=== PATIENT | male | born 1955 | race Caucasian/White ===

== ENCOUNTER 2024-06-20 14:08 | Outpatient (AMB) | payer MEDICARE, MEDICAID, SELFPAY ==
[2024-06-20 14:12] VITALS: BP 125/61; PULSE 67; O2SAT 95; BMI 34.6
--- NOTE | 2024-06-20 14:12 | A.OFFVIS_ITS ---
Vital Signs 3 06/20/24 14:12 Height 6 ft Weight 255 lb BMI 34.6 BP 125/61 Blood Pressure Location Lt brachial Position Sitting Pulse 67 Pulse Source Pulse Oximeter Pulse Oximetry (%) 95 Oxygen Delivery Method Room Air Intake Visit Reasons: Cervical Myelopathy Allergies No Known Allergies Allergy (Verified 06/20/24 14:16) Medication List - Last Reconciled 06/20/24 by Carrie Alvarez alogliptin 25 mg PO DAILY amlodipine 10 mg PO DAILY atorvastatin 40 mg PO DAILY ergocalciferol (vitamin D2) 1,250 mcg PO QWEEK fluticasone propionate 50 mcg/actuation (Allergy Relief (fluticasone)) 1 spray intranasal DAILY furosemide 20 mg PO DAILY gabapentin 300 mg PO TID levothyroxine 112 mcg PO DAILY losartan 100 mg PO DAILY meloxicam 15 mg PO DAILY metformin 500 mg PO BID omeprazole 20 mg PO DAILY polyvinyl alcohol 1.4% (Artificial Tears (polyvinyl alcohol)) 1 drp ophthalmic (eye) BID-QID PRN HPI Comments Details: Jose is a very pleasant 69-year-old male who presents the office today for evaluation and management of his chronic neck and back pain. He is accompanied by his sister. He endorses 30 years of cervical neck pain, decreased range of motion and weakness of the upper extremities. Was diagnosed with cervical myelopathy, he had an evaluation by Neurosurgery who told him that he would not benefit from surgery and ultimately could make him worse. They feel that he would have dysphagia after surgery. Today would like to focus on his lower back pain as this is the most bothersome. He has been suffering with this pain for approximately 5 years and feels that it is increasingly worsening Over the last 5 years has transitioned from independent ambulation to cane and now requires Rollator walker Reports difficulty lifting his left lower extremity due to lack of strength which ultimately resulted in a recent fall. Patient had an MRI 4 months ago [facility]. Per PCP referral there was cervical myelopathy and lumbar spinal stenosis. We do not have results or images for review. These have been requested. He was evaluated by neurosurgery where they discussed a cervical fusion and lumbar surgery. They did not feel the surgeon was optimistic about performing any surgeries. She told them his pain could worsen and he could end up with permanent damage including dysphagia from the cervical fusion. Therefore they decided to forego surgery though they would consider a 2nd opinion as they felt she did not thoroughly address all their questions and concerns. Approximately 1 year ago patient was enrolled in physical therapy at home, 3 times weekly. Despite this his pain persists. Recent attempts at physical therapy were unsuccessful, he was in too much pain. He has tried massage in the past which is also helpful. He currently takes meloxicam and gabapentin with minimal improvement. He is afraid to stop them though as he feels it may worsen his pain. One year ago moved to [place] from the state of [place]. While he was in [place] he was on chronic opioids, oxycodone 10 mg 4 times daily. He reports that this medication helped him maintain some level of activity and independence. Since moving to [place] he has not been able to get these reinstated. He denies red flag symptoms including new loss of bowel, bladder or saddle anesthesia. Pain today is rated as a 7/10, constant In terms of muscle damage condition is described as punishing, killing, sharp, cutting, lacerating, tingling, stinging. Pain is negatively impacting patient's enjoyment of life, sleep, ability to perform activities of daily living, ability to care for himself and ability to function normally. He requires VNA assistance in the home to help with bathing and basically all activities of daily living. His meals are supplied by meals on wheels, he feels if he did not have this service he would not eat at all. Review of Systems Const All systems reviewed & are unremarkable except as noted in HPI and below Physical Exam Vital Signs: Last Vital Signs Pulse 67 06/20/24 14:12 BP 125/61 06/20/24 14:12 Pulse Ox 95 06/20/24 14:12 Oxygen Delivery Method Room Air 06/20/24 14:12 BMI result Body Mass Index 34.6 General: awake, alert, oriented. Answers questions appropriately. Fully engaged in examination. Skin: warm, dry, intact HEENT: Normocephalic. Hearing intact. Cardiac: External chest normal in appearance. Respiratory: No cough, audible wheezing or stridor. Abdomen: without gross distension. MS: No obvious swelling or deformities. Able to transition from sit to stand unassisted. Ambulates with slight forward flexion Tenderness midline lumbar vertebrae and lower paraspinal muscles Decreased strength left lower extremity. Weakness of left hip flexor. SLR negative bilaterally Negative footdrop, negative clonus Nontender over PSIS bilaterally Decreased cervical range of motion in all planes Facet loading positive Tenderness to palpation midline cervical vertebrae and cervical paraspinal muscles Neurological: Oriented to person, place, time and situation. Thought process intact. Ambulates with Rollator walker Psychiatric: Appropriate mood and affect. Good judgment and insight. Results Reviewed Results Reviewed: Official report and images have been requested. Assessment & Plan Assessment & Plan (1) Cervical myelopathy: Code(s): G95.9 - Disease of spinal cord, unspecified Category: Medical (2) Lumbar spinal stenosis: Code(s): M48.061 - Spinal stenosis, lumbar region without neurogenic claudication Category: Medical (3) Chronic back pain: Code(s): M54.9 - Dorsalgia, unspecified; G89.29 - Other chronic pain Category: Medical Plan Jose is a very pleasant 69-year-old male who presented to the office today for evaluation management of his chronic neck and lower back pain. Today he reports his lower back pain is his main concern he would like to start with this area 1st. Had a recent MRI at [facility], results and images have been requested for review. Lengthy discussion with patient regarding diagnosis and treatment options. All of these will require review of MRI. We will consider caudal epidural steroid injection, transforaminal epidural steroid injection mild procedure, spinal cord stimulator or intrathecal pain pump. May also benefit from 2nd opinion with neurosurgical evaluation. New prescription for methocarbamol 500 mg p.o. t.i.d.. Patient advised on cautions for use. Continue with gabapentin and meloxicam as prescribed by primary care provider All questions and concerns were answered, patient agrees with plan. Follow-up once MRI is available for review. Medications: New 2 methocarbamol No driving while taking this medication. 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
== END 2024-06-20 15:19 | disposition home or self-care (01) ==
PROVIDERS: PCP Internal Medicine; Visit Provider Registered Nurse Emergency
DX: G95.9 Disease of spinal cord, unspecified (principal); M48.061 Spinal stenosis, lumbar region without neurogenic claudication; M54.9 Dorsalgia, unspecified; G89.29 Other chronic pain
CPT/HCPCS: 99204

== ENCOUNTER → 2024-06-20 14:08 | Outpatient (BNVA) | payer MEDICARE, MEDICAID, SELFPAY | PROVIDERS: PCP Internal Medicine; Visit Provider Registered Nurse Emergency | DX: M48.061 Spinal stenosis, lumbar region without neurogenic claudication (principal); M54.9 Dorsalgia, unspecified; G89.29 Other chronic pain; G95.9 Disease of spinal cord, unspecified | CPT/HCPCS: 99202 ==

== ENCOUNTER 2024-07-28 14:58 | Outpatient (AMB) | payer MEDICARE, MEDICAID, SELFPAY ==
--- NOTE | 2024-07-28 14:59 | MHC.OFFVIS ---
Vital Signs 07/28/24 15:11 Height 6 ft Weight 273 lb 2 oz BMI 37.0 BP 130/60 Blood Pressure Location Lt brachial Position Sitting Respiration 14 Pulse 57 Pulse Source Pulse Oximeter Pulse Oximetry (%) 94 Oxygen Delivery Method Room Air Intake Visit Reasons: Discuss MRI Results Intake Note: Patient comes in to discuss MRI results. Reports pain 610. Allergies No Known Allergies Allergy (Verified 07/28/24 15:10) HPI Comments Details: Jose is a very pleasant 69-year-old male who presents the office today for evaluation and management of his chronic neck and back pain. He is accompanied by his sister. He endorses 30 years of cervical neck pain, decreased range of motion and weakness of the upper extremities. Was diagnosed with cervical myelopathy, he had an evaluation by Neurosurgery who told him that he would not benefit from surgery and ultimately could make him worse. They feel that he would have dysphagia after surgery. The patient was explained today that with myelopathy he can not become quadriplegic or develop quadriparesis. As of his lower back pain my impression is that he is suffering from both spondylosis of the lumbar spine and bilateral sacroiliitis. Prior: He has been suffering with this pain for approximately 5 years and feels that it is increasingly worsening Over the last 5 years has transitioned from independent ambulation to cane and now requires Rollator walker Reports difficulty lifting his left lower extremity due to lack of strength which ultimately resulted in a recent fall. Patient had an MRI 4 months ago [facility]. Per PCP referral there was cervical myelopathy and lumbar spinal stenosis. We do not have results or images for review. These have been requested. He was evaluated by neurosurgery where they discussed a cervical fusion and lumbar surgery. They did not feel the surgeon was optimistic about performing any surgeries. She told them his pain could worsen and he could end up with permanent damage including dysphagia from the cervical fusion. Therefore they decided to forego surgery though they would consider a 2nd opinion as they felt she did not thoroughly address all their questions and concerns. Approximately 1 year ago patient was enrolled in physical therapy at home, 3 times weekly. Despite this his pain persists. Recent attempts at physical therapy were unsuccessful, he was in too much pain. He has tried massage in the past which is also helpful. He currently takes meloxicam and gabapentin with minimal improvement. He is afraid to stop them though as he feels it may worsen his pain. One year ago moved to [place] from the state of [place]. While he was in [place] he was on chronic opioids, oxycodone 10 mg 4 times daily. He reports that this medication helped him maintain some level of activity and independence. Since moving to [place] he has not been able to get these reinstated. He denies red flag symptoms including new loss of bowel, bladder or saddle anesthesia. Pain today is rated as a 7/10, constant In terms of muscle damage condition is described as punishing, killing, sharp, cutting, lacerating, tingling, stinging. Pain is negatively impacting patient's enjoyment of life, sleep, ability to perform activities of daily living, ability to care for himself and ability to function normally. He requires VNA assistance in the home to help with bathing and basically all activities of daily living. His meals are supplied by meals on wheels, he feels if he did not have this service he would not eat at all. Review of Systems Const All systems reviewed & are unremarkable except as noted in HPI and below ENT Reports Normal hearing present Neuro Reports Normal hearing present, Denies Abnormal speech present, Denies confusion and Denies Sensory deficit (Neuro) Psych Denies confusion Physical Exam Const General: no acute distress; No confusion Nutritional Appearance: obese morbidly obese Orientation/consciousness: patient oriented x3 and No confusion Eyes General: appearance normal, both eyes and all related structures Pupils: Equal, round and reactive pupils present EOM: EOMs intact bilaterally Neck Neck: Yes full ROM Chest Chest palpation & inspection: normal inspection of the chest Resp Effort & Inspection: normal respiratory effort, able to speak in complete sentences, normal respiratory pattern, no audible wheezes and no cough Cardio Jugular venous distension: no JVD GI Inspection: Yes normal to inspection Back/Spine/Pelvis Other: Flexing forward as well as flexing backwards equally aggravates patient's pain. Patient reports he is unable to flex his thigh because of the weakness he is unable to move his arms freely they seem to be weak and stiff. He denies Valsalva maneuver aggravates his pain. Reflexes on the left side brachioradialis and triceps seem to be a little bit more agile compare to reflexes on the right. Same thing can not be said about bilateral patellar reflexes: The left side reflexes more brisk than the right 1 although grading would be only +1. Bilateral Achilles reflexes are very sluggish, completely absent. He admits possible urinary retention he reports that sometimes he needs to flex himself all the way for vieyra in the able to make himself urinate. He denies incontinence with urine or stool. He reports sitting aggravates his pain as well as standing, pain is alleviated when he is laying down. He reports that standing aggravate his pain the most. SLR is negative bilaterally. Forced feet dorsiflexion in maximal SLR negative bilaterally for pain increase in the back although it is discomforting for him because of the injury of the left knee in the past. Rancho test is positive bilaterally. Attempt to perform Gaenslen test is also cause severe discomfort in the projection of bilateral sacroiliac joint although patient is very difficult to perform Gaenslen test because of stiffness and weakness. Also patient admits pain aggravation with pelvic compression test. Loading test is also positive bilaterally. There is severe tenderness on palpation in paraspinal spinal region lower lumbar spine. Neuro General: patient oriented x3, gait normal and No confusion Cranial nerves: Yes CN's II-XII intact bilaterally, Yes Equal, round and reactive pupils present, Yes Normal hearing present and Yes Ability to bilaterally elevate shoulders present Speech: No Abnormal speech present Gait exam (Neuro): Normal gait present Motor exam (neuro): 5/5 motor strength present throughout Sensory Exam: No Sensory deficit (Neuro) Extrem Other: Bilateral lower extremity seem to be edematous, bilateral upper extremity seem to be also edematous General: No pedal edema Psych Speech and movement: Normal speech and movement present Affect: normal affect Attitude: cooperative Thought process: Normal thought process present Thought content: Normal thought content present Insight: Good insight present (Psych) Judgement: Good judgement present (Psych) Assessment & Plan Assessment & Plan (1) Cervical myelopathy: Code(s): G95.9 - Disease of spinal cord, unspecified Category: Medical (2) Lumbar spinal stenosis: Code(s): M48.061 - Spinal stenosis, lumbar region without neurogenic claudication Category: Medical (3) Chronic back pain: Code(s): M54.9 - Dorsalgia, unspecified; G89.29 - Other chronic pain Category: Medical (4) Myelomalacia of cervical cord: Code(s): G95.89 - Other specified diseases of spinal cord Category: Medical Plan Patient requested me to refill the methocarbamol which was prescribed to him last time. I will refill methocarbamol for him. I thought that they were talking about cyclobenzaprine and I was thinking about increasing it to 7.5 however it is unlikely I can increase this doses. I will refer patient to Dr. Burroughs to evaluate cervical spine and mielomalcia of the cervical spinal cord. I will schedule this patient for bilateral diagnose sacroiliac joint injection to determine how much sacroiliitis and sacroiliac joint pathology is involved in his pain. If this will not help his pain in significant extent I will schedule him for diagnostic bilateral medial branch block. Also his MRI is positive for endplate changes throughout all the lumbar vertebra. When they will obtain the MRI images of the lumbar spine I will examine the myself and if there is Modic type changes 1 into we might be able to consider intercept for this patient. If there are Modic type 3 changes we would need to speak about neuromodulation to help his lower back pain. Orders: Referrals Neurosurgery Referral G95.89 - Other specified diseases of spinal cord, G95.9 - Disease of spinal cord, unspecified Medications: Changed From methocarbamol No driving while taking this medication. 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 Do no take with alcohol or other CONTENT MANAGEMENT CONSULTANT Depressants 500 mg PO TID 30 days PRN 90 tabs 5RF muscle spasm Patient Instructions: I here by testify that I spent 35 minutes in conversation with this patient as well as planning his care and organizing this note. Coding Level of Care Code Est Pt Level 4 (27831) Diagnoses Cervical myelopathy G95.9 Lumbar spinal stenosis M48.061 Chronic back pain M54.9; G89.29 Myelomalacia of cervical cord G95.89
[2024-07-28 15:11] VITALS: BP 130/60; PULSE 57; RESP 14; O2SAT 94; BMI 37.0
== END 2024-07-28 15:37 | disposition home or self-care (01) ==
PROVIDERS: PCP Internal Medicine; Visit Provider Anesthesiology
DX: G95.9 Disease of spinal cord, unspecified (principal); M48.061 Spinal stenosis, lumbar region without neurogenic claudication; M54.9 Dorsalgia, unspecified; G89.29 Other chronic pain; G95.89 Other specified diseases of spinal cord
CPT/HCPCS: 99214

== ENCOUNTER → 2024-07-28 14:58 | Outpatient (BNVA) | payer MEDICARE, MEDICAID, SELFPAY | PROVIDERS: PCP Internal Medicine; Visit Provider Anesthesiology | DX: M54.2 Cervicalgia (principal); M54.9 Dorsalgia, unspecified; M48.061 Spinal stenosis, lumbar region without neurogenic claudication; G89.29 Other chronic pain; G95.89 Other specified diseases of spinal cord | CPT/HCPCS: 99212 ==

== ENCOUNTER 2024-08-25 13:55 | Outpatient (AMB) | payer MEDICARE, MEDICAID, SELFPAY ==
--- NOTE | 2024-08-25 14:02 | HO.SPINEOV ---
Intake Visit Reasons: spinal cord compression Intake Note: Mr. Bledsoe is here today c/o low back pain. Hogshead Hooper Required: No Allergies No Known Allergies Allergy (Verified 07/28/24 15:10) Assessment & Plan Assessment & Plan (1) Cervical myelopathy: Code(s): G95.9 - Disease of spinal cord, unspecified Category: Medical Plan Dear Dr Lopez, Thank you for referring Mr Bledsoe to our office today. He is a 69-year-old diabetic gentleman presents to the office today for evaluation of 2 separate issues. The 1st is that he has had tremendous back pain with feelings of weakness and fatigue in his leg when he walks. He has tried physical therapy, meloxicam. He was having good relief with oxycodone when he was in [place] but that was discontinued once he came here to [place]. The 2nd is a cervical myelopathy which was diagnosed on cervical MRI, evaluated at [facility] told he was not a surgical candidate or that he was a very high risk surgical candidate because of the approach for the surgery. Apparently, he has large bridging osteophytes and was told that the retraction from the surgery itself could cause him to lose the ability to swallow. He is here today for a 2nd opinion after he was seen in your office for pain management issues. In terms of myelopathic symptoms, he does not specifically report a lot of symptoms in terms of numbness or weakness of his arms but he does have a lot of trouble lifting his left leg up in the air. He has a lot of balance issues as well. PMH: He is a diabetic, he recently moved here from [place] a year ago, he tells me it his A1c is generally around the normal range but has not had it checked in the last few months, history of sleep apnea, hypertension, morbid obesity, left knee surgery. Denies any problem with his heart, stroke, liver disease, kidney disease, blood clots, bleeding disorders, cancer Social hx: He does not smoke, occasionally uses marijuana a few times a week, rarely uses alcohol Medications: Lasix, gabapentin, levothyroxine, losartan, meloxicam, metformin, methocarbamol, omeprazole, fluticasone, vitamin-D, atorvastatin, amlodipine, alogliptin Allergies: None Physical exam: Awake alert oriented no acute distress, he walks with a walker, able to stand up on his own, in terms of his motor exam he has weakness of bilateral hands which I would rate as 4-5, he has a left iliopsoas and left dorsiflexion weakness which I would rate as 3/5. Reflexes diffusely absent, no Kiran's, no clonus. Imaging review: He has imaging done at [place], cervical MRI and lumbar MRI that were done this year, cervical MRI shows large anterior bridging osteophytes along the whole length of the anterior cervical spine. He has posterior disc bulging and herniation from C3-C5 causing severe spinal cord compression at C3-4, C4-5 with intramedullary cord signal change. Lumbar MRI shows severe stenosis at L2-3 and L3-4 with moderate degenerative disc disease. Impression: 69-year-old diabetic male presents with 2 separate spinal issues, the 1st being a cervical myelopathy with hand weakness and left leg weakness in the setting of severe spinal cord compression at C3-4 and C4-5. He was seen by another neurosurgeon at [facility] and told the surgery was too high risk due to the anterior cervical approach giving him high risk for dysphagia. Dr. Burroughs reviewed the imaging, and feels that although there is large osteophytes here, that these could be removed without any significant additional risk, and this would also give him the chance to have the spinal cord optimally decompressed. However, we need some clarification on the anatomy with a CT scan because there is some hypointensity behind the body of 4 suggesting that there may be some overgrowth and calcifications back there that may require full corpectomy as opposed to a 2 level anterior cervical fusion. We will obtain the CT and the x-rays and see the patient back. We will manage the issues with the lumbar spine once we address the severe myelopathy. The patient will need to stop his alogliptin 1 week before surgery and may need a preoperative clearance from his PCP. Thank you for allowing us to care for your patient. The total time spent with this visit with this patient was 45 minutes reviewing history, physical exam, cervical and lumbar imaging review, and implementation of treatment plan or further diagnostic testing Gabriel Burroughs MD,PhD [facility] Orders: Orders XR cervical spine 4V Today G95.9 - Disease of spinal cord, unspecified CT cervical spine wo IV con Today G95.9 - Disease of spinal cord, unspecified Coding Level of Care Code New Pt Level 4 (50169) Diagnoses Cervical myelopathy G95.9
== END 2024-08-25 15:28 | disposition home or self-care (01) ==
PROVIDERS: PCP Internal Medicine; Visit Provider Physician Assistant
DX: G95.9 Disease of spinal cord, unspecified (principal)
CPT/HCPCS: 99204

== ENCOUNTER → 2024-08-25 13:55 | Outpatient (BNVA) | payer MEDICARE, MEDICAID, SELFPAY | PROVIDERS: PCP Internal Medicine; Visit Provider Physician Assistant | DX: G95.9 Disease of spinal cord, unspecified (principal) | CPT/HCPCS: 99202 ==

== ENCOUNTER 2024-10-06 13:33 | Outpatient (REF) | payer MEDICARE, MEDICAID, SELFPAY ==
--- NOTE | ~2024-10-06 | XR_ITS ---
EXAMINATION: XR CERVICAL SPINE CLINICAL INFORMATION: Disease of spinal cord, unspecified G95.9. COMPARISON: CT cervical spine October 06, 2024 TECHNIQUE: 7 views of the cervical spine were obtained. FINDINGS: The cervical spine is only visualized to the superior endplate of C5 on the lateral projection. There is joint space narrowing involving the atlantodens articulation. There are bulky ventral bridging osteophytes at C2-C3, C4 and C5. 2 mm anterolisthesis of C2 on C3 and C3 on C4. 2 mm retrolisthesis of the C4 and C5. Moderate intervertebral disc space narrowing at C4-C5. Lateral masses are symmetric. Prevertebral soft tissues are within normal limits. XR/XR cervical spine 4V IMPRESSION: Advanced multilevel degenerative spondyloarthropathy. Electronically signed by: Dante Maravilla MD 11/29/2024 09:03 AM LAVON RIZZO
--- NOTE | ~2024-10-06 | CT_ITS ---
EXAMINATION: CT CERVICAL SPINE WITHOUT CONTRAST CLINICAL INFORMATION: Cervical spinal cord disease. COMPARISON: None available. TECHNIQUE: Multidetector helical imaging of the cervical spine was obtained without intravenous contrast. Multiple axial reformats and coronal/sagittal reconstructions were created the technologist workstation for review. This CT examination was performed using dose optimization techniques as appropriate, variously including the following: *Automated exposure control. *Adjustment of mA and/or kV according to patient size (this includes techniques or standardized protocols for targeted exams where dose is matched to indication/reason for exam; i.e. extremities or head). *Use of iterative reconstruction technique. DLP: 591 mGy-cm FINDINGS: The atlantooccipital and atlantoaxial articulations remain well aligned. Moderate to advanced arthropathy of the atlantodental articulation. Mild right convex curvature of the cervical spine. Straightening of the normal cervical lordosis. Otherwise, there is anatomic alignment of the vertebral bodies and posterior elements. No evidence of acute fracture or subluxation. The vertebral body heights are maintained. Advanced degenerative disc disease at C6-C7. Moderate degenerative disc disease at all cervical levels. 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 Exuberant bridging anterior osteophytosis of C2-T2. There is no prevertebral soft tissue swelling. The thyroid gland and remaining cervical soft tissues are within normal limits. The lung apices demonstrate no abnormalities. SPINAL LEVELS: C2-C3: Moderate disc-osteophyte complex. Partial ossification of the posterior longitudinal ligament. There is mild left and no right uncovertebral joint arthropathy. There is severe bilateral facet joint arthropathy. There is mild bilateral neural foraminal stenosis. There appears to be mild to moderate spinal canal stenosis. C3-C4: Prominent disc-osteophyte complex eccentric to the right. Partial ossification of the posterior longitudinal ligament. There is severe right and moderate left uncovertebral joint arthropathy. There is severe right and moderate left facet joint arthropathy. There is severe right and moderate left neural foraminal stenosis. There appears to be severe spinal canal stenosis. C4-C5: Moderate disc-osteophyte complex. Partial ossification of the posterior longitudinal ligament. There is severe left and moderate right uncovertebral joint arthropathy. There is severe right and moderate left facet joint arthropathy. There is severe bilateral neural foraminal stenosis. There appears to be severe spinal canal stenosis. C5-C6: Prominent disc-osteophyte complex. There is severe left and moderate right uncovertebral joint arthropathy. There is moderate bilateral facet joint arthropathy. There is severe left and moderate right neural foraminal stenosis. There appears to be severe spinal canal stenosis. C6-C7: Mild disc-osteophyte complex. There is moderate bilateral uncovertebral joint arthropathy. There is severe left and moderate right facet joint arthropathy. There is mild right and no left neural foraminal stenosis. There is no demonstrated spinal canal stenosis. C7-T1: Mild disc-osteophyte complex. There is mild bilateral uncovertebral joint arthropathy. There is moderate bilateral facet joint arthropathy. There is mild bilateral neural foraminal stenosis. There is no demonstrated spinal canal stenosis. CT/CT cervical spine wo IV con IMPRESSION: 1. No evidence of acute fracture or traumatic subluxation of the cervical spine. 2. Advanced multilevel degenerative spondyloarthropathy of the cervical spine as described in detail above. 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 Most notably on this limited exam without intrathecal contrast, there appears to be severe spinal canal stenoses from C3-C6. Mild to moderate spinal canal stenosis at C2-C3. Moderate to severe neural foraminal stenoses from C3-C6. Electronically signed by: Brian Nuñez DO 11/27/2024 03:56 AM [facility]
--- OUTSIDE RECORDS SUMMARY | 2024-10-11 09:40 | XMS_ITS ---
Author Name [facility] [place] Address [address] [place] [address] Care Team Providers Care Skilled Nursing Facility Counselor Name Role Phone VINCENZO MILLER Primary Care Provide TRICIA Shipman Primary Care Provider Unavailabl e Insurance Providers: All historical and current Section Date Range: From patient's date of to the date document was created. This section includes the names of all active insurance providers for the patient. Insurance Provider Type of Coverage Plan Name Start of Policy Coverage End of Policy Coverage Group Number Member ID Insurance Provider's Telephone Number Policy Cantu's Name Patient's Relationship to Policy Cantu MEDICARE (WNR) MEDICARE (M) PART A March 01, 2018 PART A [id number] Sam PEACE PATIENT MEDICARE (WNR) MEDICARE (M) PART B March 01, 2018 PART B [id number] [phone] [id number] Sam PEACE PATIENT MEDICARE (WNR) MEDICARE (M) PART A March 01, 2018 PART A [id number] Sam PEACE PATIENT MEDICARE (WNR) MEDICARE (M) PART B March 01, 2018 PART B [id number] Sam PEACE PATIENT Selected Encounter This section includes the information on record at [place] for the Encounter. Date/Time Encounter Type Encounter Description Reason Pro vider Source Nov 23, 2023 12:00 PM Outpatient Encounter COMMUNITY CARE CONSULT IHE Encounter Template Text not used by [place] Plan of Treatment: Future Appointments (+ 6 months) and Future Tests (+/- 45 days) The Plan of Treatment section includes future care activities for the patient from all [place] [facility] This section includes future appointments and future orders which are active, pending or scheduled. Future Appointments This section includes appointments that were scheduled to occur 6 months from the date of the Encounter, up to a maximum of 20 appointments. The data comes from all [place] treatment facilities. Appointment Date/Time Appointment Type Appointme nt Facility Name Dec 10, 2023 03:00 PM AMBULATORY - MEDICINE [facility] [place] [facility] Dec 31, 2023 02:00 PM [facility] Jan 13, 2024 02:30 PM [facility]INE [facility] Jan 19, 2024 12:45 PM AMBULATORY - MEDICINE [facility] [place] [facility] Feb 11, 2024 03:20 PM AMBULATORY - [place] [facility] Apr 12, 2024 01:45 PM AMBULATORY - MEDICINE [facility] [place] [facility] May 16, 2024 03:00 PM AM[facility]ULATORY - MEDICINE [facility] Social History: Smoking Status (Most current) and Tobacco Use (All prior to encounter date) This section includes the most current, and the historical, smoking and tobacco- related health factors from the [place] facility where the Encounter took place. Current Smoking Status This section includes the most current smoking, or tobacco-related health factor, from the [place] facility where the Encounter took place. Date/Time Current Smoking Status Comment Bony zuniga Jun 07, 2023 07:43 PM VA-TOBACCO NEVER USED [place] [facility] Encounter Notes: All associated encounter notes This section contains the clinical notes associated to the Encounter. Date/Time Encounter Note(s) Provider Source Nov 23, 2023 12:00 PM NONVA CONSULT: LOCAL TITLE: COMMUNITY CARE-CONSULT RESULT NOTE STANDARD TITLE: NONVA CONSULT DATE OF NOTE: NOV 23, 2023@12:00 ENTRY DATE: DEC 01, 2023@10:58:17 AUTHOR: ANNABELLE CASEY COSIGNER: URGENCY: STATUS: COMPLETED VistA Imaging - Scanned Document SCANNED DOCUMENT SIGNATURE NOT REQUIRED Electronically Filed: 12/01/2023 by: ANNABELLE CASEY SECRETARY ANNABELLE CASEY [facility]
--- OUTSIDE RECORDS SUMMARY | 2024-10-11 09:40 | XMS_ITS ---
Author Name [facility] [place] Address [address] [place] [address] Care Team Providers Care Paper Testing Supervisor Name Role Phone VINCENZO MILLER Primary Care [...] PART A March 01, 2018 PART A [id number] [phone] Sam PEACE PATIENT MEDICARE (WNR) MEDICARE (M) PART B March 01, 2018 PART B [id number] Sam PEACE PATIENT MEDICARE (WNR) MEDICARE (M) PART A March 01, 2018 PART A [id number] Sam PEACE PATIENT MEDICARE (WNR) MEDICARE (M) PART B March 01, 2018 PART B [id number] Sam PEACE PATIENT Selected Encounter This section includes the information on record at [place] for the Encounter. Date/Time Encounter Type Encounter Description Reason Provider Source Dec 10, 2023 03:00 PM FIT SPECTACLES MULTIFOCAL OPTOMETRY ICD-10-CM Z46.0 Encounter for fit/adjst of spectacles and contact lenses CARLIE WOODSON [facility] Encounter Template Text not used by [place] Assessments - Encounter Diagnoses This section includes the primary and secondary diagnoses documented for the Encounter. Date/Time Primary/Secondary Diagnosis Diagnosis Name Provider Source Dec 10, 2023 03:44 PM PRIMARY Encounter for fit/adjst of spectacles and contact lenses CARLIE WOODSON [facility] Plan of Treatment: Future Appointments (+ 6 months) and Future Tests (+/- 45 days) The Plan of Treatment section includes future care activities for the patient from all [place] [facility]. This section includes future appointments and future orders which are active, pending or scheduled. Future Appointments This section includes appointments that were scheduled to occur 6 months from the date of the Encounter, up to a maximum of 20 appointments. The data comes from all [place] treatment facilities. Appointment Date/Time Appointment Type Appointme nt Facility Name Dec 31, 2023 02:00 PM [facility] Jan 13, 2024 02:30 PM [facility] Jan 19, 2024 12:45 PM [facility] Feb 11, 2024 03:20 PM [facility] Apr 12, 2024 01:45 PM [facility]ULAT[facility] - MEDICINE [facility] May 16, 2024 03:00 PM [facility] Social History: Smoking Status (Most current) and Tobacco Use (All prior to encounter date) This section includes the most current, and the historical, smoking and tobacco- related health factors from the [place] facility where the Encounter took place. Current Smoking Status This section includes the most current smoking, or tobacco-related health factor, from the [place] facility where the Encounter took place. Date/Time Current Smoking Status Comment Bony zuniga Jun 07, 2023 07:43 PM [facility] Encounter Notes: All associated encounter notes This section contains the clinical notes associated to the Encounter. Date/Time Encounter Note(s) Provider Source Dec 10, 2023 03:38 PM OPTOMETRY NOTE: LOCAL TITLE: OPTOMETRY NOTE STANDARD TITLE: OPTOMETRY NOTE DATE OF NOTE: DEC 10, 2023@15:38 ENTRY DATE: DEC 10, 2023@15:39:02 AUTHOR: CARLIE WOODSON EXP COSIGNER: URGENCY: STATUS: COMPLETED Patient came in today for an outside RX from [facility] [address] [place], [place] [id number] TeL:[phone] OD:-3.00 -0.50 85 Prism:2.5 Base Down OS:-1.25 -0.50 95 Prism:2.5 Base UP ADD:+2.50 Frame Clear PAL: FX10/Gunmetal PD:65-62 Frame Sun PAL:FX10/Coffee Seght:25 Informed patient he will receive them in about 2-3 weeks in the mail and if he needs them fitted or adjusted to please call and make a fittings appt. /chloe/ CARLIE WOODSON [facility] Signed: 12/10/2023 15:44 CARLIE WOODSON [place] [facility]
--- OUTSIDE RECORDS SUMMARY | 2024-10-11 09:40 | XMS_ITS | Encounter Summary ---
Author Name [facility] [place] Address [address] [place] [address] Care Team Providers Care Feeder Worker Power Unit Operator Name Role Phone VINCENZO MILLER Primary Care [...] Member ID Insurance Provider's Telephone Number Policy Acntu's Name Patient's Relationship to Policy Cantu MEDICARE (WNR) MEDICARE (M) PART A March 01, 2018 PART A [id number] Sam PEACE PATIENT MEDICARE (WNR) MEDICARE (M) PART B March 01, 2018 PART B [id number] [phone] Sam PEACE PATIENT MEDICARE (WNR) MEDICARE (M) PART A March 01, 2018 PART A [id number] Sam PEACE PATIENT MEDICARE (WNR) MEDICARE (M) PART B March 01, 2018 PART B [id number] [phone] Sam PEACE PATIENT Selected Encounter This section includes the information on record at [place] for the Encounter. Date/Time Encounter Type Encounter Description Reason Pro vider Source Dec 01, 2023 09:18 AM Outpatient Encounter OPTOMETRY IHE Encounter Template Text not used by [place] Plan of Treatment: Future Appointments (+ 6 months) and Future Tests (+/- 45 days) The Plan of Treatment section includes future care activities for the patient from all [place] [facility]. This section includes future appointments and future orders which are active, pending or scheduled. Future Appointments This section includes appointments that were scheduled to occur 6 months from the date of the Encounter, up to a maximum of 20 appointments. The data comes from all [place] treatment facilities. Appointment Date/Time Appointment Type Appointme nt Facility Name Dec 10, 2023 03:00 PM [place]ORY [place] [facility] Dec 31, 2023 02:00 PM [facility] Jan 13, 2024 02:30 PM [facility]INE [facility] Jan 19, 2024 12:45 PM AMBULATORY - MEDICINE [facility] [place] [facility] Feb 11, 2024 03:20 PM AMBULATORY [place] [facility] Apr 12, 2024 01:45 PM AMBULATORY - MEDICINE [facility] [place] [facility] May 16, 2024 03:00 PM [facility]ATORY - MEDICINE [facility] Social History: Smoking Status (Most current) and Tobacco Use (All prior to encounter date) This section includes the most current, and the historical, smoking and tobacco- related health factors from the [place] facility where the Encounter took place. Current Smoking Status This section includes the most current smoking, or tobacco-related health factor, from the [place] facility where the Encounter took place. Date/Time Current Smoking Status Comment Bony zuniga Jun 07, 2023 07:43 PM VA-TOBACCO NEVER USED [place] CN[facility] Encounter Notes: All associated encounter notes This section contains the clinical notes associated to the Encounter. Date/Time Encounter Note(s) Provider Source Dec 01, 2023 09:18 AM TELEPHONE ENCOUNTE R NOTE: LOCAL TITLE: TELEPHONE NOTE/SPECIALTY CLINIC STANDARD TITLE: TELEPHONE ENCOUNTER NOTE DATE OF NOTE: DEC 01, 2023@09:18 ENTRY DATE: DEC 01, 2023@09:18:19 AUTHOR: AUDREY ROE EXP COSIGNER: URGENCY: STATUS: COMPLETED RTC pid 10/01/2023 dispositioned due to veterans failure to respond to all contact efforts per department standards. /chloe/ AUDREY ROE ADVANCED KINDERGARTEN INSTRUCTIONAL ASSISTANT Signed: 12/01/2023 09:18 [address] [place] [facility]
--- OUTSIDE RECORDS SUMMARY | 2024-10-11 09:40 | XMS_ITS | Encounter Summary ---
Author Name [facility] [place] Address [address] [place] [address] Care Team Providers Care School Operations Manager Name Role Phone VINCENZO MILLER Primary Care [...] PART A March 01, 2018 PART A [id number] [phone] Sam PEACE PATIENT MEDICARE (WNR) MEDICARE (M) PART B March 01, 2018 PART B [id number] Sam PEACE PATIENT MEDICARE (WNR) MEDICARE (M) PART A March 01, 2018 PART A [id number] Sam PEACE PATIENT MEDICARE (WNR) MEDICARE (M) PART B March 01, 2018 PART B [id number] Sam PEACE PATIENT Selected Encounter This section includes the information on record at [place] for the Encounter. Date/Time Encounter Type Encounter Description Reason Pro vider Source Oct 15, 2023 01:34 PM Outpatient Encounter COMMUNITY CARE CONSULT IHE Encounter Template Text not used by [place] Plan of Treatment: Future Appointments (+ 6 months) and Future Tests (+/- 45 days) The Plan of Treatment section includes future care activities for the patient from all [place] [facility]. This section includes future appointments and future orders which are active, pending or scheduled. Future Appointments This section includes appointments that were scheduled to occur 6 months from the date of the Encounter, up to a maximum of 20 appointments. The data comes from all [facility]. Appointment Date/Time Appointment Type Appointme nt Facility Name Dec 10, 2023 03:00 PM [facility] Dec 31, 2023 02:00 PM [facility]ULAT[facility] MEDICINE [facility] Jan 13, 2024 02:30 PM AMBULATORY - MEDICINE [facility] Jan 19, 2024 12:45 PM AMBULATORY - MEDICINE [facility] [place] [place] [facility] Feb 11, 2024 03:20 PM AM[place] [facility] Apr 12, 2024 01:45 PM [facility] Social History: Smoking Status (Most current) and Tobacco Use (All prior to encounter date) This section includes the most current, and the historical, smoking and tobacco- related health factors from the [place] facility where the Encounter took place. Current Smoking Status This section includes the most current smoking, or tobacco-related health factor, from the [place] facility where the Encounter took place. Date/Time Current Smoking Status Andre zuniga Jun 07, 2023 07:43 PM [facility] Radiology Reports: +/- 30 days of the encounter Radiology Reports For cases when an order for radiology services may have been completed prior to the date of the Encounter, the report list includes the Radiology Reports that were completed up to 30 days before dateof the Encounter. For cases when an order for radiology services may have been completed after the date of the Encounter, the report list also includes the Radiology Reports that were completed up to30 days after date of the Encounter. The data comes from all [facility]. Date/Time Radiology Report Provider Source Oct 07, 2023 03:[address] CHEST W /O CONT: NATE PEACE [id number] -[id number] M Exm Date: OCT 07, 2023@15:21 Req Phys: VINCENZO MILLER Loc: [facility]/OUTSIDE IMAGING NON-CNT (R Img Loc: OUTSIDE GENERAL RADIOLOGY Service: Unknown (Case [id number] COMPLETE) OUTSIDE CT CHEST W/O CONT (RAD Detailed) CPT:89140 Reason for Study: outside images downloaded for continuity of care Clinical History: outside images downloaded for continuity of care Report Status: Electronically Filed Date Reported: OCT 07, 2023 Report: THIS EXAM WAS PERFORMED AND INTERPRETED AT AN OUTSIDE HOSPITAL Impression: THIS EXAM WAS PERFORMED AND INTERPRETED AT AN OUTSIDE HOSPITAL Primary Diagnostic Code: VERIFIED BY: / *ELECTRONICALLY FILED* [facility] Encounter Notes: All associated encounter notes This section contains the clinical notes associated to the Encounter. Date/Time Encounter Note(s) Provider Source Oct 15, 2023 01:34 PM ADMINISTRATIVE NOT E: LOCAL TITLE: ADMINISTRATIVE NOTE STANDARD TITLE: ADMINISTRATIVE NOTE DATE OF NOTE: OCT 15, 2023@13:34 ENTRY DATE: OCT 15, 2023@13:34:36 AUTHOR: MIGUELITO PANDA COSIGNER: URGENCY: STATUS: COMPLETED ADMINISTRATIVE NOTE Has ADDENDA requests a call back to discuss CT Scan results. /rachael PANDA BILINGUAL ELEMENTARY SCHOOL TEACHER Signed: 10/15/2023 13:35 Receipt Acknowledged By: 10/15/2023 13:55 /rachael LERNER RN REGISTERED NURSE 10/18/2023 12:08 /chloe/ VINCENZO MILLER MD PHYSICIAN 10/15/2023 ADDENDUM STATUS: COMPLETED Will defer to provider to review and discuss. CT Scan notes are in provider's Right Fax folder. /rachael LERNER RN REGISTERED NURSE Signed: 10/15/2023 13:56 MIGUELITO PANDA [facility]
--- OUTSIDE RECORDS SUMMARY | 2024-10-11 09:40 | XMS_ITS ---
Author Name [facility] Address [address] [place] [address] Care Team Providers Care Inventory Representative Name Role Phone VINCENZO MILLER Primary Care [...] PART A March 01, 2018 PART A [id number] [phone] Sam PEACE PATIENT MEDICARE (WNR) MEDICARE (M) PART B March 01, 2018 PART B [id number] [phone] Sam PEACE PATIENT MEDICARE (WNR) MEDICARE (M) PART A March 01, 2018 PART A [id number] Sam PEACE PATIENT MEDICARE (WNR) MEDICARE (M) PART B March 01, 2018 PART B [id number] Sam PEACE PATIENT Selected Encounter This section includes the information on record at [place] for the Encounter. Date/Time Encounter Type Encounter Description Reason Pro vider Source Oct 18, 2023 11:02 AM Outpatient Encounter COMMUNITY CARE CONSULT [facility] Encounter Template Text not used by [place] Plan of Treatment: Future Appointments (+ 6 months) and Future Tests (+/- 45 days) The Plan of Treatment section includes future care activities for the patient [facility]. This section includes future appointments and future orders which are active, pending or scheduled. Future Appointments This section includes appointments that were scheduled to occur 6 months from the date of the Encounter, up to a maximum of 20 appointments. The data comes from all [facility]. Appointment Date/Time Appointment Type Appointme nt Facility Name Dec 10, 2023 03:00 PM AMBULATORY - [facility]INE [facility] Dec 31, 2023 02:00 PM [facility] MEDICINE [facility] Jan 13, 2024 02:30 PM AMBULATORY - MEDICINE [facility] Jan 19, 2024 12:45 PM AMBULATORY - MEDICINE [facility] [place] [facility] Feb 11, 2024 03:20 PM [facility] Apr 12, 2024 01:45 PM [facility] - MEDICINE [facility] Social History: Smoking Status (Most current) and Tobacco Use (All prior to encounter date) This section includes the most current, and the historical, smoking and tobacco- related health factors from the [place] facility where the Encounter took place. Current Smoking Status This section includes the most current smoking, or tobacco-related health factor, from the [place] facility where the Encounter took place. Date/Time Current Smoking Status Comment Bony zuniga Jun 07, 2023 07:43 PM VA-TOBACCO NEVER USED [facility] Radiology Reports: +/- 30 days of the [...] the Encounter. The data comes from all [facility]. Date/Time Radiology Report Provider Source Oct 07, 2023 03:[address] CHEST W /O CONT: NATE PEACE [id number] -[id number] M Exm Date: OCT 07, 2023@15:21 Req Phys: VINCENZO MILLER Loc: [facility]/OUTSIDE IMAGING NON-CNT (R Img Loc: OUTSIDE GENERAL RADIOLOGY Service: Unknown (Case [id number] COMPLETE) OUTSIDE CT CHEST W/O CONT (RAD Detailed) CPT:80033 Reason for Study: outside images downloaded for continuity of care Clinical History: outside images downloaded for continuity of care Report Status: Electronically Filed Date Reported: OCT 07, 2023 Report: THIS EXAM WAS PERFORMED AND INTERPRETED AT AN OUTSIDE HOSPITAL Impression: THIS EXAM WAS PERFORMED AND INTERPRETED AT AN OUTSIDE HOSPITAL Primary Diagnostic Code: VERIFIED BY: / *ELECTRONICALLY FILED* [place] [facility] Encounter Notes: All associated encounter notes This section contains the clinical notes associated to the Encounter. Date/Time Encounter Note(s) Provider Source Oct 18, 2023 11:02 AM ADMINISTRATIVE NOT E: LOCAL TITLE: ADMINISTRATIVE NOTE STANDARD TITLE: ADMINISTRATIVE NOTE DATE OF NOTE: OCT 18, 2023@11:02 ENTRY DATE: OCT 18, 2023@11:02:47 AUTHOR: MIGUELITO PANDA COSIGNER: URGENCY: STATUS: COMPLETED 01/19/24 at 12:45 arrival with a 1:45 colo/EGD procedure with Dr. Barroso at [facility] ; pt is on waitlist ALERTING PACT: The earliest available appt for the CC-COLO DIAG W/EGD, consult has Clinically Ind. Date: Aug 20, 2023 based on the consult as written and supporting documentation; if appointment is not acceptable, community provider requests clinical justification by PACT to clinic call. Please see the consult for contact information /chloe/ MIGUELITO PANDA UNIX DEVELOPER Signed: 10/18/2023 11:03 Receipt Acknowledged By: 10/18/2023 11:17 /es/ SENA LERNER RN REGISTERED NURSE 10/18/2023 11:59 /es/ VINCENZO MILLER MD PHYSICIAN MIGUELITO PANDA [facility]
--- OUTSIDE RECORDS SUMMARY | 2024-10-11 09:40 | XMS_ITS | Continuity of Care Document ---
Author Name [facility] Organization [facility] Care Team Providers Care Home Health Scheduler Name Role Phone [facility] Unavailable Unavailable Problems Combined list of problems from Department of Defense and Veterans Affairs facilities. It does not include entries that were removed or entered in error. Problem Status Onset Date Problem Type Date of Resolution Comments Source Diabetic neuropathy Active 023 Condition Jun 07, 2023 Entered By: SIMA HAMILTON Comment: Type 2 DM with Diabetic Neuropathy [facility] Spinal stenosis in cervical region Active 021 Condition [facility] Spinal stenosis of lumbar region Active 021 Condition [facility] Chronic pain Active 020 Condition Jun 07, 2023 Entered By: SIMA HAMILTON Comment: Syndrome [facility] Obstructive sleep apnea Active 020 Condition [facility] Fracture of rib Active 018 Condition Jun 07, 2023 Entered By: SIMA HAMILTON Comment: of 1 rib Rt side-closed Fx [facility] Hypothyroidism Active 018 Condition Jun 07, 2023 Entered By: SIMA HAMILTON Comment: Unspecified [facility] Diabetes mellitus type 2 Active 017 Condition [facility] Hyperlipidemia Active 017 Condition [facility] Hypertension Active 017 Condition Jun 07, 2023 Entered By: SIMA HAMILTON Comment: disorder systemic arterial [facility] Obesity Active 017 Condition [facility] Sleep apnea Active 017 Condition [facility] Essential hypertension Active 012 Condition [facility] Cervical spondylosis without myelopathy Active 006 Condition [facility] Umbilical hernia Active 006 Condition Jun 07, 2023 Entered By: SIMA HAMILTON Comment: UMBILICAL HERNIA WITHOUT MENTION OF OBSTRUCTION OR GANGREN [facility] Cervical disc disorder Active 002 Condition [facility] Cervical radiculopathy Active 002 Condition [facility] Hypercholesterolemia Active 002 Condition Jun 07, 2023 Entered By: SIMA HAMILTON Comment: OTHER UNKNOWN AND UNSPECIFIED CAUSE OF MORBIDITY OR MORTALITY [facility] Depressive disorder Active 000 Condition Jun 07, 2023 Entered By: SIMA HAMILTON Comment: Not elsewhere classified [facility] Gastro-esophageal reflux disease with esophagitis Active 000 Condition [facility] Abdominal pain Active Condition [facility] DISC DISEASE Active Condition [facility] CERVICAL RADICULOPATHY Active Condition [facility] Cervical spondylosis without myelopathy (ICD-9-CM 721.0) Active Condition [facility] Chronic pain syndrome Active Condition [facility] Cough Active Condition [facility] DEPRESSIVE DISORDER NEC Active Condition [facility] Diabetes mellitus Active Condition [facility] Diabetic neuropathy Active Condition [facility]ys[facility]nea Active Condition [facility] Fatigue Active Condition [facility] HYPERCHOLESTEROLEMIA Active Condition [facility] Hyperlipidemia [facility] Condition [facility] Hypertension Active Condition [facility] Hypertension Active Condition [facility] Hypothyroidism Active Condition [facility] Impaired fasting glucose Active Condition [facility] Joint pain Active Condition [facility] Leucocytosis Active Condition [facility] Low back pain Active Condition [facility] Obesity Active Condition [facility] Obstructive sleep apnea syndrome Active Condition [facility] REFLUX ESOPHAGITIS Active Condition [facility] Rib fracture Active Condition [facility] Sleep apnea Active Condition [facility] Spinal stenosis in cervical region Active Condition [facility] Spinal stenosis of lumbar region Active Condition [facility] Umbilical hernia * (ICD-9-CM 553.1) Active Condition [facility] Vitamin B12 Deficiency (SCT [id number]) Active Condition [facility] Vitamin D deficiency Active Condition [facility] Vitamin D Deficiency (SCT [id number]) Active Condition [facility] D sertraline Inactive Condition 05/29/2002 [facility] Diagnosis: ICD-10-CM R63.4 Abnormal weight loss Active Diagnosis [facility] Diagnosis: ICD-10-CM I10 Essential (primary) hypertension Active Diagnosis [facility] Diagnosis: ICD-10-CM Z46.0 Encounter for fit/adjst of spectacles and contact lenses Active Diagnosis [facility] Diagnosis: ICD-10-CM Z71.9 Counseling, unspecified Active Diagnosis [facility] Medications Combined list of outpatient medications from Department of Defense and Veterans Affairs facilities.Medications provided include 1) outpatient medications from the last 15 months, and 2) patient-reported medications. Medication Details Route Status Patient Instructions Prescription Expires Prescription Number Last Dispense Date Ordering Provider Order Date Order Qty Source ALOGLIPTIN 25 MG ORAL TAB TAKE ONE TABLET BY MOUTH DAILY REPLACES SAXAGLIP PRESLEY Discont inued 12/07/2024 [id number] TRICIA COLLINS 2023 90 [facility] ALOGLIPTIN 25 MG ORAL TAB TAKE ONE TABLET BY MOUTH DAILY REPLACES SAXAGLIP PRESLEY Discont inued 11/04/2023 [id number] TRICIA COLLINS 2023 90 [facility] ALOGLIPTIN 25 MG ORAL TAB TAKE ONE TABLET BY MOUTH DAILY REPLACES SAXAGLIP PRESLEY 11/04/2023 [id number] TRICIA COLLINS 2022 90 [facility] ALOGLIPTIN 25 MG ORAL TAB TAKE ONE TABLET BY MOUTH ONCE DAILY FOR TYPE 2 DIABETES MELLITUS 08/20/2024 [id number] VINCENZO SIMPSON 2022 90 [facility] ALOGLIPTIN 25MG TAB TAKE ONE TABLET BY MOUTH ONCE DAILY FOR TYPE 2 DIABETES MELLITUS ORAL DISCONT INUED BY PROVIDE R 08/20/2024 [id number] VINCENZO SIMPSON M 2022 90 [place] ALOGLIPTIN 25MG TAB TAKE ONE TABLET BY MOUTH DAILY REPLACES SAXAGLIP PRESLEY ORAL DISCONT INUED (EDIT) 12/07/2024 [id number] AMY COLLINS R 2023 90 [facility] ALOGLIPTIN 25MG TAB TAKE ONE TABLET BY MOUTH DAILY REPLACES SAXAGLIP PRESLEY ORAL DISCONT INUED 11/04/2023 [id number] AMY COLLINS JAMEY R 2022 90 [facility] [facility] amLODIPine (U/D) 10 MG ORAL TAB TAKE ONE TABLET BY MOUTH DAILY (DO NOT TAKE WITH GRAPEFRU IT JUICE) FOR HEART AND BLOOD PRESSURE 11/04/2023 [id number] TRICIA COLLINS R 2023 90 [place] amLODIPine (U/D) 10 MG ORAL TAB TAKE ONE TABLET BY MOUTH ONCE DAILY FOR BLOOD PRESSURE /HEART, DO NOT TAKE WITH GRAPEFRU IT JUICE 08/20/2024 [id number] VINCENZO SIMPSON 2023 90 [facility] AMLODIPINE BESYLATE 10MG TAB TAKE ONE TABLET BY MOUTH DAILY (DO NOT TAKE WITH GRAPEFRU IT JUICE) FOR HEART AND BLOOD PRESSURE ORAL DISCONT INUED 11/04/2023 [id number] AMY COLLINS R 2022 90 [facility] AMLODIPINE BESYLATE 10MG TAB TAKE ONE TABLET BY MOUTH ONCE DAILY FOR BLOOD PRESSURE /HEART, DO NOT TAKE WITH GRAPEFRU IT JUICE ORAL 08/20/2024 [id number] VINCENZO SIMPSON M 2023 90 [place] atorvastati n (U/D) 40 MG ORAL TAB TAKE ONE-HALF TABLET BY MOUTH ONCE DAILY FOR HIGH CHOLESTE ROL Active 01/01/2025 [id number] VINCENZO SIMPSON 2023 45 [facility] atorvastati n (U/D) 40 MG ORAL TAB TAKE ONE-HALF TABLET BY MOUTH AT BEDTIME FOR CHOLESTE ROL 04/26/2024 [id number] TRICIA COLLINS R 2023 45 [facility] atorvastati n (U/D) 40 MG ORAL TAB TAKE ONE-HALF TABLET BY MOUTH ONCE DAILY FOR HIGH CHOLESTE ROL Discont inued 08/20/2024 [id number] VINCENZO SIMPSON 2023 45 [facility] ATORVASTATI N CA 40MG TAB TAKE ONE-HALF TABLET BY MOUTH ONCE DAILY FOR HIGH CHOLESTE ROL ORAL ACTIVE 01/01/2025 [id number] VINCENZO SIMPSON 2023 45 [place] ATORVASTATI N CA 40MG TAB TAKE ONE-HALF TABLET BY MOUTH ONCE DAILY FOR HIGH CHOLESTE ROL ORAL HOLD 08/20/2024 [id number] VINCENZO SIMPSON 2022 45 [place] ATORVASTATI N CA 40MG TAB TAKE ONE-HALF TABLET BY MOUTH AT BEDTIME FOR CHOLESTE ROL ORAL 04/26/2024 [id number] AMY COLLINS R 2022 45 [facility] CETIRIZINE (U/D) 10 MG ORAL TAB TAKE ONE TABLET BY MOUTH ONCE DAILY FOR ALLERGIE S 08/20/2024 [id number] VINCENZO SIMPSON 2022 90 [facility] CETIRIZINE HCL 10MG TAB TAKE ONE TABLET BY MOUTH ONCE DAILY FOR ALLERGIE S ORAL ACTIVE 05/17/2025 [id number] VINCENZO SIMPSON 2023 90 [place] CETIRIZINE HCL 10MG TAB TAKE ONE TABLET BY MOUTH ONCE DAILY FOR ALLERGIE S ORAL DISCONT INUED BY LAMAR Vargas 08/20/2024 [id number] VINCENZO SIMPSON 2022 90 [place] CHOLECALCIF (VIT D3) 1,000 UNIT ORAL TAB TAKE ONE TABLET BY MOUTH ONCE DAILY FOR VITAMIN SUPPLEME NTATION 09/08/2024 [id number] VINCENZO SIMPSON 2023 90 [facility] CHOLECALCIF JENNY 25MCG (1,000UNIT) TAB TAKE ONE TABLET BY MOUTH ONCE DAILY FOR VITAMIN SUPPLEME NTATION ORAL ACTIVE 05/17/2025 [id number] 4 VINCENZO SIMPSON 2023 100 [place] CHOLECALCIF JENNY 25MCG (1,000UNIT) TAB TAKE ONE TABLET BY MOUTH ONCE DAILY FOR VITAMIN SUPPLEME NTATION ORAL DISCONT INUED 09/08/2024 [id number] VINCENZO SIMPSON M 2022 90 [place] Compounded Prilosec Capsule Conventiona l 20 mg Oral TAKE ONE CAPSULE BY MOUTH DAILY FOR STOMACH Discont inued 11/04/2023 [id number] TRICIA COLLINS 2023 90 [facility] Compounded Prilosec Capsule Conventiona l 20 mg Oral TAKE ONE CAPSULE BY MOUTH EVERY MORNING 30 MINUTES BEFORE BREAKFAS T FOR HEARTBUR N 08/20/2024 [id number] VINCENZO SIMPSON 2022 90 [facility] ERGOCALCIFE ROL 1,250MCG (50,000UNIT ) CAP TAKE 30276GSO T BY MOUTH EVERY 2 WEEKS A VITAMIN D2 SUPPLEME NT ORAL DISCONT INUED 11/04/2023 [id number] 3 AMY COLLINS 2022 6 [facility] FLONASE-OTC (BRAND) 50 MCG RUMA SPSN [9.9] INSTILL 1 SPRAY IN EACH NOSTRIL DAILY FOR BREATHIN G Discont inued 01/08/2024 [id number] STEPHANTRICIA ROSE 2023 2 [place] FLONASE-OTC (BRAND) 50 MCG RUMA SPSN [9.9] INSTILL 1 SPRAY IN EACH NOSTRIL DAILY FOR BREATHIN G 01/08/2024 [id number] TRICIA COLLINS R 2023 2 [place] FLONASE-OTC (BRAND) 50 MCG RUMA SPSN [9.9] INSTILL 1 SPRAY INTO EACH NOSTRIL ONCE DAILY FOR NASAL IRRITATI ON/INFLA MMATION 08/20/2024 [id number] VINCENZO SIMPSON M 2022 1 [facility] FLUTICASONE PROPIONATE 50MCG/SPRAY SOLN,NASAL, 16GM INSTILL 1 SPRAY INTO EACH NOSTRIL ONCE DAILY FOR NASAL IRRITATI ON/INFLA MMATION NASAL ACTIVE 05/17/2025 [id number] VINCENZO SIMPSON M 2023 1 [place] FLUTICASONE PROPIONATE 50MCG/SPRAY SOLN,NASAL, 16GM INSTILL 1 SPRAY INTO EACH NOSTRIL ONCE DAILY FOR NASAL IRRITATI ON/INFLA MMATION NASAL DISCONT INUED BY LAMAR R 08/20/2024 [id number] VINCENZO SIMPSON M 2022 1 [place] FLUTICASONE PROPIONATE 50MCG/SPRAY SOLN,NASAL, 16GM INSTILL 1 SPRAY IN EACH NOSTRIL DAILY FOR BREATHIN G NASAL DISCONT INUED 01/08/2024 [id number] 4 AMY COLLINS R 2022 2 [facility] furosemide (U/D) 20 MG ORAL TAB TAKE ONE TABLET BY MOUTH ONCE DAILY TO REMOVE FLUID/CO NTROL BLOOD PRESSURE Active 01/17/2025 [id number] [facility] 20[facility] 20 MG ORAL TAB TAKE ONE TABLET BY MOUTH DAILY FOR 30 DAYS, AND TAKE TWO TABLETS WEDNESDAY FOR 30 DAYS A DIURETIC OR WATER PILL 10/05/2024 [id number] 4 TRICIA COLLINS 2023 35 [place] [facility] furosemide (U/D) 20 MG ORAL TAB TAKE ONE TABLET BY MOUTH DAILY FOR 30 DAYS, AND TAKE TWO TABLETS WEDNESDAY FOR 30 DAYS A DIURETIC OR WATER PILL 10/05/2024 [id number] TRICIA COLLINS 2022 35 [place] [facility] furosemide (U/D) 20 MG ORAL TAB TAKE ONE TABLET BY MOUTH DAILY FOR 30 DAYS, AND TAKE TWO TABLETS WEDNESDAY FOR 30 DAYS A DIURETIC OR WATER PILL Discont inued 11/04/2023 [id number] TRICIA COLLINS 2022 35 [place] [facility] FUROSEMIDE 20MG TAB TAKE ONE TABLET BY MOUTH ONCE DAILY TO REMOVE FLUID/CO NTROL BLOOD PRESSURE ORAL HOLD 01/17/2025 [id number] VINCENZO SIMPSON 2023 90 [facility] FUROSEMIDE 20MG TAB TAKE ONE TABLET BY MOUTH DAILY FOR 30 DAYS, AND TAKE TWO TABLETS WEDNESDAY FOR 30 DAYS A DIURETIC OR WATER PILL ORAL DISCONT INUED 11/04/2023 [id number] 3 AMY COLLINS 2022 35 [facility] FUROSEMIDE 20MG TAB TAKE ONE TABLET BY MOUTH DAILY FOR 30 DAYS, AND TAKE TWO TABLETS WEDNESDAY FOR 30 DAYS A DIURETIC OR WATER PILL ORAL 10/05/2024 [id number] 4 AMY COLLINS 2022 35 [facility] [facility] GABAPENTIN (U/D) 300 MG ORAL CAP TAKE TWO CAPSULES BY MOUTH THREE TIMES A DAY NEEDED FOR DIABETIC NEUROPAT HY Active 02/21/2025 [id number] TRICIA COLLINS 2023 270 [facility] GABAPENTIN (U/D) 300 MG ORAL CAP TAKE TWO CAPSULES BY MOUTH THREE TIMES A DAY NEEDED FOR DIABETIC NEUROPAT HY Discont inued 06/02/2024 [id number] STEPHANMILTON TRICIA Vargas 2023 270 [facility] GABAPENTIN (U/D) 300 MG ORAL CAP TAKE TWO CAPSULES BY MOUTH THREE TIMES A DAY FOR NERVE PAIN 09/01/2024 [id number] VINCENZO SIMPSON 2022 540 [facility] GABAPENTIN 300MG CAP TAKE TWO CAPSULES BY MOUTH THREE TIMES A DAY FOR NERVE PAIN ORAL ACTIVE 05/17/2025 [id number] VINCENZO SIMPSON 2023 540 [place] GABAPENTIN 300MG CAP TAKE TWO CAPSULES BY MOUTH THREE TIMES A DAY NEEDED FOR DIABETIC NEUROPAT HY ORAL ACTIVE 02/21/2025 [id number] 4 AMY COLLINS R 2023 270 [facility] GABAPENTIN 300MG CAP TAKE TWO CAPSULES BY MOUTH THREE TIMES A DAY FOR NERVE PAIN ORAL DISCONT INUED 09/01/2024 [id number] VINCENZO SIMPSON 2022 540 [place] GABAPENTIN 300MG CAP TAKE TWO CAPSULES BY MOUTH THREE TIMES A DAY NEEDED FOR DIABETIC NEUROPAT HY ORAL DISCONT INUED 06/02/2024 [id number] 4 AMY COLLINS R 2022 270 [facility] Hydrochloro thiazide (Oretic) Tablet 25 mg Oral TAKE ONE TABLET BY MOUTH ONCE DAILY Discont inued 08/20/2024 [id number] VINCENZO SIMPSON 2023 90 [facility] HYDROCHLORO THIAZIDE 25MG TAB TAKE ONE TABLET BY MOUTH ONCE DAILY ORAL DISCONT INUED BY LAMAR R 08/20/2024 [id number] VINCENZO SIMPSON 2022 90 [place] LEVOTHYROXI NE NA 100MCG TAB (SYNTHROID) TAKE ONE TABLET BY MOUTH EVERY MORNING 30 MINUTES BEFORE BREAKFAS T FOR THYROID TAKE ON AN EMPTY STOMACH WITH A FULL GLASS OF WATER ORAL ACTIVE 10/06/2025 [id number] 4 VINCENZO SIMPSON 2023 90 [place] LEVOTHYROXI NE NA 100MCG TAB (SYNTHROID) TAKE ONE TABLET BY MOUTH EVERY MORNING 30 MINUTES BEFORE BREAKFAS T FOR THYROID TAKE ON AN EMPTY STOMACH WITH A FULL GLASS OF WATER ORAL DISCONT INUED 03/18/2025 [id number] VINCENZO SIMPSON 2023 90 [place] LEVOTHYROXI NE NA 100MCG TAB (SYNTHROID) TAKE ONE TABLET BY MOUTH EVERY MORNING 30 MINUTES BEFORE BREAKFAS T FOR THYROID TAKE ON AN EMPTY STOMACH WITH A FULL GLASS OF WATER ORAL DISCONT INUED 09/08/2024 [id number] VINCENZO SIMPSON 2022 90 [place] LEVOTHYROXI NE NA 112MCG TAB (SYNTHROID) TAKE ONE TABLET BY MOUTH DAILY 1 HOUR PRIOR TO FIRST MEAL OF THE DAY FOR THYROID NEW DOSE ORAL DISCONT INUED 11/04/2023 [id number] AMY COLLINS 2022 90 [facility] LIDOCAINE 5% PATCH APPLY 1 PATCH TOPICALL Y ONCE DAILY FOR NERVE PAIN (LEAVE PATCH ON FOR 12 HOURS, THEN REMOVE PATCH) TOPICA L ACTIVE 06/01/2025 [id number] VINCENZO SIMPSON 2023 60 [place] LIDOCAINE 5% PATCH APPLY 1 PATCH TOPICALL Y ONCE DAILY FOR NERVE PAIN (LEAVE PATCH ON FOR 12 HOURS, THEN REMOVE PATCH) TOPICA L DISCONT INUED (EDIT) 05/18/2025 [id number] VINCENZO SIMPSON 2023 30 [place] Loperamide HCl (Imodium A-D Eq.) Capsule Conventiona l 2mg Oral TAKE ONE CAPSULE BY MOUTH BEFORE MEALS FOR DIARRHEA 09/01/2024 [id number] VINCENZO SIMPSON 2023 90 [facility] LOPERAMIDE HCL 2MG CAP TAKE ONE CAPSULE BY MOUTH BEFORE MEALS FOR DIARRHEA ORAL ACTIVE 05/17/2025 [id number] VINCENZO SIMPSON 2023 90 [facility] LOPERAMIDE HCL 2MG CAP TAKE ONE CAPSULE BY MOUTH BEFORE MEALS FOR DIARRHEA ORAL DISCONT INUED 09/01/2024 [id number] VINCENZO SIMPSON M 2022 90 [facility] [place] losartan (U/D) 100 MG ORAL TAB TAKE ONE TABLET BY MOUTH ONCE DAILY FOR BLOOD PRESSURE /HEART 08/20/2024 [id number] VINCENZO SIMPSON 2022 90 [facility] losartan (U/D) 100 MG ORAL TAB TAKE ONE TABLET BY MOUTH DAILY FOR HEART AND BLOOD PRESSURE 06/02/2024 [id number] TRICIA COLLINS R 2022 90 [facility] LOSARTAN POTASSIUM 100MG TAB TAKE ONE TABLET BY MOUTH ONCE DAILY FOR BLOOD PRESSURE /HEART ORAL ACTIVE 05/17/2025 [id number] VINCENZO SIMPSON 2023 90 [facility] POTASSIUM 100MG TAB TAKE ONE TABLET BY MOUTH ONCE DAILY FOR BLOOD PRESSURE /HEART ORAL DISCONT INUED BY PROVIDE R 08/20/2024 [id number] VINCENZO SIMPSON 2022 90 [facility] [place] POTASSIUM 100MG TAB TAKE ONE TABLET BY MOUTH DAILY FOR HEART AND BLOOD PRESSURE ORAL DISCONT INUED 06/02/2024 [id number] AMY COLLINS R 2022 90 [facility] MELATONIN 5MG CAP/TAB TAKE TWO CAPSULE/ TABLET BY MOUTH ONCE DAILY NEEDED FOR INSOMNIA ORAL ACTIVE 03/18/2025 [id number] VINCENZO SIMPSON 2023 90 [facility] MELATONIN 5MG CAP/TAB TAKE TWO CAPSULE/ TABLET BY MOUTH ONCE DAILY NEEDED FOR INSOMNIA ORAL DISCONT INUED 09/08/2024 [id number] VINCENZO SIMPSON 2022 90 [facility] MELOXICAM (U/D) 15 MG ORAL TAB TAKE ONE TABLET BY MOUTH DAILY NEEDED FOR PAIN AND INFLAMMA TION REPLACES NAPROSYN Active 12/07/2024 [id number] TRICIA COLLINS 2023 90 [facility] MELOXICAM (U/D) 15 MG ORAL TAB TAKE ONE TABLET BY MOUTH DAILY NEEDED FOR PAIN AND INFLAMMA TION REPLACES NAPROSYN Discont inued 11/04/2023 [id number] TRICIA COLLINS 2023 90 [facility] MELOXICAM 15MG TAB TAKE ONE TABLET BY MOUTH DAILY NEEDED FOR PAIN AND INFLAMMA TION REPLACES NAPROSYN ORAL ACTIVE 12/07/2024 [id number] AMY COLLINS 2023 90 [facility] MELOXICAM 15MG TAB TAKE ONE TABLET BY MOUTH DAILY NEEDED FOR PAIN AND INFLAMMA TION REPLACES NAPROSYN ORAL DISCONT INUED 11/04/2023 [id number] AMY COLLINS 2022 90 [facility] metFORMIN (FORTAMET EQ) 500 MG PO TR24 TAKE ONE TABLET BY MOUTH TWICE DAILY Active 03/18/2025 [id number] VINCENZO SIMPSON 2023 180 [facility] metFORMIN (FORTAMET EQ) 500 MG PO TR24 TAKE ONE TABLET BY MOUTH TWICE DAILY Discont inued 09/08/2024 [id number] VINCENZO SIMPSON 2023 180 [facility] metFORMIN (FORTAMET EQ) 500 MG PO TR24 TAKE ONE TABLET BY MOUTH TWICE DAILY 09/08/2024 [id number] VINCENZO SIMPSON 2022 180 [facility] metFORMIN (FORTAMET EQ) 500 MG PO TR24 TAKE ONE TABLET BY MOUTH TWICE DAILY FOR TYPE 2 DIABETES MELLITUS Discont inued 08/20/2024 [id number] VINCENZO SIMPSON 2022 180 [facility] METFORMIN HCL 1000MG TAB TAKE ONE TABLET BY MOUTH TWICE A DAY FOR DIABETES ORAL DISCONT INUED 11/04/2023 [id number] AMY COLLINS R 2022 180 [facility] METFORMIN HCL 500MG 24HR TAB,SA TAKE ONE TABLET BY MOUTH TWICE DAILY ORAL ACTIVE 03/18/2025 [id number] VINCENZO SIMPSON 2023 180 [place] METFORMIN HCL 500MG 24HR TAB,SA TAKE ONE TABLET BY MOUTH TWICE DAILY ORAL DISCONT INUED 09/08/2024 [id number] VINCENZO SIMPSON 2022 180 [place] METFORMIN HCL 500MG 24HR TAB,SA TAKE ONE TABLET BY MOUTH TWICE DAILY FOR TYPE 2 DIABETES MELLITUS ORAL DISCONT INUED 08/20/2024 [id number] VINCENZO SIMPSON 2022 180 [place] Metformin Hydrochlori de Tablet Extended Release 1,000 mg Oral TAKE ONE TABLET BY MOUTH TWICE A DAY FOR DIABETES 11/04/2023 [id number] TRICIA COLLINS 2023 180 [facility] OMEPRAZOLE 20MG CAP,EC TAKE ONE CAPSULE BY MOUTH EVERY MORNING 30 MINUTES BEFORE BREAKFAS T FOR HEARTBUR N ORAL ACTIVE 05/17/2025 [id number] VINCENZO SIMPSON 2023 90 [place] OMEPRAZOLE 20MG CAP,EC TAKE ONE CAPSULE BY MOUTH EVERY MORNING 30 MINUTES BEFORE BREAKFAS T FOR HEARTBUR N ORAL DISCONT INUED BY PROVIDE R 08/20/2024 [id number] VINCENZO SIMPSON M 2022 90 [facility] OMEPRAZOLE 20MG CAP,EC TAKE ONE CAPSULE BY MOUTH DAILY FOR STOMACH ORAL DISCONT INUED 11/04/2023 [id number] 3 AMY COLLINS R 2022 90 [facility] OXYCODONE HCL 10MG/ACETAM INOPHEN 325MG TAB TAKE ONE TABLET BY MOUTH EVERY 6 HOURS ORAL ACTIVE RUT KINCAID YS L 2020 [facility] Polyvinyl Alcohol 1.4% + Povidone 0.6% + Preservativ e Free Solution, Ophthalmic INSTILL 1 DROP INTO EACH EYE FOUR TIMES A DAY FOR DRY EYE 08/19/2024 [id number] VINCENZO SIMPSON M 2023 100 [facility] POLYVINYL ALCOHOL 1.4%/POVIDO NE (PF) SOLN,OPH INSTILL 1 DROP INTO EACH EYE FOUR TIMES A DAY FOR DRY EYE OPHTHA LMIC 08/19/2024 [id number] VINCENZO SIMPSON M 2022 100 [facility] simethicone 80 MG ORAL CHEW CHEW TWO TABLETS BY MOUTH ONCE DAILY NEEDED FOR GAS 05/06/2024 [id number] VINCENZO ISMPSON 2023 100 [facility] simethicone 80 MG ORAL CHEW CHEW TWO TABLETS BY MOUTH ONCE DAILY NEEDED FOR GAS Discont inued 02/19/2024 [id number] VINCENZO SIMPSON 2023 100 [facility] simethicone 80 MG ORAL CHEW CHEW TWO TABLETS BY MOUTH ONCE DAILY NEEDED FOR GAS 02/19/2024 [id number] VINCENZO SIMPSON 2023 100 [facility] simethicone 80 MG ORAL CHEW CHEW TWO TABLETS BY MOUTH ONCE DAILY NEEDED FOR GAS Discont inued 10/28/2023 [id number] VINCENZO SIMPSON 2023 100 [facility] simethicone 80 MG ORAL CHEW CHEW TWO TABLETS BY MOUTH ONCE DAILY NEEDED FOR GAS 10/28/2023 [id number] VINCENZO SIMPSON M 2022 100 [facility] SIMETHICONE 80MG TAB,CHEW CHEW TWO TABLETS BY MOUTH ONCE DAILY NEEDED FOR GAS ORAL ACTIVE 05/17/2025 [id number] 4 VINCENZO SIMPSON 2023 100 [place] SIMETHICONE 80MG TAB,CHEW CHEW TWO TABLETS BY MOUTH ONCE DAILY NEEDED FOR GAS ORAL DISCONT INUED 05/06/2024 [id number] 4 VINCENZO SIMPSON 2023 100 [place] SIMETHICONE 80MG TAB,CHEW CHEW TWO TABLETS BY MOUTH ONCE DAILY NEEDED FOR GAS ORAL DISCONT INUED 02/19/2024 [id number] 4 VINCENZO SIMPSON 2023 100 [place] SIMETHICONE 80MG TAB,CHEW CHEW TWO TABLETS BY MOUTH ONCE DAILY NEEDED FOR GAS ORAL DISCONT INUED 10/28/2023 [id number] 3 VINCENZO SIMPSON 2022 100 [place] SITAGLIPTIN (EQV-ZITUVI O) 100MG TAB TAKE ONE TABLET BY MOUTH ONCE DAILY DIABETES REPLAC ES ALOGLIPT IN ORAL ACTIVE 05/17/2025 [id number] VINCENZO SIMPSON 2023 90 [place] SITAGLIPTIN (EQV-ZITUVI O) 100MG TAB TAKE ONE TABLET BY MOUTH DAILY REPLACES SAXAGLIP PRESLEY ORAL ACTIVE 03/21/2025 [id number] STEPHANAMY ROSE R 2023 90 [facility] SITagliptin (U/D) 100 MG ORAL TAB TAKE ONE TABLET BY MOUTH DAILY REPLACES SAXAGLIP PRESLEY Active 03/21/2025 [id number] KARINA TRICIA R 2023 90 [facility] Allergies, Adverse Reactions, Alerts Combined list of allergies from Department of Defense and Veterans Affairs facilities. It does not include entries that were removed or entered in error. Substance Category Reaction Severity Reaction type Status Date Reported Comments Source PENICILLIN Propensity to adverse reactions to drug (finding) OTHER REACTION active 2 [facility] PENICILLIN Propensity to adverse reactions to drug (finding) active 3 [facility] Penicillins Drug allergy (disorder) Unknown active 2 [facility] penicillins Propensity to adverse reactions to substance Unknown Active [facility] PENICILLINS Drug allergy (disorder) active 3 [facility] Immunizations Combined list of available immunizations from the Department of Defense and Veterans Affairs facilities. Immunization Series Date Given Administered By Site Reaction Lot Number CVX Code Drug Valve Pipe Irrigator Status Comments Source INFLUENZA VACCINE, QUADRIVALENT, ADJUVANTED 2020 205 complet [facility] COVID-19 (MODERNA), MRNA, LNP-S, PF, 100 MCG OR 50 MCG DOSE 2 2020 207 complet [facility] COVID-19 (MODERNA), MRNA, LNP-S, PF, 100 MCG OR 50 MCG DOSE 1 2020 207 complet [facility] INFLUENZA, HIGH-DOSE, QUADRIVALENT 2019 197 complet [facility] INFLUENZA, TRIVALENT, ADJUVANTED 2018 168 complet [facility] PNEUMOCOCCAL POLYSACCHARID E PPV23 2018 33 complet [facility] INFLUENZA, TRIVALENT, ADJUVANTED 2017 168 complet [facility] PNEUMOCOCCAL CONJUGATE PCV 13 2017 133 [facility]IC Results Combined list of recent chemistry, hematology and other laboratory results from Department of Defense and Veterans Affairs, ranging from 15 months to all on record, depending upon the facility. Order Name Results Value Reference Range Date Interpretation Specimen Comments Source MICROALBU MIN CREATININ E RATIO PANEL MICROALBUMI N/CREATININ E [MASS RATIO] IN URINE 6.0 mg/g 0 - 29.9 05/16 Specimen Type: URINE No comment entered. Ordering Provider: JEWEL RAMIREZ Report Released Date/Time: May 03, 2024 09:28 AM Reporting Lab: [address] [address] Performing Lab: [address] [address] [place] MICROALBU MIN CREATININ E RATIO PANEL MICROALBUMI N [MASS/VOLUM E] IN URINE 1.3 mg/dL 05/16 Specimen Type: URINE No comment entered. Ordering Provider: JEWEL RAMIREZ Report Released Date/Time: May 03, 2024 09:28 AM Reporting Lab: [address] [address] Performing Lab: [address] [address] [place] MICROALBU MIN CREATININ E RATIO PANEL CREATININE [MASS/VOLUM E] IN URINE 218.12 mg/dL 05/16 Specimen Type: URINE No comment entered. Ordering Provider: JEWEL RAMRIEZ Report Released Date/Time: May 03, 2024 09:28 AM Reporting Lab: [address] [address] Performing Lab: [address] [address] [place] BASIC METABOLIC PANEL (fasting) UREA NITROGEN [MASS/VOLUM E] IN SERUM OR PLASMA 12 mg/dL 7 - 25 01/12 Specimen Type: SERUM No comment entered. Ordering Provider: NADJEWEL ALBERTO Report Released Date/Time: Dec 31, 2023 08:37 AM Reporting Lab: [facility] [address] [address] Performing Lab: [facility] [address] [address] [place] BASIC METABOLIC PANEL (fasting) GLUCOSE [MASS/VOLUM E] IN SERUM OR PLASMA 112 mg/dL 65 - 100 01/12 H Specimen Type: SERUM No comment entered. Ordering Provider: JEWEL RAMIREZ Report Released Date/Time: Dec 31, 2023 08:37 AM Reporting [facility]: [facility] [address] [address] Performing Lab: [facility] [address] [address] [place] BASIC METABOLIC PANEL (fasting) SODIUM [MOLES/VOLU ME] IN SERUM OR PLASMA 142 mmol/L 135 - 145 01/12 Specimen Type: SERUM No comment entered. Ordering Provider: JEWEL RAMIREZ Report Released Date/Time: Dec 31, 2023 08:37 AM Reporting Lab: [facility] [address] [address] Performing Lab: [facility] [address] [place] BASIC METABOLIC PANEL (fasting) POTASSIUM [MOLES/VOLU ME] IN SERUM OR PLASMA 4.2 mmol/L 3.5 - 5.0 01/12 Specimen Type: SERUM No comment entered. Ordering Provider: JEWEL RAMIREZ Report Released Date/Time: Dec 31, 2023 08:37 AM Reporting Lab: [facility] [address] Performing Lab: [facility] [address] [place] BASIC METABOLIC PANEL (fasting) CHLORIDE [MOLES/VOLU ME] IN SERUM OR PLASMA 104 mmol/L 100 - 110 01/12 Specimen Type: SERUM No comment entered. Ordering Provider: JEWEL RAMIREZ Report Released Date/Time: Dec 31, 2023 08:37 AM Reporting Lab: [facility] [address] [address] Performing Lab: [facility] [address] [address] [place] BASIC METABOLIC PANEL (fasting) CARBON DIOXIDE, TOTAL [MOLES/VOLU ME] IN SERUM OR PLASMA 28 meq/L 20 - 30 01/12 Specimen Type: SERUM No comment entered. Ordering Provider: JEWEL RAMIREZ Report Released Date/Time: Dec 31, 2023 08:37 AM Reporting Lab: [facility] [address] [address] Performing Lab: [facility] [address] [address] [place] BASIC METABOLIC PANEL (fasting) CREATININE [MASS/VOLUM E] IN SERUM OR PLASMA 0.81 mg/dL 0.50 - 1.40 01/12 Specimen Type: SERUM No comment entered. Ordering Provider: JEWEL RAMIREZ Report Released Date/Time: Dec 31, 2023 08:37 AM Reporting Lab: [facility] [address] [address] Performing Lab: [facility] [address] [place] BASIC METABOLIC PANEL (fasting) GLOMERULAR FILTRATION RATE/1.73 SQ M.PREDICTED [VOLUME RATE/AREA] IN SERUM, PLASMA OR BLOOD BY CREATININE- BASED FORMULA (CKD-EPI 2020) >90mL/ min 60 01/12 Specimen Type: SERUM No comment entered. Ordering Provider: JEWEL RAMIREZ Report Released Date/Time: Dec 31, 2023 08:37 AM Reporting Lab: [facility] [address] [address] Performing Lab: [facility] [place] [facility] [address] [facility] [address] [place] CBC AND DIFF (AUTO) LEUKOCYTES [#/VOLUME] IN BLOOD BY AUTOMATED COUNT 8.26 10*3/u L 4.50 - 11.00 01/12 Specimen Type: BLOOD No comment entered. Ordering Provider: JEWEL RAMIREZ Report Released Date/Time: Dec 31, 2023 08:37 AM Reporting Lab: [facility] [place] [address] [address] Performing Lab: [facility] [address] [place] CBC AND DIFF (AUTO) ERYTHROCYTE S [#/VOLUME] IN BLOOD BY AUTOMATED COUNT 5.61 10*6/u L 4.23 - 5.66 01/12 Specimen Type: BLOOD No comment entered. Ordering Provider: JEWEL RAMIREZ Report Released Date/Time: Dec 31, 2023 08:37 AM Reporting Lab: [facility] [address] [address] Performing Lab: [facility] [address] [place] CBC AND DIFF (AUTO) HEMOGLOBIN [MASS/VOLUM E] IN BLOOD 15.3 g/dL 12.8 - 17 01/12 Specimen Type: BLOOD No comment entered. Ordering Provider: JEWEL RAMIREZ Report Released Date/Time: Dec 31, 2023 08:37 AM Reporting Lab: [facility] [place] [address] [address] Performing Lab: [facility] [address] [place] CBC AND DIFF (AUTO) HEMATOCRIT [VOLUME FRACTION] OF BLOOD BY AUTOMATED COUNT 46.0 39.2 - 50.4 01/12 Specimen Type: BLOOD No comment entered. Ordering Provider: JEWEL RAMIREZ Report Released Date/Time: Dec 31, 2023 08:37 AM Reporting Lab: [facility] [place] [facility] [address] [facility] [address] Performing Lab: [facility] [place] [facility] [address] [facility] [address] [place] CBC AND DIFF (AUTO) MCV [ENTITIC VOLUME] BY AUTOMATED COUNT 82.0 fL 82 - 99 01/12 Specimen Type: BLOOD No comment entered. Ordering Provider: JEWEL RAMIREZ Report Released Date/Time: Dec 31, 2023 08:37 AM Reporting Lab: [facility] [place] [facility] [address] [facility] [address] Performing Lab: [facility] [place] [address] [address] [place] CBC AND DIFF (AUTO) MCHC [MASS/VOLUM E] BY AUTOMATED COUNT 33.3 g/dL 30.8 - 35.1 01/12 Specimen Type: BLOOD No comment entered. Ordering Provider: JEWEL RAMIREZ Report Released Date/Time: Dec 31, 2023 08:37 AM Reporting Lab: [facility] [place] [facility] [address] [facility] [address] Performing Lab: [facility] [place] [facility] [address] [facility] [address] [place] CBC AND DIFF (AUTO) PLATELETS [#/VOLUME] IN BLOOD BY AUTOMATED COUNT 199 10*3/u L 140 - 360 01/12 Specimen Type: BLOOD No comment entered. Ordering Provider: JEWEL RAMIREZ Report Released Date/Time: Dec 31, 2023 08:37 AM Reporting Lab: [facility] [place] [facility] [address] [facility] [address] Performing Lab: [facility] [place] [address] [address] [place] CBC AND DIFF (AUTO) ERYTHROCYTE DISTRIBUTIO N WIDTH [RATIO] BY AUTOMATED COUNT 13.3 12.0 - 16.0 01/12 Specimen Type: BLOOD No comment entered. Ordering Provider: JEWEL RAMIREZ Report Released Date/Time: Dec 31, 2023 08:37 AM Reporting Lab: [facility] [place] [address] [address] Performing Lab: [facility] [place] [address] [address] [place] CBC AND DIFF (AUTO) MONOCYTES [#/VOLUME] IN BLOOD BY AUTOMATED COUNT 0.92 10*3/u L 0.30 - 1.10 01/12 Specimen Type: BLOOD No comment entered. Ordering Provider: JEWEL RAMIREZ Report Released Date/Time: Dec 31, 2023 08:37 AM Reporting Lab: [facility] [place] [address] [address] Performing Lab: [facility] [place] [address] [address] [place] CBC AND DIFF (AUTO) MCH [ENTITIC MASS] BY AUTOMATED COUNT 27.3 pg 26.2 - 32.6 01/12 Specimen Type: BLOOD No comment entered. Ordering Provider: JEWEL RAMIREZ Report Released Date/Time: Dec 31, 2023 08:37 AM Reporting Lab: [facility] [place] [address] [address] Performing Lab: [facility] [place] [address] [address] [place] CBC AND DIFF (AUTO) NEUTROPHILS /100 LEUKOCYTES IN BLOOD BY AUTOMATED COUNT 50.5 43.7 - 75.8 01/12 Specimen Type: BLOOD No comment entered. Ordering Provider: JEWEL RAMIREZ Report Released Date/Time: Dec 31, 2023 08:37 AM Reporting Lab: [facility] [place] [address] [address] Performing Lab: [facility] [place] [address] [address] [place] CBC AND DIFF (AUTO) LYMPHOCYTES /100 LEUKOCYTES IN BLOOD BY AUTOMATED COUNT 36.3 14.0 - 42.3 01/12 Specimen Type: BLOOD No comment entered. Ordering Provider: JEWEL RAMIREZ Report Released Date/Time: Dec 31, 2023 08:37 AM Reporting Lab: [facility] [place] [facility] [address] [facility] [address] Performing Lab: [facility] [address] [address] [place] CBC AND DIFF (AUTO) MONOCYTES/1 00 LEUKOCYTES IN BLOOD BY AUTOMATED COUNT 11.1 5.1 - 13.7 01/12 Specimen Type: BLOOD No comment entered. Ordering Provider: JEWEL RAMIREZ Report Released Date/Time: Dec 31, 2023 08:37 AM Reporting Lab: [facility] [address] [address] Performing Lab: [facility] [address] [address] [place] CBC AND DIFF (AUTO) EOSINOPHILS /100 LEUKOCYTES IN BLOOD BY AUTOMATED COUNT 1.2 0.4 - 6.8 01/12 Specimen Type: BLOOD No comment entered. Ordering Provider: JEWEL RAMIREZ Report Released Date/Time: Dec 31, 2023 08:37 AM Reporting Lab: [facility] [address] [address] Performing Lab: [facility] [address] [address] [place] CBC AND DIFF (AUTO) BASOPHILS/1 00 LEUKOCYTES IN BLOOD BY AUTOMATED COUNT 0.5 0.1 - 2.0 01/12 Specimen Type: BLOOD No comment entered. Ordering Provider: JEWEL RAMIREZ Report Released Date/Time: Dec 31, 2023 08:37 AM Reporting Lab: [facility] [place] [address] [address] Performing Lab: [facility] [address] [address] [place] CBC AND DIFF (AUTO) NEUTROPHILS [#/VOLUME] IN BLOOD BY AUTOMATED COUNT 4.17 10*3/u L 2.20 - 7.60 01/12 Specimen Type: BLOOD No comment entered. Ordering Provider: JEWEL RAMIREZ Report Released Date/Time: Dec 31, 2023 08:37 AM Reporting Lab: [facility] [address] [address] Performing Lab: [facility]AREUSEJEREMY [place] [address] [place] CBC AND DIFF (AUTO) LYMPHOCYTES [#/VOLUME] IN BLOOD BY AUTOMATED COUNT 3.00 10*3/u L 1.00 - 3.20 01/12 Specimen Type: BLOOD No comment entered. Ordering Provider: JEWEL RAMIREZ Report Released Date/Time: Dec 31, 2023 08:37 AM Reporting Lab: [facility]USE[place] [address] Performing Lab: [facility] [address] [place] CBC AND DIFF (AUTO) EOSINOPHILS [#/VOLUME] IN BLOOD BY AUTOMATED COUNT 0.10 10*3/u L 0.03 - 0.44 01/12 Specimen Type: BLOOD No comment entered. Ordering Provider: JEWEL RAMIREZ Report Released Date/Time: Dec 31, 2023 08:37 AM Reporting Lab: [facility] [address] [address] Performing Lab: [facility] [address] [address] [place] CBC AND DIFF (AUTO) BASOPHILS [#/VOLUME] IN BLOOD BY AUTOMATED COUNT 0.04 10*3/u L 0.01 - 0.13 01/12 Specimen Type: BLOOD No comment entered. Ordering Provider: JEWEL RAMIREZ Report Released Date/Time: Dec 31, 2023 08:37 AM Reporting Lab: [facility] [address] [address] Performing Lab: [facility] [address] [facility] [address] [place] CBC AND DIFF (AUTO) IMMATURE GRANULOCYTE S/100 LEUKOCYTES IN BLOOD BY AUTOMATED COUNT 0.4 0.0 - 0.7 01/12 Specimen Type: BLOOD No comment entered. Ordering Provider: JEWEL RAMIREZ Report Released Date/Time: Dec 31, 2023 08:37 AM Reporting Lab: [facility] [address] [address] Performing Lab: [address] [address] [place] CBC AND DIFF (AUTO) IMMATURE GRANULOCYTE S [#/VOLUME] IN BLOOD 0.03 10*3/u L 0.00 - 0.06 01/12 Specimen Type: BLOOD No comment entered. Ordering Provider: JEWEL RAMIREZ Report Released Date/Time: Dec 31, 2023 08:37 AM Reporting Lab: [address] [address] Performing Lab: [address] [address] [place] HEMOGLOBI N A1C PANEL HEMOGLOBIN A1C/HEMOGLO BIN.TOTAL IN BLOOD BY HPLC 5.4 4.0 - 5.6 01/12 Specimen Type: BLOOD Comment: Values obtained from A1C measurement s can vary. For atypical A1C assays, a reported value of 7.0 could actually be between 6.72 and 7.28 if measured by a reference method. A reported value of 9.0 could actually be between 8.73 and 9.27. Ref: http://www. ngsp.org/[place] Pdata.asp Ordering Provider: JEWEL RAMIREZ Report Released Date/Time: Dec 31, 2023 08:37 AM Reporting Lab: [address] [address] Performing Lab: [facility] [address] [address] [place] LIPID PANEL FASTING CHOLESTEROL [MASS/VOLUM E] IN SERUM OR PLASMA 142 mg/dL 01/12 Specimen Type: SERUM No comment entered. Ordering Provider: JEWEL RAMIREZ Report Released Date/Time: Dec 31, 2023 08:37 AM Reporting Lab: [address] [address] Performing Lab: [facility] [address] [address] [place] LIPID PANEL FASTING TRIGLYCERID E [MASS/VOLUM E] IN SERUM OR PLASMA 90 mg/dL 0 - 150 01/12 Specimen Type: SERUM No comment entered. Ordering Provider: JEWEL RAMIREZ Report Released Date/Time: Dec 31, 2023 08:37 AM Reporting Lab: [address] [address] Performing Lab: [address] [address] [place] LIPID PANEL FASTING CHOLESTEROL IN LDL [MASS/VOLUM E] IN SERUM OR PLASMA BY CALCULATION 90 mg/dL 0 - 129 01/12 Specimen Type: SERUM No comment entered. Ordering Provider: JEWEL RAMIREZ Report Released Date/Time: Dec 31, 2023 08:37 AM Reporting Lab: [facility] [address] Performing Lab: [facility] [address] [address] [place] LIPID PANEL FASTING CHOLESTEROL .TOTAL/CHOL ESTEROL IN HDL [MASS RATIO] IN SERUM OR PLASMA 4.2 01/12 Specimen Type: SERUM No comment entered. Ordering Provider: JEWEL RAMIREZ Report Released Date/Time: Dec 31, 2023 08:37 AM Reporting Lab: [address] [address] Performing Lab: [facility] [address] [facility] [address] [place] LIPID PANEL FASTING CHOLESTEROL IN HDL [MASS/VOLUM E] IN SERUM OR PLASMA 34 mg/dL 40 - 60 01/12 L Specimen Type: SERUM No comment entered. Ordering Provider: JEWEL RAMIREZ Report Released Date/Time: Dec 31, 2023 08:37 AM Reporting Lab: [facility] [address] Performing Lab: [facility] [address] [place] LIVER FUNCTION PROTEIN [MASS/VOLUM E] IN SERUM OR PLASMA 6.9 g/dL 6.0 - 8.3 01/12 Specimen Type: SERUM No comment entered. Ordering Provider: JEWEL RAMIREZ Report Released Date/Time: Dec 31, 2023 08:37 AM Reporting Lab: [facility] [address] Performing Lab: [facility] [address] [place] LIVER FUNCTION ALBUMIN [MASS/VOLUM E] IN SERUM OR PLASMA 3.8 g/dL 3.5 - 5.0 01/12 Specimen Type: SERUM No comment entered. Ordering Provider: JEWEL RAMIREZ Report Released Date/Time: Dec 31, 2023 08:37 AM Reporting Lab: [facility] [address] Performing Lab: [facility] [address] [place] LIVER FUNCTION ALKALINE PHOSPHATASE [ENZYMATIC ACTIVITY/VO LUME] IN SERUM OR PLASMA 76 U/L 40 - 150 01/12 Specimen Type: SERUM No comment entered. Ordering Provider: JEWEL RAMIREZ Report Released Date/Time: Dec 31, 2023 08:37 AM Reporting Lab: [facility] [address] Performing Lab: [facility] [place] [facility] [address] [facility] [address] [place] LIVER FUNCTION ASPARTATE AMINOTRANSF ERASE [ENZYMATIC ACTIVITY/VO LUME] IN SERUM OR PLASMA 12 U/L 5 - 34 01/12 Specimen Type: SERUM No comment entered. Ordering Provider: JEWEL RAMIREZ Report Released Date/Time: Dec 31, 2023 08:37 AM Reporting Lab: [facility] [place] [facility] [address] [facility] [address] Performing Lab: [facility] [place] [address] [address] [place] LIVER FUNCTION ALANINE AMINOTRANSF ERASE [ENZYMATIC ACTIVITY/VO LUME] IN SERUM OR PLASMA 19 U/L 01/12 Specimen Type: SERUM No comment entered. Ordering Provider: JEWEL RAMIREZ Report Released Date/Time: Dec 31, 2023 08:37 AM Reporting Lab: [facility] [place] [facility] [address] [facility] [address] Performing Lab: [facility] [place] [address] [address] [place] LIVER FUNCTION BILIRUBIN.T OTAL [MASS/VOLUM E] IN SERUM OR PLASMA 0.5 mg/dL 0.2 - 1.2 01/12 Specimen Type: SERUM No comment entered. Ordering Provider: JEWEL RAMIREZ Report Released Date/Time: Dec 31, 2023 08:37 AM Reporting Lab: [facility] [place] [address] [address] Performing Lab: [facility] [place] [address] [address] [place] MAGNESIUM MAGNESIUM [MASS/VOLUM E] IN SERUM OR PLASMA 1.8 mg/dL 1.6 - 2.6 01/12 Specimen Type: SERUM No comment entered. Ordering Provider: JEWEL RAMIREZ Report Released Date/Time: Dec 31, 2023 08:37 AM Reporting Lab: [facility] [address] [facility] [address] Performing Lab: [facility] [address] [facility] [address] [place] METHYLMAL ONIC ACID (SERUM-QU ) METHYLMALON ATE [MOLES/VOLU ME] IN SERUM OR PLASMA 237 nmol/L 87 - 318 01/12 Specimen Type: SERUM Comment: This test was developed and its analytical performance characteris tics have been determined by [facility] [place], [place]. It has not been cleared or approved by the U.S. Food and Drug Administrat ion. This assay has been validated pursuant to the CLIA regulations and is used for clinical purposes. Test Performed by [facility], [facility], [address] [place] [address] Rancho Arguelles M.D., Ph.D., Director of Laboratorie s , CLIA [id number] TEST PERFORMED AT: , Ordering Provider: JEWEL RAMIREZ Report Released Date/Time: Dec 31, 2023 08:37 AM Reporting Lab: [address] [address] Performing Lab: [facility] [address] [address] [place] THYROID T4 FREE(FT4) THYROXINE (T4) FREE [MASS/VOLUM E] IN SERUM OR PLASMA 1.15 ng/dL 0.6 - 1.6 01/12 Specimen Type: SERUM No comment entered. Ordering Provider: JEWEL RAMIREZ Report Released Date/Time: Dec 31, 2023 08:37 AM Reporting Lab: [facility] [address] [facility] [address] Performing Lab: [facility] [address] [facility] [address] [place] TSH THYROTROPIN [UNITS/VOLU ME] IN SERUM OR PLASMA 1.18 u[IU]/ mL 0.35 - 5.00 01/12 Specimen Type: SERUM No comment entered. Ordering Provider: JEWEL RAMIREZ Report Released Date/Time: Dec 31, 2023 08:37 AM Reporting Lab: [facility] [address] [facility] [address] Performing Lab: [facility] [address] [facility] [address] [facility] Vital Signs Combined list of inpatient and outpatient Vital Signs from Department of [facility] and [facility], ranging from 12 months to all on record, depending upon the facility. Vital Sign Value Date Comments Source SYSTOLIC BLOOD PRESSURE 134 05/16/2024 15:46:49 [place] DIASTOLIC BLOOD PRESSURE 75 05/16/2024 15:46:49 [place] PULSE OXIMETRY 97 05/16/2024 15:46:49 [place] WEIGHT 264.2 05/16/2024 15:46:49 [place] BMI 36kg/m2 05/16/2024 15:46:49 [place] TEMPERATURE 97.7 05/16/2024 15:46:49 [place] PULSE 68 05/16/2024 15:46:[facility] SYSTOLIC BLOOD PRESSURE 137 12/31/2023 14:29:43 [place] DIASTOLIC BLOOD PRESSURE 80 12/31/2023 14:29:43 [place] PULSE OXIMETRY 98 12/31/2023 14:29:43 [place] WEIGHT 253.2 12/31/2023 14:29:43 [place] BMI 34kg/m2 12/31/2023 14:29:43 [place] TEMPERATURE 96.8 12/31/2023 14:29:43 [place] PULSE 64 12/31/2023 14:29:43 [place] No data available for this section Ambulatory Pharm acy Encounters Combined list of: 1) Encounters from [facility] facilities going back up to thelast 18 months. 2) Encounters from the Department of Defense facilities going back up to 280 months. Location Location Details Encounter Type Encounter Number Reason For Visit Attending Provider ADM Date DC Date Status Disposition Source [facility] Outpatient Encounter [id number] 04/12 [facility] OFF/OP EST MAY X REQ PHY/QHP [id number] Diagnos is: ICD-10- CM Z71.9 Pmo Lead ing, unspeci fied
RUPERTLEONEL FERNANDEZ TRAUNDA K 04/13 [facility] Outpatient Encounter [id number] 04/22 [facility] Out[facility]counter [id number] 04/26 [facility] Out[facility]counter [id number] 04/26 [facility] Out[facility]counter [id number] 04/29 [facility] Out[facility] Encounter [id number] 05/26 [facility] HC PRO PHONE CALL 5-10 MIN [id number] Diagnos is: ICD-10- CM Z71.9 Pmo Lead ing, unspeci fied
GONZALEZLEONEL FINNEYUNDA K 05/26 [facility] Outpatient Encounter [id number] 06/02 [facility] [place] [facility] Outpatient [facility]counter [id number] 06/07 [facility] [place] [facility] [facility] [facility] Outpatient Encounter [id number] 06/07 [facility] [place] [facility] OFF[facility] O/P NEW HI 60-74 MIN [id number] Diagnos is: ICD-10- CM R63.4 Abnorma l weight loss
MAE KONG 08/19 [place] [facility] Out[facility] Encounter [id number] 08/19 [facility] Encounter [id number] 08/23 [facility] Encounter [id number] 08/25 [facility] Encounter [id number] 08/31 [facility] [place] O/P EST MOD 30-39 MIN [id number] Diagnos is: ICD-10- CM R63.4 Abnorma l weight loss
MAE KONG 09/08 [place] [facility] Out[facility] Encounter [id number] 09/09 [facility] Encounter [id number] 09/15 [facility] Encounter [id number] 09/22 [facility] Encounter [id number] 09/27 [facility] Encounter [id number] 09/28 [facility] Encounter [id number] 09/30 [facility] Encounter [id number] 10/07 [facility] Out[facility] Encounter [id number] 10/08 [facility] Encounter [id number] 10/15 [facility] Encounter [id number] 10/18 [facility] Encounter [id number] 11/23 [facility] Encounter [id number] 12/01 [facility] Encounter [id number] 12/02 [facility] FIT SPECTACLES MULTIFOCAL [id number] Diagnos is: ICD-10- CM Z46.0 Encount er for fit/adj st of spectac les and contact lenses< br/> ORTIZ WOODSON 12/10 [facility] Encounter [id number] 12/30 [facility] OFFICE O/P EST MOD 30 MIN [id number] Diagnos is: ICD-10- CM R63.4 Abnorma l weight loss
MAE KONG 12/30 [place] [facility] Out[facility] Encounter [id number] 01/10 [facility] [place]/OP EST MAY X REQ PHY/QHP [id number] Diagnos is: ICD-10- CM I10 Essenti al (primar y) hyperte nsion<b r/> TANMAY MARRERO 01/12 [place] [facility] Out[facility] Encounter [id number] 01/16 [facility] Encounter [id number] 02/10 [facility] Encounter [id number] 03/17 [facility] Encounter [id number] 03/24 [facility] Out[facility] Encounter [id number] 04/10 [facility] Encounter [id number] 04/12 [facility] Out[facility] Encounter [id number] 05/16 [facility] [place] [facility] O/P EST MOD 30 MIN [id number] Diagnos is: ICD-10- CM R63.4 Abnorma l weight loss
ISACC BERGMANMAE 05/16 [place] [facility] Outpatient Encounter [id number] 05/17 [facility] Encounter [id number] 05/25 [facility] Out[facility] Encounter [id number] 09/26 [facility] [place] Outpatient Encounter [id number] 10/02 [facility] [place] Procedures Combined list of: 1) Procedures from Department of Veterans Affairs facilities going back up to thelast 18 months, not all VA non-surgical procedures are included; 2) All procedures from the Department of Defense facilities. Procedure Procedure Type Code Date Perfomer Comments Sourc e No data available for this section Ambulatory P harmacy Social History Combined list of available smoking, tobacco, and other social history from Department of Defense and Veterans Affairs facilities. Social History Type Response Date Comment Sourc e Tobacco smoking status NHIS VA-TOBACCO FORMER USER 05[facility]24 [facility] History of tobacco use VA-TOBACCO QUIT 1 5 YRS OR MORE 05/16/2024 [facility] History of tobacco use VA-TOBACCO NEVER USED 06/07/2023 [facility] History of tobacco use VA-TOBACCO NEVER USED 11/03/2022 [facility] Male 05/22/2022 Ambulatory Pha rmacy History of tobacco use VA-TOBACCO FORMER USER 01/03/2021 [facility] History of tobacco use VA-TOBACCO NEVER USED 11/27/2019 [facility] History of tobacco use VA-TOBACCO NEVER USED 11/30/2018 [facility] History of tobacco use NON-TOBACCO USER 01/12/2018 [facility] History of tobacco use NON-TOBACCO USER 03/10/2017 [facility] History of tobacco use V7-TOBACCO USE NO NE IN > 7 YEARS 08/18/2012 [facility] History of tobacco use V7-LIFETIME NON/TOBACCO USER 12/29/2005 [facility] 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 DoD Sexual Orientation Ambula tory Pharmacy Gender identity Ambulator y Pharmacy Assessment and Plan Combined list of future care activities from Department of Defense and Veterans Affairs facilities (e.g., assessment and plan notes, appointments, orders, and referrals). Additional future care activities may be listed in the Plan of Care section. Result Assessment and Plan Date Source Assessment and Plan No data available for this section 10/11/2024 Ambulatory Pharmacy Plan of Care List of future care activities from Department of Veterans Affairs facilities. Additional future care activities may be listed in the Assessment and Plan section. Date/Time Care Activity Care Activity Detail Facili ty 11/10/2024 AMBULATORY - MEDICINE AMBULATORY - MEDICI [facility] Functional Status Combined list of recent functional and cognitive assessments recorded at Department of Defense and Veterans Affairs (VA).VA Functional Peach Measurement (FIM) Scale: 1 = Total Assistance (Subject = 0% +), 2 = Maximal Assistance (Subject = 25% +), 3 = Moderate Assistance (Subject = 50% +), 4 = Minimal Assistance (Subject = 75% +), 5 = Supervision, 6 = Modified Peach (Device), 7 = Complete Peach (Timely, Safely). Assessment Date/Time Source Assessment Type Assessment Skill Assessment Score Assessment Details No data available for this section
--- OUTSIDE RECORDS SUMMARY | 2024-10-11 09:40 | XMS_ITS | Encounter Summary ---
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 Date/Time Encounter Type Encounter Description Reason Pro vider Source Dec 02, 2023 03:43 PM Outpatient Encounter ADMIN PAT ACTIVTIES (MASNONCT) IHE Encounter Template Text not used by [place] Plan of Treatment: Future Appointments (+ 6 months) and Future Tests (+/- 45 days) The Plan of Treatment section includes future care activities for the [facility] [place] [facility] This section includes future appointments and future orders which are active, pending or scheduled. Future Appointments This section includes appointments that were scheduled to occur 6 months from the date of the Encounter, up to a maximum of 20 appointments. The data comes from all [place] treatment facilities. Appointment Date/Time Appointment Type Appointme nt Facility Name Dec 10, 2023 03:00 PM AM[place]ULATORY [place]IC[place] [facility] [place] [facility] Dec 31, 2023 02:00 PM [facility] Jan 13, 2024 02:30 PM [facility]ORY [facility] Jan 19, 2024 12:45 PM AMBULATORY - [place]ICINE [place] [facility] [place] [facility] Feb 11, 2024 03:20 PM AMBULATORY - RE[place]ICIN [place] [facility] [place] [facility] Apr 12, 2024 01:45 PM AMBULATORY - [place]ICINE [place] [facility] [facility] May 16, 2024 03:00 PM [facility]ORY [facility] Social History: Smoking Status (Most current) and Tobacco Use (All prior to encounter date) This section includes the most current, and the historical, smoking and tobacco- related health factors from the [place] facility where the Encounter took place. Current Smoking Status This section includes the most current smoking, or tobacco-related health factor, from the [place] facility where the Encounter took place. Date/Time Current Smoking Status Comment Bony zuniga Jun 07, 2023 07:43 PM VA-TOBACCO NEVER USED [place] [facility] Encounter Notes: All associated encounter notes This section contains the clinical notes associated to the Encounter. Date/Time Encounter Note(s) Provider Source Dec 02, 2023 03:43 PM ADMINISTRATIVE NOT E: LOCAL TITLE: CCC: SCHEDULING ADMINISTRATION STANDARD TITLE: ADMINISTRATIVE NOTE DATE OF NOTE: DEC 02, 2023@15:43:56 ENTRY DATE: DEC 02, 2023@15:43:56 AUTHOR: DAVID,WOJCIECH R EXP COSIGNER: URGENCY: STATUS: COMPLETED CCC: SCHEDULING ADMINISTRATION Has ADDENDA Patient Demographics Patient Name: NATE PEACE Patient Primary Phone: [phone] Patient Primary Address: [address] [place] [address] Patient : 1955 Patient Age: 68 Caller/Recipient Relation to Patient: Self Administrative Administrative Note Reason: Other Administrative Note Comments: saw an outside optometry who gave him a prescription for eye glasses. He contacted the eye clinic at the [place] who told him to contact his primary care office. He can be reached at [phone] /chloe/ WOJCIECH HERNANDEZ VISN1 [facility] AMSA Signed: 12/02/2023 15:44 Receipt Acknowledged By: 12/03/2023 08:48 /chloe/ SENA LERNER RN REGISTERED NURSE 12/03/2023 10:54 /chloe/ ROZINA WHARTON LPN LPN 12/03/2023 ADDENDUM STATUS: COMPLETED Left a VM stating that after speaking with Optometry in [facility] that the would need to contact Optometry at [facility] to schedule an appointment. The number and extension was given and the was advised to bring his prescription to that appointment. /rachael LERNER RN REGISTERED NURSE Signed: 12/03/2023 08:51 WOJCIECH HERNANDEZ [place] [facility]
--- OUTSIDE RECORDS SUMMARY | 2024-10-11 09:41 | XMS_ITS ---
Author Name [facility] [place] [facility] [place] [facility] [place] Address [address] [place] [address] Care Team Providers Care Mechanical Test Technician Name Role Phone VNICENZO MILLER Primary Care Provide TRICIA Shipman Primary [...] PART A March 01, 2018 PART A [id number] [phone] Sam PEACE PATIENT MEDICARE (WNR) MEDICARE (M) PART B March 01, 2018 PART B [id number] [phone] [id number] Sam PEACE PATIENT MEDICARE (WNR) MEDICARE (M) PART A March 01, 2018 PART A [id number] Sam PEACE PATIENT MEDICARE (WNR) MEDICARE (M) PART B March 01, 2018 PART B [id number] Sam PEACE PATIENT Selected Encounter This section includes the information on record at [place] for the Encounter. Date/Time Encounter Type Encounter Description Reason Pro vider Source Dec 31, 2023 02:00 PM Outpatient Encounter PRIMARY CARE/MEDICINE IHE Encounter Template Text not used by [place] Plan of Treatment: Future Appointments (+ 6 months) and Future Tests (+/- 45 days) The Plan of Treatment section includes future care activities for the patient from all [place] [facility]. This section includes future appointments and future orders which are active, pending or scheduled. Future Appointments This section includes appointments that were scheduled to occur 6 months from the date of the Encounter, up to a maximum of 20 appointments. The data comes from all [place] treatment facilities. Appointment Date/Time Appointment Type Appointme nt Facility Name Jan 13, 2024 02:30 PM [facility] Jan 19, 2024 12:45 PM [facility] Feb 11, 2024 03:20 PM AM[facility] [place] [facility] Apr 12, 2024 01:45 PM AM[facility]ULAT[facility] - MEDICINE [facility] May 16, 2024 03:00 PM [facility] Lab Results: +/- 30 days of the encounter This section includes the Chemistry and Hematology Lab Results on record with [place] for the patient. Radiology Reports and Pathology Reports are provided separately, in subsequent sections. Lab Results This section contains the Chemistry/Hematology Results that were resulted 30 days before or 30 daysafter the date of the Encounter. Date/Time Source Result Type Result - Unit Interpretation Reference Range Comment Jan 13, 2024 02:47 PM [facility] METHYLMALONIC ACID (SERUM-QU) Specimen Type: SERUM Comment: This test was developed and its analytical performance characteristics have been determined by [facility] [place], [place]. It has not been cleared or approved by the U.S. Food and Drug Administration. This assay has been validated pursuant to the CLIA regulations and is used for clinical purposes. Test Performed by [facility], [facility], [address] [place], [place]gu[place] M.D., Ph.D., Director of Laboratories , CLIA [id number] TEST PERFORMED AT: , Ordering Provider: VINCENZO ALVA Report Released Date/Time: Dec 31, 2023 08:37 AM Reporting Lab: [facility] [address] [facility] [address] Performing Lab: [facility] [address] [address] METHYLMALONIC ACID (SERUM-QU) 237 nmol/L 87-318 Jan 13, 2024 02:47 PM [facility] THYROID T4 FREE(FT4) Specimen Type: SERUM No comment entered. Ordering Provider: VINCENZO ALVA Report Released Date/Time: Dec 31, 2023 08:37 AM Reporting Lab: [facility] [address] [facility] [address] Performing Lab: [facility] [address] [facility] [address] THYROID T4 FREE(FT4) 1.15 ng/dL 0.6-1.6 Jan 13, 2024 02:47 PM [facility] MAGNESIUM Specimen Type: SERUM No comment entered. Ordering Provider: VINCENZO ALVA Report Released Date/Time: Dec 31, 2023 08:37 AM Reporting Lab: [facility] [address] [facility] [address] Performing Lab: [facility] [address] [facility] [address] MAGNESIUM 1.8 mg/dL 1.6-2.6 Jan 13, 2024 02:47 PM [facility] BASIC METABOLIC PANEL (fasting) Specime n Type: SERUM No comment entered. Ordering Provider: VINCENZO ALVA Report Released Date/Time: Dec 31, 2023 08:37 AM Reporting Lab: [facility] [address] [facility] [address] Performing Lab: [facility] [address] [facility] [address] UREA NITROGEN 12 mg/dL 7-25 GLUCOSE 112 mg/dL H 65-100 SODIUM 142 mmol/L 135-145 POTASSIUM 4.2 mmol/L 3.5-5.0 CHLORIDE 104 mmol/L 100-110 CO2 28 meq/L 20-30 CREATININE, Serum 0.81 mg/dL 0.50-1.40 eGFR(CKD-EPI 2020) >90 mL/min >60 Jan 13, 2024 02:47 PM [facility] LIPID PANEL FASTING Specimen Type: SERUM No comment entered. Ordering Provider: VINCENZO ALVA Report Released Date/Time: Dec 31, 2023 08:37 AM Reporting Lab: [address] [address] Performing Lab: [address] [address] CHOLESTEROL 142 mg/dL TRIGLYCERIDE 90 mg/dL 0-150 LDL calculated 90 mg/dL 0-129 CHOL/HDL 4.2 HDL CHOLESTEROL 34 mg/dL L 40-60 Jan 13, 2024 02:47 PM [facility] LIVER FUNCTION Specimen Type: SERUM No comment entered. Ordering Provider: VINCENZO ALVA Report Released Date/Time: Dec 31, 2023 08:37 AM Reporting Lab: [address] [address] Performing Lab: [address] [address] PROTEIN,TOTAL 6.9 g/dL 6.0-8.3 ALBUMIN 3.8 g/dL 3.5-5.0 ALKALINE PHOSPHATASE 76 U/L 40-150 AST 12 U/L 5-34 ALT 19 U/L BILIRUBIN, TOTAL 0.5 mg/dL 0.2-1.2 Jan 13, 2024 02:47 PM [facility] CBC AND DIFF (AUTO) Specimen Type: BLOOD No comment entered. Ordering Provider: VINCENZO ALVA Report Released Date/Time: Dec 31, 2023 08:37 AM Reporting Lab: [address] [address] Performing Lab: [address] [address] WBC 8.26 10*3/uL 4.50-11.00 RBC 5.61 10*6/uL 4.23-5.66 HGB 15.3 g/dL 12.8-17 HCT 46.0 39.2-50.4 MCV 82.0 fL 82-99 MCHC 33.3 g/dL 30.8-35.1 PLT 199 10*3/uL 140-360 RDW-CV 13.3 12.0-16.0 Park, Abs 0.92 10*3/uL 0.30-1.10 MCH 27.3 pg 26.2-32.6 Neut % 50.5 43.7-75.8 Lymph % 36.3 14.0-42.3 Park % 11.1 5.1-13.7 Eos % 1.2 0.4-6.8 Baso % 0.5 0.1-2.0 Neut, Abs 4.17 10*3/uL 2.20-7.60 Lymph, Abs 3.00 10*3/uL 1.00-3.20 Eos, Abs 0.10 10*3/uL 0.03-0.44 Baso, Abs 0.04 10*3/uL 0.01-0.13 Immature Gran % 0.4 0.0-0.7 Immature Gran, Abs 0.03 10*3/uL 0.00-0.06 Jan 13, 2024 02:47 PM [facility] HEMOGLOBIN A1C PANEL Specimen Type: BLOOD Comment: Values obtained from A1C measurements can vary. For atypical A1C assays, a reported value of 7.0 could actually be between 6.72 and 7.28 if measured by a reference method. A reported value of 9.0 could actually be between 8.73 and 9.27. Ref: http://www.ngsp. org/CAPdata.asp Ordering Provider: VINCENZO ALVA Report Released Date/Time: Dec 31, 2023 08:37 AM Reporting Lab: [address] [address] Performing Lab: [address] [address] HEMOGLOBIN A1C 5.4 4.0-5.6 Jan 13, 2024 02:47 PM [facility] TSH Specimen Type: SERUM No comment entered. Ordering Provider: VINCENZO ALVA M Report Released Date/Time: Dec 31, 2023 08:37 AM Reporting Lab: [facility] [address] [address] Performing Lab: [facility] [address] [address] TSH 1.18 u[IU]/mL 0.35-5.00 Jan 13, 2024 02:47 PM [facility] VITAMIN D (25-[place]) Specimen Type: SERUM No comment entered. Ordering Provider: VINCENZO ALVA Report Released Date/Time: Dec 31, 2023 08:37 AM Reporting Lab: [facility] [address] [address] Performing Lab: [facility] [address] [address] VITAMIN D (25-[place]) 21 ng/mL 20-50 Social History: Smoking Status (Most current) and Tobacco Use (All prior to encounter date) This section includes the most current, and the historical, smoking and tobacco- related health factors from the [place] facility where the Encounter took place. Current Smoking Status This section includes the most current smoking, or tobacco-related health factor, from the [place] facility where the Encounter took place. Date/Time Current Smoking Status Comment Bony zuniga Jun 07, 2023 07:43 PM VA-TOBACCO NEVER USED [facility] Encounter Notes: All associated encounter notes This section contains the clinical notes associated to the Encounter. Date/Time Encounter Note(s) Provider Source Dec 31, 2023 02:33 PM PREVENTIVE MEDICIN E NURSING NOTE: LOCAL TITLE: CLINICAL REMINDERS/NURSING STANDARD TITLE: PREVENTIVE MEDICINE NURSING NOTE DATE OF NOTE: DEC 31, 2023@14:33 ENTRY DATE: DEC 31, 2023@14:33:09 AUTHOR: ROZINA WHARTON EXP COSIGNER: URGENCY: STATUS: COMPLETED Advance Directive Screen MH AD: Patient has an up-to-date Advance Directive at an outside, non-va facility and was asked to forward a copy to his/her clinician. 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 The Pendroy/caregiver was informed that we will continue to ask this screening question every 5 years. They can contact their provider/healthcare team if they have concerns about exposures and would like to be screened sooner. Printed information was offered and provided if desired. Sexual Orientation: The patient thinks of their sexual orientation as: Straight or Heterosexual RHS Screen: RHS Screen Environmental Check Upon inquiry, the individual reports that the environment is safe to proceed. Informed Consent to Screen and Document The individual consents to proceed with screening. The individual consents to documentation of responses. PRIMARY SCREEN: In the past 12 months, how often did a current or former intimate partner (e.g., boyfriend, girlfriend, , , sexual partner): 1. Scream or curse at you Never 2. Insult or talk down to you Never 3. Threaten you with harm Never 4. Physically hurt you Never 5. Force or pressure you to have sexual contact against your will, or when you were unable to say no Never ?? The HITS tool (items 1-4 above) is [place] copyright protected by Osito Portillo MD, and the user has full rights to use it throughout the [facility] system. PRIMARY SCREEN RESULT: The Primary Screen is NEGATIVE. The individual answered never to all forms of IPV above (i.e., answered never to all 5 items) The individual accepts education and/or resources: No EDUCATION: The individual indicated readiness to learn. Education offered during this session as noted above. The individual indicated understanding by asking relevant questions and making appropriate comments. No barriers to learning were observed or identified. EYE CARE - NUMBER GIVEN FOOT EXAM - DEFERRED AT THIS TIME VACCINES - ALL VACCINES DECLINED /es/ ROZINA WHARTON LPN LPN Signed: 12/31/2023 14:45 ROZINA WHARTON
--- OUTSIDE RECORDS SUMMARY | 2024-10-11 09:41 | XMS_ITS | Encounter Summary ---
Author Name [facility] [place] Organization [facility] [place] Address [address] [place] [id number] Care Team Providers Care Well Point Pumping Supervisor Name Role Phone VINCENZO MILLER Primary [...] PART A March 01, 2018 PART A [id number] [phone] Sam PEACE PATIENT MEDICARE (WNR) MEDICARE (M) PART B March 01, 2018 PART B [id number] [phone] Sam PEACE PATIENT MEDICARE (WNR) MEDICARE (M) PART A March 01, 2018 PART A [id number] Sam PEACE PATIENT MEDICARE (WNR) MEDICARE (M) PART B March 01, 2018 PART B [id number] Sam PEACE PATIENT Selected Encounter This section includes the information on record at [place] for the Encounter. Date/Time Encounter Type Encounter Description Reason Provider Source Dec 31, 2023 02:00 PM OFFICE O/P EST MOD 30 MIN PRIMARY CARE/MEDICINE ICD-10-CM R63.4 Abnormal weight loss VINCENZO HO [facility] Encounter Template Text not used by [place] Assessments - Encounter Diagnoses This section includes the primary and secondary diagnoses documented for the Encounter. Date/Time Primary/Secondary Diagnosis Diagnosis Name Provider Source Jan 01, 2024 08:27 PM PRIMARY Abnormal weight loss VINCENZO HO [facility] Jan 01, 2024 08:27 PM SECONDARY Elevated white blood cell count, unspecified LESLI-BOSKO VINCENZO NEIL [facility] Jan 01, 2024 08:27 PM SECONDARY Essential (primary) hypertension VINCENZO HO [facility] Jan 01, 2024 08:27 PM SECONDARY Gastro-esophageal reflux dis with esophagitis, without bleed CRISTINE NEILLORENZO [facility] Jan 01, 2024 08:27 PM SECONDARY Hyperlipidemia, unspecified LESLI-BOSKO JOLYNN,VINCENZO [facility] Jan 01, 2024 08:27 PM SECONDARY Hypothyroidism, unspecified LUANAZDIN-BOSKO JOLYNN,LORENZO [facility] Jan 01, 2024 08:27 PM SECONDARY Insomnia, unspecified [facility] Jan 01, 2024 08:27 PM SECONDARY Obesity, unspecified LUANAZDIN-BOSKO JOLYNN,LORENZO [facility] Jan 01, 2024 08:27 PM SECONDARY Obstructive sleep apnea (adult) (pediatric) LESLI-VINCENZO KHOURY [facility] Jan 01, 2024 08:27 PM SECONDARY Pain, unspecified LUANAZDIN-BOSKO JOLYNNVINCENZO [facility] Jan 01, 2024 08:27 PM SECONDARY Sleep apnea, unspecified LUANAZDIN-BOSKO JOLYNN,LORENZO [facility] Jan 01, 2024 08:27 PM SECONDARY Spinal stenosis, cervical region LUANAZDIN-BOSKO VINCENZO NEIL [facility] Jan 01, 2024 08:27 PM SECONDARY Spinal stenosis, lumbar region without neurogenic will LUANAZDIN-BOSKO JOLYNNLORENZO [facility] Jan 01, 2024 08:27 PM SECONDARY Type 2 diabetes mellitus without complications LESLICRISTINA NEILVINCENZO [facility] Jan 01, 2024 08:27 PM SECONDARY Vitamin D deficiency, unspecified CHHAYASHEKHAR NEILDAYNECarlaKATHY Ramon [facility] Plan of Treatment: Future Appointments (+ 6 months) and Future Tests (+/- 45 days) The Plan of Treatment section includes future care activities for the patient from all [place] [facility]. This section includes future appointments and future orders which are active, pending or scheduled. Future Appointments This section includes appointments that were scheduled to occur 6 months from the date of the Encounter, up to a maximum of 20 appointments. The data comes from all [place] treatment facilities. Appointment Date/Time Appointment Type Appointme nt Facility Name Jan 13, 2024 02:30 PM AMBULATORY - MEDICINE [facility] Jan 19, 2024 12:45 PM AMBULATORY - MEDICINE [facility] Feb 11, 2024 03:20 PM [facility] Apr 12, 2024 01:45 PM [facility] May 16, 2024 03:00 PM AMBULATORY - MEDICINE [facility] Lab Results: +/- 30 days of the encounter This section includes the Chemistry and Hematology Lab Results on record with [place] for the patient. Radiology Reports and Pathology Reports are provided separately, in subsequent sections. Lab Results This section contains the Chemistry/Hematology Results that were resulted 30 days before or 30 daysafter the date of the Encounter. Date/Time Source Result Type Result - Unit Interpretation Reference Range Comment Jan 13, 2024 02:47 PM [facility] METHYLMALONIC ACID (SERUM-QU) Specimen Type: SERUM Comment: This test was developed and its analytical performance characteristics have been determined by [employer] [place]. It has not been cleared or approved by the U.S. Food and Drug Administration. This assay has been validated pursuant to the CLIA regulations and is used for clinical purposes. Test Performed by Flip Grier, [employer] [place], [address] [place] [address] Rancho Arguelles M.D., Ph.D., Director of Laboratories , CLIA [id number] TEST PERFORMED AT: , Ordering Provider: VINCENZO ALVA Report Released Date/Time: Dec 31, 2023 08:37 AM Reporting Lab: [facility] [address] [address] Performing Lab: [facility] [address] [address] METHYLMALONIC ACID (SERUM-QU) 237 nmol/L 87-318 Jan 13, 2024 02:47 PM [facility] THYROID T4 FREE(FT4) Specimen Type: SERUM No comment entered. Ordering Provider: VINCENZO ALVA Report Released Date/Time: Dec 31, 2023 08:37 AM Reporting Lab: [facility] [address] [address] Performing Lab: [facility] [address] [facility] [address] THYROID T4 FREE(FT4) 1.15 ng/dL 0.6-1.6 Jan 13, 2024 02:47 PM [facility] MAGNESIUM Specimen Type: SERUM No comment entered. Ordering Provider: VINCENZO ALVA Report Released Date/Time: Dec 31, 2023 08:37 AM Reporting Lab: [facility] [address] [address] Performing Lab: [address] [address] MAGNESIUM 1.8 mg/dL 1.6-2.6 Jan 13, 2024 02:47 PM [facility] BASIC METABOLIC PANEL (fasting) Specime n Type: SERUM No comment entered. Ordering Provider: VINCENZO ALVA Report Released Date/Time: Dec 31, 2023 08:37 AM Reporting Lab: [facility] [address] [address] Performing Lab: [address] [address] UREA NITROGEN 12 mg/dL 7-25 GLUCOSE 112 mg/dL H 65-100 SODIUM 142 mmol/L 135-145 POTASSIUM 4.2 mmol/L 3.5-5.0 CHLORIDE 104 mmol/L 100-110 CO2 28 meq/L 20-30 CREATININE, Serum 0.81 mg/dL 0.50-1.40 eGFR(CKD-EPI 2020) >90 mL/min >60 Jan 13, 2024 02:47 PM [facility] LIPID PANEL FASTING Specimen Type: SERUM No comment entered. Ordering Provider: VINCENZO ALVA Report Released Date/Time: Dec 31, 2023 08:37 AM Reporting Lab: [address] [address] Performing Lab: [address] [address] CHOLESTEROL 142 mg/dL TRIGLYCERIDE 90 mg/dL 0-150 LDL calculated 90 mg/dL 0-129 CHOL/HDL 4.2 HDL CHOLESTEROL 34 mg/dL L 40-60 Jan 13, 2024 02:47 PM [facility] LIVER FUNCTION Specimen Type: SERUM No comment entered. Ordering Provider: VINCENZO ALVA Report Released Date/Time: Dec 31, 2023 08:37 AM Reporting Lab: [address] [address] Performing Lab: [address] [address] PROTEIN,TOTAL 6.9 g/dL 6.0-8.3 ALBUMIN 3.8 g/dL 3.5-5.0 ALKALINE PHOSPHATASE 76 U/L 40-150 AST 12 U/L 5-34 ALT 19 U/L BILIRUBIN, TOTAL 0.5 mg/dL 0.2-1.2 Jan 13, 2024 02:47 PM [facility] CBC AND DIFF (AUTO) Specimen Type: BLOOD No comment entered. Ordering Provider: VINCENZO ALVA Report Released Date/Time: Dec 31, 2023 08:37 AM Reporting Lab: [address] [address] Performing Lab: [address] [address] WBC 8.26 10*3/uL 4.50-11.00 RBC 5.61 10*6/uL 4.23-5.66 HGB 15.3 g/dL 12.8-17 HCT 46.0 39.2-50.4 MCV 82.0 fL 82-99 MCHC 33.3 g/dL 30.8-35.1 PLT 199 10*3/uL 140-360 RDW-CV 13.3 12.0-16.0 [place], Abs 0.92 10*3/uL 0.30-1.10 MCH 27.3 pg 26.2-32.6 Neut % 50.5 43.7-75.8 Lymph % 36.3 14.0-42.3 [place] % 11.1 5.1-13.7 Eos % 1.2 0.4-6.8 Baso % 0.5 0.1-2.0 Neut, Abs 4.17 10*3/uL 2.20-7.60 Lymph, Abs 3.00 10*3/uL 1.00-3.20 Eos, Abs 0.10 10*3/uL 0.03-0.44 Baso, Abs 0.04 10*3/uL 0.01-0.13 Immature Gran % 0.4 0.0-0.7 Immature Gran, Abs 0.03 10*3/uL 0.00-0.06 Jan 13, 2024 02:47 PM [facility] HEMOGLOBIN A1C PANEL Specimen Type: BLOOD Comment: [...] Dec 31, 2023 08:37 AM Reporting Lab: [facility] [address] [address] Performing Lab: [address] [address] HEMOGLOBIN A1C 5.4 4.0-5.6 Jan 13, 2024 02:47 PM [facility] TSH Specimen Type: SERUM No comment entered. Ordering Provider: VINCENZO ALVA Report Released Date/Time: Dec 31, 2023 08:37 AM Reporting Lab: [address] [address] Performing Lab: [address] [address] TSH 1.18 u[IU]/mL 0.35-5.00 Jan 13, 2024 02:47 PM [facility] VITAMIN D (25-OH) Specimen Type: SERUM No comment entered. Ordering Provider: VINCENZO ALVA Report Released Date/Time: Dec 31, 2023 08:37 AM Reporting Lab: [address] [address] Performing Lab: [address] [address] VITAMIN D (25-OH) 21 ng/mL 20-50 Vital Signs: All taken on the encounter date This section contains inpatient and outpatient Vital Signs collected on the date of the Encounter. Date/Time Temperature Pulse Blood Pressure Respiratory Rate SP02 Pain Height Weight Body Mass Index Source Dec 31, 2023 02:29 PM 96.8 64 137/80 98 253.2 34 [place] Encounter Notes: All associated encounter notes This section contains the clinical notes associated to the Encounter. Date/Time Encounter Note(s) Provider Source March 17, 2024 11:56 AM ADDENDUM: LOCAL TITLE: Addendum STANDARD TITLE: ADDENDUM DATE OF NOTE: MARCH 17, 2024@11:56:03 ENTRY DATE: MARCH 17, 2024@11:56:04 AUTHOR: Sydney MILLER COSIGNER: URGENCY: STATUS: COMPLETED Patient already seen 3 times.. could you please assign patient to PACT 5. Thank you /chloe/ VINCENZO MILLER MD PHYSICIAN Signed: 03/17/2024 11:56 Receipt Acknowledged By: 03/23/2024 11:59 /chloe/ JULIET Mathew [facility] Specialist --- Original Document --- 12/31/23 NOTE: Pt is 68 y/o M with PMH of obesity, HTN, HL, DM2, Hypothyroidism, CHUY, GERD, MDD, spinal stenosis, radiculopathy here for f/u transferred care from [facility] 08/2023 Last visit 09/2023 Other providers: -- Physiatry pain management Unfortunately patient does not know which medication she takes Agreed to come for nursing visit for medication reconciliation and to recheck blood pressure #DM2 a1c 5.3 (08/2023), Glucose at home around 135 never below 100 #Hypothyroidism: Compliant with levothyroxine Regained few pounds since last visit Denies heat and cold intolerance Denies palpitations #Diarrhea, constipation alternating intermittent For details see previous notes takes Imodium simethicone with good effect prn #Insomnia-melatonin with minimal effect #Back pain scheduled with physiatry [facility] 01/04/2024 Evaluated by [place] [facility] requests second opinion from [facility] Used to be on oxycodone in [place] PAST MEDICAL HISTORY: -- obesity -- HTN -- HL -- DM2 -- Diabetic neuropathy -- Hypothyroidism -- GERD -- Umbilical hernia -- CHUY -- Fracture of rib, Of 1 rib Rt side-closed Fx -- Chronic pain -- Spinal stenosis of lumbar region -- Spinal stenosis in cervical region, -- Cervical radiculopathy -- Cervical disc disorder -- Cervical spondylosis without myelopathy -- MDD PAST SURGICAL HISTORY: --Knee arthroscopy left ALLERGIES: PENICILLIN MEDICATIONS: Unable to reconcile medications today ATORVASTATIN CALCIUM 20MG LOSARTAN 100MG TAB AMLODIPINE BESYLATE 10MG HYDROCHLOROTHIAZIDE 25MG TAB--> patient does not think he takes HCTZ FUROSEMIDE 20MG TAB TAKE DAILY PRN for LE edema METFORMIN HCL 500MG BID ALOGLIPTIN 25MG TAB LEVOTHYROXINE NA (SYNTHROID) 112MCG OMEPRAZOLE 20MG ARTIFICIAL TEARS PVA 1.4%/POVIDONE (PF) CETIRIZINE HCL 10MG FLUTICASONE PROPIONATE 50MCG/SPRAY SOLN,NASAL ERGOCALCIF 1,250MCG (D2-50,000UNIT) EVERY 2 WEEKS A VITAMIN D2 GABAPENTIN 600MG CAP TID DIABETIC NEUROPATHY MELOXICAM 15MG TAB TAKE ONE TABLET BY MOUTH DAILY FAMILY HISTORY: --DM: father, sister --Cancer: no --[place]: father d of [place] at 61, PGF d [place] at 60 --CVA:no --Mental Health/addiction: --Other: mother Alive >90y.o SOCIAL HISTORY: --Occupation: retired, disabled --Cohabitation: , lives with his sister --Children: 2 adult children in [place] - --Diet: meals on wheels --Exercise: No limited by pain --EtOH: Denies --Tob: Never smoker --MJ:DENIES --Illicits: denies --Eye: overdue 5 years --Dental: --Hospitalizations:no recent hospitalizations ROS: Constitutional: no fever/no chills, no ns Eyes: no decreased vision Ears/Nose/Throat: no hearing change Respiratory: no cough/wheezing/SOB Cardiovascular: no CP /palpitations Gastrointestinal: abdominal pain/bloody/black stools, intermittent d/c :no dysuria/hematuria/trouble voiding MSK: Chronic back and neck pain + Neuro: no dizziness/H/A Skin: no pruritus/rash Ambulates with a walker, wheelchair PHYSICAL EXAM: Vital Signs: Blood Pressure: 137/80 (12/31/2023 14:29) 126/79 (08/19/2023 14:11) Pulse: 64 (12/31/2023 14:29) Respiration:16 Temperature: 96.8 F [36.0 C] (12/31/2023 14:29) Patient Weight: 253.2 lb [114.85 kg] (12/31/2023 14:29) 246 lb [111.58 kg] (08/19/2023 14:11) Gen: pleasant, engaged, NAD Chest/CV: RRR Lungs: CTA B/L Abdomen: BS+, Soft, NT, no rebounding, no guarding no CVAT b/l Extremities: wwp, no edema spine: Mild tenderness over cervical and lumbar spine. SLR + b/l Decreased range of motion Extremities: motor 5/5 bilaterally Sensation intact DTR 11/04 LABORATORY:08/2023 WBC: 12.04 H HGB: 15.4 HCT: 45.8 MCV: 80.9 L PLT: 194 HGB A1C (WR): 5.3 GLUCOSE: 97 UREA NITROGEN: 10 CREATININE-EGFR: 0.81 eGFR CKD-EPI 2020: >90 SODIUM: 140 POTASSIUM: 3.6 CHLORIDE: 103 CO2: 27 PROTEIN,TOTAL: 7.2 ALBUMIN: 4.2 ALKALINE PHOSPHATASE: 60 BILIRUBIN,TOT.: 0.7 SGOT: 10 SGPT: 16 CHOLESTEROL: 151 TRIGLYCERIDE: 140 LDL CHOL: 89 CHOL/HDL RATIO: 4.4 HDL: 34 L TSH (Access): 0.33 L free T4 1.3 IMAGING: #MRI CS 12/2020 Suboptimal study Central canal stenosis at C3-4 and C4-5 with disc protrusions at both levels. Due to poor quality of the imaging it was difficult to determine if there were any cord signal changes. Multilevel spondylosis. #MRI LS 2019 Multilevel facet arthropathy, multilevel annular disc bulging with foraminal stenosis moderately severe central canal stenosis at L3-4 and evidence of old L1 fracture. #10/2023 CT C/A/P No acute abnormality in the chest abdomen and pelvis Few bilateral nonspecific pulmonary nodules measuring up to 4 mm/optional follow-up in 12 months is recommended. Small fat-containing umbilical and bilateral inguinal hernias. ASSESSMENT/PLAN: Pt is 68 y/o M with PMH of obesity, HTN, HL, DM2, Hypothyroidism, CHUY, GERD, MDD, spinal stenosis, radiculopathy #Weight loss stabilized since last visit, with decreased dose of levothyroxine and metformin (since 09/2023) in 2022 pt had Unintentional 50 lb weight loss wuth abdominal discomfort alternating diarrhea and constipation 10/2023 CT chest/A/P unremerkable Never had colonoscopy, hemoglobin normal -colonoscopy and EGD (unable to wean off of PPIs)scheduled for 12/2023 -Loperamide and simethicone prn -Repeat labs #Hypothyroidism: TSH 0.33, free T4 1.3 (08/2023) -levothyroxine 100mcg -Check TSH, free T4 #HTN: Well-controlled on current regimen, goal <130/80 --> Patient not sure what medication he takes, will follow-up with PACT nurse for medication reconciliation and blood pressure check -LOSARTAN 100MG TAB -AMLODIPINE BESYLATE 10MG -HYDROCHLOROTHIAZIDE 25MG TAB -FUROSEMIDE 20MG TAB TAKE DAILY PRN for LE edema #HL: Well-controlled, LDL 89 -c/w atorvastatin 20 mg #INSOMNIA: -c/w MELATONIN 10MG #CHUY-compliant with CPAP #obesity: BMI 34 #DM2: Well-controlled, a1c 5.3 -c/w alogliptin 25mg -metformin 500mg BID -check ACR, magnesium eye exam-UTD #Mild lymphocytic leukocytosis: -repeat CBC, if elevated check flow cytometry #GERD: -c/w OMEPRAZOLE 20MG - unable to taper off of PPI due to sx recurrence EGD scheduled #Vitamin D deficiency: On supplementation -Check vitamin D level #Cervical and lumbar spinal stenosis #Multilevel spondylosis cervical and lumbar #Multilevel facet arthropathy, disc protrusion with bilateral foraminal stenosis per LS MRI 2019 -Scheduled with physiatry-[facility] for further imaging evaluation and treatment -Fall precautions, activity as tolerated Healthcare maintenance: --Lipids: LDL 89 (08/2023) --Diabetes: A1c 5.3 (08/2023) --Colon CA (50-75): never had colonoscopy -scheuduled GI for colonoscopy, EGD --Lung CA: --PSA PSA 1.08 (08/2023) --AAA (smoker/65): --Influenza (yrly): --COVID: 2020 x2 --PCV13 2017 --PCV23: 2019 --HZV (>60yrs, x1): --RZV (>50yrs, x1): --TDAP: --Hep C screen: --HIV screen: --DEXA: --Advanced Directives: Address at next visit: thyroid, DM, weight loss, hearing loss Return to clinic to see me in 3 months, sooner PRN. Virtual ( ), F2F ( x ) ( )non fasting labs ordered prior to f/u (x )fasting labs ordered prior to f/u ( )no labs needed ( )request labs from outside provider ( )request records from outside providers -- Please assign patient to PACT 5 Medication Reconciliation: Outpatient: Medication Reconciliation was attempted at this encounter, but unable to complete: Patient/Caregiver unable to confirm all the medications the patient is taking. Assess Statin Use - Lipids (CVD/DM): The patient is already on a statin. The patients prescription for a statin was reviewed and updated. /es/ VINCENZO MILLER MD PHYSICIAN Signed: 01/01/2024 20:27 Receipt Acknowledged By: 01/03/2024 11:11 /chloe/ YOLIE JONES [facility] Dec 31, 2023 02:00 PM PHYSICIAN NOTE: LOCAL TITLE: NOTE STANDARD TITLE: PHYSICIAN NOTE DATE OF NOTE: DEC 31, 2023@14:00 ENTRY DATE: DEC 31, 2023@00:22:08 AUTHOR: Sydney MILLER EXP COSIGNER: URGENCY: STATUS: COMPLETED NOTE Has ADDENDA Pt is 68 y/o M with PMH of obesity, HTN, HL, DM2, Hypothyroidism, CHUY, GERD, MDD, spinal stenosis, radiculopathy here for f/u transferred care from [facility] 08/2023 Last visit 09/2023 Other providers: -- Physiatry pain management Unfortunately patient does not know which medication she takes Agreed to come for nursing visit for medication reconciliation and to recheck blood pressure #DM2 a1c 5.3 (08/2023), Glucose at home around 135 never below 100 #Hypothyroidism: Compliant with levothyroxine Regained few pounds since last visit Denies heat and cold intolerance Denies palpitations #Diarrhea, constipation alternating intermittent For details see previous notes takes Imodium simethicone with good effect prn #Insomnia-melatonin with minimal effect #Back pain scheduled with physiatry [facility] 01/04/2024 Evaluated by spine and sport requests second opinion from [facility] Used to be on oxycodone in [place] PAST MEDICAL HISTORY: -- obesity -- HTN -- HL -- DM2 -- Diabetic neuropathy -- Hypothyroidism -- GERD -- Umbilical hernia -- CHUY -- Fracture of rib, Of 1 rib Rt side-closed Fx -- Chronic pain -- Spinal stenosis of lumbar region -- Spinal stenosis in cervical region, -- Cervical radiculopathy -- Cervical disc disorder -- Cervical spondylosis without myelopathy -- MDD PAST SURGICAL HISTORY: --Knee arthroscopy left ALLERGIES: PENICILLIN MEDICATIONS: Unable to reconcile medications today ATORVASTATIN CALCIUM 20MG LOSARTAN 100MG TAB AMLODIPINE BESYLATE 10MG HYDROCHLOROTHIAZIDE 25MG TAB--> patient does not think he takes HCTZ FUROSEMIDE 20MG TAB TAKE DAILY PRN for LE edema METFORMIN HCL 500MG BID ALOGLIPTIN 25MG TAB LEVOTHYROXINE NA (SYNTHROID) 112MCG OMEPRAZOLE 20MG ARTIFICIAL TEARS PVA 1.4%/POVIDONE (PF) CETIRIZINE HCL 10MG FLUTICASONE PROPIONATE 50MCG/SPRAY SOLN,NASAL ERGOCALCIF 1,250MCG (D2-50,000UNIT) EVERY 2 WEEKS A VITAMIN D2 GABAPENTIN 600MG CAP TID DIABETIC NEUROPATHY MELOXICAM 15MG TAB TAKE ONE TABLET BY MOUTH DAILY FAMILY HISTORY: --DM: father, sister --Cancer: no --MN: father d of [place] at 61, PGF d MN at 60 --CVA:no --Mental Health/addiction: --Other: mother Alive >90y.o SOCIAL HISTORY: --Occupation: retired, disabled --Cohabitation: , lives with his sister --Children: 2 adult children in [place] - --Diet: meals on wheels --Exercise: No limited by pain --EtOH: Denies --Tob: Never smoker --MJ:DENIES --Illicits: denies --Eye: overdue 5 years --Dental: --Hospitalizations:no recent hospitalizations ROS: Constitutional: no fever/no chills, no ns Eyes: no decreased vision Ears/Nose/Throat: no hearing change Respiratory: no cough/wheezing/SOB Cardiovascular: no CP /palpitations Gastrointestinal: abdominal pain/bloody/black stools, intermittent d/c :no dysuria/hematuria/trouble voiding MSK: Chronic back and neck pain + Neuro: no dizziness/H/A Skin: no pruritus/rash Ambulates with a walker, wheelchair PHYSICAL EXAM: Vital Signs: Blood Pressure: 137/80 (12/31/2023 14:29) 126/79 (08/19/2023 14:11) Pulse: 64 (12/31/2023 14:29) Respiration:16 Temperature: 96.8 F [36.0 C] (12/31/2023 14:29) Patient Weight: 253.2 lb [114.85 kg] (12/31/2023 14:29) 246 lb [111.58 kg] (08/19/2023 14:11) Gen: pleasant, engaged, NAD Chest/CV: RRR Lungs: CTA B/L Abdomen: BS+, Soft, NT, no rebounding, no guarding no CVAT b/l Extremities: wwp, no edema spine: Mild tenderness over cervical and lumbar spine. SLR + b/l Decreased range of motion Extremities: motor 5/5 bilaterally Sensation intact DTR 1/4 LABORATORY:08/2023 WBC: 12.04 H HGB: 15.4 HCT: 45.8 MCV: 80.9 L PLT: 194 HGB A1C (WR): 5.3 GLUCOSE: 97 UREA NITROGEN: 10 CREATININE-EGFR: 0.81 eGFR CKD-EPI 2020: >90 SODIUM: 140 POTASSIUM: 3.6 CHLORIDE: 103 CO2: 27 PROTEIN,TOTAL: 7.2 ALBUMIN: 4.2 ALKALINE PHOSPHATASE: 60 BILIRUBIN,TOT.: 0.7 SGOT: 10 SGPT: 16 CHOLESTEROL: 151 TRIGLYCERIDE: 140 LDL CHOL: 89 CHOL/HDL RATIO: 4.4 HDL: 34 L TSH (Access): 0.33 L free T4 1.3 IMAGING: #MRI CS 12/2020 Suboptimal study Central canal stenosis at C3-4 and C4-5 with disc protrusions at both levels. Due to poor quality of the imaging it was difficult to determine if there were any cord signal changes. Multilevel spondylosis. #MRI LS 2019 Multilevel facet arthropathy, multilevel annular disc bulging with foraminal stenosis moderately severe central canal stenosis at L3-4 and evidence of old L1 fracture. #10/2023 CT C/A/P No acute abnormality in the chest abdomen and pelvis Few bilateral nonspecific pulmonary nodules measuring up to 4 mm/optional follow-up in 12 months is recommended. Small fat-containing umbilical and bilateral inguinal hernias. ASSESSMENT/PLAN: Pt is 68 y/o M with PMH of obesity, HTN, HL, DM2, Hypothyroidism, CHUY, GERD, MDD, spinal stenosis, radiculopathy #Weight loss stabilized since last visit, with decreased dose of levothyroxine and metformin (since 09/2023) in 2022 pt had Unintentional 50 lb weight loss wuth abdominal discomfort alternating diarrhea and constipation 10/2023 CT chest/A/P unremerkable Never had colonoscopy, hemoglobin normal -colonoscopy and EGD (unable to wean off of PPIs)scheduled for 12/2023 -Loperamide and simethicone prn -Repeat labs #Hypothyroidism: TSH 0.33, free T4 1.3 (08/2023) -levothyroxine 100mcg -Check TSH, free T4 #HTN: Well-controlled on current regimen, goal <130/80 --> Patient not sure what medication he takes, will follow-up with PACT nurse for medication reconciliation and blood pressure check -LOSARTAN 100MG TAB -AMLODIPINE BESYLATE 10MG -HYDROCHLOROTHIAZIDE 25MG TAB -FUROSEMIDE 20MG TAB TAKE DAILY PRN for LE edema #HL: Well-controlled, LDL 89 -c/w atorvastatin 20 mg #INSOMNIA: -c/w MELATONIN 10MG #CHUY-compliant with CPAP #obesity: BMI 34 #DM2: Well-controlled, a1c 5.3 -c/w alogliptin 25mg -metformin 500mg BID -check ACR, magnesium eye exam-UTD #Mild lymphocytic leukocytosis: -repeat CBC, if elevated check flow cytometry #GERD: -c/w OMEPRAZOLE 20MG - unable to taper off of PPI due to sx recurrence EGD scheduled #Vitamin D deficiency: On supplementation -Check vitamin D level #Cervical and lumbar spinal stenosis #Multilevel spondylosis cervical and lumbar #Multilevel facet arthropathy, disc protrusion with bilateral foraminal stenosis per LS MRI 2019 -[facility] [place] for further imaging evaluation and treatment -Fall precautions, activity as tolerated Healthcare maintenance: --Lipids: LDL 89 (08/2023) --Diabetes: A1c 5.3 (08/2023) --Colon CA (50-75): never had colonoscopy -scheuduled GI for colonoscopy, EGD --Lung CA: --PSA PSA 1.08 (08/2023) --AAA (smoker/65): --Influenza (yrly): --COVID: 2020 x2 --PCV13 2017 --PCV23: 2019 --HZV (>60yrs, x1): --RZV (>50yrs, x1): --TDAP: --Hep C screen: --HIV screen: --DEXA: --Advanced Directives: Address at next visit: thyroid, DM, weight loss, hearing loss Return to clinic to see me in 3 months, sooner PRN. Virtual ( ), F2F ( x ) ( )non fasting labs ordered prior to f/u (x )fasting labs ordered prior to f/u ( )no labs needed ( )request labs from outside provider ( )request records from outside providers -- Please assign patient to PACT 5 Medication Reconciliation: Outpatient: Medication Reconciliation was attempted at this encounter, but unable to complete: Patient/Caregiver unable to confirm all the medications the patient is taking. Assess Statin Use - Lipids (CVD/DM): The patient is already on a statin. The patients prescription for a statin was reviewed and updated. /chloe/ VINCENZO MILLER MD PHYSICIAN Signed: 01/01/2024 20:27 Receipt Acknowledged By: 01/03/2024 11:11 /chloe/ ASIA COCHRAN 03/17/2024 ADDENDUM STATUS: COMPLETED Patient already seen 3 times.. could you please assign patient to PACT 5. Thank you /rachael MILLER MD PHYSICIAN Signed: 03/17/2024 11:56 Receipt Acknowledged By: 03/23/2024 11:59 /chloe/ JULIET Mathew [facility] Specialist 05/15/2024 ADDENDUM STATUS: COMPLETED [facility] - neurosurgery note received. Available in PCP rightfax folder as PCP appointment is tomorrow, May 16, 2024. /es/ Aury Pride RN Registered Nurse Signed: 05/15/2024 15:23 YOLIE MILLER AVERY
--- OUTSIDE RECORDS SUMMARY | 2024-10-11 09:41 | XMS_ITS ---
Author Name [facility] [place] [facility] [place] Address [address] [place] [address] Care Team Providers Care Scaffold Worker Name Role Phone VINCENZO MILLER Primary Care [...] PART A March 01, 2018 PART A [id number] Sam PEACE PATIENT MEDICARE (WNR) MEDICARE (M) PART B March 01, 2018 PART B [id number] [id number] Sam PEACE PATIENT MEDICARE (WNR) MEDICARE (M) PART A March 01, 2018 PART A [id number] [id number] Sam PEACE PATIENT MEDICARE (WNR) MEDICARE (M) PART B March 01, 2018 PART B [id number] Sam PEACE PATIENT Selected Encounter This section includes the information on record at [place] for the Encounter. Date/Time Encounter Type Encounter Description Reason Pro vider Source Jan 11, 2024 10:51 AM Outpatient Encounter ADMIN PAT ACTIVTIES (MASNONCT) IHE Encounter Template Text not used by [place] Plan of Treatment: Future Appointments (+ 6 months) and Future Tests (+/- 45 days) The Plan of Treatment section includes future care activities for the patient from [facility] [place] [facility] This section includes future appointments and future orders which are active, pending or scheduled. Future Appointments This section includes appointments that were scheduled to occur 6 months from the date of the Encounter, up to a maximum of 20 appointments. The data comes from all [place] treatment facilities. Appointment Date/Time Appointment Type Appointme nt Facility Name Jan 13, 2024 02:30 PM AMBULATORY [facility] MED[facility] Jan 19, 2024 12:45 PM AMBULATORY - MEDICINE [facility] Feb 11, 2024 03:20 PM AMBULATORY - [facility] Apr 12, 2024 01:45 PM AMBULATORY - MEDICINE [facility] May 16, 2024 03:00 PM AMBULATORY [facility] MED[facility] Lab Results: +/- 30 days of the encounter This section includes the Chemistry and Hematology Lab Results on record with [place] for the patient. Radiology Reports and Pathology Reports are provided separately, in subsequent sections. Lab Results This section contains the Chemistry/Hematology Results that were resulted 30 days before or 30 daysafter the date of the Encounter. Date/Time Source Result Type Result - Unit Interpretation Reference Range Comment Jan 13, 2024 02:47 PM [place] METHYLMALONIC ACID (SERUM-QU) Specimen Type: SERUM Comment: This test was developed and its analytical performance characteristics have been determined by [employer] [place], [place]. It has not been cleared or approved by the U.S. Food and Drug Administration. This assay has been validated pursuant to the CLIA regulations and is used for clinical purposes. Test Performed by [facility] [place], [facility] [place], [address] [place] [address] Rancho Arguelles M.D., Ph.D., Director of Laboratories , CLIA [id number] TEST PERFORMED AT: , Ordering Provider: VINCENZO ALVA Released Date/Time: Dec 31, 2023 08:37 AM Reporting Lab: [facility] [address] [facility] [address] Performing Lab: [facility] [address] [address] METHYLMALONIC ACID (SERUM-QU) 237 nmol/L 87-318 Jan 13, 2024 02:47 PM [place] THYROID T4 FREE(FT4) Specimen Type: SERUM No comment entered. Ordering Provider: VINCENZO ALVA Report Released Date/Time: Dec 31, 2023 08:37 AM Reporting Lab: [facility] [address] [facility] [address] Performing Lab: [facility] [address] [facility] [address] THYROID T4 FREE(FT4) 1.15 ng/dL 0.6-1.6 Jan 13, 2024 02:47 PM [place] MAGNESIUM Specimen Type: SERUM No comment entered. Ordering Provider: VINCENZO ALVA Report Released Date/Time: Dec 31, 2023 08:37 AM Reporting Lab: [facility] [address] [facility] [address] Performing Lab: [facility] [address] [facility] [address] MAGNESIUM 1.8 mg/dL 1.6-2.6 Jan 13, 2024 02:47 PM [place] BASIC METABOLIC PANEL (fasting) Specime n Type: SERUM No comment entered. Ordering Provider: VINCENZO ALVA Report Released Date/Time: Dec 31, 2023 08:37 AM Reporting Lab: [facility] [address] [facility] [address] Performing Lab: [facility] [address] [address] [place] NITROGEN 12 mg/dL 7-25 GLUCOSE 112 mg/dL H 65-100 SODIUM 142 mmol/L 135-145 POTASSIUM 4.2 mmol/L 3.5-5.0 CHLORIDE 104 mmol/L 100-110 CO2 28 meq/L 20-30 CREATININE, Serum 0.81 mg/dL 0.50-1.40 eGFR(CKD-EPI 2020) >90 mL/min >60 Jan 13, 2024 02:47 PM [place] LIPID PANEL FASTING Specimen Type: SERUM No comment entered. Ordering Provider: VINCENZO ALVA Report Released Date/Time: Dec 31, 2023 08:37 AM Reporting Lab: [address] [address] Performing Lab: [address] [address] CHOLESTEROL 142 mg/dL TRIGLYCERIDE 90 mg/dL 0-150 LDL calculated 90 mg/dL 0-129 CHOL/HDL 4.2 HDL CHOLESTEROL 34 mg/dL L 40-60 Jan 13, 2024 02:47 PM [place] LIVER FUNCTION Specimen Type: SERUM No comment entered. Ordering Provider: VINCENZO ALVA Report Released Date/Time: Dec 31, 2023 08:37 AM Reporting Lab: [address] [address] Performing Lab: [address] [address] PROTEIN,TOTAL 6.9 g/dL 6.0-8.3 ALBUMIN 3.8 g/dL 3.5-5.0 ALKALINE PHOSPHATASE 76 U/L 40-150 AST 12 U/L 5-34 ALT 19 U/L BILIRUBIN, TOTAL 0.5 mg/dL 0.2-1.2 Jan 13, 2024 02:47 PM [place] CBC AND DIFF (AUTO) Specimen Type: BLOOD No comment entered. Ordering Provider: VINCENZO ALVA Report Released Date/Time: Dec 31, 2023 08:37 AM Reporting Lab: [address] [address] Performing Lab: [address] [address] WBC 8.26 10*3/uL 4.50-11.00 RBC 5.61 10*6/uL 4.23-5.66 HGB 15.3 g/dL 12.8-17 HCT 46.0 39.2-50.4 MCV 82.0 fL 82-99 MCHC 33.3 g/dL 30.8-35.1 PLT 199 10*3/uL 140-360 RDW-CV 13.3 12.0-16.0 Glascock, Abs 0.92 10*3/uL 0.30-1.10 MCH 27.3 pg 26.2-32.6 Neut % 50.5 43.7-75.8 Lymph % 36.3 14.0-42.3 [place]ock % 11.1 5.1-13.7 Eos % 1.2 0.4-6.8 Baso % 0.5 0.1-2.0 Neut, Abs 4.17 10*3/uL 2.20-7.60 Lymph, Abs 3.00 10*3/uL 1.00-3.20 Eos, Abs 0.10 10*3/uL 0.03-0.44 Baso, Abs 0.04 10*3/uL 0.01-0.13 Immature Gran % 0.4 0.0-0.7 Immature Gran, Abs 0.03 10*3/uL 0.00-0.06 Jan 13, 2024 02:47 PM [place] HEMOGLOBIN A1C PANEL Specimen Type: BLOOD Comment: [...] Dec 31, 2023 08:37 AM Reporting Lab: [address] [address] Performing Lab: [address] [address] HEMOGLOBIN A1C 5.4 4.0-5.6 Jan 13, 2024 02:47 PM [place] TSH Specimen Type: SERUM No comment entered. Ordering Provider: VINCENZO ALVA Report Released Date/Time: Dec 31, 2023 08:37 AM Reporting Lab: [address] [address] Performing Lab: [facility] [address] [address] TSH 1.18 u[IU]/mL 0.35-5.00 Jan 13, 2024 02:47 PM [place] VITAMIN D (25-OH) Specimen Type: SERUM No comment entered. Ordering Provider: VINCENZO ALVA Report Released Date/Time: Dec 31, 2023 08:37 AM Reporting Lab: [facility] [address] [address] Performing Lab: [facility] [address] [address] VITAMIN D (25-OH) 21 ng/mL 20-50 Social History: Smoking Status (Most current) and Tobacco Use (All prior to encounter date) This section includes the most current, and the historical, smoking and tobacco- related health factors from the [place] facility where the Encounter took place. Current Smoking Status This section includes the most current smoking, or tobacco-related health factor, from the [place] facility where the Encounter took place. Date/Time Current Smoking Status Comment Facil ity Jun 07, 2023 07:43 PM [place] NEVER USED [facility] Encounter Notes: All associated encounter notes This section contains the clinical notes associated to the Encounter. Date/Time Encounter Note(s) Provider Source Jan 11, 2024 11:47 AM ADDENDUM: LOCAL TITLE: Addendum STANDARD TITLE: ADDENDUM DATE OF NOTE: JAN 11, 2024@11:47:19 ENTRY DATE: JAN 11, 2024@11:47:21 AUTHOR: ASIA REYNOSO EXP COSIGNER: URGENCY: STATUS: COMPLETED [employer] TECHNICIAN ADDING PACT RN TO KATHERINE /chloe/ ASIA COCHRAN Signed: 01/11/2024 11:47 Receipt Acknowledged By: 01/13/2024 11:08 /chloe/ TANMAY MARRERO RN REGISTERED NURSE === --- Original Document --- 01/11/24 CCC: SCHEDULING ADMINISTRATION: Delfina, from [facility] endoscopy called and would like to speak to nurse about his last h and p and Delfina can be reached at [phone] /chloe/ JULIO CESAR RAMEY Signed: 01/11/2024 10:52 Receipt Acknowledged By: * AWAITING SIGNATURE * ROZINA WHARTON 01/11/2024 11:47 /chloe/ ASIA DE LA O [facility] Jan 11, 2024 10:51 AM ADMINISTRATIVE NOT E: LOCAL TITLE: CCC: SCHEDULING ADMINISTRATION STANDARD TITLE: ADMINISTRATIVE NOTE DATE OF NOTE: JAN 11, 2024@10:51 ENTRY DATE: JAN 11, 2024@10:51:22 AUTHOR: JULIO CESAR RAMEY COSIGNER: URGENCY: STATUS: COMPLETED CCC: SCHEDULING ADMINISTRATION Has ADDENDA Delfina, from 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
--- OUTSIDE RECORDS SUMMARY | 2024-10-11 09:42 | XMS_ITS | Encounter Summary ---
Author Name [facility] [place] Address [address] [place] [address] Care Team Providers Care Tube Worker Name Role Phone VINCENZO MILLER Primary [...] Policy [place] MEDICARE (WNR) MEDICARE (M) PART B March 01, 2018 PART B [id number] [phone] Sam PEACE PATIENT MEDICARE (WNR) MEDICARE (M) PART A March 01, 2018 PART A [id number] [id number] Sam PEACE PATIENT MEDICARE (WNR) MEDICARE (M) PART A March 01, 2018 PART A [id number] Sam PEACE PATIENT MEDICARE (WNR) MEDICARE (M) PART B March 01, 2018 PART B [id number] [id number] Sam PEACE PATIENT Selected Encounter This section includes the information on record at [place] for the Encounter. Date/Time Encounter Type Encounter Description Reason Pro vider Source Feb 11, 2024 12:00 AM Outpatient Encounter COMMUNITY CARE CONSULT IHE Encounter Template Text not used by [place] Plan of Treatment: Future Appointments (+ 6 months) and Future Tests (+/- 45 days) The Plan of Treatment section includes future care activities for the patient from all [place] treatmentfacilities. This section includes future appointments and future orders which are active, pending or scheduled. Future Appointments This section includes appointments that were scheduled to occur 6 months from the date of the Encounter, up to a maximum of 20 appointments. The data comes from all [place] treatment facilities. Appointment Date/Time Appointment Type Appointme nt Facility Name Apr 12, 2024 01:45 PM AMBULATORY - MEDICINE [facility] May 16, 2024 03:00 PM AMBULATORY - MEDICINE [facility] Lab Results: +/- 30 days of the encounter This section includes the Chemistry and Hematology Lab Results on record with [place] for the patient. Radiology Reports and Pathology Reports are provided separately, in subsequent sections. Lab Results This section contains the Chemistry/Hematology Results that were resulted 30 days before or 30 daysafter the date of the Encounter. Date/Time Source Result Type Result - Unit Interpretation Reference Range Comment Jan 13, 2024 02:47 PM [place] METHYLMALONIC ACID (SERUM-QU) Specimen Type: SERUM Comment: This test was developed and its analytical performance characteristics have been determined by [facility] [place], [place]. It has not been cleared or approved by the U.S. Food and Drug Administration. This assay has been validated pursuant to the CLIA regulations and is used for clinical purposes. Test Performed by [facility], [facility], [address] [place] [address] Rancho Arguelles M.D., Ph.D., Director of Laboratories , CLIA [id number] TEST PERFORMED AT: , Ordering Provider: VINCENZO ALVA Report Released Date/Time: Dec 31, 2023 08:37 AM Reporting Lab: [facility] [address] [facility] [address] Performing Lab: [facility] [address] [address] METHYLMALONIC ACID (SERUM-QU) 237 nmol/L 87-318 Jan 13, 2024 02:47 PM [place] THYROID T4 FREE(FT4) Specimen Type: SERUM No comment entered. Ordering Provider: VINCENZO ALVA Report Released Date/Time: Dec 31, 2023 08:37 AM Reporting Lab: [facility] [address] [facility] [address] Performing Lab: [facility] [address] [facility] [address] THYROID T4 FREE(FT4) 1.15 ng/dL 0.6-1.6 Jan 13, 2024 02:47 PM [place] MAGNESIUM Specimen Type: SERUM No comment entered. Ordering Provider: VINCENZO ALVA Report Released Date/Time: Dec 31, 2023 08:37 AM Reporting Lab: [address] [address] Performing Lab: [address] [address] MAGNESIUM 1.8 mg/dL 1.6-2.6 Jan 13, 2024 02:47 PM [place] BASIC METABOLIC PANEL (fasting) Specime n Type: SERUM No comment entered. Ordering Provider: VINCENZO ALVA Report Released Date/Time: Dec 31, 2023 08:37 AM Reporting Lab: [address] [address] Performing Lab: [address] [address] UREA NITROGEN 12 mg/dL 7-25 GLUCOSE 112 mg/dL H 65-100 SODIUM 142 mmol/L 135-145 POTASSIUM 4.2 mmol/L 3.5-5.0 CHLORIDE 104 mmol/L 100-110 CO2 28 meq/L 20-30 CREATININE, Serum 0.81 mg/dL 0.50-1.40 eGFR(CKD-EPI 2020) >90 mL/min >60 Jan 13, 2024 02:47 PM [place] LIPID PANEL FASTING Specimen Type: SERUM No comment entered. Ordering Provider: VINCENZO ALVA Report Released Date/Time: Dec 31, 2023 08:37 AM Reporting Lab: [address] [address] Performing Lab: [address] [address] CHOLESTEROL 142 mg/dL TRIGLYCERIDE 90 mg/dL 0-150 LDL calculated 90 mg/dL 0-129 CHOL/HDL 4.2 HDL CHOLESTEROL 34 mg/dL L 40-60 Jan 13, 2024 02:47 PM [place] LIVER FUNCTION Specimen Type: SERUM No comment entered. Ordering Provider: VINCENZO ALVA Report Released Date/Time: Dec 31, 2023 08:37 AM Reporting Lab: [address] [address] Performing Lab: [address] [address] PROTEIN,TOTAL 6.9 g/dL 6.0-8.3 ALBUMIN 3.8 g/dL 3.5-5.0 ALKALINE PHOSPHATASE 76 U/L 40-150 AST 12 U/L 5-34 ALT 19 U/L BILIRUBIN, TOTAL 0.5 mg/dL 0.2-1.2 Jan 13, 2024 02:47 PM [place] CBC AND DIFF (AUTO) Specimen Type: BLOOD No comment entered. Ordering Provider: VINCENZO ALVA Report Released Date/Time: Dec 31, 2023 08:37 AM Reporting Lab: [address] [address] Performing Lab: [address] [address] WBC 8.26 10*3/uL 4.50-11.00 RBC 5.61 10*6/uL 4.23-5.66 HGB 15.3 g/dL 12.8-17 HCT 46.0 39.2-50.4 MCV 82.0 fL 82-99 MCHC 33.3 g/dL 30.8-35.1 PLT 199 10*3/uL 140-360 RDW-CV 13.3 12.0-16.0 Haines, Abs 0.92 10*3/uL 0.30-1.10 MCH 27.3 pg 26.2-32.6 Neut % 50.5 43.7-75.8 Lymph % 36.3 14.0-42.3 Haines % 11.1 5.1-13.7 Eos % 1.2 0.4-6.8 Baso % 0.5 0.1-2.0 Neut, Abs 4.17 10*3/uL 2.20-7.60 Lymph, Abs 3.00 10*3/uL 1.00-3.20 Eos, Abs 0.10 10*3/uL 0.03-0.44 Baso, Abs 0.04 10*3/uL 0.01-0.13 Immature Gran % 0.4 0.0-0.7 Immature Gran, Abs 0.03 10*3/uL 0.00-0.06 Jan 13, 2024 02:47 PM [place] HEMOGLOBIN A1C PANEL Specimen Type: BLOOD Comment: [...] Dec 31, 2023 08:37 AM Reporting Lab: [address] [address] Performing Lab: [address] [address] HEMOGLOBIN A1C 5.4 4.0-5.6 Jan 13, 2024 02:47 PM [place] TSH Specimen Type: SERUM No comment entered. Ordering Provider: VINCENZO ALVA Report Released Date/Time: Dec 31, 2023 08:37 AM Reporting Lab: [address] [address] Performing Lab: [address] [address] TSH 1.18 u[IU]/mL 0.35-5.00 Jan 13, 2024 02:47 PM [place] VITAMIN D (25-OH) Specimen Type: SERUM No comment entered. Ordering Provider: VINCENZO ALVA Report Released Date/Time: Dec 31, 2023 08:37 AM Reporting Lab: [facility] [address] [facility] [address] Performing Lab: [facility] [address] [facility] [address] VITAMIN D (25-OH) 21 ng/mL 20-50 Social History: Smoking Status (Most current) and Tobacco Use (All prior to encounter date) This section includes the most current, and the historical, smoking and tobacco- related health factors from the [place] facility where the Encounter took place. Current Smoking Status This section includes the most current smoking, or tobacco-related health factor, from the [place] facility where the Encounter took place. Date/Time Current Smoking Status Comment Facil ity Jun 07, 2023 07:43 PM [place] NEVER USED [facility] Encounter Notes: All associated encounter notes This section contains the clinical notes associated to the Encounter. Date/Time Encounter Note(s) Provider Source Feb 11, 2024 12:00 AM NONVA CONSULT: LOCAL TITLE: COMMUNITY CARE-CONSULT RESULT NOTE STANDARD TITLE: NONVA CONSULT DATE OF NOTE: FEB 11, 2024 ENTRY DATE: MARCH 17, 2024@12:59:38 AUTHOR: YESI PABON EXP COSIGNER: URGENCY: STATUS: COMPLETED VistA Imaging - Scanned Document SCANNED DOCUMENT SIGNATURE NOT REQUIRED Electronically Filed: 03/17/2024 by: YESI RM [facility]
--- OUTSIDE RECORDS SUMMARY | 2024-10-11 09:42 | XMS_ITS | Encounter Summary ---
Author Name [facility] [place] Address [address] [place] [address] Care Team Providers Care Sales Representative Adding Machines Name Role Phone VINCENZO MILLER Primary Care [...] PART A March 01, 2018 PART A [id number] Sam PEACE PATIENT MEDICARE (WNR) MEDICARE (M) PART B March 01, 2018 PART B [id number] Sam PEACE PATIENT MEDICARE (WNR) MEDICARE (M) PART A March 01, 2018 PART A [id number] Sam PEACE PATIENT MEDICARE (WNR) MEDICARE (M) PART B March 01, 2018 PART B [id number] Sam PEACE PATIENT Selected Encounter This section includes the information on record at [place] for the Encounter. Date/Time Encounter Type Encounter Description Reason Pro vider Source May 17, 2024 11:21 AM Outpatient Encounter ADMIN PAT ACTIVTIES (MASNONCT) IHE Encounter Template Text not used by [place] Plan of Treatment: Future Appointments (+ 6 months) and Future Tests (+/- 45 days) The Plan of Treatment section includes future care activities for the patient from all [place] [facility] [place]. This section includes future appointments and future orders which are active, pending or scheduled. Future Appointments This section includes appointments that were scheduled to occur 6 months from the date of the Encounter, up to a maximum of 20 appointments. The data comes from all [place] treatment facilities. Appointment Date/Time Appointment Type Appointme nt Facility Name Oct 03, 2024 03:30 PM AMBULATORY - MEDICINE [place] [facility] Nov 10, 2024 02:00 PM AMBULATORY - MEDICINE [facility] Active, Pending, and Scheduled Orders This section includes a listing of several types of active, pending, and scheduled orders, including clinic medications orders, diagnostic test orders, procedure orders and consult orders; where the start date of the order is 45 days before the date of the Encounter or 45 days after the date of theEncounter. The data comes from all [facility]. Test Date/Time Test Type Test Details Facility Name May 03, 2024 12:00 AM Laboratory - Chemi stry Order BASIC METABOLIC PANEL (fasting) BLOOD (SST-SERUM) [facility] May 03, 2024 12:00 AM Laboratory - Chemi stry Order LIPID PANEL FASTING BLOOD (SST-SERUM) [facility] May 03, 2024 12:00 AM Laboratory - Chemi stry Order LIVER FUNCTION BLOOD (SST-SERUM) [facility] May 03, 2024 12:00 AM Laboratory - Chemi stry Order CBC AND DIFF (AUTO) BLOOD (LAV-BLOOD) [facility] May 03, 2024 12:00 AM Laboratory - Chemi stry Order HEMOGLOBIN A1C PANEL BLOOD (LAV-BLOOD) [facility] May 03, 2024 12:00 AM Laboratory - Chemi stry Order TSH BLOOD (SST-SERUM) [facility] May 16, 2024 12:00 AM Laboratory - Chemi stry Order OCCULT BLOOD FIT X1 SCREEN(IN-HOUSE) STOOL FECES [facility] Lab Results: +/- 30 days of the encounter This section includes the Chemistry and Hematology Lab Results on record with [place] for the patient. Radiology Reports and Pathology Reports are provided separately, in subsequent sections. Lab Results This section contains the Chemistry/Hematology Results that were resulted 30 days before or 30 daysafter the date of the Encounter. Date/Time Source Result Type Result - Unit Interpretation Reference Range Comment May 16, 2024 02:50 PM [place] MICROALBUMIN CREATININE RATIO PANEL Spe cimen Type: URINE No comment entered. Ordering Provider: VINCENZO ALBERT Report Released Date/Time: May 03, 2024 09:28 AM Reporting Lab: [facility] [address] [facility] [address] Performing Lab: [facility] [address] [facility] [address] MICROALBUMIN/C REATININE RATIO 6.0 mg/g 0-29.9 MICROALBUMIN,Q UANTITATIVE 1.3 mg/dL RR UNAVAIL CREATININE URINE 218.12 mg/dL Social History: Smoking Status (Most current) and Tobacco Use (All prior to encounter date) This section includes the most current, and the historical, smoking and tobacco- related health factors from the [place] facility where the Encounter took place. Current Smoking Status This section includes the most current smoking, or tobacco-related health factor, from the [place] facility where the Encounter took place. Date/Time Current Smoking Status Comment Bony barbalexy May 16, 2024 03:00 PM VA-TOBACCO FORMER USER [facility] Tobacco Use History This section includes a history of the smoking, or tobacco-related health factors, that were collected on or before the date of the Encounter. The data comes from the [place] facility where the Encounter took place. Date/Time Smoking Status/Tobacco Use Comment F acility May 16, 2024 03:00 PM VA-TOBACCO QUIT 15 YRS OR MORE [facility] Jun 07, 2023 07:43 PM VA-TOBACCO NEVER USED [facility] Encounter Notes: All associated encounter notes This section contains the clinical notes associated to the Encounter. Date/Time Encounter Note(s) Provider Source May 17, 2024 11:21 AM ADMINISTRATIVE NOT E: LOCAL TITLE: CCC: SCHEDULING ADMINISTRATION STANDARD TITLE: ADMINISTRATIVE NOTE DATE OF NOTE: MAY 17, 2024@11:21:22 ENTRY DATE: MAY 17, 2024@11:21:22 AUTHOR: LILLIAN CAREY EXP COSIGNER: URGENCY: STATUS: COMPLETED Patient Demographics Patient Name: NATE PEACE Patient Primary Phone: [phone] Patient Primary Address: [address] [place] [address] Patient : 1955 Patient Age: 69 Call Back Number: [phone] Caller/Recipient Relation to Patient: Self Administrative Administrative Note Reason: Medication Renewal [place] Medications Refill/Renewal Request: Lidocaine patches Mailed Patient states during PCP appointment 05/16/2024 patches were offed and he declined states he thought about it and would now like to have mailed to his home /es/ LILLIAN VELAZCO 1 CCC AMSA Signed: 05/17/2024 11:21 Receipt Acknowledged By: 05/17/2024 15:48 /es/ VINCENZO MILLER MD PHYSICIAN 05/22/2024 18:00 /es/ Aury Pride, RN Registered Nurse for LILLIAN TAY [place] [facility]
--- OUTSIDE RECORDS SUMMARY | 2024-10-11 09:42 | XMS_ITS ---
Author Name [facility] [place] Address [address] [place] [address] Care Team Providers Care Supervisor Slate Splitting Name Role Phone VINCENZO MILLER Primary Care [...] PART A March 01, 2018 PART A [id number] [phone] Sam PEACE PATIENT MEDICARE (WNR) MEDICARE (M) PART B March 01, 2018 PART B [id number] [phone] 7 Sam PEACE PATIENT MEDICARE (WNR) MEDICARE (M) PART A March 01, 2018 PART A [id number] Sam PEACE PATIENT MEDICARE (WNR) MEDICARE (M) PART B March 01, 2018 PART B [id number] Sam PEACE PATIENT Selected Encounter This section includes the information on record at [place] for the Encounter. Date/Time Encounter Type Encounter Description Reason Pro vider Source Jan 17, 2024 03:09 PM Outpatient Encounter ADMIN PAT ACTIVTIES (MASNONCT) IHE Encounter Template Text not used by [place] Plan of Treatment: Future Appointments (+ 6 months) and Future Tests (+/- 45 days) The Plan of Treatment section includes future care activities for the patient from all [place] treatmentfacilities. This section includes future appointments and future orders which are active, pending or scheduled. Future Appointments This section includes appointments that were scheduled to occur 6 months from the date of the Encounter, up to a maximum of 20 appointments. The data comes from all [place] treatment facilities. Appointment Date/Time Appointment Type Appointme nt Facility Name Jan 19, 2024 12:45 PM AMBULATORY - MEDICINE [facility] Feb 11, 2024 03:20 PM AM[facility] [place] [facility] Apr 12, 2024 01:45 PM AMBULATORY - MEDICINE [facility] May 16, 2024 03:00 PM AMBULATORY - MEDICINE [facility] Lab Results: +/- 30 days of the encounter This section includes the Chemistry and Hematology Lab Results on record with [place] for the patient. Radiology Reports and Pathology Reports are provided separately, in subsequent sections. Lab Results This section contains the Chemistry/Hematology Results that were resulted 30 days before or 30 daysafter the date of the Encounter. Date/Time Source Result Type Result - Unit Interpretation Reference Range Comment Jan 13, 2024 02:47 PM [place] METHYLMALONIC ACID (SERUM-QU) Specimen Type: SERUM Comment: This test was developed and its analytical performance characteristics have been determined by [facility] [place], [place]. It has not been cleared or approved by the U.S. Food and Drug Administration. This assay has been validated pursuant to the CLIA regulations and is used for clinical purposes. Test Performed by [facility], [place], [address] [place], [place] Ranch[place] Arguelles M.D., Ph.D., Director of Laboratories , CLIA [id number] TEST PERFORMED AT: , Ordering Provider: VINCENZO ALVA Report Released Date/Time: Dec 31, 2023 08:37 AM Reporting Lab: [facility] [address] [facility] [address] Performing Lab: [facility] [address] [address] METHYLMALONIC ACID (SERUM-QU) 237 nmol/L 87-318 Jan 13, 2024 02:47 PM [place] THYROID T4 FREE(FT4) Specimen Type: SERUM No comment entered. Ordering Provider: VINCENZO ALVA Report Released Date/Time: Dec 31, 2023 08:37 AM Reporting Lab: [facility] [address] [facility] [address] Performing Lab: [facility] [address] [facility] [address] THYROID T4 FREE(FT4) 1.15 ng/dL 0.6-1.6 Jan 13, 2024 02:47 PM [place] MAGNESIUM Specimen Type: SERUM No comment entered. Ordering Provider: VINCENZO ALVA Report Released Date/Time: Dec 31, 2023 08:37 AM Reporting Lab: [facility] [address] [facility] [address] Performing Lab: [facility] [address] [facility] [address] MAGNESIUM 1.8 mg/dL 1.6-2.6 Jan 13, 2024 02:47 PM [place] BASIC METABOLIC PANEL (fasting) Specime n Type: SERUM No comment entered. Ordering Provider: VINCENZO ALVA Report Released Date/Time: Dec 31, 2023 08:37 AM Reporting Lab: [facility] [address] [facility] [address] Performing Lab: [facility] [address] [facility] [address] UREA NITROGEN 12 mg/dL 7-25 GLUCOSE 112 mg/dL H 65-100 SODIUM 142 mmol/L 135-145 POTASSIUM 4.2 mmol/L 3.5-5.0 CHLORIDE 104 mmol/L 100-110 CO2 28 meq/L 20-30 CREATININE, Serum 0.81 mg/dL 0.50-1.40 eGFR(CKD-EPI 2020) >90 mL/min >60 Jan 13, 2024 02:47 PM [place] LIPID PANEL FASTING Specimen Type: SERUM No comment entered. Ordering Provider: VINCENZO ALVA Report Released Date/Time: Dec 31, 2023 08:37 AM Reporting Lab: [address] [address] Performing Lab: [address] [address] CHOLESTEROL 142 mg/dL TRIGLYCERIDE 90 mg/dL 0-150 LDL calculated 90 mg/dL 0-129 CHOL/HDL 4.2 HDL CHOLESTEROL 34 mg/dL L 40-60 Jan 13, 2024 02:47 PM [place] LIVER FUNCTION Specimen Type: SERUM No comment entered. Ordering Provider: VINCENZO ALVA Report Released Date/Time: Dec 31, 2023 08:37 AM Reporting Lab: [address] [address] Performing Lab: [address] [address] PROTEIN,TOTAL 6.9 g/dL 6.0-8.3 ALBUMIN 3.8 g/dL 3.5-5.0 ALKALINE PHOSPHATASE 76 U/L 40-150 AST 12 U/L 5-34 ALT 19 U/L BILIRUBIN, TOTAL 0.5 mg/dL 0.2-1.2 Jan 13, 2024 02:47 PM [place] CBC AND DIFF (AUTO) Specimen Type: BLOOD No comment entered. Ordering Provider: VINCENZO ALVA Report Released Date/Time: Dec 31, 2023 08:37 AM Reporting Lab: [address] [address] Performing Lab: [address] [address] WBC 8.26 10*3/uL 4.50-11.00 RBC 5.61 10*6/uL 4.23-5.66 HGB 15.3 g/dL 12.8-17 HCT 46.0 39.2-50.4 MCV 82.0 fL 82-99 MCHC 33.3 g/dL 30.8-35.1 PLT 199 10*3/uL 140-360 RDW-CV 13.3 12.0-16.0 [place], Abs 0.92 10*3/uL 0.30-1.10 MCH 27.3 pg 26.2-32.6 Neut % 50.5 43.7-75.8 Lymph % 36.3 14.0-42.3 [place] % 11.1 5.1-13.7 Eos % 1.2 0.4-6.8 Baso % 0.5 0.1-2.0 Neut, Abs 4.17 10*3/uL 2.20-7.60 Lymph, Abs 3.00 10*3/uL 1.00-3.20 Eos, Abs 0.10 10*3/uL 0.03-0.44 Baso, Abs 0.04 10*3/uL 0.01-0.13 Immature Gran % 0.4 0.0-0.7 Immature Gran, Abs 0.03 10*3/uL 0.00-0.06 Jan 13, 2024 02:47 PM [place] HEMOGLOBIN A1C PANEL Specimen Type: BLOOD Comment: [...] Dec 31, 2023 08:37 AM Reporting Lab: [address] [address] Performing Lab: [address] [address] HEMOGLOBIN A1C 5.4 4.0-5.6 Jan 13, 2024 02:47 PM [place] TSH Specimen Type: SERUM No comment entered. Ordering Provider: VINCENZO ALVA Report Released Date/Time: Dec 31, 2023 08:37 AM Reporting Lab: [facility] [address] [facility] [address] Performing Lab: [facility] [address] [facility] [address] TSH 1.18 u[IU]/mL 0.35-5.00 Jan 13, 2024 02:47 PM [place] VITAMIN D (25-OH) Specimen Type: SERUM No comment entered. Ordering Provider: VINCENZO ALVA Report Released Date/Time: Dec 31, 2023 08:37 AM Reporting Lab: [facility] [address] [address] Performing Lab: [facility] [address] [address] VITAMIN D (25-OH) 21 ng/mL 20-50 Social [...] 07, 2023 07:43 PM VA-TOBACCO NEVER USED [facility] Encounter Notes: All associated encounter notes This section contains the clinical notes associated to the Encounter. Date/Time Encounter Note(s) Provider Source Jan 17, 2024 03:09 PM ADMINISTRATIVE NOTE: LOCAL TITLE: CCC: SCHEDULING ADMINISTRATION STANDARD TITLE: ADMINISTRATIVE NOTE DATE OF NOTE: JAN 17, 2024@15:09:36 ENTRY DATE: JAN 17, 2024@15:09:36 AUTHOR: BRO FERRARI COSIGNER: URGENCY: STATUS: COMPLETED CCC: SCHEDULING ADMINISTRATION Has ADDENDA Patient Demographics Patient Name: NATE PEACE Patient Primary Phone: [phone] Patient Primary Address: [address] [place] [id number] Patient : 1955 Patient Age: 68 Caller/Recipient Relation to Patient: Self Administrative Administrative Note Reason: Lab / Imaging Results Administrative Note Comments: would like the results of the blood work, please call to discuss. /chloe/ BRO FERRARI Signed: 01/17/2024 15:09 Receipt Acknowledged By: 01/18/2024 11:04 /chloe/ TANMAY MARRERO RN REGISTERED NURSE 01/19/2024 08:32 /chloe/ ROZINA WHARTON LPN LPN 01/18/2024 ADDENDUM STATUS: COMPLETED contacted via telephone, reviewed recent labs which are improved from prior visit. [place] has no new concerns at this time. /chloe/ TANMAY MARRERO RN REGISTERED NURSE Signed: 01/18/2024 11:04 BRO FERRARI [place] [facility]
--- OUTSIDE RECORDS SUMMARY | 2024-10-11 09:42 | XMS_ITS | Encounter Summary ---
Author Name [facility] [place] Address [address] [place] [address] Care Team Providers Care Farm Demonstrator Name Role Phone VINCENZO MILLER Primary Care [...] PART A March 01, 2018 PART A [id number] [phone] Sam PEACE PATIENT MEDICARE (WNR) MEDICARE (M) PART B March 01, 2018 PART B [id number] [phone] 7 Sam PEACE PATIENT MEDICARE (WNR) MEDICARE (M) PART A March 01, 2018 PART A [id number] [phone] [id number] Sam PEACE PATIENT MEDICARE (WNR) MEDICARE (M) PART B March 01, 2018 PART B [id number] [phone] [id number] Sam PEACE PATIENT Selected Encounter This section includes the information on record at [place] for the Encounter. Date/Time Encounter Type Encounter Description Reason Pro vider Source May 16, 2024 03:00 PM Outpatient Encounter PRIMARY CARE/MEDICINE IHE Encounter Template Text not used by [place] Plan of Treatment: Future Appointments (+ 6 months) and Future Tests (+/- 45 days) The Plan of Treatment section includes future care activities for the patient from all [place] [facility]. This section includes future appointments and future orders which are active, pending or scheduled. Future Appointments This section includes appointments that were scheduled to occur 6 months from the date of the Encounter, up to a maximum of 20 appointments. The data comes from all [facility] facilities. Appointment Date/Time Appointment Type Appointme nt Facility Name Oct 03, 2024 03:30 PM AMBULATORY - [place]ICINE [place] [facility] Nov 10, 2024 02:00 PM AMBULATORY - MEDICINE [facility] Active, Pending, and Scheduled Orders This section includes a listing of several types of active, pending, and scheduled orders, including clinic medications orders, diagnostic test orders, procedure orders and consult orders; where the start date of the order is 45 days before the date of the Encounter or 45 days after the date of theEncounter. The data comes from all [facility]. Test Date/Time Test Type Test Details Facility Name May 03, 2024 12:00 AM Laboratory - Chemi stry Order BASIC METABOLIC PANEL (fasting) BLOOD (SST-SERUM) [facility] May 03, 2024 12:00 AM Laboratory - Chemi stry Order LIPID PANEL FASTING BLOOD (SST-SERUM) [facility] May 03, 2024 12:00 AM Laboratory - Chemi stry Order LIVER FUNCTION BLOOD (SST-SERUM) [facility] May 03, 2024 12:00 AM Laboratory - Chemi stry Order CBC AND DIFF (AUTO) BLOOD (LAV-BLOOD) [facility] May 03, 2024 12:00 AM Laboratory - Chemi stry Order HEMOGLOBIN A1C PANEL BLOOD (LAV-BLOOD) [facility] May 03, 2024 12:00 AM Laboratory - Chemi stry Order TSH BLOOD (SST-SERUM) [facility] May 16, 2024 12:00 AM Laboratory - Chemi stry Order OCCULT BLOOD FIT X1 SCREEN(IN-HOUSE) STOOL FECES [facility] Lab Results: +/- 30 days of the encounter This section includes the Chemistry and Hematology Lab Results on record with [place] for the patient. Radiology Reports and Pathology Reports are provided separately, in subsequent sections. Lab Results This section contains the Chemistry/Hematology Results that were resulted 30 days before or 30 daysafter the date of the Encounter. Date/Time Source Result Type Result - Unit Interpretation Reference Range Comment May 16, 2024 02:50 PM [place] MICROALBUMIN CREATININE RATIO PANEL Spe cimen Type: URINE No comment entered. Ordering Provider: VINCENZO ALBERT Report Released Date/Time: May 03, 2024 09:28 AM Reporting [facility] [address] [facility] [address] Performing Lab: [facility] [address] [facility] [address] MICROALBUMIN/C REATININE RATIO 6.0 mg/g 0-29.9 MICROALBUMIN,Q UANTITATIVE 1.3 mg/dL RR UNAVAIL CREATININE URINE 218.12 mg/dL Social History: Smoking Status (Most current) and Tobacco Use (All prior to encounter date) This section includes the most current, and the historical, smoking and tobacco- related health factors from the [place] facility where the Encounter took place. Current Smoking Status This section includes the most current smoking, or tobacco-related health factor, from the [place] facility where the Encounter took place. Date/Time Current Smoking Status Comment Bony ity May 16, 2024 03:00 PM VA-TOBACCO FORMER USER [place] [facility] Tobacco Use History This section includes a history of the smoking, or tobacco-related health factors, that were collected on or before the date of the Encounter. The data comes from the [place] facility where the Encounter took place. Date/Time Smoking Status/Tobacco Use Comment F acility May 16, 2024 03:00 PM VA-TOBACCO QUIT 15 YRS OR MORE [place] [facility] [place] [facility] Jun 07, 2023 07:43 PM VA-TOBACCO NEVER USED [place] [facility] [place] [facility] Encounter Notes: All associated encounter notes This section contains the clinical notes associated to the Encounter. Date/Time Encounter Note(s) Provider Source May 16, 2024 03:47 PM PREVENTIVE MEDICIN E NURSING NOTE: LOCAL TITLE: CLINICAL REMINDERS/NURSING STANDARD TITLE: PREVENTIVE MEDICINE NURSING NOTE DATE OF NOTE: MAY 16, 2024@15:47 ENTRY DATE: MAY 16, 2024@15:47:25 AUTHOR: ORZINA WHARTON EXP COSIGNER: URGENCY: STATUS: COMPLETED Suicide Screen: C-SSRS Screening [place] Suicide Severity Rating Scale (C-SSRS) screener 1. Over the past month, have you wished you were or wished you could go to sleep and not wake up? No 2. Over the past month, have you had any actual thoughts of killing yourself? No 3. Over the past month, have you been thinking about how you might do this? Response not required due to responses to other questions. 4. Over the past month, have you had these thoughts and had some intention of acting on them? Response not required due to responses to other questions. 5. Over the past month, have you started to work out or worked out the details of how to kill yourself? Response not required due to responses to other questions. 6. If yes, at any time in the past month did you intend to carry out this plan? Response not required due to responses to other questions. 7. In your lifetime, have you ever done anything, started to do anything, or prepared to do anything to end your life (for example, collected pills, obtained a gun, gave away valuables, went to the roof but didn't jump)? No 8. If YES, was this within the past 3 months? Response not required due to responses to other questions. Depression Screening: Perform PHQ-2 A PHQ-2 screen was performed. The score was 0 which is a negative screen for depression. Over the past two weeks, how often have you been bothered by the following problems? 1. Little interest or pleasure in doing things Not at all 2. Feeling down, depressed, or hopeless Not at all Tobacco Use Screening: The patient is a former tobacco user. The patient quit fifteen or more years ago. Alcohol Use Screen (AUDIT-C): Alcohol Screen: SCREEN FOR ALCOHOL (AUDIT-C) An alcohol screening test (AUDIT-C) was negative (score=0). 1. How often did you have a drink containing alcohol in the past year? Consider a drink to be a 12 ounce can or bottle of regular beer, 8 ounces of malt liquor, a 5 ounce glass of table wine, or a 1.5 ounce shot of liquor (like scotch, gin, or vodka). Never 2. How many drinks containing alcohol did you have on a typical day when you were drinking in the past year? Response not required due to responses to other questions. 3. How often did you have six or more drinks on one occasion in the past year? Response not required due to responses to other questions. FOOT EXAM - DEFERRED VACCINES - ALL VACCINES DEFERRED AT THIS TIME /chloe/ ROZINA WHARTON LPN LPN Signed: 05/16/2024 15:50 ROZINA WHARTON
--- OUTSIDE RECORDS SUMMARY | 2024-10-11 09:42 | XMS_ITS | Encounter Summary ---
Author Name [facility] [place] [facility] [place] Address [address] [place] [address] Care Team Providers Care Optical Laboratory Technician Name Role Phone VINCENZO MILLER Primary Care [...] PART A March 01, 2018 PART A [id number] [phone] [id number] Sam PEACE PATIENT MEDICARE (WNR) MEDICARE (M) PART B March 01, 2018 PART B [id number] Sam PEACE PATIENT MEDICARE (WNR) MEDICARE (M) PART A March 01, 2018 PART A [id number] Sam PEACE PATIENT MEDICARE (WNR) MEDICARE (M) PART B March 01, 2018 PART B [id number] Sam PEACE PATIENT Selected Encounter This section includes the information on record at [place] for the Encounter. Date/Time Encounter Type Encounter Description Reason Provider Source Jan 13, 2024 02:30 PM OFF/OP EST MAY X REQ PHY/QHP PRIMARY CARE/MEDICINE ICD-10-CM I10 Essential (primary) hypertension TANMAY MARRERO Mathew Encounter Template Text not used by [place] Assessments - Encounter Diagnoses This section includes the primary and secondary diagnoses documented for the Encounter. Date/Time Primary/Secondary Diagnosis Diagnosis Name Provider Source Jan 13, 2024 03:08 PM PRIMARY Essential (primary) hypertension TANMAY MARRERO Plan of Treatment: Future Appointments (+ 6 months) and Future Tests (+/- 45 days) The Plan of Treatment section includes future care activities for the patient from all [place] treatmentfacilities. This section includes future appointments and future orders which are active, pending or scheduled. Future Appointments This section includes appointments that were scheduled to occur 6 months from the date of the Encounter, up to a maximum of 20 appointments. The data comes from all [place] treatment facilities. Appointment Date/Time Appointment Type Appointme nt Facility Name Jan 19, 2024 12:45 PM AMBUL[facility]ORY - [facility] Feb 11, 2024 03:20 PM [facility] Apr 12, 2024 01:45 PM AMBULATORY - MEDICINE [facility] May 16, 2024 03:00 PM AMBULATORY - MEDICINE [facility] Lab Results: +/- 30 days of the encounter This section includes the Chemistry and Hematology Lab Results on record with [place] for the patient. Radiology Reports and Pathology Reports are provided separately, in subsequent sections. Lab Results This section contains the Chemistry/Hematology Results that were resulted 30 days before or 30 daysafter the date of the Encounter. Date/Time Source Result Type Result - Unit Interpretation Reference Range Comment Jan 13, 2024 02:47 PM [facility] METHYLMALONIC ACID (SERUM-QU) Specimen Type: SERUM Comment: This test was developed and its analytical performance characteristics have been determined by [facility] [place], [place]. It has not been cleared or approved by the U.S. Food and Drug Administration. This assay has been validated pursuant to the CLIA regulations and is used for clinical purposes. Test Performed by [facility], [facility], [address] [place], [place] Rancho Arguelles M.D., Ph.D., Director of Laboratories , [facility] [id number] TEST PERFORMED AT: , Ordering Provider: VINCENZO AVLA Report Released Date/Time: Dec 31, 2023 08:37 AM Reporting Lab: [facility] [address] [facility] [address] Performing Lab: [facility] [address] [address] METHYLMALONIC ACID (SERUM-QU) 237 nmol/L 87-318 Jan 13, 2024 02:47 PM [facility] THYROID T4 FREE(FT4) Specimen Type: SERUM No comment entered. Ordering Provider: VINCENZO ALVA Report Released Date/Time: Dec 31, 2023 08:37 AM Reporting Lab: [facility] [address] [facility] [address] Performing Lab: [facility] [address] [facility] [address] THYROID T4 FREE(FT4) 1.15 ng/dL 0.6-1.6 Jan 13, 2024 02:47 PM [facility] MAGNESIUM Specimen Type: SERUM No comment entered. Ordering Provider: VINCENZO ALVA Report Released Date/Time: Dec 31, 2023 08:37 AM Reporting Lab: [facility] [address] [facility] [address] Performing Lab: [facility] [address] [facility] [address] MAGNESIUM 1.8 mg/dL 1.6-2.6 Jan 13, 2024 02:47 PM [facility] BASIC METABOLIC PANEL (fasting) Specime n Type: SERUM No comment entered. Ordering Provider: VINCENZO ALVA Report Released Date/Time: Dec 31, 2023 08:37 AM Reporting Lab: [facility] [address] [facility] [address] Performing Lab: [facility] [address] UREA NITROGEN 12 mg/dL 7-25 GLUCOSE 112 mg/dL H 65-100 SODIUM 142 mmol/L 135-145 POTASSIUM 4.2 mmol/L 3.5-5.0 CHLORIDE 104 mmol/L 100-110 CO2 28 meq/L 20-30 CREATININE, Serum 0.81 mg/dL 0.50-1.40 eGFR(CKD-EPI 2020) >90 mL/min >60 Jan 13, 2024 02:47 PM [facility] LIPID PANEL FASTING Specimen Type: SERUM No comment entered. Ordering Provider: VINCENZO ALVA Report Released Date/Time: Dec 31, 2023 08:37 AM Reporting Lab: [address] [address] Performing Lab: [address] [address] CHOLESTEROL 142 mg/dL TRIGLYCERIDE 90 mg/dL 0-150 LDL calculated 90 mg/dL 0-129 CHOL/HDL 4.2 HDL CHOLESTEROL 34 mg/dL L 40-60 Jan 13, 2024 02:47 PM [facility] LIVER FUNCTION Specimen Type: SERUM No comment entered. Ordering Provider: VINCENZO ALVA Report Released Date/Time: Dec 31, 2023 08:37 AM Reporting Lab: [address] [address] Performing Lab: [address] [address] PROTEIN,TOTAL 6.9 g/dL 6.0-8.3 ALBUMIN 3.8 g/dL 3.5-5.0 ALKALINE PHOSPHATASE 76 U/L 40-150 AST 12 U/L 5-34 ALT 19 U/L BILIRUBIN, TOTAL 0.5 mg/dL 0.2-1.2 Jan 13, 2024 02:47 PM [facility] CBC AND DIFF (AUTO) Specimen Type: BLOOD No comment entered. Ordering Provider: VINCENZO ALVA Report Released Date/Time: Dec 31, 2023 08:37 AM Reporting Lab: [address] [address] Performing Lab: [facility] [address] [facility] [address] WBC 8.26 10*3/uL 4.50-11.00 RBC 5.61 10*6/uL 4.23-5.66 HGB 15.3 g/dL 12.8-17 HCT 46.0 39.2-50.4 MCV 82.0 fL 82-99 MCHC 33.3 g/dL 30.8-35.1 PLT 199 10*3/uL 140-360 RDW-CV 13.3 12.0-16.0 Davidson, Abs 0.92 10*3/uL 0.30-1.10 MCH 27.3 pg 26.2-32.6 Neut % 50.5 43.7-75.8 Lymph % 36.3 14.0-42.3 Davidson % 11.1 5.1-13.7 Eos % 1.2 0.4-6.8 Baso % 0.5 0.1-2.0 Neut, Abs 4.17 10*3/uL 2.20-7.60 Lymph, Abs 3.00 10*3/uL 1.00-3.20 Eos, Abs 0.10 10*3/uL 0.03-0.44 Baso, Abs 0.04 10*3/uL 0.01-0.13 Immature Gran % 0.4 0.0-0.7 Immature Gran, Abs 0.03 10*3/uL 0.00-0.06 Jan 13, 2024 02:47 PM [facility] HEMOGLOBIN A1C PANEL Specimen Type: BLOOD Comment: [...] 31, 2023 08:37 AM Reporting Lab: [address] [address] Performing Lab: [address] [place] [address] HEMOGLOBIN A1C 5.4 4.0-5.6 Jan 13, 2024 02:47 PM [facility] TSH Specimen Type: SERUM No comment entered. Ordering Provider: VINCENZO ALVA Report Released Date/Time: Dec 31, 2023 08:37 AM Reporting Lab: [address] [address] Performing Lab: [address] [address] TSH 1.18 u[IU]/mL 0.35-5.00 Jan 13, 2024 02:47 PM [facility] VITAMIN D (25-OH) Specimen Type: SERUM No comment entered. Ordering Provider: VINCENZO ALVA Report Released Date/Time: Dec 31, 2023 08:37 AM Reporting Lab: [address] [address] Performing Lab: [address] [address] VITAMIN D (25-OH) 21 ng/mL 20-50 Encounter Notes: All associated encounter notes This section contains the clinical notes associated to the Encounter. Date/Time Encounter Note(s) Provider Source Jan 13, 2024 03:09 PM MEDICATION MGT NOT E: LOCAL TITLE: OUTPATIENT MEDICATION REQUEST STANDARD TITLE: MEDICATION MGT NOTE DATE OF NOTE: JAN 13, 2024@15:09 ENTRY DATE: JAN 13, 2024@15:09:30 AUTHOR: TANMAY MARRERO COSIGNER: URGENCY: STATUS: COMPLETED Medication Request Date of Request: Dec FUROSEMIDE 20MG TAB TAKE DAILY PRN for LE edema [place] requests above medication previously issued by provider outside of [facility]. Below obtained from [facility] FUROSEMIDE TAB 20MG TAKE ONE TABLET BY MOUTH DAILY FOR 30 DAYS, AND TAKE TWO TABLETS WEDNESDAY FOR 30 DAYS A DIURETIC OR WATER PILL Quantity: 35 Refills: 3 Activity: 10/05/2023 07:04 New Order (Renewal) entered by RENEWAL,AUTO Order Text: FUROSEMIDE TAB 20MG TAKE ONE TABLET BY MOUTH DAILY FOR 30 DAYS, AND TAKE TWO TABLETS WEDNESDAY FOR 30 DAYS A DIURETIC OR WATER PILL Quantity: 35 Refills: 3 Nature of Order: ELECTRONICALLY ENTERED Elec Signature: TRICIA COLLINS (PHYSICIAN) on 10/05/2023 07:16 Current Data: Treating Specialty: Ordering Location: [facility] 8 Start Date/Time: 10/06/2023 (originally 05/19/2021) Stop Date/Time: 10/05/2024 Current Status: ACTIVE [place] also states he does not take Hydrochlorothiazide, requests to discontinue. Requests Furosemide for MAIL /es/ TANMAY MARRERO RN REGISTERED NURSE Signed: 01/13/2024 15:17 Receipt Acknowledged By: 01/17/2024 08:36 /es/ VINCENZO MILLER MD PHYSICIAN TANMAY MARRERO Jan 13, 2024 02:52 PM NURSING NOTE: LOCAL TITLE: PRIMARY CARE NURSE NOTE STANDARD TITLE: NURSING NOTE DATE OF NOTE: JAN 13, 2024@14:52 ENTRY DATE: JAN 13, 2024@14:52:33 AUTHOR: TANMAY MARRERO COSIGNER: URGENCY: STATUS: COMPLETED F: NATE PEACE is a 68 yo who presents to the clinic for a BP check/home BP monitor education per for diagnosis of hypertension D: No data available Allergies: PENICILLIN Recent BP Med Changes: no recent changes Active Outpatient Medications (including Supplies): Issue Date Status Last Fill Active Outpatient Medications Refills Expiration 1) ACCU-CHEK GUIDE (GLUCOSE) TEST STRIP ACTIVE Issu:08-19-23 Qty: 50 for 180 days Sig: USE 1 STRIP Refills: 1 Last:08-20-23 TO TEST BLOOD SUGARS DIRECTED BY Expr:08-19-24 PROVIDER *MAX OF 50 STRIPS PER 180 DAYS IF NOT USING INSULIN 2) ALOGLIPTIN 25MG TAB Qty: 90 for 90 days HOLD Issu:08-20-23 Sig: TAKE ONE TABLET BY MOUTH ONCE Refills: 1 DAILY FOR TYPE 2 DIABETES MELLITUS Expr:08-20-24 3) AMLODIPINE BESYLATE 10MG TAB Qty: 90 HOLD Issu:08-20-23 for 90 days Sig: TAKE ONE TABLET BY Refills: 3 MOUTH ONCE DAILY FOR BLOOD Expr:08-20-24 PRESSURE/HEART, DO NOT TAKE WITH GRAPEFRUIT JUICE 4) ARTIFICIAL TEARS PVA 1.4%/POVIDONE (PF) ACTIVE Issu:08-19-23 Qty: 100 for 30 days Sig: INSTILL 1 Refills: 9 Last:12-05-23 DROP INTO EACH EYE FOUR TIMES A DAY Expr:08-19-24 FOR DRY EYE 5) ATORVASTATIN CALCIUM 40MG TAB Qty: 45 ACTIVE Issu:01-01-24 for 90 days Sig: TAKE ONE-HALF TABLET Refills: 3 Last:01-02-24 BY MOUTH ONCE DAILY FOR HIGH Expr:01-01-25 CHOLESTEROL 6) CETIRIZINE HCL 10MG TAB Qty: 90 for 90 HOLD Issu:08-20-23 days Sig: TAKE ONE TABLET BY MOUTH Refills: 3 ONCE DAILY FOR ALLERGIES Expr:08-20-24 7) CHOLECALCIF 25MCG (D3-1,000UNIT) TAB ACTIVE Issu:09-08-23 Qty: 90 for 90 days Sig: TAKE ONE Refills: 0 Last:12-09-23 TABLET BY MOUTH ONCE DAILY FOR VITAMIN Expr:09-08-24 SUPPLEMENTATION 8) FLUTICASONE PROP 50MCG 120D NASAL INHL HOLD Issu:08-20-23 Qty: 1 for 30 days Sig: INSTILL 1 Refills: 11 SPRAY INTO EACH NOSTRIL ONCE DAILY FOR Expr:08-20-24 NASAL IRRITATION/INFLAMMATION 9) GABAPENTIN 300MG CAP Qty: 540 for 90 ACTIVE Issu:09-01-23 days Sig: TAKE TWO CAPSULES BY MOUTH Refills: 1 Last:09-02-23 THREE TIMES A DAY FOR NERVE PAIN Expr:09-01-24 10) HYDROCHLOROTHIAZIDE 25MG TAB Qty: 90 HOLD Issu:08-20-23 for 90 days Sig: TAKE ONE TABLET BY Refills: 1 MOUTH ONCE DAILY Expr:08-20-24 11) LANCET,SOFTCLIX Qty: 100 for 90 days ACTIVE Issu:08-19-23 Sig: USE 1 LANCET TOPICALLY TWO TIMES Refills: 3 Last:08-20-23 A WEEK TO TEST BLOOD SUGAR Expr:08-19-24 12) LEVOTHYROXINE NA (SYNTHROID) 100MCG TAB ACTIVE Issu:09-08-23 Qty: 90 for 90 days Sig: TAKE ONE Refills: 0 Last:11-28-23 TABLET BY MOUTH EVERY MORNING 30 Expr:09-08-24 MINUTES BEFORE BREAKFAST FOR THYROID TAKE ON AN EMPTY STOMACH WITH A FULL GLASS OF WATER 13) LOPERAMIDE HCL 2MG CAP Qty: 90 for 30 ACTIVE Issu:09-01-23 days Sig: TAKE ONE CAPSULE BY MOUTH Refills: 0 Last:01-15-24 BEFORE MEALS FOR DIARRHEA Expr:09-01-24 14) LOSARTAN 100MG TAB Qty: 90 for 90 days HOLD Issu:08-20-23 Sig: TAKE ONE TABLET BY MOUTH ONCE Refills: 3 DAILY FOR BLOOD PRESSURE/HEART Expr:08-20-24 15) MELATONIN 5MG CAP/TAB Qty: 90 for 45 ACTIVE Issu:09-08-23 days Sig: TAKE TWO CAPSULE/TABLET BY Refills: 1 Last:12-24-23 MOUTH ONCE DAILY NEEDED FOR Expr:09-08-24 INSOMNIA 16) METFORMIN HCL 500MG 24HR SA TAB Qty: ACTIVE Issu:09-08-23 180 for 90 days Sig: TAKE ONE TABLET Refills: 0 Last:12-05-23 BY MOUTH TWICE DAILY Expr:09-08-24 17) OMEPRAZOLE 20MG EC CAP Qty: 90 for 90 HOLD Issu:08-20-23 days Sig: TAKE ONE CAPSULE BY MOUTH Refills: 1 EVERY MORNING 30 MINUTES BEFORE Expr:08-20-24 BREAKFAST FOR HEARTBURN 18) SIMETHICONE 80MG CHEW TAB Qty: 100 for ACTIVE Issu:12-31-23 50 days Sig: CHEW TWO TABLETS BY Refills: 0 Last:01-02-24 MOUTH ONCE DAILY NEEDED FOR GAS Expr:02-19-24 Medication Management: [place] states s/he takes medications every day at [facility] medication: [X} Pharmacy Bottles [X} takes medications as prescribed [X} [place] knows what s/he is taking medications for [X} [place] verbalizes side effects [X} [place] verablizes the refill process Symptoms: chest pain No shortness of breath No palpitations No cough No dizzyness No orthostatis No syncope No headache No visual changes No fatigue No edema No HOME BP MONITOR EDUCATION states he has a home monitor, but does not/will not use it unless symptomatic. PATIENT EDUCATION: Education and Discussion Attempted to provide general education regarding BP, diet, activity, and risks associated with hypertension. [place] indicates he does not plan to make any changes in near future. A/P: Blood pressure at this visit 137/79, p-[id number]. brought list of medications to visit, but list does not include dosing information. Blood pressure medications found to be accurate with one exception. STATES HE DOES NOT TAKE HYDROCLOROTHIAZIDE. states I found that one didn't do anything for me , does not wish to have this medication ordered. did state that he takes Furosemide occasionally , but denied having edema in past few months. requests renewal of Furosemide medication, securities underwriter will enter medication request for lasix. At end of visit, brought to lab for pending tests. Forwarding to PCP for review. RTC: PRN Upcoming Appointments: 01/19/2024 12:45 COM CARE-OTHER No communication barriers. [place] understands and agrees to current treatment plan. If has any questions, concerns, or changes in current health status s/he will call PACT. 22 minutes spent in patient care and education /chloe/ TANMAY MARRERO RN REGISTERED NURSE Signed: 01/13/2024 15:08 Receipt Acknowledged By: 01/17/2024 08:23 /chloe/ VINCENZO MILLER MD PHYSICIAN TANMAY MARRERO
--- OUTSIDE RECORDS SUMMARY | 2024-10-11 09:42 | XMS_ITS ---
Author Name [facility] [place] [facility] [place] Address [address] [place] [address] Care Team Providers Care Cook Specialty Name Role Phone VINCENZO MILLER Primary Care [...] PART A March 01, 2018 PART A [id number] [phone] 7 Sam PEACE PATIENT MEDICARE (WNR) MEDICARE (M) PART B March 01, 2018 PART B [id number] Sam PEACE PATIENT MEDICARE (WNR) MEDICARE (M) PART A March 01, 2018 PART A [id number] Sam PEACE PATIENT MEDICARE (WNR) MEDICARE (M) PART B March 01, 2018 PART B [id number] [id number] Sam PEACE PATIENT Selected Encounter This section includes the information on record at [place] for the Encounter. Date/Time Encounter Type Encounter Description Reason Pro vider Source Apr 12, 2024 12:00 AM Outpatient Encounter COMMUNITY CARE CONSULT IHE Encounter Template Text not used by [place] Plan of Treatment: Future Appointments (+ 6 months) and Future Tests (+/- 45 days) The Plan of Treatment section includes future care activities for the [facility] [place] [facility] This section includes future appointments and future orders which are active, pending or scheduled. Future Appointments This section includes appointments that were scheduled to occur 6 months from the date of the Encounter, up to a maximum of 20 appointments. The data comes from all [facility] facilities. Appointment Date/Time Appointment Type Appointme nt Facility Name May 16, 2024 03:00 PM AMBULATORY - MEDICINE [facility] Oct 03, 2024 03:30 PM [facility] Active, Pending, and Scheduled Orders This section includes a listing of several types of active, pending, and scheduled orders, including clinic medications orders, diagnostic test orders, procedure orders and consult orders; where the start date of the order is 45 days before the date of the Encounter or 45 days after the date of theEncounter. The data comes from all [facility]. Test Date/Time Test Type Test Details Facility Name May 03, 2024 12:00 AM Laboratory - Chemi stry Order BASIC METABOLIC PANEL (fasting) BLOOD (SST-SERUM) [facility] May 03, 2024 12:00 AM Laboratory - Chemi stry Order LIPID PANEL FASTING BLOOD (SST-SERUM) [facility] May 03, 2024 12:00 AM Laboratory - Chemi stry Order LIVER FUNCTION BLOOD (SST-SERUM) [facility] May 03, 2024 12:00 AM Laboratory - Chemi stry Order CBC AND DIFF (AUTO) BLOOD (LAV-BLOOD) [facility] May 03, 2024 12:00 AM Laboratory - Chemi stry Order HEMOGLOBIN A1C PANEL BLOOD (LAV-BLOOD) [facility] May 03, 2024 12:00 AM Laboratory - Chemi stry Order TSH BLOOD (SST-SERUM) [facility] May 16, 2024 12:00 AM Laboratory - Chemi stry Order OCCULT BLOOD FIT X1 SCREEN(IN-HOUSE) STOOL FECES [facility] Social History: Smoking Status (Most current) and Tobacco Use (All prior to encounter date) This section includes the most current, and the historical, smoking and tobacco- related health factors from the [place] facility where the Encounter took place. Current Smoking Status This section includes the most current smoking, or tobacco-related health factor, from the [place] facility where the Encounter took place. Date/Time Current Smoking Status Comment Facil ity Jun 07, 2023 07:43 PM [place]-TOBACCO NEVER USED [facility] Encounter Notes: All associated encounter notes This section contains the clinical notes associated to the Encounter. Date/Time Encounter Note(s) Provider Source Apr 12, 2024 12:00 AM NONVA CONSULT: LOCAL TITLE: COMMUNITY CARE-CONSULT RESULT NOTE STANDARD TITLE: NONVA CONSULT DATE OF NOTE: APR 12, 2024 ENTRY DATE: APR 25, 2024@14:13:08 AUTHOR: ANNABELLE CASEY EXP COSIGNER: URGENCY: STATUS: COMPLETED VistA Imaging - Scanned Document SCANNED DOCUMENT SIGNATURE NOT REQUIRED Electronically Filed: 04/25/2024 by: ANNABELLE CASEY WORLD LANGUAGE TEACHER ANNABELLE CASEY [facility]
--- OUTSIDE RECORDS SUMMARY | 2024-10-11 09:42 | XMS_ITS | Encounter Summary ---
Author Name [facility] [place] [facility] [place] Address [address] [place] [id number] Care Team Providers Care Injection Mold Technician Name Role Phone VINCENZO MILLER Primary [...] PART A March 01, 2018 PART A [id number] Sam PEACE PATIENT MEDICARE (WNR) MEDICARE (M) PART B March 01, 2018 PART B [id number] [phone] Sam PEACE PATIENT MEDICARE (WNR) MEDICARE (M) PART A March 01, 2018 PART A [id number] Sma PEACE PATIENT MEDICARE (WNR) MEDICARE (M) PART B March 01, 2018 PART B [id number] Sam PEACE PATIENT Selected Encounter This section includes the information on record at [place] for the Encounter. Date/Time Encounter Type Encounter Description Reason Provider Source May 16, 2024 03:00 PM OFFICE O/P EST MOD 30 MIN PRIMARY CARE/MEDICINE ICD-10-CM R63.4 Abnormal weight loss VINCENZO HO [facility] Encounter Template Text not used by [place] Assessments - Encounter Diagnoses This section includes the primary and secondary diagnoses documented for the Encounter. Date/Time Primary/Secondary Diagnosis Diagnosis Name Provider Source May 21, 2024 12:44 AM PRIMARY Abnormal weight loss VINCENZO HO [place] May 21, 2024 12:44 AM SECONDARY Essential (primary) hypertension VINCENZO HO [place] May 21, 2024 12:44 AM SECONDARY Gastro-esophageal reflux dis with esophagitis, without bleed VINCENZO HO [place] May 21, 2024 12:44 AM SECONDARY Hyperlipidemia, unspecified VINCENZO HO [place] May 21, 2024 12:44 AM SECONDARY Hypothyroidism, unspecified VINCENZO HO [place] May 21, 2024 12:44 AM SECONDARY Obesity, unspecified VINCENZO HO [place] May 21, 2024 12:44 AM SECONDARY Obstructive sleep apnea (adult) (pediatric) VINCENZO HO [place] May 21, 2024 12:44 AM SECONDARY Pain, unspecified VINCENZO HO [place] May 21, 2024 12:44 AM SECONDARY Spinal stenosis, cervical region VINCENZO HO [place] May 21, 2024 12:44 AM SECONDARY Spinal stenosis, lumbar region without neurogenic will VINCENZO HO [place] May 21, 2024 12:44 AM SECONDARY Type 2 diabetes mellitus without complications VINCENZO HO [facility] May 21, 2024 12:44 AM SECONDARY Vitamin D deficiency, unspecified VINCENZO HO [place] Plan of Treatment: Future Appointments (+ 6 months) and Future Tests (+/- 45 days) The Plan of Treatment section includes future care activities for the patient from all [place] treatmentfacilities. This section includes future appointments and future orders which are active, pending or scheduled. Future Appointments This section includes appointments that were scheduled to occur 6 months from the date of the Encounter, up to a maximum of 20 appointments. The data comes from all [facility]. Appointment Date/Time Appointment Type Appointme nt Facility Name Oct 03, 2024 03:30 PM AM[place] [facility] Nov 10, 2024 02:00 PM AMBULATORY [...] of theEncounter. The data comes from all [facility]. Test Date/Time Test Type Test Details Facility Name May 03, 2024 12:00 AM Laboratory - Chemi stry Order BASIC METABOLIC PANEL (fasting) BLOOD (SST-SERUM) [facility] May 03, 2024 12:00 AM Laboratory - Chemi stry Order LIPID PANEL FASTING BLOOD (SST-SERUM) [facility] May 03, 2024 12:00 AM Laboratory - Chemi stry Order LIVER FUNCTION BLOOD (SST-SERUM) [facility] May 03, 2024 12:00 AM Laboratory - Chemi stry Order CBC AND DIFF (AUTO) BLOOD (LAV-BLOOD) [facility] May 03, 2024 12:00 AM Laboratory - Chemi stry Order HEMOGLOBIN A1C PANEL BLOOD (LAV-BLOOD) [facility] May 03, 2024 12:00 AM Laboratory - Chemi stry Order TSH BLOOD (SST-SERUM) [facility] May 16, 2024 12:00 AM Laboratory - Chemi stry Order OCCULT BLOOD FIT X1 SCREEN(IN-HOUSE) STOOL FECES [facility] Lab Results: +/- 30 days of the encounter This section includes the Chemistry and Hematology Lab Results on record with [place] for the patient. Radiology Reports and Pathology Reports are provided separately, in subsequent sections. Lab Results This section contains the Chemistry/Hematology Results that were resulted 30 days before or 30 daysafter the date of the Encounter. Date/Time Source Result Type Result - Unit Interpretation Reference Range Comment May 16, 2024 02:50 PM [place] MICROALBUMIN CREATININE RATIO PANEL Spe cimen Type: URINE No comment entered. Ordering Provider: VINCENZO ALBERT Report Released Date/Time: May 03, 2024 09:28 AM Reporting Lab: [facility] [address] [facility] [address] Performing Lab: [facility] [address] [facility] [address] MICROALBUMIN/C REATININE RATIO 6.0 mg/g 0-29.9 MICROALBUMIN,Q UANTITATIVE 1.3 mg/dL RR UNAVAIL CREATININE URINE 218.12 mg/dL Vital Signs: All taken on the encounter date This section contains inpatient and outpatient Vital Signs collected on the date of the Encounter. Date/Time Temperature Pulse Blood Pressure Respiratory Rate SP02 Pain Height Weight Body Mass Index Source May 16, 2024 03:46 PM 97.7 68 134/75 97 264.2 36 [place] Encounter Notes: All associated encounter notes This section contains the clinical notes associated to the Encounter. Date/Time Encounter Note(s) Provider Source May 16, 2024 03:00 PM PHYSICIAN NOTE: LOCAL TITLE: MD NOTE STANDARD TITLE: PHYSICIAN NOTE DATE OF NOTE: MAY 16, 2024@15:00 ENTRY DATE: MAY 16, 2024@15:42:02 AUTHOR: Sydney MILLER COSIGNER: URGENCY: STATUS: COMPLETED Pt is 69 y/o M with PMH of obesity, HTN, HL, DM2, Hypothyroidism, CHUY, GERD, MDD, spinal stenosis, radiculopathy here for f/u transferred care from [facility] 08/2023 Last visit 12/2023 Other providers: -- Physiatry pain management -- [facility] neurosurgery Dr. Svetlana Grimm reports doing well needs medications refilled #Hypothyroidism: Compliant with levothyroxine Regained 10 pounds since last visit Denies heat and cold intolerance Denies palpitations #Diarrhea, constipation alternating intermittent takes Imodium, simethicone prn with good effect #Cervical spinal stenosis #Lumbar spinal stenosis #Back pain f/w [place] [facility] requests second opinion from [facility] Used to be on oxycodone in [place] Patient evaluated by neurosurgery Has bilateral sanches's no other signs of cervical myelopathy (No arm symptoms, clonus, hyperreflexia), he has balance issues might be from CS stenosis. Surgery on the neck might not improve pain, patient advised that he might have permanent swelling benefits. Severe lumbar stenosis which might be causing for his left leg weakness and left foot drop, patient was made aware that surgery might help with symptoms less likely with pain. Patient's main concern is pain, and patient hesitant to undergo surgery if surgery is not going to address his pain. Plan is to obtain cervical spine CAT scan to assess cervical osteophytes, and follow-up with neurosurgery, PAST MEDICAL HISTORY: -- obesity -- HTN [...] HISTORY: --Knee arthroscopy left ALLERGIES: PENICILLIN MEDICATIONS: ATORVASTATIN CALCIUM 20MG LOSARTAN 100MG TAB AMLODIPINE BESYLATE 10MG FUROSEMIDE 20MG TAB TAKE DAILY PRN for LE edema METFORMIN HCL 500MG BID ALOGLIPTIN 25MG TAB LEVOTHYROXINE NA (SYNTHROID) 100MCG OMEPRAZOLE 20MG ARTIFICIAL TEARS PVA 1.4%/POVIDONE (PF) CETIRIZINE HCL 10MG FLUTICASONE PROPIONATE 50MCG/SPRAY SOLN,NASAL CHOLECALCIF 25MCG (D3-1,000UNIT) GABAPENTIN 600MG CAP TID DIABETIC NEUROPATHY MELOXICAM 15MG DAILY -LOPERAMIDE HCL 2MG CAP BEFORE MEALS FOR DIARRHEA -MELATONIN 5MG CAP/TAB TAKE TWO CAPSULE FAMILY HISTORY: --DM: father, sister --Cancer: no --[place]: father d of [place] at 63, PGF d [place] at 60 --CVA:no --Mental Health/addiction: --Other: mother Alive >90y.o SOCIAL HISTORY: --Occupation: retired, disabled --Cohabitation: , lives with his sister --Children: 2 adult children in [place] - --Diet: meals on wheels --Exercise: No [...] wheelchair PHYSICAL EXAM: Vital Signs: Blood Pressure: 134/75 (05/16/2024 15:46) 137/80 (12/31/2023 14:29) 126/79 (08/19/2023 14:11) Pulse: 68 (05/16/2024 15:46) Respiration:16 Temperature: 97.7 F [36.5 C] (05/16/2024 15:46) Patient Weight: BMI 34 264.2 lb [119.84 kg] (05/16/2024 15:46) 253.2 lb [114.85 kg] (12/31/2023 14:29) 246 lb [111.58 kg] (08/19/2023 14:11) Gen: pleasant, engaged, NAD Chest/CV: RRR Lungs: CTA B/L Abdomen: BS+, Soft, NT, no rebounding, no guarding no CVAT b/l Extremities: wwp, no edema spine: Mild tenderness over cervical and lumbar spine. SLR + b/l Decreased range of motion Extremities: motor 5/5 bilaterally Sensation intact DTR 1/4 LABORATORY:12/2023 WBC: 8.26 HGB: 15.3 HCT: 46.0 MCV: 82.0 PLT: 199 MMA-QU: 237 TSH (Access): 1.18 FREE T-4 (WR): 1.15 VITAMIN D TOTAL: 21 HGB A1C (WR): 5.4 GLUCOSE: 112 H ACR 6 UREA NITROGEN: 12 CREATININE-EGFR: 0.81 eGFR CKD-EPI 2020: >90 SODIUM: 142 POTASSIUM: 4.2 CHLORIDE: 104 CO2: 28 PROTEIN,TOTAL: 6.9 ALBUMIN: 3.8 ALKALINE PHOSPHATASE: 76 BILIRUBIN,TOT.: 0.5 SGOT: 12 SGPT: 19 CHOLESTEROL: 142 TRIGLYCERIDE: 90 LDL CHOL: 90 CHOL/HDL RATIO: 4.2 HDL: 34 L MAGNESIUM: 1.8 IMAGING: #MRI CS 12/2020 Suboptimal study Central [...] and bilateral inguinal hernias. ASSESSMENT/PLAN: Pt is 69 y/o M with PMH of obesity, HTN, HL, DM2, Hypothyroidism, CHUY, GERD, MDD, spinal stenosis, radiculopathy #h/o Weight loss regained 10 lbs since last visit (decreased dose of levothyroxine and metformin since 09/2023) in 2022 pt had Unintentional 50 lb weight loss wuth abdominal discomfort alternating diarrhea and constipation 10/2023 CT chest/A/P unremerkable Never had colonoscopy, hemoglobin normal -Loperamide and simethicone prn #Hypothyroidism: TSH 1.18, free T4 1.15 (12/2023) -levothyroxine 100mcg #HTN: Well-controlled on current regimen, goal <130/80 --> -LOSARTAN 100MG TAB -AMLODIPINE BESYLATE 10MG -FUROSEMIDE 20MG TAB TAKE DAILY PRN for LE edema #HL: Well-controlled, LDL 90 -c/w atorvastatin 20 mg #INSOMNIA: -c/w MELATONIN 10MG #CHUY-compliant with CPAP #obesity: BMI 36 #DM2: Well-controlled, a1c 5.4, ACR nml -switch from alogliptin 25mg to sitagliptin -metformin 500mg BID eye exam-UTD #GERD: -c/w OMEPRAZOLE 20MG #Vitamin D deficiency: Normalized on supplementation #Cervical and lumbar spinal stenosis #Multilevel spondylosis cervical and lumbar #Multilevel facet arthropathy, disc protrusion with bilateral foraminal stenosisper -f/w [facility] physiatry, neurosurgery -Fall precautions, activity as tolerated Healthcare maintenance: --Lipids: LDL 90 (12/2023) --Diabetes: A1c 5.4 (12/2023) --Colon CA (50-75): never had colonoscopy FIT card provided today --Lung CA: --PSA PSA 1.08 (08/2023) --AAA (smoker/65): --Influenza (yrly): --COVID: 2020 x2 --PCV13 2017 --PCV23: 2019 --HZV (>60yrs, x1): --RZV (>50yrs, x1): --TDAP: --Hep C screen: --HIV screen: --DEXA: --Advanced Directives: Address at next visit: Return to clinic to see me in 6 months, sooner PRN. Virtual ( ), F2F ( x ) ( )non fasting labs ordered prior to f/u (x )fasting labs ordered prior to f/u ( )no labs needed ( )request labs from outside provider ( )request records from outside providers Medication Reconciliation: Outpatient: Has the patient been taking medications as documented in the EMLR? YES: The patient has been taking medications as documented in the EMLR. Essential Medication List for Review used to complete this medication reconciliation. INCLUDED IN THIS LIST: Alphabetical list of active outpatient prescriptions dispensed from this [facility] (local) and dispensed from another [place] or [place] facility (remote) as well as inpatient orders (local, pending and active), local clinic medications, locally documented non-VA medications, and local prescriptions that have or been discontinued in the past 90 days. - All changes in medications, including all non-VA/Herbal/OTC medications were entered into [facility]S. - If there were any medications the patient should no longer take, they were discontinued. - The patient/caregiver was instructed to update this list, discard old lists, and take this list to the next appointment, whether with a VA or non-VA provider. /es/ OGNJENKA NADAZDIN-BOSKOVIC,MD PHYSICIAN Signed: 05/21/2024 00:44 YOLIE MILLER [place]
--- OUTSIDE RECORDS SUMMARY | 2024-10-11 09:42 | XMS_ITS ---
Author Name [facility] [place] [facility] [place] Address [address] [place] [address] Care Team Providers Care Licensed Chemical Spray Technician Name Role Phone VINCENZO MILLER Primary [...] PART A March 01, 2018 PART A [id number] [phone] Sam PEACE PATIENT MEDICARE (WNR) MEDICARE (M) PART B March 01, 2018 PART B [id number] Sam PEACE PATIENT MEDICARE (WNR) MEDICARE (M) PART A March 01, 2018 PART A [id number] Sam PEACE PATIENT MEDICARE (WNR) MEDICARE (M) PART B March 01, 2018 PART B [id number] Sam PEACE PATIENT Selected Encounter This section includes the information on record at [place] for the Encounter. Date/Time Encounter Type Encounter Description Reason Pro vider Source March 17, 2024 08:39 AM Outpatient Encounter ADMIN PAT ACTIVTIES (MASNONCT) IHE Encounter Template Text not used by [place] Plan of Treatment: Future Appointments (+ 6 months) and Future Tests (+/- 45 days) The Plan of Treatment section includes future care activities for the patient from all [place] treatmentfacilities. This section includes future appointments and future orders which are active, pending or scheduled. Future Appointments This section includes appointments that were scheduled to occur 6 months from the date of the Encounter, up to a maximum of 20 appointments. The data comes from all [place] treatment facilities. Appointment Date/Time Appointment Type Appointme nt Facility Name Apr 12, 2024 01:45 PM [facility] [place] [facility] May 16, 2024 03:00 PM AMBULATORY - MEDICINE [facility] Social History: Smoking Status (Most current) and Tobacco Use (All prior to encounter date) This section includes the most current, and the historical, smoking and tobacco- related health factors from the VA facility where the Encounter took place. Current Smoking Status This section includes the most current smoking, or tobacco-related health factor, from the [place] facility where the Encounter took place. Date/Time Current Smoking Status Comment Facil ity Jun 07, 2023 07:43 PM VA-TOBACCO NEVER USED [facility] Encounter Notes: All associated encounter notes This section contains the clinical notes associated to the Encounter. Date/Time Encounter Note(s) Provider Source March 17, 2024 08:39 AM PHARMACY NOTE: LOCAL TITLE: PHARMACY CUSTOMER CARE MEDICATION RENEWAL STANDARD TITLE: PHARMACY NOTE DATE OF NOTE: MARCH 17, 2024@08:39 ENTRY DATE: MARCH 17, 2024@08:39:34 AUTHOR: ELVIE SIMS COSIGNER: URGENCY: STATUS: COMPLETED Date: March Division: [facility] referred by Pharmacy Call Center for medication renewal: Non-controlled/maintenan ce medication Medications requested: [id number] LEVOTHYROXINE NA (SYNTHROID) 100MCG TAB [id number] MELATONIN 5MG CAP/TAB [id number] METFORMIN HCL 500MG 24HR SA TAB [id number] SIMETHICONE 80MG CHEW TAB Defer to primary care provider To be mailed . Please review and renew if appropriate. *This note was generated by [facility]/[place] Pharmacy Customer Care. If you have any questions or need assistance, do not contact this author. Please refer all questions to your local, on-site pharmacy departments. /chloe/ ELVIE SIMS CPhT Career Education Teacher, [place]/Pharmacy Customer Care Signed: 03/17/2024 08:40 Receipt Acknowledged By: 03/17/2024 13:30 /es/ TANMAY MARRERO RN REGISTERED NURSE 03/17/2024 11:55 /es/ MD PHYSICIAN LEVI GAITAN DESTINY L [facility]
--- OUTSIDE RECORDS SUMMARY | 2024-10-11 09:42 | XMS_ITS ---
Author Name [facility] [place] Address [address] [place] [address] Care Team Providers Care Engineer Chief Name Role Phone VINCENZO MILLER Primary Care Provide TRIICA Shipman Primary Care Provider Unavailabl e Insurance [...] PART A March 01, 2018 PART A [id number] [id number] Sam PEACE PATIENT MEDICARE (WNR) MEDICARE (M) PART B March 01, 2018 PART B [id number] Sam PEACE PATIENT MEDICARE (WNR) MEDICARE (M) PART A March 01, 2018 PART A [id number] Sam PEACE PATIENT MEDICARE (WNR) MEDICARE (M) PART B March 01, 2018 PART B [id number] Sam PEACE PATIENT Selected Encounter This section includes the information on record at [place] for the Encounter. Date/Time Encounter Type Encounter Description Reason Pro vider Source Apr 10, 2024 01:31 PM Outpatient Encounter ADMIN PAT ACTIVTIES (MASNONCT) IHE Encounter Template Text not used by [place] Plan of Treatment: Future Appointments (+ 6 months) and Future Tests (+/- 45 days) The Plan of Treatment section includes future care activities for the patient [facility] [place] [facility] This section includes future appointments and future orders which are active, pending or scheduled. Future Appointments This section includes appointments that were scheduled to occur 6 months from the date of the Encounter, up to a maximum of 20 appointments. The data comes from all [facility]. Appointment Date/Time Appointment Type Appointme nt Facility Name Apr 12, 2024 01:45 PM AMBULATORY - [place]ICINE [place] [facility] [place] [facility] May 16, 2024 03:00 PM AMBULATORY - MEDICINE [facility] Oct 03, 2024 03:30 PM AMBULATORY - MEDICINE [facility] [facility] Active, Pending, and Scheduled Orders This section includes a listing of several types of active, pending, and scheduled orders, including clinic medications orders, diagnostic test orders, procedure orders and consult orders; where the start date of the order is 45 days before the date of the Encounter or 45 days after the date of theEncounter. The data comes from all [facility]. Test Date/Time Test Type Test Details Facility Name May 03, 2024 12:00 AM Laboratory - Chemi stry Order BASIC METABOLIC PANEL (fasting) BLOOD (SST-SERUM) [facility] May 03, 2024 12:00 AM Laboratory - Chemi stry Order LIPID PANEL FASTING BLOOD (SST-SERUM) [facility] May 03, 2024 12:00 AM Laboratory - Chemi stry Order LIVER FUNCTION BLOOD (SST-SERUM) [facility] May 03, 2024 12:00 AM Laboratory - Chemi stry Order CBC AND DIFF (AUTO) BLOOD (LAV-BLOOD) [facility] May 03, 2024 12:00 AM Laboratory - Chemi stry Order HEMOGLOBIN A1C PANEL BLOOD (LAV-BLOOD) [facility] May 03, 2024 12:00 AM Laboratory - Chemi stry Order TSH BLOOD (SST-SERUM) [facility] May 16, 2024 12:00 AM Laboratory - Chemi stry Order OCCULT BLOOD FIT X1 SCREEN(IN-HOUSE) STOOL FECES [facility] Social History: Smoking Status (Most current) and Tobacco Use (All prior to encounter date) This section includes the most current, and the historical, smoking and tobacco- related health factors from the [place] facility where the Encounter took place. Current Smoking Status This section includes the most current smoking, or tobacco-related health factor, from the [place] facility where the Encounter took place. Date/Time Current Smoking Status Comment Bony barbay Jun 07, 2023 07:43 PM VA-TOBACCO NEVER USED [place] [facility] [place] [facility] Encounter Notes: All associated encounter notes This section contains the clinical notes associated to the Encounter. Date/Time Encounter Note(s) Provider Source Apr 13, 2024 11:38 AM ADDENDUM: LOCAL TITLE: Addendum STANDARD TITLE: ADDENDUM DATE OF NOTE: APR 13, 2024@11:38:09 ENTRY DATE: APR 13, 2024@11:38:10 AUTHOR: TANMAY MARRERO COSIGNER: URGENCY: STATUS: COMPLETED [place] last seen by PCP on 12/31/23, no documentation in visit notes regarding need for neurosurgery consult. Forwarding to PCP for review. Please advise. /chloe/ TANMAY MARRERO RN REGISTERED NURSE Signed: 04/13/2024 11:39 Receipt Acknowledged By: 04/15/2024 12:11 /es/ VINCENZO MILLER MD PHYSICIAN === --- Original Document --- 04/10/24 CCC: SCHEDULING ADMINISTRATION: Patient Demographics Patient Name: NATE PEACE Patient Primary Phone: [phone] Patient Primary Address: [address] [place] [id number] Patient : 1955 Patient Age: 69 Caller/Recipient Relation to Patient: Self Administrative Administrative Note Reason: Other Administrative Note Comments: is scheduled with neurosurgery 04/12/24. They state they didn't receive the consult and they need it sent ramy. He's going to neurosurgery at [facility]. thank you /chloe/ ANTWAN PANDA Signed: 04/10/2024 13:32 Receipt Acknowledged By: 04/13/2024 13:12 /chloe/ TANMAY MARRERO RN REGISTERED NURSE 04/14/2024 08:19 /chloe/ ROZINA WHARTON LPN LPN 04/12/2024 ADDENDUM STATUS: COMPLETED [employer] received a phone call from Lucinda at [facility] requesting an authorization. had an appt today at 1:45 for the DX of Lumbar stenosis. He was referred by [facility]. If PCP agrees, a Neurosurgery consult is needed. /chloe/ SIMA WHITEHEAD RN Community Consulting Senior Practice Director Signed: 04/12/2024 16:31 Receipt Acknowledged By: 04/15/2024 11:41 /chloe/ VINCENZO MILLER MD PHYSICIAN 04/13/2024 16:27 /chloe/ MIK LINDSEY RN REGISTERED NURSE 04/13/2024 ADDENDUM STATUS: COMPLETED Neurosurgery consult placed and held for PCP signature if appropriate. 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 had an appt today at 1:45 for the DX of Lumbar stenosis. He was referred by [facility]. If PCP agrees, a Neurosurgery consult is needed. /rachael WHITEHEAD RN Community Consulting Senior Practice Director Signed: 04/12/2024 16:31 Receipt Acknowledged By: 04/15/2024 11:41 /rachael MILLER MD PHYSICIAN 04/13/2024 16:27 /chloe/ MIK LINDSEY RN REGISTERED NURSE === --- Original Document --- 04/10/24 CCC: SCHEDULING ADMINISTRATION: Patient Demographics Patient Name: NATE PEACE Patient Primary Phone: [phone] Patient Primary Address: [address] [place] [address] Patient : 1955 Patient Age: 69 Caller/Recipient Relation to Patient: Self Administrative Administrative Note Reason: Other Administrative Note Comments: is scheduled with neurosurgery 04/12/24. They state they didn't receive the consult and they need it sent ramy. He's going to neurosurgery at [facility]. thank you /es/ ANTWAN PANDA Signed: 04/10/2024 13:32 Receipt Acknowledged By: 04/13/2024 13:12 /chloe/ TANMAY MARRERO RN REGISTERED NURSE 04/14/2024 08:19 /es/ ROZINA WHARTON LPN LPN 04/13/2024 ADDENDUM STATUS: COMPLETED [place] last seen by PCP on 12/31/23, no documentation in visit notes regarding need for neurosurgery consult. Forwarding to PCP for review. Please advise. /chloe/ TANMAY MARRERO RN REGISTERED NURSE Signed: 04/13/2024 11:39 Receipt Acknowledged By: * AWAITING SIGNATURE * NOAM MILLER 04/13/2024 ADDENDUM STATUS: COMPLETED Neurosurgery consult placed and held for PCP signature if appropriate. /es/ MIK LINDSEY RN REGISTERED NURSE Signed: 04/13/2024 16:26 SIMA WHITEHEAD [place] [facility] [place] [facility] Apr 10, 2024 01:31 PM ADMINISTRATIVE NOT E: LOCAL TITLE: CCC: SCHEDULING ADMINISTRATION STANDARD TITLE: ADMINISTRATIVE NOTE DATE OF NOTE: APR 10, 2024@13:31:59 ENTRY DATE: APR 10, 2024@13:31:59 AUTHOR: ANTWAN PANDA COSIGNER: URGENCY: STATUS: COMPLETED CCC: SCHEDULING ADMINISTRATION Has ADDENDA Patient Demographics Patient Name: NATE PEACE Patient Primary Phone: [phone] Patient Primary Address: [address] [place] [address] Patient : 1955 Patient Age: 69 Caller/Recipient Relation to Patient: Self Administrative Administrative Note Reason: Other Administrative Note Comments: [place] is scheduled with neurosurgery 04/12/24. They state they didn't receive the consult and they need it sent ramy. He's going to neurosurgery at [facility]. 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 [place] had an appt today at 1:45 for the DX of Lumbar stenosis. He was referred by [facility]. If PCP agrees, a Neurosurgery consult is needed. /chloe/ SIMA WHITEHEAD RN Community Consulting Senior Practice Director Signed: 04/12/2024 16:31 Receipt Acknowledged By: * AWAITING SIGNATURE * NOAM MILLER 04/13/2024 16:27 /chloe/ MIK LINDSEY RN REGISTERED NURSE 04/13/2024 ADDENDUM STATUS: COMPLETED [place] last seen by PCP on 12/31/23, no documentation in visit notes regarding need for neurosurgery consult. Forwarding to PCP for review. Please advise. /chloe/ TANMAY MARRERO RN REGISTERED NURSE Signed: 04/13/2024 11:39 Receipt Acknowledged By: * AWAITING SIGNATURE * NOAM MILLER 04/13/2024 ADDENDUM STATUS: COMPLETED Neurosurgery consult placed and held for PCP signature if appropriate. /chloe/ MIK LINDSEY RN REGISTERED NURSE Signed: 04/13/2024 16:26 ANTWAN PANDA [place] CNT[facility]
--- OUTSIDE RECORDS SUMMARY | 2024-10-11 09:43 | XMS_ITS ---
Author Name [facility] [place] [facility] [place] Address [address] [place] [address] Care Team Providers Care Placement Manager Name Role Phone VINCENZO MILLER Primary [...] PART A March 01, 2018 PART A [id number] [id number] Sam PEACE PATIENT MEDICARE (WNR) MEDICARE (M) PART B March 01, 2018 PART B [id number] [id number] Sam PEACE PATIENT MEDICARE (WNR) MEDICARE (M) PART A March 01, 2018 PART A [id number] Sam PEACE PATIENT MEDICARE (WNR) MEDICARE (M) PART B March 01, 2018 PART B [id number] Sma PEACE PATIENT Selected Encounter This section includes the information on record at [place] for the Encounter. Date/Time Encounter Type Encounter Description Reason Pro vider Source May 25, 2024 11:56 AM Outpatient Encounter ADMIN PAT ACTIVTIES (MASNONCT) IHE Encounter Template Text not used by [place] Plan of Treatment: Future Appointments (+ 6 months) and Future Tests (+/- 45 days) The Plan of Treatment section includes future care activities for the patient from all [place] [facility]. This section includes future appointments and future orders which are active, pending or scheduled. Future Appointments This section includes appointments that were scheduled to occur 6 months from the date of the Encounter, up to a maximum of 20 appointments. The data comes from all [place] treatment facilities. Appointment Date/Time Appointment Type Appointme nt Facility Name Oct 03, 2024 03:30 PM AM[place]UL[place]ORY [place]INE [place] [facility] Nov 10, 2024 02:00 PM AMBULATORY - MEDICINE [facility] Active, Pending, and Scheduled Orders This section includes a listing of several types of active, pending, and scheduled orders, including clinic medications orders, diagnostic test orders, procedure orders and consult orders; where the start date of the order is 45 days before the date of the Encounter or 45 days after the date of theEncounter. The data comes from all [facility]. Test Date/Time Test Type Test Details Facility Name May 03, 2024 12:00 AM Laboratory - Chemi stry Order BASIC METABOLIC PANEL (fasting) BLOOD (SST-SERUM) [facility] May 03, 2024 12:00 AM Laboratory - Chemi stry Order LIPID PANEL FASTING BLOOD (SST-SERUM) [facility] May 03, 2024 12:00 AM Laboratory - Chemi stry Order LIVER FUNCTION BLOOD (SST-SERUM) [facility] May 03, 2024 12:00 AM Laboratory - Chemi stry Order CBC AND DIFF (AUTO) BLOOD (LAV-BLOOD) [facility] May 03, 2024 12:00 AM Laboratory - Chemi stry Order HEMOGLOBIN A1C PANEL BLOOD (LAV-BLOOD) [facility] May 03, 2024 12:00 AM Laboratory - Chemi stry Order TSH BLOOD (SST-SERUM) [facility] May 16, 2024 12:00 AM Laboratory - Chemi stry Order OCCULT BLOOD FIT X1 SCREEN(IN-HOUSE) STOOL FECES [facility] Lab Results: +/- 30 days of the encounter This section includes the Chemistry and Hematology Lab Results on record with [place] for the patient. Radiology Reports and Pathology Reports are provided separately, in subsequent sections. Lab Results This section contains the Chemistry/Hematology Results that were resulted 30 days before or 30 daysafter the date of the Encounter. Date/Time Source Result Type Result - Unit Interpretation Reference Range Comment May 16, 2024 02:50 PM [place] MICROALBUMIN CREATININE RATIO PANEL Spe cimen Type: URINE No comment entered. Ordering Provider: VINCENZO ALBERT Report Released Date/Time: May 03, 2024 09:28 AM Reporting Lab: [facility] [address] [id number] Performing Lab: [facility] [address] [id number] MICROALBUMIN/C REATININE RATIO 6.0 mg/g 0-29.9 MICROALBUMIN,Q UANTITATIVE 1.3 mg/dL RR UNAVAIL CREATININE URINE 218.12 mg/dL Social History: Smoking Status (Most current) and Tobacco Use (All prior to encounter date) This section includes the most current, and the historical, smoking and tobacco- related health factors from the [place] facility where the Encounter took place. Current Smoking Status This section includes the most current smoking, or tobacco-related health factor, from the [place] facility where the Encounter took place. Date/Time Current Smoking Status Comment Bony barbalexy May 16, 2024 03:00 PM VA-TOBACCO FORMER USER [facility] Tobacco Use History This section includes a history of the smoking, or tobacco-related health factors, that were collected on or before the date of the Encounter. The data comes from the [place] facility where the Encounter took place. Date/Time Smoking Status/Tobacco Use Comment F acility May 16, 2024 03:00 PM VA-TOBACCO QUIT 15 YRS OR MORE [facility] Jun 07, 2023 07:43 PM VA-TOBACCO NEVER USED [facility] Encounter Notes: All associated encounter notes This section contains the clinical notes associated to the Encounter. Date/Time Encounter Note(s) Provider Source May 25, 2024 11:57 AM ADMINISTRATIVE NOT E: LOCAL TITLE: CCC: SCHEDULING ADMINISTRATION STANDARD TITLE: ADMINISTRATIVE NOTE DATE OF NOTE: MAY 25, 2024@11:57:01 ENTRY DATE: MAY 25, 2024@11:57:01 AUTHOR: JASWINDER ROE EXP COSIGNER: URGENCY: STATUS: COMPLETED CCC: SCHEDULING ADMINISTRATION Has ADDENDA Patient Demographics Patient Name: NATE PEACE Patient Primary Phone: [phone] Patient Primary Address: [address] [place] [address] Patient : 1955 Patient Age: 69 Call Back Number: [phone] Caller/Recipient Relation to Patient: Self Administrative Administrative Note Reason: Other Administrative Note Comments: [facility] calling to see if they make a larger lidocaine patch. Please call /chloe/ JASWINDER ROE Signed: 05/25/2024 11:57 Receipt Acknowledged By: 06/01/2024 15:59 /es/ ROZINA WHARTON LPN LPN 05/29/2024 16:19 /chloe/ MIK LINDSEY RN REGISTERED NURSE 05/29/2024 ADDENDUM STATUS: COMPLETED Spoke with . Advised Lidocaine patch is a prescription that comes in the size provided. [facility] reports his pain is on both left and right side of his back and requesting for extra patches to be able to use 2 patches at a time. Notified PCP via teams. /chloe/ MIK LINDSEY RN REGISTERED NURSE Signed: 05/29/2024 16:18 JASWINDER ROE CNTRL WSTRN [facility]
--- OUTSIDE RECORDS SUMMARY | 2024-10-11 09:43 | XMS_ITS ---
Author Name [facility] [place] Address [address] [place] [address] Care Team Providers Care Lot Technician Name Role Phone VINCENZO MILLER Primary [...] PART A March 01, 2018 PART A [id number] [phone] [id number] Sam PEACE PATIENT MEDICARE (WNR) MEDICARE (M) PART B March 01, 2018 PART B [id number] Sam PEACE PATIENT MEDICARE (WNR) MEDICARE (M) PART A March 01, 2018 PART A [id number] Sam PEACE PATIENT MEDICARE (WNR) MEDICARE (M) PART B March 01, 2018 PART B [id number] Sam PEACE PATIENT Selected Encounter This section includes the information on record at [place] for the Encounter. Date/Time Encounter Type Encounter Description Reason Pro vider Source Sep 26, 2024 10:31 AM Outpatient Encounter ADMIN PAT ACTIVTIES (MASNONCT) IHE Encounter Template Text not used by [place] Plan of Treatment: Future Appointments (+ 6 months) and Future Tests (+/- 45 days) The Plan of Treatment section includes future care activities for the patient from all [place] treatmentfacilities. This section includes future appointments and future orders which are active, pending or scheduled. Future Appointments This section includes appointments that were scheduled to occur 6 months from the date of the Encounter, up to a maximum of 20 appointments. The data comes from all [place] treatment facilities. Appointment Date/Time Appointment Type Appointme nt Facility Name Oct 03, 2024 03:30 PM AMBULATORY - MEDICINE [facility] [place] [facility] Nov 10, 2024 02:00 PM AMBULATORY - MEDICINE [facility] Social History: Smoking [...] Date/Time Current Smoking Status Comment Facil ity May 16, 2024 03:00 PM [facility]AC[facility] Tobacco Use History This section includes a history of the smoking, or tobacco-related health factors, that were collected on or before the date of the Encounter. The data comes from the [place] facility where the Encounter took place. Date/Time Smoking Status/Tobacco Use Comment F acility May 16, 2024 03:00 PM VA-TOBACCO QUIT 15 YRS OR MORE [place] [facility] Jun 07, 2023 07:43 PM VA-TOBACCO NEVER USED [place] [facility] Encounter Notes: All associated encounter notes This section contains the clinical notes associated to the Encounter. Date/Time Encounter Note(s) Provider Source Sep 26, 2024 10:31 AM ADMINISTRATIVE NOTE: LOCAL TITLE: CCC: SCHEDULING ADMINISTRATION STANDARD TITLE: ADMINISTRATIVE NOTE DATE OF NOTE: SEP 26, 2024@10:31:36 ENTRY DATE: SEP 26, 2024@10:31:36 AUTHOR: HAMZAH AGUIALR EXP COSIGNER: URGENCY: STATUS: COMPLETED CCC: SCHEDULING ADMINISTRATION Has ADDENDA Patient Demographics Patient Name: NATE PEACE Patient Primary Phone: [phone] Patient Primary Address: [address] [place] [address] Patient : 1955 Patient Age: 69 Current Location: [facility] Call Back Number: [phone] Caller/Recipient Relation to Patient: Other If Other Describe 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 Keisha would appreciate a call back @ [phone] to confirm the order has been faxed. Thank you. IMPORTANT: This note was created by [facility] Clinical Contact Center staff. Please do not alert the staff member by adding them as a signer for future communications. Alerts are not monitored by this user. /chloe/ HAMZAH COCHRAN Signed: 09/26/2024 10:31 Receipt Acknowledged By: 10/02/2024 09:32 /chloe/ ROZINA WHARTON LPN LPN 09/29/2024 12:41 /chloe/ MIK LINDSEY RN REGISTERED NURSE 09/29/2024 ADDENDUM STATUS: COMPLETED Consult/order has been printed, signed by covering provider and faxed to [facility] [phone]. This mortgage or loan underwriter called the number provided by Keisha @ [phone] to confirm receipt of the fax. Phone was answered by Radha who asked this mortgage or loan underwriter to call back in an hours' time. /rachael LINDSEY RN REGISTERED NURSE Signed: 09/29/2024 12:41 09/29/2024 ADDENDUM STATUS: COMPLETED Spoke with Aniya who confirmed receipt of the faxed orders. /chloe/ MIK CASSI-MIREKU,RN REGISTERED NURSE Signed: 09/29/2024 14:20 HAMZAH AGUILARRL [facility]
--- OUTSIDE RECORDS SUMMARY | 2024-10-11 09:43 | XMS_ITS ---
Author Name [facility] [place] Organization [facility] [place] Address [address] [place] [address] Care Team Providers Care Car Repossessor Name Role Phone VINCENZO MILLER Primary Care [...] PART A March 01, 2018 PART A [id number] [id number] Sam PEACE PATIENT MEDICARE (WNR) MEDICARE (M) PART B March 01, 2018 PART B [id number] Sam PEACE PATIENT MEDICARE (WNR) MEDICARE (M) PART A March 01, 2018 PART A [id number] Sam PEACE PATIENT MEDICARE (WNR) MEDICARE (M) PART B March 01, 2018 PART B [id number] Sam PEACE PATIENT Selected Encounter This section includes the information on record at [place] for the Encounter. Date/Time Encounter Type Encounter Description Reason Pro vider Source Oct 02, 2024 11:19 AM Outpatient Encounter ADMIN PAT ACTIVTIES (MASNONCT) IHE Encounter Template Text not used by [place] Plan of Treatment: Future Appointments (+ 6 months) and Future Tests (+/- 45 days) The Plan of Treatment section includes future care activities for the patient from all [place] treatmentfacilities. This section includes future appointments and future orders which are active, pending or scheduled. Future Appointments This section includes appointments that were scheduled to occur 6 months from the date of the Encounter, up to a maximum of 20 appointments. The data comes from all [place] treatment facilities. Appointment Date/Time Appointment Type Appointme nt Facility Name Oct 03, 2024 03:30 PM AMBULATORY - MEDICINE [facility] [place] [facility] Nov 10, 2024 02:00 PM AMBULATORY - MEDICINE [facility] Social History: Smoking Status (Most current) and Tobacco Use (All prior to encounter date) This section includes the most current, and the historical, smoking and tobacco- related health factors from the [place] facility where the Encounter took place. Current Smoking Status This section includes the most current smoking, or tobacco-related health factor, from the [place] facility where the Encounter took place. Date/Time Current Smoking Status Comment Facil ity May 16, 2024 03:00 PM VA-TOBACCO [facility] Tobacco Use History This section includes a history of the smoking, or tobacco-related health factors, that were collected on or before the date of the Encounter. The data comes from the [place] facility where the Encounter took place. Date/Time Smoking Status/Tobacco Use Comment F acility May 16, 2024 03:00 PM VA-TOBACCO QUIT 15 YRS OR MORE [place] [facility] [place] [facility] Jun 07, 2023 07:43 PM VA-TOBACCO NEVER USED [place] [facility] Encounter Notes: All associated encounter notes This section contains the clinical notes associated to the Encounter. Date/Time Encounter Note(s) Provider Source Oct 02, 2024 11:19 AM ADMINISTRATIVE NOTE: LOCAL TITLE: CCC: SCHEDULING ADMINISTRATION STANDARD TITLE: ADMINISTRATIVE NOTE DATE OF NOTE: OCT 02, 2024@11:19:27 ENTRY DATE: OCT 02, 2024@11:19:27 AUTHOR: LEONARDO NELSON EXP COSIGNER: URGENCY: STATUS: COMPLETED Patient Demographics Patient Name: NATE PEACE Patient Primary Phone: [phone] Patient Primary Address: [address] [place] [address] Patient : 1955 Patient Age: 69 Caller/Recipient Relation to Patient: Self Caller Name: NATE PEACE Administrative Administrative Note Reason: Medication Renewal [place] Medications Refill/Renewal Request: PLEASE RENEW AND MAIL Rx # - Medication Name - Dosage - SIG - Number of Refills - Facility - Status [id number] - LEVOTHYROXINE NA (SYNTHROID) 100MCG TAB - 1 TABLET - TAKE ONE TABLET BY MOUTH EVERY MORNING 30 MINUTES BEFORE BREAKFAST FOR THYROID TAKE ON AN EMPTY STOMACH WITH A FULL GLASS OF WATER - 0 - AVIS - 631BY - ACTIVE IMPORTANT: This note was created by [facility] Clinical Contact Center staff. Please do not alert the staff member by adding them as a signer for future communications. Alerts are not monitored by this user. /chloe/ LEONARDO NELSON ADVANCED RADAR TESTER Signed: 10/02/2024 11:19 Receipt Acknowledged By: 10/05/2024 00:03 /es/ VINCENZO MILLER MD PHYSICIAN 10/04/2024 15:16 /es/ MIK LINDSEY RN REGISTERED NURSE LEONARDO NELSON [facility]
--- OUTSIDE RECORDS SUMMARY | 2024-10-11 09:45 | XMS_ITS | Continuity of Care Document ---
Author Organization Formerly [facility]. If a dditional information is needed, contact Health Information Management at [phone] Address [address] [place] [address] Phone Care Team Providers Care Electronic Controls Repairer Supervisor Name Role Phone Unavailable Unavailable Unavailable Unavailable Unavailable Unavailable Unavailable Unavailable Unavailable Problems Spinal stenosis in cervical region Comments:Cervical spinal igor nosis Encounters pre-admission 09-Dec-2021 14:00 Shola TA (Attending) Aga Gutierrez
== END 2024-10-06 13:34 | disposition home or self-care (01) ==
LOC: HO.CT 13:33
PROVIDERS: PCP Internal Medicine; Visit Provider Physician Assistant
DX: G95.9 Disease of spinal cord, unspecified (principal)
CPT/HCPCS: 72050; 72125

== ENCOUNTER 2024-12-29 14:40 | Outpatient (AMB) | payer MEDICARE, MEDICAID, SELFPAY ==
--- NOTE | 2024-12-29 14:53 | HO.SPINEOV ---
Intake Visit Reasons: Ct f/u on a day is in Intake Note: Mr. Mart is here to F/u on the results to his CT. Guide Foreign Tour Required: No Allergies No Known Allergies Allergy (Verified 12/29/24 14:54) Assessment & Plan Assessment & Plan (1) Cervical myelopathy: Code(s): G95.9 - Disease of spinal cord, unspecified Category: Medical Plan Mr Mart came back today in follow-up to review his CT scan done here at [place]. Please refer to my note for the specifics of his problem but he has been dealing with not only myelopathic symptoms but also lumbar stenosis. We are dealing with his cervical myelopathy 1st. He has severe spinal cord compression at C3-4 and C4-5. His CT scan confirms what we thought that there is calcification behind the body for that the easiest approach for surgery would be to do a C4 corpectomy and C3-5 anterior plating. Because he also has large anterior bridging osteophytes and some dysphagia, we will also remove some of the osteophytes as well not only for the sake of putting on the plate but also to debulk the areas that are compressing the esophagus. Dr. Burroughs and I met with him reviewed the procedure at length. All pertinent risks and benefits were discussed. The patient was tentatively scheduled for 03/06/2025. We will keep him in the hospital 1 night. Pt was given risk and benefits of surgery including but not limited to infection, hematoma , nerve injury,durotomy, weakness,bowel/bladder injury, persistent pain, dysphagia, vocal hoarseness as well as the option to continue with conservative treatment and patient wishes to proceed with surgery. Pt is aware they should stop their motrin, meloxicam and alogliptin 7 days prior to surgery. All questions were answered to the best of our ability. If there is anything about this patients medical history that we have overlooked or concerns you have about us proceeding with surgery we would appreciate any input you can offer. Total amount of time spent in this visit was 20 minutes in discussion of symptoms, cervical CT and MRI imaging results and subsequent plan of care Gabriel Burroughs MD,PhD [facility] Coding Level of Care Code Est Pt Level 3 (43821) Diagnoses Cervical myelopathy G95.9
--- OUTSIDE RECORDS SUMMARY | 2024-12-29 16:48 | XMS_ITS | Encounter Summary ---
Author Name [facility] [place] Organization [facility] [place] Address [address] [place] [address] Care Team Providers Care Painter Helper Spray Name Role Phone VINCENZO MILLER Primary Care [...] PART A March 01, 2018 PART A [id number] 86A Sam PEACE PATIENT MEDICARE (WNR) MEDICARE (M) PART B March 01, 2018 PART B [id number] [phone] [id number] Sam PEACE PATIENT MEDICARE (WNR) MEDICARE (M) PART A March 01, 2018 PART A [id number] [phone] [id number] Sam PEACE PATIENT MEDICARE (WNR) MEDICARE (M) PART B March 01, 2018 PART B [id number] Sam PEACE PATIENT MEDICARE (WNR) MEDICARE (M) PART A March 01, 2018 PART A [id number] [facility] Sam PEACE PATIENT MEDICARE (WNR) MEDICARE (M) PART B March 01, 2018 PART B [id number] [facility] [phone] Sam PEACE PATIENT Selected Encounter This section includes the information on record at [place] for the Encounter. Date/Time Encounter Type Encounter Description Reason Provider Source Dec 31, 2023 02:00 PM OFFICE O/P EST MOD 30 MIN PRIMARY CARE/MEDICINE ICD-10-CM R63.4 Abnormal weight loss LESLI-BOSVINCENZO CHRISTIAN Mathew Encounter Template Text not used by [place] Assessments - Encounter Diagnoses This section includes the primary and secondary diagnoses documented for the Encounter. Date/Time Primary/Secondary Diagnosis Diagnosis Name Provider Source Jan 01, 2024 08:27 PM PRIMARY Abnormal weight loss VINCENZO HO [place] Jan 01, 2024 08:27 PM SECONDARY Elevated white blood cell count, unspecified LUANAZDIN-BOSKO VINCENZO NEIL [place] Jan 01, 2024 08:27 PM SECONDARY Essential (primary) hypertension LESLI-BOSKO VINCENZO NEIL [facility] Jan 01, 2024 08:27 PM SECONDARY Gastro-esophageal reflux dis with esophagitis, without bleed VINCENZO HO [place]LE Jan 01, 2024 08:27 PM SECONDARY Hyperlipidemia, unspecified LUANAZDIN-BOSKO JOLYNN,VINCENZO [facility] Jan 01, 2024 08:27 PM SECONDARY Hypothyroidism, unspecified LUANAZDIN-BOSKO JLOYNNVINCENZO [place] Jan 01, 2024 08:27 PM SECONDARY Insomnia, unspecified NADAZDIN-BOSKO JOLYNN,VINCENZO [facility] Jan 01, 2024 08:27 PM SECONDARY Obesity, unspecified NADAZDIN-BOSKO JOLYNN,VINCENZO [facility] Jan 01, 2024 08:27 PM SECONDARY Obstructive sleep apnea (adult) (pediatric) LESLI-BOSKO VINCENZO NEIL [facility] Jan 01, 2024 08:27 PM SECONDARY Pain, unspecified NADAZDIN-BOSKO JOLYNN,VINCENZO [facility] Jan 01, 2024 08:27 PM SECONDARY Sleep apnea, unspecified NADAZDIN-BOSKO JOLYNNVINCENZO [facility] Jan 01, 2024 08:27 PM SECONDARY Spinal stenosis, cervical region VINCENZO HO [place]LE Jan 01, 2024 08:27 PM SECONDARY Spinal stenosis, lumbar region without neurogenic will VINCENZO HO [place] Jan 01, 2024 08:27 PM SECONDARY Type 2 diabetes mellitus without complications VINCENZO HO MOSELLE Jan 01, 2024 08:27 PM SECONDARY Vitamin D deficiency, unspecified VINCENZO HO MOSELLE Plan of Treatment: Future Appointments (+ 6 months) and Future Tests (+/- 45 days) The Plan of Treatment section includes future care activities for the patient from all [place] [facility]. This section includes future appointments and future orders which are active, pending or scheduled. Future Appointments This section includes appointments that were scheduled to occur 6 months from the date of the Encounter, up to a maximum of 20 appointments. The data comes from all [facility] facilities. Appointment Date/Time Appointment Type Appointme nt Facility Name Jan 13, 2024 02:30 PM AM[facility]ULATORY [facility] Jan 19, 2024 12:45 PM [facility] Feb 11, 2024 03:20 PM AMBULATORY - [facility] Apr 12, 2024 01:45 PM AMBULATORY - MEDIC[facility] May 16, 2024 03:00 PM AMBULATORY [...] Range Comment Jan 13, 2024 02:47 PM [place] METHYLMALONIC ACID (SERUM-QU) Specimen Type: SERUM Comment: This test was developed and its analytical performance characteristics have been determined by [email or web address] [place], [place]. It has not been cleared or approved by the U.S. Food and Drug Administration. This assay has been validated pursuant to the CLIA regulations and is used for clinical purposes. Test Performed by [facility], [facility], [address] [place], [place] Rancho Arguelles M.D., Ph.D., Director of Laboratories , CLIA [id number] TEST PERFORMED AT: , Ordering Provider: VINCENZO ALVA Report Released Date/Time: Dec 31, 2023 08:37 AM Reporting Lab: [facility] [address] [facility] [address] Performing Lab: [facility] [address] [address] METHYLMALONIC ACID (SERUM-QU) 237 nmol/L 87-318 Jan 13, 2024 02:47 PM [place] THYROID T4 FREE(FT4) Specimen Type: SERUM No comment entered. Ordering Provider: VINCENZO ALVA Report Released Date/Time: Dec 31, 2023 08:37 AM Reporting Lab: [facility] [address] [facility] [address] Performing Lab: [facility] [address] [facility] [address] THYROID T4 FREE(FT4) 1.15 ng/dL 0.6-1.6 Jan 13, 2024 02:47 PM [place] MAGNESIUM Specimen Type: SERUM No comment entered. Ordering Provider: VINCENZO ALVA Report Released Date/Time: Dec 31, 2023 08:37 AM Reporting Lab: [facility] [address] [facility] [address] Performing Lab: [facility] [address] [facility] [address] MAGNESIUM 1.8 mg/dL 1.6-2.6 Jan 13, 2024 02:47 PM [place] BASIC METABOLIC PANEL (fasting) Specime n Type: SERUM No comment entered. Ordering Provider: VINCENZO ALVA Report Released Date/Time: Dec 31, 2023 08:37 AM Reporting Lab: [address] [address] Performing Lab: [address] [address] UREA NITROGEN 12 mg/dL 7-25 GLUCOSE 112 mg/dL H 65-100 SODIUM 142 mmol/L 135-145 POTASSIUM 4.2 mmol/L 3.5-5.0 CHLORIDE 104 mmol/L 100-110 CO2 28 meq/L 20-30 CREATININE, Serum 0.81 mg/dL 0.50-1.40 eGFR(CKD-EPI 2020) >90 mL/min >60 Jan 13, 2024 02:47 PM [place] LIPID PANEL FASTING Specimen Type: SERUM No comment entered. Ordering Provider: VINCENZO ALVA Report Released Date/Time: Dec 31, 2023 08:37 AM Reporting Lab: [address] [address] Performing Lab: [address] [address] CHOLESTEROL 142 mg/dL TRIGLYCERIDE 90 mg/dL 0-150 LDL calculated 90 mg/dL 0-129 CHOL/HDL 4.2 HDL CHOLESTEROL 34 mg/dL L 40-60 Jan 13, 2024 02:47 PM [place] LIVER FUNCTION Specimen Type: SERUM No comment entered. Ordering Provider: VINCENZO ALVA Report Released Date/Time: Dec 31, 2023 08:37 AM Reporting Lab: [address] [address] Performing Lab: [address] [address] PROTEIN,TOTAL 6.9 g/dL 6.0-8.3 ALBUMIN 3.8 g/dL 3.5-5.0 ALKALINE PHOSPHATASE 76 U/L 40-150 AST 12 U/L 5-34 ALT 19 U/L BILIRUBIN, TOTAL 0.5 mg/dL 0.2-1.2 Jan 13, 2024 02:47 PM [facility] CBC AND DIFF (AUTO) Specimen Type: BLOOD No comment entered. Ordering Provider: VINCENZO ALVA Report Released Date/Time: Dec 31, 2023 08:37 AM Reporting Lab: [address] [address] Performing Lab: [address] [address] WBC 8.26 10*3/uL 4.50-11.00 RBC 5.61 10*6/uL 4.23-5.66 HGB 15.3 g/dL 12.8-17 HCT 46.0 39.2-50.4 MCV 82.0 fL 82-99 MCHC 33.3 g/dL 30.8-35.1 PLT 199 10*3/uL 140-360 RDW-CV 13.3 12.0-16.0 [facility], Abs 0.92 10*3/uL 0.30-1.10 MCH 27.3 pg 26.2-32.6 Neut % 50.5 43.7-75.8 Lymph % 36.3 14.0-42.3 [facility] % 11.1 5.1-13.7 Eos % 1.2 0.4-6.8 Baso % 0.5 0.1-2.0 Neut, Abs 4.17 10*3/uL 2.20-7.60 Lymph, Abs 3.00 10*3/uL 1.00-3.20 Eos, Abs 0.10 10*3/uL 0.03-0.44 Baso, Abs 0.04 10*3/uL 0.01-0.13 Immature Gran % 0.4 0.0-0.7 Immature Gran, Abs 0.03 10*3/uL 0.00-0.06 Jan 13, 2024 02:47 PM [facility] HEMOGLOBIN A1C PANEL Specimen Type: BLOOD Comment: [...] Dec 31, 2023 08:37 AM Reporting Lab: [facility] [address] [address] Performing Lab: [facility] [address] [address] HEMOGLOBIN A1C 5.4 4.0-5.6 Jan 13, 2024 02:47 PM [facility] TSH Specimen Type: SERUM No comment entered. Ordering Provider: VINCENZO ALVA Report Released Date/Time: Dec 31, 2023 08:37 AM Reporting Lab: [facility] [address] [address] Performing Lab: [facility] [address] [address] TSH 1.18 u[IU]/mL 0.35-5.00 Jan 13, 2024 02:47 PM [facility] VITAMIN D (25-OH) Specimen Type: SERUM No comment entered. Ordering Provider: VINCENZO ALVA Report Released Date/Time: Dec 31, 2023 08:37 AM Reporting Lab: [facility] [address] [address] Performing Lab: [facility] [address] VITAMIN D (25-OH) 21 ng/mL 20-50 Vital [...] 03/17/2024 11:56 Receipt Acknowledged By: 03/23/2024 11:59 /es/ JULIET Mathew [facility] Specialist --- Original Document --- 12/31/23 NOTE: Pt is 68 y/o M with PMH of obesity, HTN, HL, DM2, Hypothyroidism, CHUY, GERD, MDD, spinal stenosis, radiculopathy here for f/u transferred care from [facility] 08/2023 Last visit 09/2023 Other providers: [...] minimal effect #Back pain scheduled with physiatry [facility] 01/04/2024 Evaluated by [facility] requests second opinion from [facility] Used to be on oxycodone in [place] PAST MEDICAL HISTORY: -- obesity -- HTN [...] FAMILY HISTORY: --DM: father, sister --Cancer: no --SD: father d of SD at 63, PGF d SD at 60 --CVA:no --Mental Health/addiction: --Other: mother Alive >90y.o SOCIAL HISTORY: --Occupation: retired, disabled --Cohabitation: , lives with his sister --Children: 2 adult children in [place] - --Diet: meals on wheels --Exercise: No [...] stenosis per LS MRI 2019 -Scheduled with physiatry-[facility] for further imaging evaluation and treatment -Fall precautions, activity as tolerated Healthcare maintenance: --Lipids: LDL 89 (08/2023) --Diabetes: A1c 5.3 (08/2023) --Colon CA (50-75): never had colonoscopy -scheuduled GI for colonoscopy, EGD --Lung CA: --PSA PSA 1.08 (08/2023) --AAA (smoker/65): --Influenza (yrly): --COVID: 2020 x2 --PCV13 2018 --PCV23: 2019 --HZV (>60yrs, x1): --RZV (>50yrs, [...] Acknowledged By: 01/03/2024 11:11 /chloe/ YOLIE JONES MOSELLE Dec 31, 2023 02:00 PM PHYSICIAN NOTE: LOCAL TITLE: NOTE STANDARD TITLE: PHYSICIAN NOTE DATE OF NOTE: DEC 31, 2023@14:00 ENTRY DATE: DEC 31, 2023@00:22:08 AUTHOR: Sydney MILLER EXP COSIGNER: URGENCY: STATUS: COMPLETED NOTE Has ADDENDA Pt is 68 y/o M with PMH of obesity, HTN, HL, DM2, Hypothyroidism, CHUY, GERD, MDD, spinal stenosis, radiculopathy here for f/u transferred care from [facility] 08/2023 Last visit 09/2023 Other providers: [...] minimal effect #Back pain scheduled with physiatry [facility] 01/04/2024 Evaluated by [facility] requests second opinion from [facility] Used to be on oxycodone in [place] PAST MEDICAL HISTORY: -- obesity -- HTN [...] FAMILY HISTORY: --DM: father, sister --Cancer: no --SD: father d of SD at 61, PGF d SD at 60 --CVA:no --Mental Health/addiction: --Other: mother Alive >90y.o SOCIAL HISTORY: --Occupation: retired, disabled --Cohabitation: , lives with his sister --Children: 2 adult children in [place] - --Diet: meals on wheels --Exercise: No [...] Extremities: motor 5/5 bilaterally Sensation intact DTR 1/ LABORATORY:08/2023 WBC: 12.04 H HGB: 15.4 HCT: [...] stenosis per LS MRI 2019 -Scheduled with physiatry-[facility] for further imaging evaluation and treatment -Fall precautions, activity as tolerated Healthcare maintenance: --Lipids: LDL 89 (08/2023) --Diabetes: A1c 5.3 (08/2023) --Colon CA (50-75): never had colonoscopy -scheuduled GI for colonoscopy, EGD --Lung CA: --PSA PSA 1.08 (08/2023) --AAA (smoker/65): --Influenza (yrly): --COVID: 2020 x2 --PCV13 2017 --PCV23: 2018 --HZV (>60yrs, x1): --RZV (>50yrs, x1): --TDAP: [...] assign patient to PACT 5. Thank you /es/ VINCENZO MILLER MD PHYSICIAN Signed: 03/17/2024 11:56 Receipt Acknowledged By: 03/23/2024 11:59 /es/ JULIET Mathew [facility] Specialist 05/15/2024 ADDENDUM STATUS: COMPLETED Community care - neurosurgery note received. Available in PCP rightfax folder as PCP appointment is tomorrow, May 16, 2024. /es/ Aury Pride RN Registered Nurse Signed: 05/15/2024 15:23 YOLIE MILLER MOSEL[facility]
--- OUTSIDE RECORDS SUMMARY | 2024-12-29 16:48 | XMS_ITS | Continuity of Care Document ---
Author Organization [facility]. If a dditional information is needed, contact Health Information Management at [phone] Address [address] [place] [address] Phone Care Team Providers Care Otr Driver Name Role Phone Unavailable Unavailable Unavailable Unavailable Unavailable Unavailable Unavailable Unavailable Unavailable Problems Spinal stenosis in cervical region Comments:Cervical spinal igor nosis Encounters pre-admission 09-Dec-2021 14:00 Shola TA (Attending) Aga Gutierrez
--- OUTSIDE RECORDS SUMMARY | 2024-12-29 16:49 | XMS_ITS | Encounter Summary ---
Author Name [facility] [place] [facility] [place] Address [address] [place] [address] Care Team Providers Care Costumed Character Entertainer Name Role Phone VINCENZO MILLER Primary Care [...] PART A March 01, 2018 PART A [id number] Sam PEACE PATIENT MEDICARE (WNR) MEDICARE (M) PART B March 01, 2018 PART B [id number] Sam PEACE PATIENT MEDICARE (WNR) MEDICARE (M) PART A March 01, 2018 PART A [id number] [id number] [id number] Sam PEACE PATIENT MEDICARE (WNR) MEDICARE (M) PART B March 01, 2018 PART B [id number] [phone] [id number] Sam PEACE PATIENT MEDICARE (WNR) MEDICARE (M) PART A March 01, 2018 PART A [id number] KOBISam LORI PATIENT MEDICARE (WNR) MEDICARE (M) PART B March 01, 2018 PART B [id number] Sam PEACE LORI PATIENT Selected Encounter This section includes the information on record at [place] for the Encounter. Date/Time Encounter Type Encounter Description Reason Pro vider Source March 17, 2024 08:39 AM Outpatient Encounter ADMIN PAT ACTIVTIES (MASNONCT) IHE Encounter Template Text not used by [place] Plan of Treatment: Future Appointments (+ 6 months) and Future Tests (+/- 45 days) The Plan of Treatment section includes future care activities for the patient from all [place] treatmentfacilities. This section includes future appointments and future orders which are active, pending or scheduled. Future Appointments This section includes appointments that were scheduled to occur 6 months from the date of the Encounter, up to a maximum of 20 appointments. The data comes from all [place] treatment facilities. Appointment Date/Time Appointment Type Appointme nt Facility Name Apr 12, 2024 01:45 PM AMBULATORY - MEDICINE [facility] May 16, 2024 03:00 PM AMBULATORY - MEDICINE [facility] Social History: Smoking Status (Most current) and Tobacco Use (All prior to encounter date) This section includes the most current, and the historical, smoking and tobacco- related health factors from the [place] facility where the Encounter took place. Current Smoking Status This section includes the most current smoking, or tobacco-related health factor, from the [place] facility where the Encounter took place. Date/Time Current Smoking Status Comment Bony zuniga Jun 07, 2023 07:43 PM [place]ED [place] [facility] Encounter Notes: All associated encounter notes This section contains the clinical notes associated to the Encounter. Date/Time Encounter Note(s) Provider Source March 17, 2024 08:39 AM PHARMACY NOTE: LOCAL TITLE: V1 PHARMACY CUSTOMER CARE MEDICATION RENEWAL STANDARD TITLE: PHARMACY NOTE DATE OF NOTE: MARCH 17, 2024@08:39 ENTRY DATE: MARCH 17, 2024@08:39:34 AUTHOR: ELVIE SIMS COSIGNER: URGENCY: STATUS: COMPLETED Date: March Division: [place] Pt referred by Pharmacy Call Center for medication renewal: Non-controlled/maintenan ce medication Medications requested: [id number] LEVOTHYROXINE NA (SYNTHROID) 100MCG TAB [id number] MELATONIN 5MG CAP/TAB [id number] METFORMIN HCL 500MG 24HR SA TAB [id number] SIMETHICONE 80MG CHEW TAB Defer to primary care provider To be mailed . Please review and renew if appropriate. *This note was generated by [facility] Customer [facility]. If you have any questions or need assistance, do not contact this author. Please refer all questions to your local, on-site pharmacy departments. /chloe/ ELVIE SIMS CPhT Obstetrician Gynecologist, [facility]/Pharmacy Customer Care Signed: 03/17/2024 08:40 Receipt Acknowledged By: 03/17/2024 13:30 /chloe/ TANMAY MARRERO RN REGISTERED NURSE 03/17/2024 11:55 /es/ VINCENZO MILLER MD PHYSICIAN ELVIE SIMS [place] [facility]
--- OUTSIDE RECORDS SUMMARY | 2024-12-29 16:49 | XMS_ITS | Encounter Summary ---
Author Name [facility] [place] [facility] [place] Address [address] [place] [address] Care Team Providers Care Experimental Machinist Name Role Phone VINCENZO MILLER Primary Care [...] PART A March 01, 2018 PART A [id number] [phone] Sam PEACE PATIENT MEDICARE (WNR) MEDICARE (M) PART B March 01, 2018 PART B [id number] [phone] [id number] Sam PEACE PATIENT MEDICARE (WNR) MEDICARE (M) PART A March 01, 2018 PART A [id number] [phone] Sam PEACE PATIENT MEDICARE (WNR) MEDICARE (M) PART B March 01, 2018 PART B [id number] Sam PEACE PATIENT MEDICARE (WNR) MEDICARE (M) PART A March 01, 2018 PART A [id number] Sam PEAEC PATIENT MEDICARE (WNR) MEDICARE (M) PART B March 01, 2018 PART B [id number] Sam PEACE PATIENT Selected Encounter This section includes the information on record at [place] for the Encounter. Date/Time Encounter Type Encounter Description Reason Pro vider Source Oct 17, 2024 12:20 PM Outpatient Encounter ADMIN PAT ACTIVTIES (MASNONCT) IHE Encounter Template Text not used by [place] Plan of Treatment: Future Appointments (+ 6 months) and Future Tests (+/- 45 days) The Plan of Treatment section includes future care activities for the patient from all [place] treatmentfacilities. This section includes future appointments and future orders which are active, pending or scheduled. Future Appointments This section includes appointments that were scheduled to occur 6 months from the date of the Encounter, up to a maximum of 20 appointments. The data comes from all [place] treatment facilities. Appointment Date/Time Appointment Type Appointme nt Facility Name Nov 10, 2024 02:00 PM AMBULATORY - MEDICINE [facility] Jan 19, 2025 01:00 PM [facility] Active, Pending, and Scheduled Orders This section includes a listing of several types of active, pending, and scheduled orders, including clinic medications orders, diagnostic test orders, procedure orders and consult orders; where the start date of the order is 45 days before the date of the Encounter or 45 days after the date of theEncounter. The data comes from all [place] treatment facilities. Test Date/Time Test Type Test Details Facility Name Nov 10, 2024 12:00 AM Laboratory - Chemi stry Order OCCULT BLOOD FIT X1 SCREEN(IN-HOUSE) STOOL FECES [facility] Nov 10, 2024 12:00 AM Laboratory - Chemi stry Order BASIC METABOLIC PANEL (fasting) BLOOD (SST-SERUM) [facility] Nov 10, 2024 12:00 AM Laboratory - Chemi stry Order LIPID PANEL FASTING BLOOD (SST-SERUM) [facility] Nov 10, 2024 12:00 AM Laboratory - Chemi stry Order LIVER FUNCTION BLOOD (SST-SERUM) [facility] Nov 10, 2024 12:00 AM Laboratory - Chemi stry Order CBC AND DIFF (AUTO) BLOOD (LAV-BLOOD) [facility] Nov 10, 2024 12:00 AM Laboratory - Chemi stry Order HEMOGLOBIN A1C PANEL BLOOD (LAV-BLOOD) [facility] Nov 10, 2024 12:00 AM Laboratory - Chemi stry Order TSH BLOOD (SST-SERUM) [facility] Nov 10, 2024 12:00 AM Laboratory - Chemi stry Order THYROID T4 FREE(FT4) (WROX) BLOOD (SST-SERUM) [facility] Nov 10, 2024 03:24 PM Consult 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 Current Smoking Status This section includes the most current smoking, or tobacco-related health factor, from the [place] facility where the Encounter took place. Date/Time Current Smoking Status Comment Facil ity May 16, 2024 03:00 PM [place]-TOBACCO FORMER USER [facility] Tobacco Use History This section includes a history of the smoking, or tobacco-related health factors, that were collected on or before the date of the Encounter. The data comes from the [place] facility where the Encounter took place. Date/Time Smoking Status/Tobacco Use Comment F acility May 16, 2024 03:00 PM VA-TOBACCO QUIT 15 YRS OR MORE [facility] Jun 07, 2023 07:43 PM VA-TOBACCO NEVER USED [facility] Encounter Notes: All associated encounter notes This section contains the clinical notes associated to the Encounter. Date/Time Encounter Note(s) Provider Source Oct 17, 2024 12:20 PM PHARMACY NOTE: LOCAL TITLE: V1 PHARMACY CUSTOMER CARE MEDICATION RENEWAL STANDARD TITLE: PHARMACY NOTE DATE OF NOTE: OCT 17, 2024@12:20 ENTRY DATE: OCT 17, 2024@12:20:56 AUTHOR: IGNACIA DEL TORO COSIGNER: URGENCY: STATUS: COMPLETED Date: Oct Division: [place] Pt referred by Pharmacy Call Center for medication renewal: Non-controlled/maintenan ce medication Medications requested: [id number] MELATONIN 5MG CAP/TAB Defer to primary care provider To be mailed . Please review and renew if appropriate. *This note was generated by [facility] Pharmacy Customer Care. If you have any questions or need assistance, do not contact this author. Please refer all questions to your local, on-site pharmacy departments. /chloe/ Ignacia Del Toro CPhT Bobcat Driver/Labor, [facility]/Pharmacy Customer Care Signed: 10/17/2024 12:21 Receipt Acknowledged By: 10/17/2024 12:34 /es/ VINCENZO MILLER MD PHYSICIAN 10/22/2024 22:04 /chloe/ MIK LINDSEY RN REGISTERED NURSE IGNACIA DEL TORO [facility]
--- OUTSIDE RECORDS SUMMARY | 2024-12-29 16:49 | XMS_ITS | Encounter Summary ---
Author Name [facility] [place] [place] Organization [place] Address [address] [place] [id number] Care Team Providers Care Double End Tenoner Setter Name Role Phone VINCENZO MILLER Primary Care [...] PART A March 01, 2018 PART A [id number] Sam PEACE PATIENT MEDICARE (WNR) MEDICARE (M) PART B March 01, 2018 PART B [id number] Sam PEACE PATIENT MEDICARE (WNR) MEDICARE (M) PART A March 01, 2018 PART A [id number] Sam PEACE PATIENT MEDICARE (WNR) MEDICARE (M) PART B March 01, 2018 PART B [id number] [phone] Sam PEACE PATIENT MEDICARE (WNR) MEDICARE (M) PART A March 01, 2018 PART A [id number] [facility] [phone] Sam PEACE PATIENT MEDICARE (WNR) MEDICARE (M) PART B March 01, 2018 PART B [id number] [facility] [phone] [id number] Sam PEACE PATIENT Selected Encounter This section includes the information on record at [place] for the Encounter. Date/Time Encounter Type Encounter Description Reason Provider Source May 16, 2024 03:00 PM OFFICE O/P EST MOD 30 MIN PRIMARY CARE/MEDICINE ICD-10-CM R63.4 Abnormal weight loss VINCENZO HO Mathew Encounter Template Text not used by [place] Assessments - Encounter Diagnoses This section includes the primary and secondary diagnoses documented for the Encounter. Date/Time Primary/Secondary Diagnosis Diagnosis Name Provider Source May 21, 2024 12:44 AM PRIMARY Abnormal weight loss VINCENZO HO [facility] May 21, 2024 12:44 AM SECONDARY Essential (primary) hypertension VINCENZO HO [place] May 21, 2024 12:44 AM SECONDARY Gastro-esophageal reflux dis with esophagitis, without bleed VINCENZO HO [place] May 21, 2024 12:44 AM SECONDARY Hyperlipidemia, unspecified [facility]-VINCENZO KHOURY [place] May 21, 2024 12:44 AM SECONDARY Hypothyroidism, unspecified [facility]-V[facility]ENZO KHOURY [place] May 21, 2024 12:44 AM SECONDARY Obesity, unspecified [facility]ENZO KHOURY [place] [facility] May 21, 2024 12:44 AM SECONDARY Obstructive sleep apnea (adult) (pediatric) VINCENZO HO [place] May 21, 2024 12:44 AM SECONDARY Pain, unspecified [facility]-V[facility]ENZO KHOURY [place] May 21, 2024 12:44 AM SECONDARY Spinal stenosis, cervical region VINCENZO HO [place] May 21, 2024 12:44 AM SECONDARY Spinal stenosis, lumbar region without neurogenic will VINCENZO HO [place] May 21, 2024 12:44 AM SECONDARY Type 2 diabetes mellitus without complications VINCENZO HO [place] May 21, 2024 12:44 AM SECONDARY Vitamin D deficiency, unspecified VINCENZO HO [place] Plan of Treatment: Future Appointments (+ 6 months) and Future Tests (+/- 45 days) The Plan of Treatment section includes future care activities for the patient from all [place] treatmentfacilities. This section includes future appointments and future orders which are active, pending or scheduled. Future Appointments This section includes appointments that were scheduled to occur 6 months from the date of the Encounter, up to a maximum of 20 appointments. The data comes from all [place] treatment facilities. Appointment Date/Time Appointment Type Appointme nt Facility Name Oct 03, 2024 03:30 PM AMBULATORY - MEDICINE [facility] Nov 10, 2024 02:00 PM AMBULATORY - MEDICINE [facility] Active, Pending, and Scheduled Orders This section includes a listing of several types of active, pending, and scheduled orders, including clinic medications orders, diagnostic test orders, procedure orders and consult orders; where the start date of the order is 45 days before the date of the Encounter or 45 days after the date of theEncounter. The data comes from all [place] treatment [facility]. Test Date/Time Test Type Test Details Facility Name May 16, 2024 12:00 AM Laboratory - Chemi stry Order OCCULT BLOOD FIT X1 SCREEN(IN-HOUSE) STOOL FECES SP [facility] Lab Results: +/- 30 days of the encounter This section includes the Chemistry and Hematology Lab Results on record with MD for the patient. Radiology Reports and Pathology Reports are provided separately, in subsequent sections. Lab Results This section contains the Chemistry/Hematology Results that were resulted 30 days before or 30 daysafter the date of the Encounter. Date/Time Source Result Type Result - Unit Interpretation Reference Range Comment May 16, 2024 02:50 PM [facility] MICROALBUMIN CREATININE RATIO PANEL Spe cimen Type: URINE No comment entered. Ordering Provider: VINCENZO ALBERT Report Released Date/Time: May 03, 2024 09:28 AM Reporting Lab: [address] [id number] Performing Lab: [address] [id number] MICROALBUMIN/C REATININE RATIO 6.0 mg/g 0-29.9 MICROALBUMIN,Q [...] radiculopathy here for f/u transferred care from [facility] 08/2023 Last visit 12/2023 Other providers: -- Physiatry pain management -- [facility] neurosurgery Dr. Svetlana Grimm reports doing well needs medications refilled #Hypothyroidism: Compliant with levothyroxine Regained 10 pounds since last visit Denies heat and cold intolerance Denies palpitations #Diarrhea, constipation alternating intermittent takes Imodium, simethicone prn with good effect #Cervical spinal stenosis #Lumbar spinal stenosis #Back pain f/w [facility] requests second opinion from [facility] Used to be on oxycodone in [place] Patient evaluated by neurosurgery Has bilateral sanches's [...] FAMILY HISTORY: --DM: father, sister --Cancer: no --[place]: father d of [place] at 63, PGF d [place] at 60 --CVA:no --Mental Health/addiction: --Other: mother Alive >90y.o SOCIAL HISTORY: --Occupation: retired, disabled --Cohabitation: , lives with his sister --Children: 2 adult children in [place] - --Diet: meals on wheels --Exercise: No [...] motor 5/5 bilaterally Sensation intact DTR 11/04 LABORATORY:12/2023 WBC: 8.26 HGB: 15.3 HCT: 46.0 [...] cord signal changes. Multilevel spondylosis. #MRI LS 2020 Multilevel facet arthropathy, multilevel annular disc bulging [...] of active outpatient prescriptions dispensed from this MD (local) and dispensed from another [place] or [facility] facility (remote) as well as inpatient orders [...] whether with a VA or non-VA provider. /chloe/ VINCENZO MILLER MD PHYSICIAN Signed: 05/21/2024 00:44 YOLIE MILLER [facility]
--- OUTSIDE RECORDS SUMMARY | 2024-12-29 16:49 | XMS_ITS | Continuity of Care Document ---
Author Name [facility] Organization [facility] Care Team Providers Care Manufacturing Executive Name Role Phone [facility] Unavailable Unavailable Problems Combined list of problems [...] Abdominal pain Active Condition [facility] DISC DISEASE Active Condition [facility] CERVICAL RADICULOPATHY Active Condition [facility] Cervical spondylosis without myelopathy (ICD-9-CM 721.0) Active Condition [facility] Chronic pain syndrome Active Condition [facility] Cough Active Condition [facility] DEPRESSIVE DISORDER NEC Active Condition [facility] Diabetes mellitus Active Condition [facility] Diabetic neuropathy Active Condition [facility] Dyspnea Active Condition [facility] Fatigue Active Condition [facility] HYPERCHOLESTEROLEMIA Active Condition [facility] Hyperlipidemia [facility] Condition [facility] Hypertension Active Condition [facility] Hypertension Active Condition [facility] Hypothyroidism Active Condition [facility] Impaired fasting glucose Active Condition [facility] Joint pain Active Condition [facility] Leucocytosis Active Condition [facility] Low back pain Active Condition [facility] Obesity Active Condition [facility] Obstructive sleep apnea syndrome Active Condition [facility] REFLUX ESOPHAGITIS Active Condition [facility] Rib fracture Active Condition [facility] Sleep apnea Active Condition [facility] Spinal stenosis in cervical region Active Condition [facility] Spinal stenosis of lumbar region Active Condition [facility] Umbilical hernia * (ICD-9-CM 553.1) Active Condition [facility] Vitamin B12 Deficiency (SCT 883846905) Active Condition [facility] Vitamin D deficiency Active Condition [facility] Vitamin D Deficiency (SCT 90875069) Active Condition [facility] sertraline Inactive Condition 05/29/2002 [facility] Diagnosis: ICD-10-CM E03.9 Hypothyroidism, unspecified Active Diagnosis [place] Diagnosis: ICD-10-CM R63.4 Abnormal weight loss Active Diagnosis [place] Diagnosis: ICD-10-CM I10 Essential (primary) hypertension Active Diagnosis [facility] Diagnosis: ICD-10-CM Z46.0 Encounter for fit/adjst of spectacles and contact lenses Active Diagnosis [facility] Medications Combined list of outpatient medications from [...] DAILY REPLACES SAXAGLIP PRESLEY Discont inued 12/07/2024 [id number] TRICIA COLLINS R 2023 90 [facility] ALOGLIPTIN 25MG TAB TAKE ONE TABLET BY MOUTH DAILY REPLACES SAXAGLIP PRESLEY ORAL DISCONT INUED (EDIT) 12/07/2024 [id number] AMY COLLINS R 2023 90 [facility] amLODIPine (U/D) 10 MG ORAL TAB TAKE ONE TABLET BY MOUTH DAILY (DO NOT TAKE WITH GRAPEFRU IT JUICE) FOR HEART AND BLOOD PRESSURE 11/04/2023 [id number] TRICIA COLLINS 2023 90 [facility] AMLODIPINE BESYLATE 10MG TAB TAKE ONE TABLET BY MOUTH ONCE DAILY FOR BLOOD PRESSURE /HEART, DO NOT TAKE WITH GRAPEFRU IT JUICE ORAL SUSPEND ED 11/11/2025 [id number] VINCENZO SIMPSON 2024 90 [facility] IELD AMLODIPINE BESYLATE 10MG TAB TAKE ONE TABLET BY MOUTH ONCE DAILY FOR BLOOD PRESSURE /HEART, DO NOT TAKE WITH GRAPEFRU IT JUICE ORAL DISCONT INUED 08/20/2024 [id number] VINCENZO SIMPSON 2023 90 [facility] IELD AMLODIPINE BESYLATE 10MG TAB TAKE ONE TABLET BY MOUTH DAILY (DO NOT TAKE WITH GRAPEFRU IT JUICE) FOR HEART AND BLOOD PRESSURE ORAL DISCONT INUED 11/04/2023 [id number] AMY COLLINS R 2022 90 [facility] atorvastati n (U/D) 40 MG ORAL TAB TAKE ONE-HALF TABLET BY MOUTH ONCE DAILY FOR HIGH CHOLESTE ROL Active 01/01/2025 [id number] VINCENZO SIMPSON 2023 45 [facility] atorvastati n (U/D) 40 MG ORAL TAB TAKE ONE-HALF TABLET BY MOUTH AT BEDTIME FOR CHOLESTE ROL 04/26/2024 [id number] TRICIA COLLINS 2023 45 [facility] ATORVASTATI N CA 40MG TAB TAKE ONE-HALF TABLET BY MOUTH ONCE DAILY FOR HIGH CHOLESTE ROL ORAL ACTIVE 11/11/2025 [id number] VINCENZO SIMPSON 2024 45 [facility] IELD ATORVASTATI N CA 40MG TAB TAKE ONE-HALF TABLET BY MOUTH ONCE DAILY FOR HIGH CHOLESTE ROL ORAL DISCONT INUED 01/01/2025 [id number] VINCENZO SIMPSON 2023 45 [facility] IE ATORVASTATI N CA 40MG TAB TAKE ONE-HALF TABLET BY MOUTH AT BEDTIME FOR CHOLESTE ROL ORAL DISCONT INUED 04/26/2024 [id number] AMY COLLINS 2022 45 [facility] CETIRIZINE HCL 10MG TAB TAKE ONE TABLET BY MOUTH ONCE DAILY FOR ALLERGIE S ORAL ACTIVE 05/17/2025 [id number] VINCENZO SIMPSON 2023 90 [place] CHOLECALCIF (VIT D3) 1,000 UNIT ORAL TAB TAKE ONE TABLET BY MOUTH ONCE DAILY FOR VITAMIN SUPPLEME NTATION 09/08/2024 [id number] VINCENZO SIMPSON 2023 90 [facility] CHOLECALCIF JENNY 25MCG (1,000UNIT) TAB TAKE ONE TABLET BY MOUTH ONCE DAILY FOR VITAMIN SUPPLEME NTATION ORAL ACTIVE 05/17/2025 [id number] 4 VINCENZO SIMPSON 2023 100 [place] CHOLECALCIF JENNY 25MCG (1,000UNIT) TAB TAKE ONE TABLET BY MOUTH ONCE DAILY FOR VITAMIN SUPPLEME NTATION ORAL DISCONT INUED 09/08/2024 [id number] VINCENZO SIMPSON 2022 90 [place] Compounded Prilosec Capsule Conventiona l 20 mg Oral TAKE ONE CAPSULE BY MOUTH DAILY FOR STOMACH Discont inued 11/04/2023 [id number] TRICIA COLLINS 2023 90 [facility] FLONASE-OTC (BRAND) 50 MCG RUMA SPSN [9.9] INSTILL 1 SPRAY IN EACH NOSTRIL DAILY FOR BREATHIN G Discont inued 01/08/2024 [id number] TRICIA COLLINS 2023 2 [facility] FLONASE-OTC (BRAND) 50 MCG RUMA SPSN [9.9] INSTILL 1 SPRAY IN EACH NOSTRIL DAILY FOR BREATHIN G 01/08/2024 [id number] TRICIA COLLINS 2023 2 [place] [facility] FLUTICASONE PROPIONATE 50MCG/SPRAY SOLN,NASAL, 16GM INSTILL 1 SPRAY INTO EACH NOSTRIL ONCE DAILY FOR NASAL IRRITATI ON/INFLA MMATION NASAL ACTIVE 05/17/2025 [id number] VINCENZO SIMPSON 2023 1 [place] FLUTICASONE PROPIONATE 50MCG/SPRAY SOLN,NASAL, 16GM INSTILL 1 SPRAY IN EACH NOSTRIL DAILY FOR BREATHIN G NASAL DISCONT INUED 01/08/2024 [id number] AMY COLLINS R 2022 2 [facility] furosemide (U/D) 20 MG ORAL TAB TAKE ONE TABLET BY MOUTH ONCE DAILY TO REMOVE FLUID/CO NTROL BLOOD PRESSURE Active 01/17/2025 [id number] VINCENZO SIMPSON 2023 90 [facility] furosemide (U/D) 20 MG ORAL TAB TAKE ONE TABLET BY MOUTH DAILY FOR 30 DAYS, AND TAKE TWO TABLETS WEDNESDAY FOR 30 DAYS A DIURETIC OR WATER PILL 10/05/2024 [id number] 4 TRICIA COLLINS 2023 35 [facility] furosemide (U/D) 20 MG ORAL TAB TAKE ONE TABLET BY MOUTH DAILY FOR 30 DAYS, AND TAKE TWO TABLETS WEDNESDAY FOR 30 DAYS A DIURETIC OR WATER PILL 10/05/2024 [id number] TRICIA COLLINS 2022 35 [facility] FUROSEMIDE 20MG TAB TAKE ONE TABLET BY MOUTH ONCE DAILY TO REMOVE FLUID/CO NTROL BLOOD PRESSURE ORAL HOLD 01/17/2025 [id number] VINCENZO SIMPSON 2023 90 [facility] IELD FUROSEMIDE 20MG TAB TAKE ONE TABLET BY MOUTH DAILY FOR 30 DAYS, AND TAKE TWO TABLETS WEDNESDAY FOR 30 DAYS A DIURETIC OR WATER PILL ORAL DISCONT INUED 10/05/2024 [id number] AMY COLLINS R 2022 35 [facility] GABAPENTIN (U/D) 300 MG ORAL CAP TAKE TWO CAPSULES BY MOUTH THREE TIMES A DAY NEEDED FOR DIABETIC NEUROPAT HY Active 02/21/2025 [id number] TRICIA COLLINS 2023 270 [facility] GABAPENTIN (U/D) 300 MG ORAL CAP TAKE TWO CAPSULES BY MOUTH THREE TIMES A DAY NEEDED FOR DIABETIC NEUROPAT HY Discont inued 06/02/2024 [id number] TRICIA COLLINS 2023 270 [facility] GABAPENTIN 300MG CAP TAKE TWO CAPSULES BY MOUTH THREE TIMES A DAY FOR NERVE PAIN ORAL ACTIVE 05/17/2025 [id number] VINCENZO SIMPSON 2023 540 [facility] IE GABAPENTIN 300MG CAP TAKE TWO CAPSULES BY MOUTH THREE TIMES A DAY NEEDED FOR DIABETIC NEUROPAT HY ORAL ACTIVE 02/21/2025 [id number] 4 AMY COLLINS JAMEY Sam 2023 270 [facility] GABAPENTIN 300MG CAP TAKE TWO CAPSULES BY MOUTH THREE TIMES A DAY NEEDED FOR DIABETIC NEUROPAT HY ORAL DISCONT INUED 06/02/2024 [id number] 4 AMY COLLINS JAEMY R 2022 270 [facility] LACTOBACILL US ACIDOPHILUS CAP TAKE 1 CAPSULE BY MOUTH ONCE DAILY NEEDED FOR PROBIOTI C SUPPLEME NTATION ORAL ACTIVE 02/08/2025 [id number] VINCENZO SIMPSON 2024 100 [place] LEVOTHYROXI NE NA 100MCG TAB (SYNTHROID) TAKE ONE TABLET BY MOUTH EVERY MORNING 30 MINUTES BEFORE BREAKFAS T FOR THYROID TAKE ON AN EMPTY STOMACH WITH A FULL GLASS OF WATER ORAL ACTIVE 10/06/2025 [id number] VINCENZO SIMPSON 2023 90 [place] LEVOTHYROXI NE NA 100MCG TAB (SYNTHROID) TAKE ONE TABLET BY MOUTH EVERY MORNING 30 MINUTES BEFORE BREAKFAS T FOR THYROID TAKE ON AN EMPTY STOMACH WITH A FULL GLASS OF WATER ORAL DISCONT INUED 03/18/2025 [id number] NADVINCENZO GODOY 2023 90 [place] LEVOTHYROXI NE NA 100MCG TAB (SYNTHROID) TAKE ONE TABLET BY MOUTH EVERY MORNING 30 MINUTES BEFORE BREAKFAS T FOR THYROID TAKE ON AN EMPTY STOMACH WITH A FULL GLASS OF WATER ORAL DISCONT INUED 09/08/2024 [id number] VINCENZO SIMPSON 2022 90 [place] LIDOCAINE 5% PATCH APPLY 1 PATCH TOPICALL Y ONCE DAILY FOR NERVE PAIN (LEAVE PATCH ON FOR 12 HOURS, THEN REMOVE PATCH) TOPICA L ACTIVE 06/01/2025 [id number] VINCENZO SIMPSON 2023 60 [place] LIDOCAINE 5% PATCH APPLY 1 PATCH TOPICALL Y ONCE DAILY FOR NERVE PAIN (LEAVE PATCH ON FOR 12 HOURS, THEN REMOVE PATCH) TOPICA L DISCONT INUED (EDIT) 05/18/2025 [id number] VINCENZO SIMPSON 2023 30 [place] Loperamide HCl (Imodium A-D Eq.) Capsule Conventiona l 2mg Oral TAKE ONE CAPSULE BY MOUTH BEFORE MEALS FOR DIARRHEA 09/01/2024 [id number] VINCENZO SIMPSON 2023 90 [facility] LOPERAMIDE HCL 2MG CAP TAKE ONE CAPSULE BY MOUTH BEFORE MEALS FOR DIARRHEA ORAL ACTIVE 05/17/2025 [id number] VINCENZO SIMPSON 2023 90 [place] LOPERAMIDE HCL 2MG CAP TAKE ONE CAPSULE BY MOUTH BEFORE MEALS FOR DIARRHEA ORAL DISCONT INUED 09/01/2024 [id number] VINCENZO SIMPSON 2022 90 [place] LOSARTAN POTASSIUM 100MG TAB TAKE ONE TABLET BY MOUTH ONCE DAILY FOR BLOOD PRESSURE /HEART ORAL ACTIVE 05/17/2025 [id number] VINCENZO SIMPSON 2023 90 [place] MELATONIN 5MG CAP/TAB TAKE TWO CAPSULE/ TABLET BY MOUTH ONCE DAILY NEEDED FOR INSOMNIA ORAL ACTIVE 10/18/2025 [id number] VINCENZO SIMPSON 2023 90 [facility] IELD MELATONIN 5MG CAP/TAB TAKE TWO CAPSULE/ TABLET BY MOUTH ONCE DAILY NEEDED FOR INSOMNIA ORAL DISCONT INUED 03/18/2025 [id number] VINCENZO SIMPSON M 2023 90 [facility] IELD MELATONIN 5MG CAP/TAB TAKE TWO CAPSULE/ TABLET BY MOUTH ONCE DAILY NEEDED FOR INSOMNIA ORAL DISCONT INUED 09/08/2024 [id number] VINCENZO SIMPSON 2022 90 [facility] IELD MELOXICAM (U/D) 15 MG ORAL TAB TAKE ONE TABLET BY MOUTH DAILY NEEDED FOR PAIN AND INFLAMMA TION REPLACES NAPROSYN 12/07/2024 [id number] TRICIA COLLINS 2023 90 [place] [facility] MELOXICAM (U/D) 15 MG ORAL TAB TAKE ONE TABLET BY MOUTH DAILY NEEDED FOR PAIN AND INFLAMMA TION REPLACES NAPROSYN Discont inued 11/04/2023 [id number] TRICIA COLLINS 2023 90 [place] [facility] MELOXICAM 15MG TAB TAKE ONE TABLET BY MOUTH DAILY NEEDED FOR PAIN AND INFLAMMA TION REPLACES NAPROSYN ORAL DISCONT INUED 11/04/2023 [id number] AMY COLLINS 2022 90 [facility] MELOXICAM 15MG TAB TAKE ONE TABLET BY MOUTH DAILY NEEDED FOR PAIN AND INFLAMMA TION REPLACES NAPROSYN ORAL 12/07/2024 [id number] AMY COLLINS R 2023 90 [facility] metFORMIN (FORTAMET EQ) 500 MG PO TR24 TAKE ONE TABLET BY MOUTH TWICE DAILY Active 03/18/2025 [id number] VINCENZO SIMPSON 2023 180 [facility] metFORMIN (FORTAMET EQ) 500 MG PO TR24 TAKE ONE TABLET BY MOUTH TWICE DAILY Discont inued 09/08/2024 [id number] VINCENZO SIMPSON 2023 180 [facility] METFORMIN HCL 500MG 24HR TAB,SA TAKE ONE TABLET BY MOUTH TWICE DAILY ORAL ACTIVE 11/11/2025 [id number] VINCENZO SIMPSON 2024 180 [place] METFORMIN HCL 500MG 24HR TAB,SA TAKE ONE TABLET BY MOUTH TWICE DAILY ORAL DISCONT INUED 03/18/2025 [id number] VINCENZO SIMPSON 2023 180 [place] METFORMIN HCL 500MG 24HR TAB,SA TAKE ONE TABLET BY MOUTH TWICE DAILY ORAL DISCONT INUED 09/08/2024 [id number] VINCENZO SIMPSON 2022 180 [place] OMEPRAZOLE 20MG CAP,EC TAKE ONE CAPSULE BY MOUTH EVERY MORNING 30 MINUTES BEFORE BREAKFAS T FOR HEARTBUR N ORAL ACTIVE 05/17/2025 [id number] VINCENZO SIMPSON 2023 90 [place] OMEPRAZOLE 20MG CAP,EC TAKE ONE CAPSULE BY MOUTH DAILY FOR STOMACH ORAL DISCONT INUED 11/04/2023 [id number] AMY COLLINS 2022 90 [facility] OXYCODONE HCL 10MG/ACETAM INOPHEN 325MG TAB TAKE ONE TABLET BY MOUTH EVERY 6 HOURS ORAL ACTIVE RUT KINCAID 2020 [facility] Polyvinyl Alcohol 1.4% + Povidone 0.6% + Preservativ e Free Solution, Ophthalmic INSTILL 1 DROP INTO EACH EYE FOUR TIMES A DAY FOR DRY EYE 08/19/2024 [id number] NADVINCENZO GODOY M 2023 100 [facility] POLYVINYL ALCOHOL 1.4%/POVIDO NE (PF) SOLN,OPH INSTILL 1 DROP INTO EACH EYE FOUR TIMES A DAY FOR DRY EYE OPHTHA LMIC 08/19/2024 [id number] VINCENZO SIMPSON M 2022 100 [facility] IELD simethicone 80 MG ORAL CHEW CHEW TWO TABLETS BY MOUTH ONCE DAILY NEEDED FOR GAS 05/06/2024 [id number] VINCENZO SIMPSON M 2023 100 [facility] simethicone 80 MG ORAL CHEW CHEW TWO TABLETS BY MOUTH ONCE DAILY NEEDED FOR GAS Discont inued 02/19/2024 [id number] VINCENZO SIMPSON M 2023 100 [facility] simethicone 80 MG ORAL CHEW CHEW TWO TABLETS BY MOUTH ONCE DAILY NEEDED FOR GAS 02/19/2024 [id number] VINCENZO SIMPSON M 2023 100 [facility] SIMETHICONE 80MG TAB,CHEW CHEW TWO TABLETS BY MOUTH ONCE DAILY NEEDED FOR GAS ORAL ACTIVE 05/17/2025 [id number] VINCENZO SIMPSON M 2023 100 [facility] IELD SIMETHICONE 80MG TAB,CHEW CHEW TWO TABLETS BY MOUTH ONCE DAILY NEEDED FOR GAS ORAL DISCONT INUED 05/06/2024 [id number] 4 VINCENZO SIMPSON M 2023 100 [place] SIMETHICONE 80MG TAB,CHEW CHEW TWO TABLETS BY MOUTH ONCE DAILY NEEDED FOR GAS ORAL DISCONT INUED 02/19/2024 [id number] 4 VINCENZO SIMPSON M 2023 100 [place] SITAGLIPTIN (EQV-ZITUVI O) 100MG TAB TAKE ONE TABLET BY MOUTH ONCE DAILY DIABETES REPLAC ES ALOGLIPT IN ORAL ACTIVE 05/17/2025 [id number] ZABRINA PUTNAM VINCENZO Ramon 2023 90 [facility] IELD SITAGLIPTIN (EQV-ZITUVI O) 100MG TAB TAKE ONE TABLET BY MOUTH DAILY REPLACES SAXAGLIP PRESLEY ORAL ACTIVE 03/21/2025 [id number] AMY COLLINS R 2023 90 [facility] SITagliptin (U/D) 100 MG ORAL TAB TAKE ONE TABLET BY MOUTH DAILY REPLACES SAXAGLIP PRESLEY Active 03/21/2025 [id number] TRICIA COLLINS 2023 90 [facility] Allergies, Adverse Reactions, Alerts Combined list of allergies from Department of Defense and Veterans Affairs facilities. It does not include entries that were removed or entered in error. Substance Category Reaction Severity Reaction type Status Date Reported Comments Source PENICILLIN Propensity to adverse reactions to drug (finding) OTHER REACTION active 2 [facility] PENICILLIN Propensity to adverse reactions to drug (finding) active 3 [facility] Penicillins Drug allergy (disorder) Unknown active 2 [facility] penicillins Propensity to adverse reactions to substance Unknown Active 2 Unknown Organizati on PENICILLINS Drug allergy (disorder) active 3 [facility] Immunizations Combined list of available immunizations from the Department of Defense and Veterans Affairs facilities. Immunization Series Date Given Administered By Site Reaction Lot Number CVX Code Drug Bilingual Speech Therapist Status Comments Source INFLUENZA VACCINE, QUADRIVALENT, ADJUVANTED 2020 205 complet ed [facility] COVID-19 (MODERNA), MRNA, LNP-S, PF, 100 MCG OR 50 MCG DOSE 2 2020 207 complet ed [facility] COVID-19 (MODERNA), MRNA, LNP-S, PF, 100 MCG OR 50 MCG DOSE 1 2020 207 complet ed [facility] INFLUENZA, HIGH-DOSE, QUADRIVALENT 2019 197 complet ed [facility] INFLUENZA, TRIVALENT, ADJUVANTED 2018 168 complet ed [facility] PNEUMOCOCCAL POLYSACCHARID E PPV23 2018 33 complet ed [facility] INFLUENZA, TRIVALENT, ADJUVANTED 2017 168 complet ed [facility] PNEUMOCOCCAL CONJUGATE PCV 13 2017 133 complet ed [facility] Results Combined list of recent chemistry, hematology [...] May 03, 2024 09:28 AM Reporting Lab: [address] [address] Performing Lab: [facility] [address] [address] [place] MICROALBU MIN CREATININ E RATIO PANEL MICROALBUMI N [MASS/VOLUM E] IN URINE 1.3 mg/dL 05/16 Specimen Type: URINE No comment entered. Ordering Provider: JEWEL RAMIREZ Report Released Date/Time: May 03, 2024 09:28 AM Reporting Lab: [facility] [address] Performing Lab: [facility] [address] [address] [place] MICROALBU MIN CREATININ E RATIO PANEL CREATININE [MASS/VOLUM E] IN URINE 218.12 mg/dL 05/16 Specimen Type: URINE No comment entered. Ordering Provider: JEWEL RAMIREZ Report Released Date/Time: May 03, 2024 09:28 AM Reporting Lab: [address] [address] Performing Lab: [facility] [address] [address] [place] METHYLMAL ONIC ACID (SERUM-QU ) METHYLMALON ATE [MOLES/VOLU ME] IN SERUM OR PLASMA 237 nmol/L 87 - 318 01/12 Specimen Type: SERUM Comment: This test was developed and its analytical performance characteris tics have been determined by [employer] [place], [place]. It has not been cleared or approved by the U.S. Food and Drug Administrat ion. This assay has been validated pursuant to the CLIA regulations and is used for clinical purposes. Test Performed by [facility], [employer] [facility], [address] [place], [place] M.D., Ph.D., Director of Laboratorie s , CLIA [id number] TEST PERFORMED AT: , Ordering Provider: JEWEL RAMIREZ Report Released Date/Time: Dec 31, 2023 08:37 AM Reporting Lab: [facility] [address] [address] Performing Lab: [facility] [address] [address] [place] THYROID T4 FREE(FT4) THYROXINE (T4) FREE [MASS/VOLUM E] IN SERUM OR PLASMA 1.15 ng/dL 0.6 - 1.6 01/12 Specimen Type: SERUM No comment entered. Ordering Provider: JEWEL RAMIREZ Report Released Date/Time: Dec 31, 2023 08:37 AM Reporting Lab: [facility] [address] [address] Performing Lab: [facility] [address] [address] [place] MAGNESIUM MAGNESIUM [MASS/VOLUM E] IN SERUM OR PLASMA 1.8 mg/dL 1.6 - 2.6 01/12 Specimen Type: SERUM No comment entered. Ordering Provider: JEWEL RAMIREZ Report Released Date/Time: Dec 31, 2023 08:37 AM Reporting Lab: [facility] [address] [address] Performing Lab: [facility] [address] [address] [place] BASIC METABOLIC PANEL (fasting) UREA NITROGEN [MASS/VOLUM E] IN SERUM OR PLASMA 12 mg/dL 7 - 25 01/12 Specimen Type: SERUM No comment entered. Ordering Provider: JEWEL RAMIREZ Report Released Date/Time: Dec 31, 2023 08:37 AM Reporting Lab: [facility] [address] [address] Performing Lab: [facility] [address] [address] [place] BASIC METABOLIC PANEL (fasting) GLUCOSE [MASS/VOLUM E] IN SERUM OR PLASMA 112 mg/dL 65 - 100 01/12 H Specimen Type: SERUM No comment entered. Ordering Provider: JEWEL RAMIREZ Report Released Date/Time: Dec 31, 2023 08:37 AM Reporting Lab: [facility] [address] [address] Performing Lab: [facility] [address] [address] [place] BASIC METABOLIC PANEL (fasting) SODIUM [MOLES/VOLU ME] IN SERUM OR PLASMA 142 mmol/L 135 - 145 01/12 Specimen Type: SERUM No comment entered. Ordering Provider: JEWEL RAMIREZ Report Released Date/Time: Dec 31, 2023 08:37 AM Reporting Lab: [facility] [address] [address] Performing Lab: [facility] [address] [address] [place] BASIC METABOLIC PANEL (fasting) POTASSIUM [MOLES/VOLU ME] IN SERUM OR PLASMA 4.2 mmol/L 3.5 - 5.0 01/12 Specimen Type: SERUM No comment entered. Ordering Provider: JEWEL RAMIREZ Report Released Date/Time: Dec 31, 2023 08:37 AM Reporting Lab: [facility] [address] [address] Performing Lab: [facility] [address] [address] [place] BASIC METABOLIC PANEL (fasting) CHLORIDE [MOLES/VOLU ME] IN SERUM OR PLASMA 104 mmol/L 100 - 110 01/12 Specimen Type: SERUM No comment entered. Ordering Provider: JEWEL RAMIREZ Report Released Date/Time: Dec 31, 2023 08:37 AM Reporting Lab: [facility] [address] [address] Performing Lab: [facility] [address] [address] [place] BASIC METABOLIC PANEL (fasting) CARBON DIOXIDE, TOTAL [MOLES/VOLU ME] IN SERUM OR PLASMA 28 meq/L 20 - 30 01/12 Specimen Type: SERUM No comment entered. Ordering Provider: JEWEL RAMIREZ Report Released Date/Time: Dec 31, 2023 08:37 AM Reporting Lab: [facility] [address] Performing Lab: [facility] [address] [place] BASIC METABOLIC PANEL (fasting) CREATININE [MASS/VOLUM E] IN SERUM OR PLASMA 0.81 mg/dL 0.50 - 1.40 01/12 Specimen Type: SERUM No comment entered. Ordering Provider: JEWEL RAMIREZ Report Released Date/Time: Dec 31, 2023 08:37 AM Reporting Lab: [facility]AR[facility]THTRN [facility] [address] Performing Lab: [facility]ENTERUSE[address] [address] [place] BASIC METABOLIC PANEL (fasting) GLOMERULAR FILTRATION RATE/1.73 SQ M.PREDICTED [VOLUME RATE/AREA] IN SERUM, PLASMA OR BLOOD BY CREATININE- BASED FORMULA (CKD-EPI 2020) >90mL/ min 60 01/12 Specimen Type: SERUM No comment entered. Ordering Provider: JEWEL RAMIREZ Report Released Date/Time: Dec 31, 2023 08:37 AM Reporting Lab: [facility] CLINICTRN [facility] CENTERUSETS [address] [address] Performing Lab: [facility]ENTERUSE[address] [address] [place] LIPID PANEL FASTING CHOLESTEROL [MASS/VOLUM E] IN SERUM OR PLASMA 142 mg/dL 01/12 Specimen Type: SERUM No comment entered. Ordering Provider: JEWEL RAMIREZ Report Released Date/Time: Dec 31, 2023 08:37 AM Reporting Lab: [facility] [facility] [address] Performing Lab: [employer] [facility] CLINICTRN [facility] CENTERUSETS [address] [address] [place] LIPID PANEL FASTING TRIGLYCERID E [MASS/VOLUM E] IN SERUM OR PLASMA 90 mg/dL 0 - 150 01/12 Specimen Type: SERUM No comment entered. Ordering Provider: JEWEL RAMIREZ Report Released Date/Time: Dec 31, 2023 08:37 AM Reporting Lab: [facility] [place] [address] [address] Performing Lab: [facility] [place] [address] [address] [place] LIPID PANEL FASTING CHOLESTEROL IN LDL [MASS/VOLUM E] IN SERUM OR PLASMA BY CALCULATION 90 mg/dL 0 - 129 01/12 Specimen Type: SERUM No comment entered. Ordering Provider: JEWEL RAMIREZ Report Released Date/Time: Dec 31, 2023 08:37 AM Reporting Lab: [facility] [address] Performing Lab: [facility] [place] [address] [address] [place] LIPID PANEL FASTING CHOLESTEROL .TOTAL/CHOL ESTEROL IN HDL [MASS RATIO] IN SERUM OR PLASMA 4.2 01/12 Specimen Type: SERUM No comment entered. Ordering Provider: JEWEL RAMIREZ Report Released Date/Time: Dec 31, 2023 08:37 AM Reporting Lab: [facility]ENTERUSE[address] [address] Performing Lab: [facility]ENTERUSETS [address] [address] [place] LIPID PANEL FASTING CHOLESTEROL IN HDL [MASS/VOLUM E] IN SERUM OR PLASMA 34 mg/dL 40 - 60 01/12 L Specimen Type: SERUM No comment entered. Ordering Provider: JEWEL RAMIREZ Report Released Date/Time: Dec 31, 2023 08:37 AM Reporting Lab: [facility]ENTERUSETS [address] [address] Performing Lab: [facility]ENTERUSETS [address] [address] [place] LIVER FUNCTION PROTEIN [MASS/VOLUM E] IN SERUM OR PLASMA 6.9 g/dL 6.0 - 8.3 01/12 Specimen Type: SERUM No comment entered. Ordering Provider: JEWEL RAMIREZ Report Released Date/Time: Dec 31, 2023 08:37 AM Reporting Lab: [facility]ENTERUSETS [address] [address] Performing Lab: [facility]ETS [address] [address] [place] LIVER FUNCTION ALBUMIN [MASS/VOLUM E] IN SERUM OR PLASMA 3.8 g/dL 3.5 - 5.0 01/12 Specimen Type: SERUM No comment entered. Ordering Provider: JEWEL RAMIREZ Report Released Date/Time: Dec 31, 2023 08:37 AM Reporting Lab: [facility]THTRN MASSUSE[address] [address] Performing Lab: [facility] [place] [facility] [address] [facility] [address] [place] LIVER FUNCTION ALKALINE PHOSPHATASE [ENZYMATIC ACTIVITY/VO LUME] IN SERUM OR PLASMA 76 U/L 40 - 150 01/12 Specimen Type: SERUM No comment entered. Ordering Provider: JEWEL RAMIREZ Report Released Date/Time: Dec 31, 2023 08:37 AM Reporting Lab: [facility] [place] [facility] [address] [facility] [address] Performing Lab: [place] [facility] [place] [address] [address] [place] LIVER FUNCTION ASPARTATE AMINOTRANSF ERASE [ENZYMATIC ACTIVITY/VO LUME] IN SERUM OR PLASMA 12 U/L 5 - 34 01/12 Specimen Type: SERUM No comment entered. Ordering Provider: JEWEL RAMIREZ Report Released Date/Time: Dec 31, 2023 08:37 AM Reporting Lab: [facility] [place] [facility] [address] [facility] [address] Performing Lab: [place] [facility] [place] [address] [address] [place] LIVER FUNCTION ALANINE AMINOTRANSF ERASE [ENZYMATIC ACTIVITY/VO LUME] IN SERUM OR PLASMA 19 U/L 01/12 Specimen Type: SERUM No comment entered. Ordering Provider: JEWEL RAMIREZ Report Released Date/Time: Dec 31, 2023 08:37 AM Reporting Lab: [place] [facility] [place] [address] [address] Performing Lab: [facility] [place] [address] [address] [place] LIVER FUNCTION BILIRUBIN.T OTAL [MASS/VOLUM E] IN SERUM OR PLASMA 0.5 mg/dL 0.2 - 1.2 01/12 Specimen Type: SERUM No comment entered. Ordering Provider: JEWEL RAMIREZ Report Released Date/Time: Dec 31, 2023 08:37 AM Reporting Lab: [facility] [place] [facility] [address] [facility] [address] Performing Lab: [place] [facility] [place] [facility] [address] [facility] [address] [place] CBC AND DIFF (AUTO) LEUKOCYTES [#/VOLUME] IN BLOOD BY AUTOMATED COUNT 8.26 10*3/u L 4.50 - 11.00 01/12 Specimen Type: BLOOD No comment entered. Ordering Provider: JEWEL RAMIREZ Report Released Date/Time: Dec 31, 2023 08:37 AM Reporting Lab: [facility] [place] [address] [address] Performing Lab: [facility] W[facility]N [facility]ENTERUSETS [address] [address] [place] CBC AND DIFF (AUTO) ERYTHROCYTE S [#/VOLUME] IN BLOOD BY AUTOMATED COUNT 5.61 10*6/u L 4.23 - 5.66 01/12 Specimen Type: BLOOD No comment entered. Ordering Provider: JEWEL RAMIREZ Report Released Date/Time: Dec 31, 2023 08:37 AM Reporting Lab: [facility] [place] [address] [address] Performing Lab: [facility] [place] [address] [address] [place] CBC AND DIFF (AUTO) HEMOGLOBIN [MASS/VOLUM E] IN BLOOD 15.3 g/dL 12.8 - 17 01/12 Specimen Type: BLOOD No comment entered. Ordering Provider: JEWEL RAMIREZ Report Released Date/Time: Dec 31, 2023 08:37 AM Reporting Lab: [facility] [place] [address] [address] Performing Lab: [place] [facility] [place] [address] [address] [place] CBC AND DIFF (AUTO) HEMATOCRIT [VOLUME FRACTION] OF BLOOD BY AUTOMATED COUNT 46.0 39.2 - 50.4 01/12 Specimen Type: BLOOD No comment entered. Ordering Provider: JEWEL RAMIREZ Report Released Date/Time: Dec 31, 2023 08:37 AM Reporting Lab: [facility] [place] [facility] [address] [facility] [address] Performing Lab: [facility] [address] [facility] [facility] [address] [place] CBC AND DIFF (AUTO) MCV [ENTITIC VOLUME] BY AUTOMATED COUNT 82.0 fL 82 - 99 01/12 Specimen Type: BLOOD No comment entered. Ordering Provider: JEWEL RAMIREZ Report Released Date/Time: Dec 31, 2023 08:37 AM Reporting Lab: [facility] [address] [address] Performing Lab: [facility] [address] [address] [place] CBC AND DIFF (AUTO) MCHC [MASS/VOLUM E] BY AUTOMATED COUNT 33.3 g/dL 30.8 - 35.1 01/12 Specimen Type: BLOOD No comment entered. Ordering Provider: JEWEL RAMIREZ Report Released Date/Time: Dec 31, 2023 08:37 AM Reporting Lab: [facility] [place] [address] [address] Performing Lab: [facility] [address] [address] [place] CBC AND DIFF (AUTO) PLATELETS [#/VOLUME] IN BLOOD BY AUTOMATED COUNT 199 10*3/u L 140 - 360 01/12 Specimen Type: BLOOD No comment entered. Ordering Provider: JEWEL RAMIREZ Report Released Date/Time: Dec 31, 2023 08:37 AM Reporting Lab: [facility] [place] [facility] [address] [facility] [address] Performing Lab: [facility] [address] [address] [place] CBC AND DIFF (AUTO) ERYTHROCYTE DISTRIBUTIO N WIDTH [RATIO] BY AUTOMATED COUNT 13.3 12.0 - 16.0 01/12 Specimen Type: BLOOD No comment entered. Ordering Provider: JEWEL RAMIREZ Report Released Date/Time: Dec 31, 2023 08:37 AM Reporting Lab: [facility] [place] [facility] [address] [facility] [address] Performing Lab: [facility] [place] [address] [address] [place] CBC AND DIFF (AUTO) MONOCYTES [#/VOLUME] IN BLOOD BY AUTOMATED COUNT 0.92 10*3/u L 0.30 - 1.10 01/12 Specimen Type: BLOOD No comment entered. Ordering Provider: JEWEL RAMIREZ Report Released Date/Time: Dec 31, 2023 08:37 AM Reporting Lab: [facility] [place] [address] [address] Performing Lab: [facility] [place] [address] [address] [place] CBC AND DIFF (AUTO) MCH [ENTITIC MASS] BY AUTOMATED COUNT 27.3 pg 26.2 - 32.6 01/12 Specimen Type: BLOOD No comment entered. Ordering Provider: JEWEL RAMIREZ Report Released Date/Time: Dec 31, 2023 08:37 AM Reporting Lab: [facility] [place] [address] [address] Performing Lab: [facility] [place] [address] [address] [place] CBC AND DIFF (AUTO) NEUTROPHILS /100 LEUKOCYTES IN BLOOD BY AUTOMATED COUNT 50.5 43.7 - 75.8 01/12 Specimen Type: BLOOD No comment entered. Ordering Provider: JEWEL RAMIREZ Report Released Date/Time: Dec 31, 2023 08:37 AM Reporting Lab: [facility] [place] [address] [address] Performing Lab: [facility] [place] [address] [address] [place] CBC AND DIFF (AUTO) LYMPHOCYTES /100 LEUKOCYTES IN BLOOD BY AUTOMATED COUNT 36.3 14.0 - 42.3 01/12 Specimen Type: BLOOD No comment entered. Ordering Provider: JEWEL RAMIREZ Report Released Date/Time: Dec 31, 2023 08:37 AM Reporting Lab: [facility] [place] [address] [address] Performing Lab: [facility] [place] [address] [address] [place] CBC AND DIFF (AUTO) MONOCYTES/1 00 LEUKOCYTES IN BLOOD BY AUTOMATED COUNT 11.1 5.1 - 13.7 01/12 Specimen Type: BLOOD No comment entered. Ordering Provider: JEWEL RAMIREZ Report Released Date/Time: Dec 31, 2023 08:37 AM Reporting Lab: [facility] [place] [address] [address] Performing Lab: [facility] [place] [address] [address] [place] CBC AND DIFF (AUTO) EOSINOPHILS /100 LEUKOCYTES IN BLOOD BY AUTOMATED COUNT 1.2 0.4 - 6.8 01/12 Specimen Type: BLOOD No comment entered. Ordering Provider: JEWEL RAMIREZ Report Released Date/Time: Dec 31, 2023 08:37 AM Reporting Lab: [facility] [place] [address] [address] Performing Lab: [facility] [place] [address] [address] [place] CBC AND DIFF (AUTO) BASOPHILS/1 00 LEUKOCYTES IN BLOOD BY AUTOMATED COUNT 0.5 0.1 - 2.0 01/12 Specimen Type: BLOOD No comment entered. Ordering Provider: JEWEL RAMIREZ Report Released Date/Time: Dec 31, 2023 08:37 AM Reporting Lab: [facility] [place] [address] [address] Performing Lab: [facility] [address] [facility] [address] [place] CBC AND DIFF (AUTO) NEUTROPHILS [#/VOLUME] IN BLOOD BY AUTOMATED COUNT 4.17 10*3/u L 2.20 - 7.60 01/12 Specimen Type: BLOOD No comment entered. Ordering Provider: JEWEL RAMIREZ Report Released Date/Time: Dec 31, 2023 08:37 AM Reporting Lab: [facility] [address] [facility] [address] Performing Lab: [facility]ENTERUSE[address] [address] [place] CBC AND DIFF (AUTO) LYMPHOCYTES [#/VOLUME] IN BLOOD BY AUTOMATED COUNT 3.00 10*3/u L 1.00 - 3.20 01/12 Specimen Type: BLOOD No comment entered. Ordering Provider: JEWEL RAMIREZ Report Released Date/Time: Dec 31, 2023 08:37 AM Reporting Lab: [facility] [address] [address] Performing Lab: [facility] [address] [address] [place] CBC AND DIFF (AUTO) EOSINOPHILS [#/VOLUME] IN BLOOD BY AUTOMATED COUNT 0.10 10*3/u L 0.03 - 0.44 01/12 Specimen Type: BLOOD No comment entered. Ordering Provider: JEWEL RAMIREZ Report Released Date/Time: Dec 31, 2023 08:37 AM Reporting Lab: [facility] [address] [address] Performing Lab: [facility]TR[facility] [address] [address] [place] CBC AND DIFF (AUTO) BASOPHILS [#/VOLUME] IN BLOOD BY AUTOMATED COUNT 0.04 10*3/u L 0.01 - 0.13 01/12 Specimen Type: BLOOD No comment entered. Ordering Provider: JEWEL RAMIREZ Report Released Date/Time: Dec 31, 2023 08:37 AM Reporting Lab: [place] [address] Performing Lab: [place] [address] [place] CBC AND DIFF (AUTO) IMMATURE GRANULOCYTE S/100 LEUKOCYTES IN BLOOD BY AUTOMATED COUNT 0.4 0.0 - 0.7 01/12 Specimen Type: BLOOD No comment entered. Ordering Provider: JEWEL RAMIREZ Report Released Date/Time: Dec 31, 2023 08:37 AM Reporting Lab: [place] [address] Performing Lab: [place] [address] [place] CBC AND DIFF (AUTO) IMMATURE GRANULOCYTE S [#/VOLUME] IN BLOOD 0.03 10*3/u L 0.00 - 0.06 01/12 Specimen Type: BLOOD No comment entered. Ordering Provider: JEWEL RAMIREZ Report Released Date/Time: Dec 31, 2023 08:37 AM Reporting Lab: [address] [address] Performing Lab: [place] [address] [place] HEMOGLOBI N A1C PANEL HEMOGLOBIN [...] Dec 31, 2023 08:37 AM Reporting Lab: [facility] [address] [facility] [address] Performing Lab: [facility] [address] [facility] [address] [facility] THYROTROPIN [UNITS/VOLU ME] IN SERUM OR PLASMA 1.18 u[IU]/ mL 0.35 - 5.00 01/12 Specimen Type: SERUM No comment entered. Ordering Provider: JEEWL RAMIREZ Report Released Date/Time: Dec 31, 2023 08:37 AM Reporting Lab: [facility] [address] [facility] [address] Performing Lab: [facility] [address] [facility] [address] [facility] Vital Signs Combined list of inpatient and outpatient Vital Signs from Department of Defense and Veterans Affairs, ranging from 12 months to all on record, depending upon the facility. Vital Sign Value Date Comments Source SYSTOLIC BLOOD PRESSURE 137 11/10/2024 14:24:24 [place] DIASTOLIC BLOOD PRESSURE 79 11/10/2024 14:24:24 [place] PULSE OXIMETRY 97 11/10/2024 14:24:24 [facility] 276 11[facility]10/2024 14:24:24 [facility] [facility] BMI 38 kg/m2 11/10/2024 14:24:24 [place] [facility] TEMPERATURE 97.8 11/10/2024 14:24:[address] [facility] PULSE 74 11/10/2024 14:24:24 [facility] SYSTOLIC BLOOD PRESSURE 134 05/16/2024 15:46:49 [place] DIASTOLIC BLOOD PRESSURE 75 05/16/2024 15:46:49 [place] PULSE OXIMETRY 97 05/16/2024 15:46:49 [place] WEIGHT 264.2 05/16/2024 15:46:49 [place] [facility] BMI 36 kg/m2 05/16/2024 15:46:49 [facility] TEMPER[facility] 97.7 05/16/2024 15:46:49 [place] PULSE 68 05/16/2024 15:46:49 [facility] SYSTOLIC BLOOD PRESSURE 137 12/31/2023 14:29:43 [place] DIASTOLIC BLOOD PRESSURE 80 12/31/2023 14:29:43 [place] PULSE OXIMETRY 98 12/31/2023 14:29:43 [place] WEIGHT 253.2 12/31/2023 14:29:43 [place] BMI 34 kg/m2 12/31/2023 14:29:43 [place] TEMPERATURE 96.8 12/31/2023 14:29:43 [place] PULSE 64 12/31/2023 14:29:43 [place] Encounters Combined list of: 1) Encounters from Department of Veterans Affairs facilities going backup to the last 18 months, not all [place] inpatient encounters are included; 2) Encounters from the Department of Defense facilities going backup to 280 months. Location Location Details Encounter Type Encounter Number Reason For Visit Attending Provider ADM Date DC Date Status Disposition Source [facility] OFFICE O/P [place] 60-74 MIN [id number] Diagnos is: ICD-10- CM R63.4 Abnorma l weight loss MAE KONG 08/19 [facility] [place] [facility] [place] [facility] Outpatient Encounter [id number] 08/19 [facility] [place] [facility] [place] [facility] Outpatient Encounter [id number] 08/23 [facility] [place] [facility] [place] [facility] Outpatient Encounter [id number] 08/25 [facility] [place] [facility] [place] [facility] Outpatient Encounter [id number] 08/31 [facility] [place] [facility] OFFICE O/P EST MOD 30-39 MIN [id number] Diagnos is: ICD-10- CM R63.4 Abnorma l weight loss MAE KONG 09/08 [facility] En[facility] [id number] 09/09 [facility] [place] En[facility] [id number] 09/15 [facility] [place] En[facility] [id number] 09/22 [facility] [place] En[facility] [id number] 09/27 [facility] [place] En[facility] [id number] 09/28 [facility] [place] En[facility] [id number] 09/30 [facility] [place] En[facility] [id number] 10/07 [facility] [place] En[facility] [id number] 10/08 [facility] [place] En[facility] [id number] 10/15 [facility] En[facility] [id number] 10/18 [facility] En[facility] [id number] 11/23 [facility] En[facility] [id number] 12/01 [facility] En[facility] [id number] 12/02 [facility] FIT SPECTACLES MULTIFOCAL [id number] Diagnos is: ICD-10- CM Z46.0 Encount er for fit/adj st of spectac les and contact lenses ORTIZ WOODSON 12/10 [facility] En[facility] [id number] 12/30 [facility] [place] OFF[place] O/P EST MOD 30 MIN [id number] Diagnos is: ICD-10- CM R63.4 Abnorma l weight loss MAE KONG 12/30 [place] [facility] En[facility] [id number] 01/10 [facility] [place] OFF/OP EST MAY X REQ PHY/QHP [id number] Diagnos is: ICD-10- CM I10 Essenti al (primar y) hyperte TANMAY Lroa 01/12 [place] [facility] En[facility] [id number] 01/16 [facility] En[facility] [id number] 02/10 [facility] En[facility] [id number] 03/17 [facility] En[facility] [id number] 03/24 [facility] En[facility] [id number] 04/10 [facility] En[facility] [id number] 04/12 [facility] En[facility] [id number] 05/16 [facility] [place] [facility] OFFICE O/P EST MOD 30 MIN [id number] Diagnos is: ICD-10- CM R63.4 Abnorma l weight loss MAE KONG 05/16 [place] [facility] En[facility] [id number] 05/17 [facility] En[facility] [id number] 05/25 [facility] En[facility] [id number] 08/25 [facility] En[facility] [id number] 09/26 [facility] En[facility] [id number] 10/02 [facility] En[facility] [id number] 10/03 [facility] En[facility] [id number] 1.10/17 [facility] [place] En[facility] [id number] [facility] En[facility] [id number] [facility] [place] [facility] [place] OFFICE O/P EST HI 40 MIN [id number] Diagnos is: ICD-10- CM 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 , unspeci fied ISACC BERGMAN,OG LORENZO M 11/10 [place] [facility] En[facility] [id number] [facility] [place] [facility] Procedures Combined list of: 1) Procedures from [...] of tobacco use VA-TOBACCO NEVER USED 11/03/2022 [facility] Sex Representation Male 05/22/2022 Unknow n Organization History of tobacco use VA-TOBACCO FORMER USER 01/03/2021 [facility] History of tobacco use VA-TOBACCO NEVER USED 11/27/2019 [facility] History of tobacco use VA-TOBACCO NEVER USED 11/30/2018 [facility] History of tobacco use NON-TOBACCO USER 01/12/2018 [facility] History of tobacco use NON-TOBACCO USER 03/10/2017 [facility] History of tobacco use V7-TOBACCO USE NO NE IN > 7 YEARS 08/18/2012 [facility] History of tobacco use V7-LIFETIME NON/TOBACCO USER 12/29/2005 [facility] History of tobacco use LIFETIME NON-TOBACCO USER 08/22/2003 [facility] Sexual Orientation Ambula [facility] Pharmacy Gender identity Ambulator y Pharmacy This section is an empty social history section. [facility] Assessment and Plan Combined list of future care activities from [facility] facilities (e.g., assessment and plan notes, appointments, orders, and referrals). Additional future care activities may be listed in the Plan of Care section. Result Assessment and Plan Date Source Assessment and Plan No data available for this section 12/29/2024 [facility] Plan of Care List of future care activities from [facility] facilities. Additional future care activities may be listed in the Assessment and Plan section. Date/Time Care Activity Care Activity Detail Facili ty 01/19/2025 AMBULATORY - REHAB MEDICINE [facility] [place] [facility] Functional Status Combined list of recent functional and cognitive assessments recorded at [facility] [place] Functional [place] Measurement (FIM) Scale: 1 = Total Assistance (Subject = 0% +), 2 = Maximal Assistance (Subject = 25% +), 3 = Moderate Assistance (Subject = 50% +), 4 = Minimal Assistance (Subject = 75% +), 5 = Supervision, 6 = Modified Winkler (Device), 7 = Complete Winkler (Timely, Safely). Assessment Date/Time Source Assessment Type Assessment Skill Assessment Score Assessment Details No data available for this section
--- OUTSIDE RECORDS SUMMARY | 2024-12-29 16:49 | XMS_ITS | Encounter Summary ---
Author Name [facility] [place] [facility] [place] [facility] [place] Address [address] [place] [address] Care Team Providers Care Research And Development Specialist Name Role Phone VINCENZO MILLER Primary Care [...] PART A March 01, 2018 PART A [id number] Sam PEACE PATIENT MEDICARE (WNR) MEDICARE (M) PART B March 01, 2018 PART B [id number] Sam PEACE PATIENT MEDICARE (WNR) MEDICARE (M) PART A March 01, 2018 PART A [id number] Sam PEACE PATIENT MEDICARE (WNR) MEDICARE (M) PART B March 01, 2018 PART B [id number] Sam PEACE PATIENT MEDICARE (WNR) MEDICARE (M) PART A March 01, 2018 PART A [id number] Sam PEACEAye PATIENT MEDICARE (WNR) MEDICARE (M) PART B March 01, 2018 PART B [id number] Sam PEACE ARIAye PATIENT Selected Encounter This section includes the information on record at [place] for the Encounter. Date/Time Encounter Type Encounter Description Reason Provider Source Jan 13, 2024 02:30 PM OFF/OP EST MARCH X REQ PHY/QHP PRIMARY CARE/MEDICINE ICD-10-CM I10 Essential (primary) hypertension TANMAY MARRERO Mathew Encounter Template Text not used by [place] Assessments - Encounter Diagnoses This section includes the primary and secondary diagnoses documented for the Encounter. Date/Time Primary/Secondary Diagnosis Diagnosis Name Provider Source Jan 13, 2024 03:08 PM PRIMARY Essential (primary) hypertension TANMAY MARRERO Plan of Treatment: Future Appointments (+ 6 months) and Future Tests (+/- 45 days) The Plan of Treatment section includes future care activities for the patient from all [place] treatmentfacilities. This section includes future appointments and future orders which are active, pending or scheduled. Future Appointments This section includes appointments that were scheduled to occur 6 months from the date of the Encounter, up to a maximum of 20 appointments. The data comes from all [place] treatment facilities. Appointment Date/Time Appointment Type Appointme nt Facility Name Jan 19, 2024 12:45 PM AMBULATORY - MEDICINE [facility] Feb 11, 2024 03:20 PM AMBULATORY - REHAB MEDICIN [facility] Apr 12, 2024 01:45 PM AMBULATORY - MEDICINE [facility] May 16, 2024 03:00 PM AMBULATORY - MEDICINE [facility] Lab Results: +/- 30 days of the encounter This section includes the Chemistry and Hematology Lab Results on record with [place] for the patient. Radiology Reports and Pathology Reports are provided separately, in subsequent sections. Lab Results This section contains the Chemistry/Hematology Results that were resulted 30 days before or 30 daysafter the date of the Encounter. Date/Time Source Result Type Result - Unit Interpretation Reference Range Comment Jan 13, 2024 02:47 PM [place] METHYLMALONIC ACID (SERUM-QU) Specimen Type: SERUM Comment: This test was developed and its analytical performance characteristics have been determined by [facility], [place]. It has not been cleared or approved by the U.S. Food and Drug Administration. This assay has been validated pursuant to the CLIA regulations and is used for clinical purposes. Test Performed by [facility], [facility], [address] [place] [address] Rancho Arguelles M.D., Ph.D., Director of Laboratories , CLIA [id number] TEST PERFORMED AT: , Ordering Provider: VINCENZO ALVA Report Released Date/Time: Dec 31, 2023 08:37 AM Reporting Lab: [facility] [address] [facility] [address] Performing Lab: [facility] [address] [address] METHYLMALONIC ACID (SERUM-QU) 237 nmol/L 87-318 Jan 13, 2024 02:47 PM [place] THYROID T4 FREE(FT4) Specimen Type: SERUM No comment entered. Ordering Provider: VINCENZO ALVA Report Released Date/Time: Dec 31, 2023 08:37 AM Reporting Lab: [facility] [address] [facility] [address] Performing Lab: [facility] [address] [facility] [address] THYROID T4 FREE(FT4) 1.15 ng/dL 0.6-1.6 Jan 13, 2024 02:47 PM [place] MAGNESIUM Specimen Type: SERUM No comment entered. Ordering Provider: VINCENZO ALVA Report Released Date/Time: Dec 31, 2023 08:37 AM Reporting Lab: [facility] [address] [facility] [address] Performing Lab: [facility] [address] [facility] [address] MAGNESIUM 1.8 mg/dL 1.6-2.6 Jan 13, 2024 02:47 PM [place] BASIC METABOLIC PANEL (fasting) Specime n Type: SERUM No comment entered. Ordering Provider: VINCENZO ALVA Report Released Date/Time: Dec 31, 2023 08:37 AM Reporting Lab: [facility] [address] [address] Performing Lab: [facility] [address] [address] UREA NITROGEN 12 mg/dL 7-25 GLUCOSE 112 mg/dL H 65-100 SODIUM 142 mmol/L 135-145 POTASSIUM 4.2 mmol/L 3.5-5.0 CHLORIDE 104 mmol/L 100-110 CO2 28 meq/L 20-30 CREATININE, Serum 0.81 mg/dL 0.50-1.40 eGFR(CKD-EPI 2020) >90 mL/min >60 Jan 13, 2024 02:47 PM [place] LIPID PANEL FASTING Specimen Type: SERUM No comment entered. Ordering Provider: VINCENZO ALVA Report Released Date/Time: Dec 31, 2023 08:37 AM Reporting Lab: [facility] [address] [address] Performing Lab: [address] [address] CHOLESTEROL 142 mg/dL TRIGLYCERIDE 90 mg/dL 0-150 LDL calculated 90 mg/dL 0-129 CHOL/HDL 4.2 HDL CHOLESTEROL 34 mg/dL L 40-60 Jan 13, 2024 02:47 PM [place] LIVER FUNCTION Specimen Type: SERUM No comment entered. Ordering Provider: VINCENZO ALVA Report Released Date/Time: Dec 31, 2023 08:37 AM Reporting Lab: [facility] [address] [address] Performing Lab: [facility] [address] [address] PROTEIN,TOTAL 6.9 g/dL 6.0-8.3 ALBUMIN 3.8 g/dL 3.5-5.0 ALKALINE PHOSPHATASE 76 U/L 40-150 AST 12 U/L 5-34 ALT 19 U/L BILIRUBIN, TOTAL 0.5 mg/dL 0.2-1.2 Jan 13, 2024 02:47 PM [place] CBC AND DIFF (AUTO) Specimen Type: BLOOD No comment entered. Ordering Provider: VINCENZO ALVA Report Released Date/Time: Dec 31, 2023 08:37 AM Reporting Lab: [facility] [address] [facility] [address] Performing Lab: [facility] [address] [facility] [address] WBC 8.26 10*3/uL 4.50-11.00 RBC 5.61 10*6/uL 4.23-5.66 HGB 15.3 g/dL 12.8-17 HCT 46.0 39.2-50.4 MCV 82.0 fL 82-99 MCHC 33.3 g/dL 30.8-35.1 PLT 199 10*3/uL 140-360 RDW-CV 13.3 12.0-16.0 Rains, Abs 0.92 10*3/uL 0.30-1.10 MCH 27.3 pg 26.2-32.6 Neut % 50.5 43.7-75.8 Lymph % 36.3 14.0-42.3 Rains % 11.1 5.1-13.7 Eos % 1.2 0.4-6.8 Baso % 0.5 0.1-2.0 Neut, Abs 4.17 10*3/uL 2.20-7.60 Lymph, Abs 3.00 10*3/uL 1.00-3.20 Eos, Abs 0.10 10*3/uL 0.03-0.44 Baso, Abs 0.04 10*3/uL 0.01-0.13 Immature Gran % 0.4 0.0-0.7 Immature Gran, Abs 0.03 10*3/uL 0.00-0.06 Jan 13, 2024 02:47 PM [place] HEMOGLOBIN A1C PANEL Specimen Type: BLOOD Comment: [...] Dec 31, 2023 08:37 AM Reporting Lab: [address] [address] Performing Lab: [address] [address] HEMOGLOBIN A1C 5.4 4.0-5.6 Jan 13, 2024 02:47 PM [place] TSH Specimen Type: SERUM No comment entered. Ordering Provider: VINCENZO ALVA Report Released Date/Time: Dec 31, 2023 08:37 AM Reporting Lab: [address] [address] Performing Lab: [address] [address] TSH 1.18 u[IU]/mL 0.35-5.00 Jan 13, 2024 02:47 PM [place] VITAMIN D (25-OH) Specimen Type: SERUM No comment entered. Ordering Provider: VINCENZO ALVA Report Released Date/Time: Dec 31, 2023 08:37 AM Reporting Lab: [address] [address] Performing Lab: [address] [address] VITAMIN D (25-OH) 21 ng/mL 20-50 Encounter [...] TAB TAKE DAILY PRN for LE edema requests above medication previously issued by provider outside of [facility]. Below obtained from [facility] FUROSEMIDE TAB 20MG TAKE ONE TABLET BY MOUTH DAILY FOR 30 DAYS, AND TAKE TWO TABLETS DAY FOR 30 DAYS A DIURETIC OR WATER [...] 07:16 Current Data: Treating Specialty: [facility] Start Date/Time: 10/06/2023 (originally 05/19/2021) Stop Date/Time: 10/05/2024 Current Status: ACTIVE also states he does not take Hydrochlorothiazide, [...] DAILY NEEDED FOR GAS Expr:02-19-24 Medication Management: [place] states s/he takes medications every day at [facility] medication: [X} Pharmacy Bottles [X} [place] takes medications as prescribed [X} [place] knows what s/he is taking medications for [X} [place] verbalizes side effects [X} [place] verablizes the refill process Symptoms: chest pain No shortness of breath No palpitations No cough No dizzyness No orthostatis No syncope No headache No visual changes No fatigue No edema No HOME BP MONITOR EDUCATION [place] states he has a home monitor, but does not/will not use it unless symptomatic. PATIENT EDUCATION: Education and Discussion Attempted to provide general education regarding BP, diet, activity, and risks associated with hypertension. indicates he does not plan to make any changes in near future. A/P: Blood pressure at this visit 137/79, p-62. brought list of medications to visit, but list does not include dosing information. Blood pressure medications found to be accurate with one exception. STATES HE DOES NOT TAKE HYDROCLOROTHIAZIDE. [place] states I found that one didn't do anything for me , does not wish to have this medication ordered. [place] did state that he takes Furosemide occasionally , but denied having edema in past few months. [place] requests renewal of Furosemide medication, staff writer will enter medication request for lasix. At end of visit, brought to lab for pending tests. Forwarding to PCP for review. RTC: PRN Upcoming Appointments: 01/19/2024 12:45 COM CARE-OTHER No communication barriers. understands and agrees to current treatment plan. If has any questions, concerns, or changes in current health status s/he will call [facility]. 22 minutes spent in patient care and education /es/ TANMAY MARRERO RN REGISTERED NURSE Signed: 01/13/2024 15:08 Receipt Acknowledged By: 01/17/2024 08:23 /es/ VINCENZO MILLER MD PHYSICIAN TANMAY MARRERO
--- OUTSIDE RECORDS SUMMARY | 2024-12-29 16:49 | XMS_ITS | Encounter Summary ---
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 Name Role Phone VINCENZO MILLER Primary [...] PART A March 01, 2018 PART A [id number] Sam PEACE PATIENT MEDICARE (WNR) MEDICARE (M) PART B March 01, 2018 PART B [id number] Sam PEACE PATIENT MEDICARE (WNR) MEDICARE (M) PART A March 01, 2018 PART A [id number] 68 Sam PEACE PATIENT MEDICARE (WNR) MEDICARE (M) PART B March 01, 2018 PART B [id number] 68 Sam PEACE PATIENT MEDICARE (WNR) MEDICARE (M) PART A March 01, 2018 PART A [id number] [facility] Sam PEACE PATIENT MEDICARE (WNR) MEDICARE (M) PART B March 01, 2018 PART B [id number] [facility] Sam PEACE PATIENT Selected Encounter This section includes the information on record at DC for the Encounter. Date/Time Encounter Type Encounter Description Reason Provider Source Nov 10, 2024 02:00 PM OFFICE O/P EST HI 40 MIN PRIMARY CARE/MEDICINE ICD-10-CM E03.9 Hypothyroidism, unspecified LUANAZDIN-BOSKO VINCENZO NEIL Mathew Encounter Template Text not used by DC Assessments - Encounter Diagnoses This section includes the primary and secondary diagnoses documented for the Encounter. Date/Time Primary/Secondary Diagnosis Diagnosis Name Provider Source Nov 10, 2024 03:33 PM PRIMARY Hypothyroidism, unspecified LUANAZHOMER-VINCENZO KHOURY [place] Nov 10, 2024 03:33 PM SECONDARY Deficiency of other specified B group vitamins LESLI-BOSVINCENZO CHRISTIAN [place] Nov 10, 2024 03:33 PM SECONDARY Essential (primary) hypertension LESLI-BOSVINCENZO CHRISTIAN [place] Nov 10, 2024 03:33 PM SECONDARY Gastro-esophageal reflux dis with esophagitis, without bleed LESLI-VINCENZO KHOURY [place] Nov 10, 2024 03:33 PM SECONDARY Hyperlipidemia, unspecified LUANAZDIN-BOSKO VINCENZO NEIL [place] Nov 10, 2024 03:33 PM SECONDARY Obesity, unspecified LUANAZDIN-BOSKO VINCENZO NEIL [place] Nov 10, 2024 03:33 PM SECONDARY Obstructive sleep apnea (adult) (pediatric) LUANAZDIN-BOSKO VINCENZO NEIL [place] Nov 10, 2024 03:33 PM SECONDARY Pain, unspecified NADAZDIN-BOSKO JOLYNNVINCENZO [place] Nov 10, 2024 03:33 PM SECONDARY Sleep apnea, unspecified NADAZDIN-BOSKO JOLYNNVINCENZO [place] Nov 10, 2024 03:33 PM SECONDARY Spinal stenosis, cervical region LUANAZDIN-BOSKO VINCENZO NEIL [place] Nov 10, 2024 03:33 PM SECONDARY Spinal stenosis, lumbar region without neurogenic will LUANAZDIN-BOSKO JOLYNNVINCENZO [facility] Nov 10, 2024 03:33 PM SECONDARY Type 2 diabetes mellitus without complications VINCENZO HO [place] Nov 10, 2024 03:33 PM SECONDARY Vitamin D deficiency, unspecified JONTAYLER VINCENZO NEIL [place] Plan of Treatment: Future Appointments (+ 6 months) and Future Tests (+/- 45 days) The Plan of Treatment section includes future care activities for the patient from all DC treatmentfacilities. This section includes future appointments and future orders which are active, pending or scheduled. Future Appointments This section includes appointments that were scheduled to occur 6 months from the date of the Encounter, up to a maximum of 20 appointments. The data comes from all DC treatment facilities. Appointment Date/Time Appointment Type Appointme nt Facility Name Jan 19, 2025 01:00 PM AMBULATORY - [...] of theEncounter. The data comes from all [place] treatment [facility]. Test Date/Time Test Type Test Details Facility Name Nov 10, 2024 12:00 AM Laboratory - Chemi stry Order OCCULT BLOOD FIT X1 SCREEN(IN-HOUSE) STOOL FECES [facility] Nov 10, 2024 12:00 AM Laboratory - Chemi stry Order BASIC METABOLIC PANEL (fasting) BLOOD (SST-SERUM) [facility] Nov 10, 2024 12:00 AM Laboratory - Chemi stry Order LIPID PANEL FASTING BLOOD (SST-SERUM) [facility] Nov 10, 2024 12:00 AM Laboratory - Chemi stry Order LIVER FUNCTION BLOOD (SST-SERUM) [facility] Nov 10, 2024 12:00 AM Laboratory - Chemi stry Order CBC AND DIFF (AUTO) BLOOD (LAV-BLOOD) [facility] Nov 10, 2024 12:00 AM Laboratory - Chemi stry Order HEMOGLOBIN A1C PANEL BLOOD (LAV-BLOOD) [facility] Nov 10, 2024 12:00 AM Laboratory - Chemi stry Order TSH BLOOD (SST-SERUM) [facility] Nov 10, 2024 12:00 AM Laboratory - Chemi stry Order THYROID T4 FREE(FT4) (WROX) BLOOD (SST-SERUM) SP [facility] Nov 10, 2024 03:24 PM 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 Date/Time Temperature Pulse Blood Pressure Respiratory Rate SP02 Pain Height Weight Body Mass Index Source Nov 10, 2024 02:24 PM 97.8 74 137/[address] [facility] [place] Encounter Notes: All associated encounter notes This section contains the clinical notes associated to the Encounter. Date/Time Encounter Note(s) Provider Source Nov 10, 2024 03:33 PM ADDENDUM: LOCAL TITLE: Addendum STANDARD TITLE: ADDENDUM DATE OF NOTE: NOV 10, 2024@15:33:25 ENTRY DATE: NOV 10, 2024@15:33:25 AUTHOR: Sydney MILLER COSIGNER: URGENCY: STATUS: COMPLETED Please request records from neurosurgery [facility] thank you /chloe/ VINCENZO MILLER MD PHYSICIAN Signed: 11/10/2024 15:33 Receipt Acknowledged By: 11/10/2024 15:58 /chloe/ CASSIE COCHRAN --- Original Document --- 11/10/24 NOTE: Pt is 69 y/o M with PMH of obesity, HTN, HL, DM2, Hypothyroidism, CHUY, GERD, MDD, spinal stenosis, radiculopathy here for f/u transferred care from [facility] 08/2023 Last visit 05/2024 Other providers: -- Physiatry pain management -- [facility] neurosurgery Dr. Svetlana Grimm reports doing well needs medications refilled Patient would like to get a motorized scooter Due to chronic pain spinal stenosis, limited mobility, high risk for fall, decreased life quality of life #hearing loss will schedule with audiology at [facility] #Hypothyroidism: Compliant with levothyroxine gained 12 pounds since last visit Denies heat and cold intolerance Denies palpitations #Diarrhea, constipation alternating intermittent takes Imodium, simethicone prn with good effect would like to try probiotics #Cervical spinal stenosis #Lumbar spinal stenosis #Back pain f/w [place] spine and sport requested second opinion from [facility] Used to be on oxycodone in [place] Patient evaluated by neurosurgery Has bilateral sanches's [...] not going to address his pain. Plan was to obtain cervical spine CAT scan to assess cervical osteophytes, and follow-up with neurosurgery, per pt he asked for second opinion and was seen by neurosurgery at [facility] few months ago - had CT neck - and is getting evalauted for surgery (using private insurance) PAST MEDICAL HISTORY: -- obesity -- HTN [...] HISTORY: --Knee arthroscopy left ALLERGIES: PENICILLIN MEDICATIONS: -ATORVASTATIN CALCIUM 20MG -LOSARTAN 100MG TAB -AMLODIPINE BESYLATE 10MG -FUROSEMIDE 20MG TAB TAKE DAILY PRN for LE edema -METFORMIN HCL 500MG BID -SITAGLIPTIN (EQV-ZITUVIO) 100MG -LEVOTHYROXINE NA (SYNTHROID) 100MCG -OMEPRAZOLE 20MG ARTIFICIAL TEARS PVA 1.4%/POVIDONE (PF) -CETIRIZINE HCL 10MG -FLUTICASONE PROPIONATE 50MCG/SPRAY SOLN,NASAL -CHOLECALCIF 25MCG (D3-1,000UNIT) -GABAPENTIN 600MG CAP TID DIABETIC NEUROPATHY MELOXICAM 15MG DAILY -LOPERAMIDE HCL 2MG CAP BEFORE MEALS FOR DIARRHEA -SIMETHICONE 80MG CHEW TAB CHEW TWO TABLETS BY MOUTH ONCE ACTIVE DAILY NEEDED -MELATONIN 5MG CAP/TAB TAKE TWO CAPSULE LIDOCAINE 5% PATCH FAMILY HISTORY: --DM: father, sister --Cancer: no --MN: father d of [place] at 63, PGF d [place] at 60 --CVA:no --Mental Health/addiction: --Other: mother Alive >90y.o SOCIAL HISTORY: --Occupation: retired, disabled --Cohabitation: , lives with his sister --Children: 2 adult children in [place] - --Diet: meals on wheels --Exercise: No limited by pain --EtOH: Denies --Tob: Never smoker --MJ:DENIES --Illicits: denies --Eye: overdue 5 years --Dental: --Hospitalizations:no recent hospitalizations ROS: Constitutional: no fever/no chills, no ns Eyes: no decreased vision Ears/Nose/Throat: Decreased hearing Respiratory: no cough/wheezing/SOB Cardiovascular: no CP /palpitations Gastrointestinal: Denies abdominal pain/bloody/black stools, intermittent d/c :no dysuria/hematuria/trouble voiding MSK: Chronic back and neck pain + Neuro: no dizziness/H/A Skin: no pruritus/rash Ambulates with a walker, wheelchair PHYSICAL EXAM: Vital Signs: Blood Pressure: 137/79 (11/10/2024 14:24) 134/75 (05/16/2024 15:46) 137/80 (12/31/2023 14:29) 126/79 (08/19/2023 14:11) Pulse: 74 (11/10/2024 14:24) Respiration: 16 Temperature: 97.8 F [36.6 C] (11/10/2024 14:24) Patient Weight: BMI 37.5 276 lb [125.19 kg] (11/10/2024 14:24) 264.2 lb [119.84 kg] (05/16/2024 15:46) 253.2 lb [114.85 kg] (12/31/2023 14:29) 246 lb [111.58 kg] (08/19/2023 14:11) Gen: pleasant, engaged, NAD TM visualized B/L Chest/CV: RRR Lungs: CTA B/L Abdomen: BS+, obese soft, NT, ND no CVAT b/l Extremities: wwp, no edema spine: Mild tenderness over cervical and lumbar spine. SLR + b/l Decreased range of motion Extremities: motor 5/5 bilaterally Sensation intact DTR 1/4 ambulates with a walker LABORATORY:12/2023 WBC: 8.26 HGB: 15.3 HCT: 46.0 [...] Hypothyroidism, CHUY, GERD, MDD, spinal stenosis, radiculopathy #Hypothyroidism: TSH 1.18, free T4 1.15 (12/2023) -levothyroxine 100mcg check LFTs today #HTN: Well-controlled on current regimen, goal <130/80 --> -LOSARTAN 100MG TAB -AMLODIPINE BESYLATE 10MG -FUROSEMIDE 20MG TAB TAKE DAILY PRN for LE edema #HL: Well-controlled, LDL 90 -c/w atorvastatin 20 mg #INSOMNIA: -c/w MELATONIN 10MG #CHUY-compliant with CPAP #obesity: BMI 37.5 #DM2: Well-controlled, a1c 5.4, ACR nml -c/w sitagliptin -metformin 500mg BID eye exam-UTD #h/o Weight loss regained all weight 30lbs within last year (decreased dose of levothyroxine and metformin since 09/2023) in 2022 pt had Unintentional 50 lb weight loss with abdominal discomfort alternating diarrhea and constipation 10/2023 CT chest/A/P unremerkable Never had colonoscopy, hemoglobin normal -Loperamide and simethicone prn #GERD: -c/w OMEPRAZOLE 20MG #Vitamin D deficiency: Normalized on supplementation #Cervical and lumbar spinal stenosis #Multilevel spondylosis cervical and lumbar #Multilevel facet arthropathy, disc protrusion with bilateral foraminal stenosisper -f/w CC physiatry, neurosurgery (second opinion [facility] using private insurance) -Fall precautions, activity as tolerated -referral to OT for motorized scooter # Hearing loss-patient instructed to schedule appointment with [facility] for hearing evaluation Healthcare maintenance: --Lipids: LDL 90 (12/2023) --Diabetes: A1c 5.4 (12/2023) --Colon CA (50-75): never had colonoscopy FIT card provided today again --Lung CA: --PSA PSA 1.08 (08/2023) --AAA [...] provider ( )request records from outside providers On the date of the encounter, I spent 60 minutes on some or all of the following: Chart reviewed, history, physical examination, treatment planning, education and counseling of the patient/family/caregiver, placing orders, communicating with other healthcare providers, and documentation in the electronic health record. Avg Risk Colorectal Cancer Screen: AVERAGE RISK colorectal cancer screening is due based on information available to this clinical reminder FOBT/FIT (Fecal Immunochemical Testing) has been ordered. See order tab for details. Medication Reconciliation: Outpatient: Has the patient been taking medications as documented in the EMLR? YES: The patient has been taking medications as documented in the EMLR. Essential Medication List for Review used to complete this medication reconciliation. INCLUDED IN THIS LIST: Alphabetical list of active outpatient prescriptions dispensed from this DC (local) and dispensed from another DC or DoD facility (remote) as well as [...] provider. /chloe/ VINCENZO MILLER MD PHYSICIAN Signed: 11/10/2024 15:33 11/10/2024 ADDENDUM STATUS: COMPLETED Records requested from [facility] as directed /chloe/ CASSIE COCHRAN Signed: 11/10/2024 15:57 YOLIE MILLER [place] Nov 10, 2024 02:00 PM PHYSICIAN NOTE: LOCAL TITLE: NOTE STANDARD TITLE: PHYSICIAN NOTE DATE OF NOTE: NOV 10, 2024@14:00 ENTRY DATE: NOV 10, 2024@00:29:49 AUTHOR: Sydney MILLER COSIGNER: URGENCY: STATUS: COMPLETED NOTE Has ADDENDA Pt is 69 y/o M with PMH of obesity, HTN, HL, DM2, Hypothyroidism, CHUY, GERD, MDD, spinal stenosis, radiculopathy here for f/u transferred care from [facility] 08/2023 Last visit 05/2024 Other providers: -- Physiatry pain management -- [facility] neurosurgery Dr. Svetlana Grimm reports doing well needs medications refilled Patient would like to get a motorized scooter Due to chronic pain spinal stenosis, limited mobility, high risk for fall, decreased life quality of life #hearing loss will schedule with audiology at [facility] #Hypothyroidism: Compliant with levothyroxine gained 12 pounds since last visit Denies heat and cold intolerance Denies palpitations #Diarrhea, constipation alternating intermittent takes Imodium, simethicone prn with good effect would like to try probiotics #Cervical spinal stenosis #Lumbar spinal stenosis #Back pain f/w [place] spine and sport requested second opinion from [facility] Used to be on oxycodone in [place] Patient evaluated by neurosurgery Has bilateral sanches's [...] not going to address his pain. Plan was to obtain cervical spine CAT scan to assess cervical osteophytes, and follow-up with neurosurgery, per pt he asked for second opinion and was seen by neurosurgery at [facility] few months ago - had CT neck - and is getting evalauted for surgery (using private insurance) PAST MEDICAL HISTORY: -- obesity -- HTN [...] HISTORY: --Knee arthroscopy left ALLERGIES: PENICILLIN MEDICATIONS: -ATORVASTATIN CALCIUM 20MG -LOSARTAN 100MG TAB -AMLODIPINE BESYLATE 10MG -FUROSEMIDE 20MG TAB TAKE DAILY PRN for LE edema -METFORMIN HCL 500MG BID -SITAGLIPTIN (EQV-ZITUVIO) 100MG -LEVOTHYROXINE NA (SYNTHROID) 100MCG -OMEPRAZOLE 20MG ARTIFICIAL TEARS PVA 1.4%/POVIDONE (PF) -CETIRIZINE HCL 10MG -FLUTICASONE PROPIONATE 50MCG/SPRAY SOLN,NASAL -CHOLECALCIF 25MCG (D3-1,000UNIT) -GABAPENTIN 600MG CAP TID DIABETIC NEUROPATHY MELOXICAM 15MG DAILY -LOPERAMIDE HCL 2MG CAP BEFORE MEALS FOR DIARRHEA -SIMETHICONE 80MG CHEW TAB CHEW TWO TABLETS BY MOUTH ONCE ACTIVE DAILY NEEDED -MELATONIN 5MG CAP/TAB TAKE TWO CAPSULE LIDOCAINE 5% PATCH FAMILY HISTORY: --DM: father, sister --Cancer: no --MN: father d of [place] at 63, PGF d [place] at 60 --CVA:no --Mental Health/addiction: --Other: mother Alive >90y.o SOCIAL HISTORY: --Occupation: retired, disabled --Cohabitation: , lives with his sister --Children: 2 adult children in [place] - --Diet: meals on wheels --Exercise: No limited by pain --EtOH: Denies --Tob: Never smoker --MJ:DENIES --Illicits: denies --Eye: overdue 5 years --Dental: --Hospitalizations:no recent hospitalizations ROS: Constitutional: no fever/no chills, no ns Eyes: no decreased vision Ears/Nose/Throat: Decreased hearing Respiratory: no cough/wheezing/SOB Cardiovascular: no CP /palpitations Gastrointestinal: Denies abdominal pain/bloody/black stools, intermittent d/c :no dysuria/hematuria/trouble voiding MSK: Chronic back and neck pain + Neuro: no dizziness/H/A Skin: no pruritus/rash Ambulates with a walker, wheelchair PHYSICAL EXAM: Vital Signs: Blood Pressure: 137/79 (11/10/2024 14:24) 134/75 (05/16/2024 15:46) 137/80 (12/31/2023 14:29) 126/79 (08/19/2023 14:11) Pulse: 74 (11/10/2024 14:24) Respiration: 16 Temperature: 97.8 F [36.6 C] (11/10/2024 14:24) Patient Weight: BMI 37.5 276 lb [125.19 kg] (11/10/2024 14:24) 264.2 lb [119.84 kg] (05/16/2024 15:46) 253.2 lb [114.85 kg] (12/31/2023 14:29) 246 lb [111.58 kg] (08/19/2023 14:11) Gen: pleasant, engaged, NAD TM visualized B/L Chest/CV: RRR Lungs: CTA B/L Abdomen: BS+, obese soft, NT, ND no CVAT b/l Extremities: wwp, no edema spine: Mild tenderness over cervical and lumbar spine. SLR + b/l Decreased range of motion Extremities: motor 5/5 bilaterally Sensation intact DTR 1/4 ambulates with a walker LABORATORY:12/2023 WBC: 8.26 HGB: 15.3 HCT: 46.0 [...] Hypothyroidism, CHUY, GERD, MDD, spinal stenosis, radiculopathy #Hypothyroidism: TSH 1.18, free T4 1.15 (12/2023) -levothyroxine 100mcg check LFTs today #HTN: Well-controlled on current regimen, goal <130/80 --> -LOSARTAN 100MG TAB -AMLODIPINE BESYLATE 10MG -FUROSEMIDE 20MG TAB TAKE DAILY PRN for LE edema #HL: Well-controlled, LDL 90 -c/w atorvastatin 20 mg #INSOMNIA: -c/w MELATONIN 10MG #CHUY-compliant with CPAP #obesity: BMI 37.5 #DM2: Well-controlled, a1c 5.4, ACR nml -c/w sitagliptin -metformin 500mg BID eye exam-UTD #h/o Weight loss regained all weight 30lbs within last year (decreased dose of levothyroxine and metformin since 09/2023) in 2022 pt had Unintentional 50 lb weight loss with abdominal discomfort alternating diarrhea and constipation 10/2023 CT chest/A/P unremerkable Never had colonoscopy, hemoglobin normal -Loperamide and simethicone prn #GERD: -c/w OMEPRAZOLE 20MG #Vitamin D deficiency: Normalized on supplementation #Cervical and lumbar spinal stenosis #Multilevel spondylosis cervical and lumbar #Multilevel facet arthropathy, disc protrusion with bilateral foraminal stenosisper -f/w CC physiatry, neurosurgery (second opinion [facility] using private insurance) -Fall precautions, activity as tolerated -referral to OT for motorized scooter # Hearing loss-patient instructed to schedule appointment with [facility] for hearing evaluation Healthcare maintenance: --Lipids: LDL 90 (12/2023) --Diabetes: A1c 5.4 (12/2023) --Colon CA (50-75): never had colonoscopy FIT card provided today again --Lung CA: --PSA PSA 1.08 (08/2023) --AAA [...] provider ( )request records from outside providers On the date of the encounter, I spent 60 minutes on some or all of the following: Chart reviewed, history, physical examination, treatment planning, education and counseling of the patient/family/caregiver, placing orders, communicating with other healthcare providers, and documentation in the electronic health record. Avg Risk Colorectal Cancer Screen: AVERAGE RISK colorectal cancer screening is due based on information available to this clinical reminder FOBT/FIT (Fecal Immunochemical Testing) has been ordered. See order tab for details. Medication Reconciliation: Outpatient: Has the patient been taking medications as documented in the EMLR? YES: The patient has been taking medications as documented in the EMLR. Essential Medication List for Review used to complete this medication reconciliation. INCLUDED IN THIS LIST: Alphabetical list of active outpatient prescriptions dispensed from this DC (local) and dispensed from another DC or DoD facility (remote) as well as [...] provider. /chloe/ VINCENZO MILLER MD PHYSICIAN Signed: 11/10/2024 15:33 11/10/2024 ADDENDUM STATUS: COMPLETED Please request records from [facility] thank you /rachael MILLER MD PHYSICIAN Signed: 11/10/2024 15:33 Receipt Acknowledged By: 11/10/2024 15:58 /rachael COCHRAN 11/10/2024 ADDENDUM STATUS: COMPLETED Records requested from [facility] as directed /chloe/ CASSIE COCHRAN Signed: 11/10/2024 15:57 YOLIE MILLER [place] Nov 03, 2024 12:52 PM ADMINISTRATIVE NOT E: LOCAL TITLE: ADMINISTRATIVE NOTE STANDARD TITLE: ADMINISTRATIVE NOTE DATE OF NOTE: NOV 03, 2024@12:52 ENTRY DATE: NOV 03, 2024@12:52:45 AUTHOR: CASSIE PEREIRA EXP COSIGNER: URGENCY: STATUS: COMPLETED [facility] [address] [place] [id number] [phone] * [phone] * NATE PEACE [address], [place] [address] Date: NOV 03, 2024 re: This is a reminder of your upcoming PCP appt with VINCENZO MILLER Appointment Date: Nov@14:00 Appointment Type: In-person visit Fasting blood work NON fasting blood work CONFIRMED APPT WITH THE Sincerely, Office Staff for: VINCENZO MILLER Primary Care Provider [facility] [address] [place] [id number] T [phone] Upcoming Appointments: 11/10/2024 14:00 CWM/SO/PACT 5 APPOINTMENT ABBREVIATION CHANCE (SPOPC OR SO = [address]) (GOPC OR GO = [address]) (NHM or NO = [facility]) (VVC - Video Call) (Tel-X Telephone Visit) (TH - Telehealth) /chloe/ CASSIE COCHRAN Signed: 11/03/2024 12:53 CASSIE PEREIRA [place]
== END 2024-12-29 15:42 | disposition home or self-care (01) ==
PROVIDERS: PCP Internal Medicine; Visit Provider Physician Assistant
DX: G95.9 Disease of spinal cord, unspecified (principal)
CPT/HCPCS: 99213

== ENCOUNTER → 2024-12-29 14:40 | Outpatient (BNVA) | payer MEDICARE, MEDICAID, SELFPAY | PROVIDERS: PCP Internal Medicine; Visit Provider Physician Assistant | DX: G95.9 Disease of spinal cord, unspecified (principal); G95.20 Unspecified cord compression; M48.061 Spinal stenosis, lumbar region without neurogenic claudication | CPT/HCPCS: 99212 ==

== ENCOUNTER → 2025-02-06 13:53 | Outpatient (BNV) | payer MEDICARE, MEDICAID, SELFPAY | PROVIDERS: Admitting Provider Neurological Surgery; PCP Internal Medicine; Visit Provider Internal Medicine Cardiovascular Disease | DX: R00.1 Bradycardia, unspecified (principal) | CPT/HCPCS: 93010 ==

== ENCOUNTER 2025-03-06 06:07 | Inpatient (IN) | payer MEDICARE, MEDICAID, SELFPAY ==
--- NOTE | 2025-02-06 | ECG_ITS ---
Test Reason : PREOP Blood Pressure : */* mmHG Vent. Rate : 59 BPM Atrial Rate : 59 BPM P-R Int : 180 ms QRS Dur : 84 ms QT Int : 402 ms P-R-T Axes : 21 43 56 degrees QTcB Int : 397 ms Sinus bradycardia Otherwise normal ECG No previous ECGs available Referred By: Anna Oviedo Electronically Signed By: Taco Phipps
[2025-02-06 13:01] VITALS: BP 133/63; PULSE 65; RESP 18; O2SAT 96; BMI 36.9
--- NOTE | 2025-02-06 13:15 | P.CONAN_ITS ---
Documented by User: Anna Oviedo NP 02/08/25 14:02 HPI - Anesthesia Eval Consult details Narrative: 69yo M for C4 Corpectomy w/Plating and Osteophyte Removal, 03/06/25 No recent illness No CP/SOB with very limited activity DM: FBS ~ 100-120 CHUY: CPAP QHS Anesthesia Pre-Procedure Meds Is the patient on any of the following meds?: GLP1/DPP4 PMFSH Active Problems Active Problems: All Active Problems Sacroiliac joint dysfunction of both sides (Acute) Myelomalacia of cervical cord (Acute) Chronic back pain (Acute) Lumbar spinal stenosis (Acute) Cervical myelopathy (Acute) Past Medical History Medical History (Updated 02/06/25 @ 12:52 by Kelly Dumont RN) Arthritis [place] (hard of hearing) Elevated cholesterol Sleep apnea GERD (gastroesophageal reflux disease) Hypothyroid Diabetes HTN (hypertension) Cervical myelopathy Lumbar spinal stenosis Sacroiliac joint dysfunction of both sides Myelomalacia of cervical cord Chronic back pain Family History Family history of problems with anesthesia: No Surgical History Surgical History (Updated 02/06/25 @ 12:53 by Kelly Dumont RN) Hx of knee surgery History of Problems with Anesthesia: No Social History Social History Household Members Other:: sister Are you a primary health care sanitary technician to a significant other at home: No Do you presently have visiting nurse or 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 If so, by whom?: No Spiritual Healthcare Practices: no Anabaptist Healthcare Practices: no-Zoroastrianism Cultural Healthcare Practices: no Are you DNR?: No Advance Directives: No (sister is primary contact) Advance Directives Information Provided: Yes (as above noted) Advance Directives on File: No Poor oral hygiene: No Meds Allergies Allergy/AdvReac Type Severity Reaction Status Date / Time No Known Allergies Allergy Verified 12/29/24 14:54 Home Medications ?Medication ?Instructions ?Recorded ?Confirmed ?Last Taken ?Type alogliptin 25 mg tablet 25 mg PO QAM 06/20/24 02/06/25 02/28/25 History amlodipine 10 mg tablet 10 mg PO BEDTIME 06/20/24 02/06/25 Unknown History atorvastatin 40 mg tablet 40 mg PO BEDTIME 06/20/24 02/06/25 Unknown History fluticasone propionate 50 1 spray intranasal QAM 06/20/24 02/06/25 Unknown History mcg/actuation nasal spray,suspension (Allergy Relief (fluticasone)) furosemide 20 mg tablet 20 mg PO DAILY PRN fluid retention 06/20/24 02/06/25 Unknown History gabapentin 300 mg capsule 300 mg PO TID 06/20/24 02/06/25 Unknown History levothyroxine 112 mcg capsule 112 mcg PO QAM 06/20/24 02/06/25 03/06/25 History losartan 100 mg tablet 100 mg PO BEDTIME 06/20/24 02/06/25 Unknown History meloxicam 15 mg tablet 15 mg PO QAM 06/20/24 02/06/25 02/20/25 History metformin 500 mg tablet 500 mg PO BID 06/20/24 02/06/25 Unknown History omeprazole 20 mg capsule,delayed 20 mg PO QAM 06/20/24 02/06/25 Unknown History release polyvinyl alcohol 1.4 % eye drops 1 drp ophthalmic (eye) BID-QID PRN 06/20/24 02/06/25 Unknown History (Artificial Tears (polyvinyl Dry Eyes alcohol)) cholecalciferol (vitamin D3) 25 25 mcg PO QAM 02/06/25 02/06/25 Unknown History mcg (1,000 unit) capsule (Vitamin D3) Exam Height,Weight and Vital Signs: Height 6 ft Weight 123.377 kg Last Vital Signs Pulse 65 02/06/25 13:01 Resp 18 02/06/25 13:01 BP 133/63 02/06/25 13:01 Pulse Ox 96 02/06/25 13:01 O2 Del Method Room Air 02/06/25 13:01 Pertinent Lab Results Pertinent Lab Results: Lab Results 02/06/25 Range/Units 13:57 WBC 9.0 (4.8-10.8) X10*3/uL RBC 5.33 (4.60-5.80) X10*6/uL Hgb 14.7 (14.0-18.0) g/dl Hct 44.0 (42.0-52.0) % MCV 82.6 (80.0-98.0) fL MCH 27.6 (27.0-33.0) pg MCHC 33.4 (31.0-36.0) g/dl RDW 13.6 (11.0-16.0) % Plt Count 198 (160-400) X10*3/uL MPV 12.8 H (9.4-12.4) fL Absolute Nucleated RBC 0.000 (0.0-0.012) X10*3/uL Nucleated RBC % (auto) 0.0 (0.0-0.2) /100WBC Sodium 143 (135-145) mmol/L Potassium 4.0 (3.3-5.1) mmol/L Chloride 108 (96-108) mmol/L Carbon Dioxide 27 (22-29) mmol/L Anion Gap 12 (12-20) BUN 9 (9-16) mg/dL Creatinine 0.74 (0.5-1.4) mg/dL Estim Creat Clear Calc 124.2 Estimated GFR > 60 Random Glucose 117 H (60-115) mg/dL Estimat Average Glucose 117 mg/dL Hemoglobin A1c % 5.7 (<6.0) % Calcium 9.6 (8.4-10.2) mg/dL Narrative Narrative: EKG 01/2025 Vent. Rate : 59 BPM Atrial Rate : 59 BPM P-R Int : 180 ms QRS Dur : 84 ms QT Int : 402 ms P-R-T Axes : 21 43 56 degrees QTcB Int : 397 ms Sinus bradycardia Otherwise normal ECG No previous ECGs available Airway Mallampati Class: III TM Dist: >3cm Neck ROM: Poor Loose/Missing/Broken Teeth: Yes (#8 broken, missing and broken throughout) Heart: RRR Lungs: CTAB Assessment and Plan Assessment Anesthesia Assessment: Anesthesia Plan Discussed and PAT Visit Final Anesthetic Review Family History of Problems with Anesthesia: No History of Problems with Anesthesia: No Documented by User: Moni Caballero MD 03/06/25 07:11 ON LICENSE OF [facility] Past Medical History Medical History (Updated 02/06/25 @ 12:52 by Kelly Dumont RN) Arthritis [place] (hard of hearing) Elevated cholesterol Sleep apnea GERD (gastroesophageal reflux disease) Hypothyroid Diabetes HTN (hypertension) Cervical myelopathy Lumbar spinal stenosis Sacroiliac joint dysfunction of both sides Myelomalacia of cervical cord Chronic back pain Surgical History Surgical History (Updated 02/06/25 @ 12:53 by Kelly Dumont RN) Hx of knee surgery Social History Social History Household Members Other:: sister Are you a primary health care sanitary technician to a significant other at home: No Do you presently have visiting nurse or 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 If so, by whom?: No Spiritual Healthcare Practices: no Anabaptist Healthcare Practices: no-Zoroastrianism Cultural Healthcare Practices: no Are you DNR?: No Advance Directives: No (sister is primary contact) Advance Directives Information Provided: Yes (as above noted) Advance Directives on File: No Poor oral hygiene: No Meds Allergies Allergy/AdvReac Type Severity Reaction Status Date / Time No Known Allergies Allergy Verified 12/29/24 14:54 Home Medications ?Medication ?Instructions ?Recorded ?Confirmed ?Last Taken ?Type alogliptin 25 mg tablet 25 mg PO QAM 06/20/24 02/06/25 02/28/25 History amlodipine 10 mg tablet 10 mg PO BEDTIME 06/20/24 02/06/25 Unknown History atorvastatin 40 mg tablet 40 mg PO BEDTIME 06/20/24 02/06/25 Unknown History fluticasone propionate 50 1 spray intranasal QAM 06/20/24 02/06/25 Unknown History mcg/actuation nasal spray,suspension (Allergy Relief (fluticasone)) furosemide 20 mg tablet 20 mg PO DAILY PRN fluid retention 06/20/24 02/06/25 Unknown History gabapentin 300 mg capsule 300 mg PO TID 06/20/24 02/06/25 Unknown History levothyroxine 112 mcg capsule 112 mcg PO QAM 06/20/24 02/06/25 03/06/25 History losartan 100 mg tablet 100 mg PO BEDTIME 06/20/24 02/06/25 Unknown History meloxicam 15 mg tablet 15 mg PO QAM 06/20/24 02/06/25 02/20/25 History metformin 500 mg tablet 500 mg PO BID 06/20/24 02/06/25 Unknown History omeprazole 20 mg capsule,delayed 20 mg PO QAM 06/20/24 02/06/25 Unknown History release polyvinyl alcohol 1.4 % eye drops 1 drp ophthalmic (eye) BID-QID PRN 06/20/24 02/06/25 Unknown History (Artificial Tears (polyvinyl Dry Eyes alcohol)) cholecalciferol (vitamin D3) 25 25 mcg PO QAM 02/06/25 02/06/25 Unknown History mcg (1,000 unit) capsule (Vitamin D3) Assessment and Plan Assessment Anesthesia Assessment: Chart Reviewed Final Anesthetic Review NPO: Yes ASA Class: III Final Preanesthetic Review: No Changes in Pt Med Stat, Meds/Allgs Chart Reviewed, Consent Obtained/Reviewed and Anes Risks/Benef Reviewed Patient Risk: Intermediate Procedure Risk: Intermediate Anesthetic Plan Anesthetic Plan: GA Disposition: Standard PACU
[2025-02-06 14:29] LABS: Hemoglobin 14.7 g/dl (14.0-18.0); Mean Corpuscular HGB Conc 33.4 g/dl (31.0-36.0); Mean Corpuscular Hemoglobin 27.6 pg (27.0-33.0); Mean Corpuscular Volume 82.6 fL (80.0-98.0); Mean Platelet Volume 12.8 fL (9.4-12.4); Platelet Count 198 X10*3/uL (160-400); Red Blood Count 5.33 X10*6/uL (4.60-5.80); Red Cell Distribution Width 13.6 % (11.0-16.0)
[2025-02-06 14:38] LABS: Estimated Average Glucose 117 mg/dL; Hemoglobin A1C 153.6276 umol/L; Hemoglobin A1c % 5.7 % (<6.0); Total Hemoglobin (HGBA1C) 3924.6172 umol/L
[2025-02-06 15:19] LABS: Anion Gap 12 (12-20); Blood Urea Nitrogen 9 mg/dL (9-16); Calcium 9.6 mg/dL (8.4-10.2); Carbon Dioxide 27 mmol/L (22-29); Chloride 108 mmol/L (96-108); Creatinine Clr Calc Pharmacy 124.2; Estimated Glomerular Filt Rate > 60; Glucose Random 117 mg/dL (60-115); Sodium 143 mmol/L (135-145)
[2025-03-06] VITALS (15 sets, daily range): BP systolic 100–128; BP diastolic 45–80; PULSE 58–75; RESP 12–18; TEMP 36–36.8; O2SAT 95–99; BMI 35.6; BMI 37.0
--- NOTE | ~2025-03-06 | FL_ITS ---
EXAMINATION: FL GUIDANCE ONLY HISTORY: C4 Corpectomy with plating COMPARISON: Correlation is made with plain films of the cervical spine dated 10/06/2024. TECHNIQUE: Fluoroscopy time: 18 seconds. Cumulative Dose: 9.6075 mGy. DAP: 2.3014 mGym2 Images: 2. FINDINGS: Images demonstrate C4 corpectomy with placement of a prosthesis. There is anterior fusion of C3 and C5 with plate and screws. FL/FL guidance in OR IMPRESSION: Fluoroscopy during procedure. Please see procedure report for additional information. Electronically signed by: Johnnie Goddard MD 03/06/2025 11:11 AM EDT
--- OUTSIDE RECORDS SUMMARY | 2025-03-06 06:13 | XMS_ITS | Encounter Summary ---
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 Plunger Shovel Operator Name Role Phone VINCENZO MILLER Primary [...] PART A March 01, 2018 PART A [id number] Sam PEACE PATIENT MEDICARE (WNR) MEDICARE (M) PART B March 01, 2018 PART B [id number] Sam PEACE PATIENT MEDICARE (WNR) MEDICARE (M) PART A March 01, 2018 PART A [id number] Sam PEACE PATIENT MEDICARE (WNR) MEDICARE (M) PART B March 01, 2018 PART B [id number] Sam PEACE PATIENT MEDICARE (WNR) MEDICARE (M) PART A March 01, 2018 PART A [id number] [phone] [id number] Sam PEACE PATIENT MEDICARE (WNR) MEDICARE (M) PART B March 01, 2018 PART B [id number] [facility] Sam PEACE PATIENT Selected Encounter This section includes the information on record at [place] for the Encounter. Date/Time Encounter Type Encounter Description Reason Provider Source Feb 27, 2025 04:00 PM [facility] EVALUATION AUDIOLOGY ICD-10-CM Z46.1 Encounter for fitting and adjustment of hearing aid VARGHESE DEL CASTILLO [facility] Encounter Template Text not used by [place] Assessments - Encounter Diagnoses This section includes the primary and secondary diagnoses documented for the Encounter. Date/Time Primary/Secondary Diagnosis Diagnosis Name Provider Source Feb 27, 2025 04:50 PM PRIMARY Encounter for fitting and adjustment of hearing aid [facility] Feb 27, 2025 04:50 PM SECONDARY Sensorineural hearing loss, bilateral [facility] [place] [facility] Social History: Smoking Status (Most current) [...] 16, 2024 03:00 PM VA-TOBACCO [facility] [place] [facility] Tobacco Use History This section includes a history of the smoking, or tobacco-related health factors, that were collected on or before the date of the Encounter. The data comes from the [place] facility where the Encounter took place. Date/Time Smoking Status/Tobacco Use Comment F acility May 16, 2024 03:00 PM [place] 15 YRS OR MORE [place] [facility] [place] [facility] Jun 07, 2023 07:43 PM VA-TOBACCO NEVER USED [place] [facility] [place] [facility] Encounter Notes: All associated encounter notes This section contains the clinical notes associated to the Encounter. Date/Time Encounter Note(s) Provider Source Feb 27, 2025 07:46 AM AUDIOLOGY E & M NO TE: LOCAL TITLE: AUDIOLOGY CLINIC STANDARD TITLE: AUDIOLOGY E & M NOTE DATE OF NOTE: FEB 27, 2025@07:46 ENTRY DATE: FEB 27, 2025@07:46:31 AUTHOR: VARGHESE DEL CSATILLO COSIGNER: URGENCY: STATUS: COMPLETED Dx CODE: Z46.1- Encounter for Fitting/Programming Hearing Aid(s); H90.3- Sensorineural Hearing Loss, Bilateral APPOINTMENT TYPE: Hearing Aid Fitting SUBJECTIVE (S): The patient was seen for hearing aid fitting and issuance, accompanied by his sister. He had previously been evaluated and found to exhibit significant hearing loss for which amplification was recommended. Thompson is a new hearing aid user. How does the patient best learn? Verbal instruction, demonstration Does the patient have any cultural and rastafarian beliefs, emotional barriers, physical or cognitive limitations, and communication barriers which may impact his ability to learn? No Desire and motivation to learn? Good OBJECTIVE (O): Physical fit of hearing aids was good. Patient verified comfort. Verification of an appropriate acoustic response was obtained using Real Ear measurements (speech mapping) and NAL-NL2 targets. The patient reported good subjective benefit as well. Feedback professional services manager was run. Hearing aids were found to be meeting targets adequately and MPO was not exceeding estimated UCL. Settings stored in THAIS. ASSESSMENT (A): The following devices were issued: Make: Chroma Model: CoffeeTableEO I90-R JEREMÍAS Right Serial Number: [id number] Left Serial Number: [id number] Battery size: Rechargeable Warranty ends: 03/03/28 Trial Period ends: 08/01/25 Domes/Wax guards: medium vented domes, cerustop Staple Processing Machine Operator: Size 1 M Program(s): Automatic Button(s): Short press= Synced VC via rocker switches Long press= Program Extra-long press= Power on/off Fitting Formula: NAL-NL2 Remote Programming: HAs are capable Bluetooth: Paired to [place] bill, not interested in streaming Counseling was completed throughout todays appointment using a standardized curriculum that includes but is not limited to; realistic expectations with amplification in adverse listening environments, acclimatization to own voice and environmental sounds (following real-ear measurements), the importance of consistent use of amplification, proper insertion/removal, care and maintenance (including wax guards/domes if applicable), signal and alerts of devices, and charging/batteries. The was provided the opportunity to practice in office and reports confidence/understanding in all items reviewed. Time Spent= 20 minutes The patient was informed of and signed/agreed to [place] policy on hearing aid issuance: Yes Users are responsible for the maintenance and security of their devices. Determination of need to replace a hearing aid is made by the [place] concrete batching plant operator. Hearing aids will not be replaced in cases of neglect, abuse, or excessive loss. Items issued are for personal use only. Prognosis for successful hearing aid use is good. PLAN (P): 1. Follow-up for programming/adjustments as needed. 2. The International Outcome Inventory-Hearing Aids (IOI-CONDON) will be mailed to the in four weeks. He was asked to complete and mail back to clinic after completion. Patient Education Education provided on the following topics: Hearing aid use, care, maintenance Education provided to: P Response to Education: VU, SABI, PI Rodriguez Patient P Family F Significant Other SO Verbalizes Understanding VU Returns Demonstration RD Performs Independently PI Lacks Comprehension LC Refused Education RE Not Applicable NA /chloe/ ALEJANDRO BLACKWOOD, CCC-A STAFF POLICY ADVISER Signed: 02/27/2025 16:51 VARGHESE DEL CASTILLO [place] [facility]
--- OUTSIDE RECORDS SUMMARY | 2025-03-06 06:13 | XMS_ITS ---
Author Name [facility] Address [address] [place] [address] Care Team Providers Care Rubber Splicer Name Role Phone VINCENZO DOUGLASS Primary Care Provide TRICIA Shipman Primary Care [...] PART B March 01, 2018 PART B [id number] Sam PEACE PATIENT MEDICARE (WNR) MEDICARE (M) PART A March 01, 2018 PART A [id number] Sam PEACE PATIENT MEDICARE (WNR) MEDICARE (M) PART A March 01, 2018 PART A [id number] [phone] [id number] Sam PEACE PATIENT MEDICARE (WNR) MEDICARE (M) PART B March 01, 2018 PART B [id number] Sam PEACE PATIENT MEDICARE (WNR) MEDICARE (M) PART A March 01, 2018 PART A [id number] Sam PEACE PATIENT MEDICARE (WNR) MEDICARE (M) PART B March 01, 2018 PART B [id number] Sam PEACE PATIENT Selected Encounter This section includes the information on record at [place] for the Encounter. Date/Time Encounter Type Encounter Description Reason Provider Source Feb 22, 2025 02:00 PM SELF CARE MNGMENT TRAINING WHEELCHAIR & [facility]VAN MOBILITY ICD-10-CM M48.00 Spinal stenosis, site unspecified NIALL JONES [facility] Encounter Template Text not used by [place] Assessments - Encounter Diagnoses This section includes the primary and secondary diagnoses documented for the Encounter. Date/Time Primary/Secondary Diagnosis Diagnosis Name Provider Source Feb 22, 2025 04:07 PM PRIMARY Spinal stenosis, site unspecified NIALL JONES [facility] Plan of Treatment: Future Appointments (+ 6 months) and Future Tests (+/- 45 days) The Plan of Treatment section includes future care activities for the patient from all [place] treatmentfacilities. This section includes future appointments and future orders which are active, pending or scheduled. Future Appointments This section includes appointments that were scheduled to occur 6 months from the date of the Encounter, up to a maximum of 20 appointments. The data comes from all [place] treatment facilities. Appointment Date/Time Appointment Type Appointme nt Facility Name Feb 27, 2025 04:00 PM AMBULATORY - REHAB MEDICIN E [facility] Social History: Smoking Status (Most current) and Tobacco Use (All prior to encounter date) This section includes the most current, and the historical, smoking and tobacco- related health factors from the [place] facility where the Encounter took place. Current Smoking Status This section includes the most current smoking, or tobacco-related health factor, from the [place] facility where the Encounter took place. Date/Time Current Smoking Status Comment Facil ity May 16, 2024 03:00 PM VA-TOBACCO FORMER USER [facility] Tobacco Use History This section includes a history of the smoking, or tobacco-related health factors, that were collected on or before the date of the Encounter. The data comes from the [place] facility where the Encounter took place. Date/Time Smoking Status/Tobacco Use Comment F acility May 16, 2024 03:00 PM VA-TOBACCO QUIT 15 YRS OR MORE [place] [facility] [place] [facility] Jun 07, 2023 07:43 PM [facility] Encounter Notes: All associated encounter notes This section contains the clinical notes associated to the Encounter. Date/Time Encounter Note(s) Provider Source Feb 22, 2025 02:00 PM OCCUPATIONAL THERAPY NOTE: LOCAL TITLE: OCCUPATIONAL THERAPY INITIAL NOTE STANDARD TITLE: OCCUPATIONAL THERAPY NOTE DATE OF NOTE: FEB 22, 2025@14:00 ENTRY DATE: FEB 22, 2025@14:15:41 AUTHOR: NIALL JONES COSIGNER: URGENCY: STATUS: COMPLETED Occupational Therapy Evaluation (Wheelchair Clinic) Initial Evaluation date: Jan Progress Note Date: Treatment #: eval1 Treatment time: 54' Diagnosis: Spinal Stenosis, site unspecified(ICD-10-CM M48.00) Provider: Dr. Douglass OT Treatment Precautions: universal Patient identified by full name and date of S/ Pt is a 69 year old male referred to OT via direct access to wheelchair clinic for power mobility. He was seen in the clinic for this initial assessment on 02/22/25. Significant Medical History: reports difficulty with ambulation and chronic pain. Able to walk short household distances only; limited with community access and getting out of the house. PMHx: Active problems - Computerized Problem List is the source for the followin. Vitamin B12 Deficiency ([facility] [id number]) 2. Vitamin D Deficiency ([facility] [id number]) 3. Leucocytosis 4. Obesity 5. Hyperlipidemia 6. Hypertension 7. Sleep apnea 8. Diabetes mellitus type 2 9. Fracture of rib 10. Hypothyroidism 11. Chronic pain 12. Obstructive sleep apnea 13. Spinal stenosis of lumbar region 14. Spinal stenosis in cervical region 15. Diabetic neuropathy 16. Depressive disorder 17. Gastro-esophageal reflux disease with esophagitis 18. Hypercholesterolemia 19. Cervical radiculopathy 20. Cervical disc disorder 21. Umbilical hernia 22. Cervical spondylosis without myelopathy 23. Essential hypertension ENVIRONMENT/SOCIAL SUPPORT: Living situation: pt lives with his sister in a single-family home. Home is relatively open. Bathroom too narrow for walker. Bedroom is at the end of the hallway 90 degree turn. Support/services: NIGHTCLUB MANAGER 2x/week to assist with bathing, MOW CURRENT LEVEL OF FUNCTION: ADLs: bathing: needs assist- tub transfer bench dressing: independent, has sock aid toileting: independent, has raised toilet seat bed mobility: independent IADLs: requires some assist- uses MOW and microwave for meal prep Mobility: Transfers: independent Ambulation: independent with walker short distances W/c propulsion: n/a Falls: no falls within the last 6 months but does have h/o falls Adaptive Equipment: tub bench, rollator walker (needs replacement), raised toilet seat, manual wheelchair ([facility] [place]) WHEELCHAIR HISTORY: [x] Manual [ ] electric Model: [employer] Serial #: Period of use: has had since 2020 Issues: cannot self-propel any distance or uneven terrain; does not fit in home in [place] TRANSPORTATION: [ ]Drives [ ]Plans to drive Vehicle: [employer] [x]Passenger [ ]Public transportation unlimited [ ]Other: [ ]Y [x]N Able to load wheelchair/scooter [x]Y [ ]N Assistance available to load wheelchair/scooter WORK/HOBBIES/INTERESTS: computer games, tv HAND DOMINANCE: right PAIN: chronic neck and back pain- managed with medication PRIMARY GOAL: go outside, go to appointments O/ Pt arriving to clinic in clinic w/c. Accompanied by his sister. OT EVAL: MODERATE COMPLEXITY (38') Sensation: [x]intact []impaired []not tested this date Current Skin Integrity: intact per pt. Skin inspection: [x] independent [] assisted [] dependent Pressure relief: [x] independent [] assisted [] dependent Method: weight-shifting, sit-stand, changing surfaces Cognitive/Visual Status: alert and oriented x 4. Attention intact to eval. Able to follow multi-step directions. Functional Mobility: Sit<->stand: mod I, heavy use of BUE's Gait: mod I Assistive device: rollator walker; able to walk 20' ft in the clinic today PHYSICAL ASSESSMENT: Visual scanning/acuity/field: [x] intact [] impaired Comments: assessed functionally; able to scan and peripheral vision appears WNL Hearing: [] normal [x] impaired []deaf Comments: waiting on hearing aids Respiration: [x] normal [] oxygen dependent [] dyspnea on exertion Head/neck ROM: reduction in c-spine mobility by 50% UE function (ROM, strength): UE AROM WNL; strength grossly 5/5 LE function: R LE AROM/strength WFL L LE AROM WFL except with L foot drop; LLE strength grossly 4/5 Sitting balance: WNL; able to maintain upright seated position for 2+ minutes Standing balance: WFL with a/d/support Postural Findings/Mat Evaluation: Head and Neck: forward head, rounded shoulders Upper Extremities: grossly WFL Spine/Trunk: WNL Pelvis: WNL Lower Extremities: ROM grossly WNL Pt's measurements: Weight: 275 lb. Height: 72 Hip Width: 19.5 Seat Depth (hip to knee): 20 Knee to foot (with shoes on): 17.5 with shoes Top of Shoulders: 24 Shoulder Width: 18 Pt trialed this date: deferred trial today d/t chair being too narrow-will review on delivery SELF-CARE MANAGEMENT TRAINING (16') [x] issued rollator from [employer]. Trialed with Maxi and standard but d/t narrow doorways (per report) recommend standard rollator. independent with use today, demonstrating good safety [x] discussed wheelchair recommendations with today- does plan on using intermittently in the home so power scooter is not an option. Lightweight foldable power wheelchair not the best option d/t height/weight and plans for access (community/outdoor access). Recommendation is for a power wheelchair at this time. Pt inquiring about seat elevate and tilt, however as is still able to stand, transfer, and walk- these options are not medically indicated at this time. We discussed manual recline which is an option for for better positioning and comfort. Reviewed specs and recommendations with /caregiver today. Recommend: Q700 20x20 Syncra back rest fixed center mount largest/footplate manual recline Seun Charlie A/ Pt is a 69 year old male referred to wheelchair clinic with above pmhx and dx. Presents with cervical and lumbar spinal stenosis and chronic pain. Pt presents to wheelchair clinic with referral for power mobility due to difficulty propelling long distances and over uneven terrain and inability to walk more than household distances. Replaced rollator today for in-home use and encouraged ongoing ambulation to tolerance to maintain some level of exercise and mobility. Recommend power mob for community use- they are going to look into options for wheelchair van transportation. RECOMMEND: Q700M as above. Justification of Recommendations: [] pt requires tilt function in order to complete pressure relief in order to maintain skin integrity; pt is unable to complete pressure relief by other means [] pt requires tilt and recline function in order to complete pressure relief, manage positioning needs, assist with bowel/bladder needs, maintain comfort, and/or assist with ADL needs [] pt requires elevating leg rests in order to assist with LE edema management, maintain comfort, and/or positioning needs [] pt requires specific electronics requested due to progressive nature of patient's diagnosis [x] pt requires specific backrest requested due to postural limitations + RECLINE [] pt requires elevating seat height in order to access his environment and/or to assist with transfers [] other: P/ Plan to order Q700M. Will f/u with once chair arrives to clinic LT. Pt will demonstrate ability to independently manage power mobility within the home and community in order to increase independence, effectively participate in ADL's and iADL's ST. Assess for most appropriate mobility device 2. will demonstrate good safety with power chair /es/ NIALL JONES OTR/L OCCUPATIONAL THERAPIST Signed: 02/25/2025 17:57 NIALL JONES [place] [facility]
--- OUTSIDE RECORDS SUMMARY | 2025-03-06 06:13 | XMS_ITS | Continuity of Care Document ---
Author Organization [facility]. If a dditional information is needed, contact Health Information Management at [phone] Address [address] [place] [address] Phone Care Team Providers Care Mental Health Program Manager Name Role Phone Unavailable Unavailable Unavailable Unavailable Unavailable Unavailable Unavailable Unavailable Unavailable Problems Spinal stenosis in cervical region Comments:Cervical spinal igor nosis Encounters pre-admission 09-Dec-2021 14:00 Shola TA (Attending) Aga Gutierrez
--- OUTSIDE RECORDS SUMMARY | 2025-03-06 06:13 | XMS_ITS | Continuity of Care Document ---
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 Name Role Phone [facility] Unavailable Unavailable Problems Combined list of problems [...] Abdominal pain Active Condition [facility] CERVICAL DG DISC DISEASE Active Condition [facility] CERVICAL RADICULOPATHY Active Condition [facility] Cervical spondylosis without myelopathy (ICD-9-CM 721.0) Active Condition [facility] Chronic pain syndrome Active Condition [facility] Cough Active Condition [facility] DEPRESSIVE DISORDER NEC Active Condition [facility] Diabetes mellitus Active Condition [facility] Diabetic neuropathy Active Condition [facility] Dyspnea Active Condition [facility] Fatigue Active Condition [facility] HYPERCHOLESTEROLEMIA Active Condition [facility] Hyperlipidemia Active Condition [facility] Hypertension Active Condition [facility] Hypertension Active Condition [facility] Hypothyroidism Active Condition [facility] Impaired fasting glucose Active Condition [facility] Joint pain Active Condition [facility] Leucocytosis Active Condition [facility] Low back pain Active Condition [facility] Obesity Active Condition [facility] Obstructive sleep apnea syndrome Active Condition [facility] REFLUX ESOPHAGITIS Active Condition [facility] Rib fracture Active Condition [facility] Sleep apnea Active Condition [facility] Spinal stenosis in cervical region Active Condition [facility] Spinal stenosis of lumbar region Active Condition [facility] Umbilical hernia * (ICD-9-CM 553.1) Active Condition [facility] Vitamin B12 Deficiency ([facility] [id number]) Active Condition [facility] Vitamin D deficiency Active Condition [facility] Vitamin D Deficiency (SCT 95374925) Active Condition [facility] sertraline Inactive Condition 05/29/2002 [facility] Diagnosis: ICD-10-CM Z46.1 Encounter for fitting and adjustment of hearing aid Active Diagnosis [facility] Diagnosis: ICD-10-CM M48.00 Spinal stenosis, site unspecified Active Diagnosis [facility] Diagnosis: ICD-10-CM H90.3 Sensorineural hearing loss, bilateral Active Diagnosis [facility] Diagnosis: ICD-10-CM R26.9 Unspecified abnormalities of gait and mobility Active Diagnosis [facility] Diagnosis: ICD-10-CM E03.9 Hypothyroidism, unspecified Active Diagnosis [place] Diagnosis: ICD-10-CM R63.4 Abnormal weight loss Active Diagnosis [place] Diagnosis: ICD-10-CM I10 Essential (primary) hypertension Active Diagnosis [facility] Diagnosis: ICD-10-CM Z46.0 Encounter for fit/adjst of spectacles and contact lenses Active Diagnosis [facility] [place] [facility] Medications Combined list of outpatient medications from Department of Defense and [facility] facilities.Medications provided include 1) outpatient medications from the last 15 months, and 2) patient-reported medications. Medication Details Route Status Patient Instructions Prescription Expires Prescription Number Last Dispense Date Ordering Provider Order Date Order Qty Source ALOGLIPTIN 25 MG ORAL TAB TAKE ONE TABLET BY MOUTH DAILY REPLACES SAXAGLIP PRESLEY Discont inued 12/07/2024 [id number] TRICIA COLLINS 2023 90 [facility] ALOGLIPTIN 25MG TAB TAKE ONE TABLET BY MOUTH DAILY REPLACES SAXAGLIP PRESLEY ORAL DISCONT INUED (EDIT) 12/07/2024 [id number] AMY COLILNS R 2023 90 [facility] AMLODIPINE BESYLATE 10MG TAB TAKE ONE TABLET BY MOUTH ONCE DAILY FOR BLOOD PRESSURE /HEART, DO NOT TAKE WITH GRAPEFRU IT JUICE ORAL ACTIVE 11/11/2025 [id number] VINCENZO SIMPSON 2024 90 [place] AMLODIPINE BESYLATE 10MG TAB TAKE ONE TABLET BY MOUTH ONCE DAILY FOR BLOOD PRESSURE /HEART, DO NOT TAKE WITH GRAPEFRU IT JUICE ORAL DISCONT INUED 08/20/2024 [id number] VINCENZO SIMPSON 2023 90 [place] atorvastati n (U/D) 40 MG ORAL TAB TAKE ONE-HALF TABLET BY MOUTH ONCE DAILY FOR HIGH CHOLESTE ROL 01/01/2025 [id number] VINCENZO SIMPSON 2023 45 [facility] ATORVASTATI N CA 40MG TAB TAKE ONE-HALF TABLET BY MOUTH ONCE DAILY FOR HIGH CHOLESTE ROL ORAL ACTIVE 11/11/2025 [id number] VINCENZO SIMPSON 2024 45 [place] ATORVASTATI N CA 40MG TAB TAKE ONE-HALF TABLET BY MOUTH ONCE DAILY FOR HIGH CHOLESTE ROL ORAL DISCONT INUED 01/01/2025 [id number] VINCENZO SIMPSON 2023 45 [place] ATORVASTATI N CA 40MG TAB TAKE ONE-HALF TABLET BY MOUTH AT BEDTIME FOR CHOLESTE ROL ORAL DISCONT INUED 04/26/2024 [id number] 4 KARINAAMY R 2022 45 [facility] CETIRIZINE HCL 10MG TAB TAKE ONE TABLET BY MOUTH ONCE DAILY FOR ALLERGIE S ORAL ACTIVE 05/17/2025 [id number] VINCENZO SIMPSON 2023 90 [place] CHOLECALCIF JENNY 25MCG (1,000UNIT) TAB TAKE ONE TABLET BY MOUTH ONCE DAILY FOR VITAMIN SUPPLEME NTATION ORAL ACTIVE 02/27/2026 [id number] VINCENZO SIMPSON M 2024 100 [place] CHOLECALCIF JENNY 25MCG (1,000UNIT) TAB TAKE ONE TABLET BY MOUTH ONCE DAILY FOR VITAMIN SUPPLEME NTATION ORAL DISCONT INUED 05/17/2025 [id number] 4 VINCENZO SIMPSON M 2023 100 [place] CHOLECALCIF JENNY 25MCG (1,000UNIT) TAB TAKE ONE TABLET BY MOUTH ONCE DAILY FOR VITAMIN SUPPLEME NTATION ORAL DISCONT INUED 09/08/2024 [id number] VINCENZO SIMPSON 2022 90 [place] FLUTICASONE PROPIONATE 50MCG/SPRAY SOLN,NASAL, 16GM INSTILL 1 SPRAY INTO EACH NOSTRIL ONCE DAILY FOR NASAL IRRITATI ON/INFLA MMATION NASAL ACTIVE 05/17/2025 [id number] VINCENZO SIMPSON 2023 1 [place] furosemide (U/D) 20 MG ORAL TAB TAKE ONE TABLET BY MOUTH ONCE DAILY TO REMOVE FLUID/CO NTROL BLOOD PRESSURE 01/17/2025 [id number] VINCENZO SIMPSON 2023 90 [facility] furosemide (U/D) 20 MG ORAL TAB TAKE ONE TABLET BY MOUTH DAILY FOR 30 DAYS, AND TAKE TWO TABLETS WEDNESDAY FOR 30 DAYS A DIURETIC OR WATER PILL 10/05/2024 [id number] TRICIA COLLINS 2023 35 [facility] FUROSEMIDE 20MG TAB TAKE ONE TABLET BY MOUTH DAILY FOR 30 DAYS, AND TAKE TWO TABLETS WEDNESDAY FOR 30 DAYS A DIURETIC OR WATER PILL ORAL DISCONT INUED 10/05/2024 [id number] 4 AMY COLLINS 2022 35 [facility] FUROSEMIDE 20MG TAB TAKE ONE TABLET BY MOUTH ONCE DAILY TO REMOVE FLUID/CO NTROL BLOOD PRESSURE ORAL 01/17/2025 [id number] VINCENZO SIMPSON 2023 90 [place] GABAPENTIN (U/D) 300 MG ORAL CAP TAKE TWO CAPSULES BY MOUTH THREE TIMES A DAY NEEDED FOR DIABETIC NEUROPAT HY 02/21/2025 [id number] TRICIA COLLINS 2023 270 [facility] GABAPENTIN (U/D) 300 MG ORAL CAP TAKE TWO CAPSULES BY MOUTH THREE TIMES A DAY NEEDED FOR DIABETIC NEUROPAT HY Discont inued 06/02/2024 [id number] TRICIA COLLINS 2023 270 [facility] GABAPENTIN 300MG CAP TAKE TWO CAPSULES BY MOUTH THREE TIMES A DAY FOR NERVE PAIN ORAL ACTIVE 05/17/2025 [id number] VINCENZO SIMPSON 2023 540 [place] GABAPENTIN 300MG CAP TAKE TWO CAPSULES BY MOUTH THREE TIMES A DAY NEEDED FOR DIABETIC NEUROPAT HY ORAL DISCONT INUED 02/21/2025 [id number] 4 AMY COLLINS R 2023 270 [facility] GABAPENTIN 300MG CAP TAKE TWO CAPSULES BY MOUTH THREE TIMES A DAY NEEDED FOR DIABETIC NEUROPAT HY ORAL DISCONT INUED 06/02/2024 [id number] AMY COLLINS R 2022 270 [facility] LACTOBACILL US ACIDOPHILUS CAP TAKE 1 CAPSULE BY MOUTH ONCE DAILY NEEDED FOR PROBIOTI C SUPPLEME NTATION ORAL 02/08/2025 [id number] VINCENZO SIMPSON 2024 100 [place] LEVOTHYROXI NE NA 100MCG TAB TAKE ONE TABLET BY MOUTH EVERY MORNING 30 MINUTES BEFORE BREAKFAS T FOR THYROID TAKE ON AN EMPTY STOMACH WITH A FULL GLASS OF WATER ORAL ACTIVE 10/06/2025 [id number] 5 VINCENZO SIMPSON 2023 90 [place] LEVOTHYROXI NE NA 100MCG TAB (SYNTHROID) TAKE ONE TABLET BY MOUTH EVERY MORNING 30 MINUTES BEFORE BREAKFAS T FOR THYROID TAKE ON AN EMPTY STOMACH WITH A FULL GLASS OF WATER ORAL DISCONT INUED 03/18/2025 [id number] VINCENZO SIMPSON 2023 90 [place] LIDOCAINE 5% PATCH APPLY 1 PATCH TOPICALL Y ONCE DAILY FOR NERVE PAIN (LEAVE PATCH ON FOR 12 HOURS, THEN REMOVE PATCH) TOPICA L ACTIVE 06/01/2025 [id number] VINCENZO SIMPSON 2023 60 [place] LIDOCAINE 5% PATCH APPLY 1 PATCH TOPICALL Y ONCE DAILY FOR NERVE PAIN (LEAVE PATCH ON FOR 12 HOURS, THEN REMOVE PATCH) TOPICA L DISCONT INUED (EDIT) 05/18/2025 [id number] VINCENZO SIMPSON 2023 30 [place] Loperamide HCl (Imodium A-D Eq.) Capsule Conventiona l 2mg Oral TAKE ONE CAPSULE BY MOUTH BEFORE MEALS FOR DIARRHEA 09/01/2024 [id number] VINCENZO SIMPSON 2023 90 [facility] LOPERAMIDE HCL 2MG CAP TAKE ONE CAPSULE BY MOUTH BEFORE MEALS FOR DIARRHEA ORAL ACTIVE 05/17/2025 [id number] 4 VINCENZO SIMPSON 2023 90 [place] LOPERAMIDE HCL 2MG CAP TAKE ONE CAPSULE BY MOUTH BEFORE MEALS FOR DIARRHEA ORAL DISCONT INUED 09/01/2024 [id number] VINCENZO SIMPSON 2022 90 [place] POTASSIUM 100MG TAB TAKE ONE TABLET BY MOUTH ONCE DAILY FOR BLOOD PRESSURE /HEART ORAL ACTIVE 05/17/2025 [id number] NADVINCENZO GODOY 2023 90 [place] MELATONIN 5MG CAP/TAB TAKE TWO CAPSULE/ TABLET BY MOUTH ONCE DAILY NEEDED FOR INSOMNIA ORAL ACTIVE 10/18/2025 [id number] VINCENZO SIMPSON 2023 90 [place] MELATONIN 5MG CAP/TAB TAKE TWO CAPSULE/ TABLET BY MOUTH ONCE DAILY NEEDED FOR INSOMNIA ORAL DISCONT INUED 03/18/2025 [id number] VINCENZO SIMPSON 2023 90 [place] MELATONIN 5MG CAP/TAB TAKE TWO CAPSULE/ TABLET BY MOUTH ONCE DAILY NEEDED FOR INSOMNIA ORAL DISCONT INUED 09/08/2024 [id number] VINCENZO SIMPSON M 2022 90 [place] MELOXICAM (U/D) 15 MG ORAL TAB TAKE ONE TABLET BY MOUTH DAILY NEEDED FOR PAIN AND INFLAMMA TION REPLACES NAPROSYN 12/07/2024 [id number] TRICIA COLLINS R 2023 90 [facility] MELOXICAM 15MG TAB TAKE ONE TABLET BY MOUTH DAILY NEEDED FOR PAIN AND INFLAMMA TION REPLACES NAPROSYN ORAL 12/07/2024 [id number] AMY COLLINS R 2023 90 [facility] metFORMIN (FORTAMET EQ) 500 MG PO TR24 TAKE ONE TABLET BY MOUTH TWICE DAILY Active 03/18/2025 [id number] VINCENZO SIMPSON 2023 180 [facility] METFORMIN HCL 500MG 24HR TAB,SA TAKE ONE TABLET BY MOUTH TWICE DAILY ORAL ACTIVE 11/11/2025 [id number] VINCENZO SIMPSON 2024 180 [place] METFORMIN HCL 500MG 24HR TAB,SA TAKE ONE TABLET BY MOUTH TWICE DAILY ORAL DISCONT INUED 03/18/2025 [id number] VINCENZO SIMPSON 2023 180 [place] OMEPRAZOLE 20MG CAP,EC TAKE ONE CAPSULE BY MOUTH EVERY MORNING 30 MINUTES BEFORE BREAKFAS T FOR HEARTBUR N ORAL ACTIVE 02/27/2026 [id number] 5 VINCENZO SIMPSON 2024 90 [place] OMEPRAZOLE 20MG CAP,EC TAKE ONE CAPSULE BY MOUTH EVERY MORNING 30 MINUTES BEFORE BREAKFAS T FOR HEARTBUR N ORAL DISCONT INUED 05/17/2025 [id number] VINCENZO SIMPSON 2023 90 [place] OXYCODONE HCL 10MG/ACETAM INOPHEN 325MG TAB TAKE ONE TABLET BY MOUTH EVERY 6 HOURS ORAL ACTIVE RUT KINCAID YS L 2020 [facility] Polyvinyl Alcohol 1.4% + Povidone 0.6% + Preservativ e Free Solution, Ophthalmic INSTILL 1 DROP INTO EACH EYE FOUR TIMES A DAY FOR DRY EYE 08/19/2024 [id number] VINCENZO SIMPSON 2023 100 [facility] POLYVINYL ALCOHOL 1.4%/POVIDO NE (PF) SOLN,OPH INSTILL 1 DROP INTO EACH EYE FOUR TIMES A DAY FOR DRY EYE OPHTHA LMIC 08/19/2024 [id number] VINCENZO SIMPSON 2022 100 [place] simethicone 80 MG ORAL CHEW CHEW TWO TABLETS BY MOUTH ONCE DAILY NEEDED FOR GAS 05/06/2024 [id number] VINCENZO SIMPSON 2023 100 [facility] simethicone 80 MG ORAL CHEW CHEW TWO TABLETS BY MOUTH ONCE DAILY NEEDED FOR GAS Discont inued 02/19/2024 [id number] VINCENZO SIMPSON 2023 100 [facility] simethicone 80 MG ORAL CHEW CHEW TWO TABLETS BY MOUTH ONCE DAILY NEEDED FOR GAS 02/19/2024 [id number] VINCENZO SIMPSON 2023 100 [facility] SIMETHICONE 80MG TAB,CHEW CHEW TWO TABLETS BY MOUTH ONCE DAILY NEEDED FOR GAS ORAL ACTIVE 05/17/2025 [id number] 5 VINCENZO SIMPSON 2023 100 [place] SIMETHICONE 80MG TAB,CHEW CHEW TWO TABLETS BY MOUTH ONCE DAILY NEEDED FOR GAS ORAL DISCONT INUED 05/06/2024 [id number] VINCENZO SIMPSON 2023 100 [place] SIMETHICONE 80MG TAB,CHEW CHEW TWO TABLETS BY MOUTH ONCE DAILY NEEDED FOR GAS ORAL DISCONT INUED 02/19/2024 [id number] VINCENZO SIMPSON 2023 100 [place] SITAGLIPTIN (EQV-ZITUVI O) 100MG TAB TAKE ONE TABLET BY MOUTH ONCE DAILY DIABETES REPLAC ES ALOGLIPT IN ORAL ACTIVE 05/17/2025 [id number] VINCENZO SIMPSON 2023 90 [place] SITAGLIPTIN (EQV-ZITUVI O) 100MG TAB TAKE ONE TABLET BY MOUTH DAILY REPLACES SAXAGLIP PRESLEY ORAL ACTIVE 03/21/2025 [id number] AMY COLLINS 2023 90 [facility] SITagliptin (U/D) 100 MG ORAL TAB TAKE ONE TABLET BY MOUTH DAILY REPLACES SAXAGLIP PRESLEY Active 03/21/2025 [id number] TRICIA COLLINS 2023 90 [facility] Allergies, Adverse Reactions, Alerts Combined list of allergies from Department of Defense and Veterans Affairs facilities. It does not include entries that were removed or entered in error. Substance Category Reaction Severity Reaction type Status Date Reported Comments Source PENICILLIN Propensity to adverse reactions to drug (finding) OTHER REACTION active 2 [facility] PENICILLIN Propensity to adverse reactions to drug (finding) active 3 [facility] Penicillins Drug allergy (disorder) Unknown active 2 [facility] penicillins Propensity to adverse reactions to substance Unknown Active 2 Unknown Organizati on PENICILLINS Drug allergy (disorder) active 3 [facility] Immunizations Combined list of available immunizations from the Department of Defense and [facility] facilities. Immunization Series Date Given Administered By Site Reaction Lot Number CVX Code Drug Ditcher Operator Status Comments Source INFLUENZA VACCINE, QUADRIVALENT, ADJUVANTED 2020 205 complet [facility] COVID-19 (MODERNA), MRNA, LNP-S, PF, 100 MCG OR 50 MCG DOSE 2 2020 207 complet ed [facility] COVID-19 (MODERNA), MRNA, LNP-S, PF, 100 MCG OR 50 MCG DOSE 1 2020 207 complet [facility] INFLUENZA, HIGH-DOSE, QUADRIVALENT 2019 197 complet [facility] INFLUENZA, TRIVALENT, ADJUVANTED 2018 168 complet [facility] PNEUMOCOCCAL POLYSACCHARID E PPV23 2018 33 complet [facility] INFLUENZA, TRIVALENT, ADJUVANTED 2017 168 complet [facility] PNEUMOCOCCAL CONJUGATE PCV 13 2017 133 complet [facility] Results Combined list of recent chemistry, hematology [...] May 03, 2024 09:28 AM Reporting Lab: [address] [address] Performing Lab: [address] [address] [place] MICROALBU MIN CREATININ E RATIO PANEL MICROALBUMI N [MASS/VOLUM E] IN URINE 1.3 mg/dL 05/16 Specimen Type: URINE No comment entered. Ordering Provider: JEWEL RAMIREZ Report Released Date/Time: May 03, 2024 09:28 AM Reporting Lab: [address] [address] Performing Lab: [address] [address] [place] MICROALBU MIN CREATININ E RATIO PANEL CREATININE [MASS/VOLUM E] IN URINE 218.12 mg/dL 05/16 Specimen Type: URINE No comment entered. Ordering Provider: JEWEL RAMIREZ Report Released Date/Time: May 03, 2024 09:28 AM Reporting Lab: [address] [address] Performing Lab: [address] [address] [place] METHYLMAL ONIC ACID (SERUM-QU ) METHYLMALON ATE [MOLES/VOLU ME] IN SERUM OR PLASMA 237 nmol/L 87 - 318 01/12 Specimen Type: SERUM Comment: This test was developed and its analytical performance characteris tics have been determined by [employer] [place], [place]. It has not been cleared or approved by the U.S. Food and Drug Administrat ion. This assay has been validated pursuant to the CLIA regulations and is used for clinical purposes. Test Performed by [place], [employer], [address] [place], [place] M.D., Ph.D., Director of Laboratorie s , CLIA [id number] TEST PERFORMED AT: , Ordering Provider: JEWEL RMAIREZ Report Released Date/Time: Dec 31, 2023 08:37 AM Reporting Lab: [facility] [address] [address] [address] Performing Lab: [facility] [address] [address] [place] THYROID T4 FREE(FT4) THYROXINE (T4) FREE [MASS/VOLUM E] IN SERUM OR PLASMA 1.15 ng/dL 0.6 - 1.6 01/12 Specimen Type: SERUM No comment entered. Ordering Provider: JEWEL RAMIREZ Report Released Date/Time: Dec 31, 2023 08:37 AM Reporting Lab: [facility] [address] [address] Performing Lab: [facility] [address] [facility] [address] [place] MAGNESIUM MAGNESIUM [MASS/VOLUM E] IN SERUM OR PLASMA 1.8 mg/dL 1.6 - 2.6 01/12 Specimen Type: SERUM No comment entered. Ordering Provider: JEWEL RAMIREZ Report Released Date/Time: Dec 31, 2023 08:37 AM Reporting Lab: [facility] [address] [address] Performing Lab: [facility] [address] [address] [place] LIPID PANEL FASTING CHOLESTEROL [MASS/VOLUM E] IN SERUM OR PLASMA 142 mg/dL 01/12 Specimen Type: SERUM No comment entered. Ordering Provider: JEWEL RAMIREZ Report Released Date/Time: Dec 31, 2023 08:37 AM Reporting Lab: [facility] [address] [address] [address] Performing Lab: [address] [address] [place] LIPID PANEL FASTING TRIGLYCERID E [MASS/VOLUM E] IN SERUM OR PLASMA 90 mg/dL 0 - 150 01/12 Specimen Type: SERUM No comment entered. Ordering Provider: JEWEL RAMIREZ Report Released Date/Time: Dec 31, 2023 08:37 AM Reporting Lab: [facility] [address] [address] Performing Lab: [place] [facility] [address] [address] [place] LIPID PANEL FASTING CHOLESTEROL IN LDL [MASS/VOLUM E] IN SERUM OR PLASMA BY CALCULATION 90 mg/dL 0 - 129 01/12 Specimen Type: SERUM No comment entered. Ordering Provider: JEWEL RAMIREZ Report Released Date/Time: Dec 31, 2023 08:37 AM Reporting Lab: [facility] [address] Performing Lab: [facility] [address] [place] LIPID PANEL FASTING CHOLESTEROL .TOTAL/CHOL ESTEROL IN HDL [MASS RATIO] IN SERUM OR PLASMA 4.2 01/12 Specimen Type: SERUM No comment entered. Ordering Provider: JEWEL RAMIREZ Report Released Date/Time: Dec 31, 2023 08:37 AM Reporting Lab: [facility] [address] [address] Performing Lab: [facility] [address] [address] [place] LIPID PANEL FASTING CHOLESTEROL IN HDL [MASS/VOLUM E] IN SERUM OR PLASMA 34 mg/dL 40 - 60 01/12 L Specimen Type: SERUM No comment entered. Ordering Provider: JEWEL RAMIREZ Report Released Date/Time: Dec 31, 2023 08:37 AM Reporting Lab: [facility] [address] [address] Performing Lab: [facility] [address] [address] [place] BASIC METABOLIC PANEL (fasting) UREA NITROGEN [MASS/VOLUM E] IN SERUM OR PLASMA 12 mg/dL 7 - 25 01/12 Specimen Type: SERUM No comment entered. Ordering Provider: JEWEL RAMIREZ Report Released Date/Time: Dec 31, 2023 08:37 AM Reporting Lab: [facility] [address] [address] Performing Lab: [facility] [address] [address] [place] BASIC METABOLIC PANEL (fasting) GLUCOSE [MASS/VOLUM E] IN SERUM OR PLASMA 112 mg/dL 65 - 100 01/12 H Specimen Type: SERUM No comment entered. Ordering Provider: JEWEL RAMIREZ Report Released Date/Time: Dec 31, 2023 08:37 AM Reporting Lab: [facility] [address] [address] Performing Lab: [address] [address] [place] BASIC METABOLIC PANEL (fasting) SODIUM [MOLES/VOLU ME] IN SERUM OR PLASMA 142 mmol/L 135 - 145 01/12 Specimen Type: SERUM No comment entered. Ordering Provider: JEWEL RAMIREZ Report Released Date/Time: Dec 31, 2023 08:37 AM Reporting Lab: [facility] [address] [address] Performing Lab: [facility] [address] [address] [place] BASIC METABOLIC PANEL (fasting) POTASSIUM [MOLES/VOLU ME] IN SERUM OR PLASMA 4.2 mmol/L 3.5 - 5.0 01/12 Specimen Type: SERUM No comment entered. Ordering Provider: JEWEL RAMIREZ Report Released Date/Time: Dec 31, 2023 08:37 AM Reporting Lab: [facility] [address] [address] Performing Lab: [facility] [address] [address] [place] BASIC METABOLIC PANEL (fasting) CHLORIDE [MOLES/VOLU ME] IN SERUM OR PLASMA 104 mmol/L 100 - 110 01/12 Specimen Type: SERUM No comment entered. Ordering Provider: JEWEL RAMIREZ Report Released Date/Time: Dec 31, 2023 08:37 AM Reporting Lab: [address] [address] Performing Lab: [address] [address] [place] BASIC METABOLIC PANEL (fasting) CARBON DIOXIDE, TOTAL [MOLES/VOLU ME] IN SERUM OR PLASMA 28 meq/L 20 - 30 01/12 Specimen Type: SERUM No comment entered. Ordering Provider: JEWEL RAMIREZ Report Released Date/Time: Dec 31, 2023 08:37 AM Reporting Lab: [address] [address] Performing Lab: [address] [address] [place] BASIC METABOLIC PANEL (fasting) CREATININE [MASS/VOLUM E] IN SERUM OR PLASMA 0.81 mg/dL 0.50 - 1.40 01/12 Specimen Type: SERUM No comment entered. Ordering Provider: JEWEL RAMIREZ Report Released Date/Time: Dec 31, 2023 08:37 AM Reporting Lab: [address] [address] Performing Lab: [address] [address] [place] BASIC METABOLIC PANEL (fasting) GLOMERULAR FILTRATION RATE/1.73 SQ M.PREDICTED [VOLUME RATE/AREA] IN SERUM, PLASMA OR BLOOD BY CREATININE- BASED FORMULA (CKD-EPI 2020) >90mL/ min 60 01/12 Specimen Type: SERUM No comment entered. Ordering Provider: JEWEL RAMIREZ Report Released Date/Time: Dec 31, 2023 08:37 AM Reporting Lab: [address] [place] [address] Performing Lab: [facility] [address] [address] [place] LD LIVER FUNCTION PROTEIN [MASS/VOLUM E] IN SERUM OR PLASMA 6.9 g/dL 6.0 - 8.3 01/12 Specimen Type: SERUM No comment entered. Ordering Provider: JEWEL RAMIREZ Report Released Date/Time: Dec 31, 2023 08:37 AM Reporting Lab: [facility] [address] [address] Performing Lab: [facility] [address] [address] [place] LD LIVER FUNCTION ALBUMIN [MASS/VOLUM E] IN SERUM OR PLASMA 3.8 g/dL 3.5 - 5.0 01/12 Specimen Type: SERUM No comment entered. Ordering Provider: JEWEL RAMIREZ Report Released Date/Time: Dec 31, 2023 08:37 AM Reporting Lab: [facility] [address] [address] Performing Lab: [facility]ENTERUSE[address] [address] [facility] ALKALINE PHOSPHATASE [ENZYMATIC ACTIVITY/VO LUME] IN SERUM OR PLASMA 76 U/L 40 - 150 01/12 Specimen Type: SERUM No comment entered. Ordering Provider: JEWEL RAMIREZ Report Released Date/Time: Dec 31, 2023 08:37 AM Reporting Lab: [facility]N [address] [address] Performing Lab: [facility]ENTERUSE[address] [address] [place] L[place] FUNCTION ASPARTATE AMINOTRANSF ERASE [ENZYMATIC ACTIVITY/VO LUME] IN SERUM OR PLASMA 12 U/L 5 - 34 01/12 Specimen Type: SERUM No comment entered. Ordering Provider: JEWEL RAMIREZ Report Released Date/Time: Dec 31, 2023 08:37 AM Reporting Lab: [facility] [address] [address] Performing Lab: [address] [address] [place] LIVER FUNCTION ALANINE AMINOTRANSF ERASE [ENZYMATIC ACTIVITY/VO LUME] IN SERUM OR PLASMA 19 U/L 01/12 Specimen Type: SERUM No comment entered. Ordering Provider: JEWEL RAMIREZ Report Released Date/Time: Dec 31, 2023 08:37 AM Reporting Lab: [address] [address] Performing Lab: [address] [address] [place]IVER FUNCTION BILIRUBIN.T OTAL [MASS/VOLUM E] IN SERUM OR PLASMA 0.5 mg/dL 0.2 - 1.2 01/12 Specimen Type: SERUM No comment entered. Ordering Provider: JEWEL RAMIREZ Report Released Date/Time: Dec 31, 2023 08:37 AM Reporting Lab: [address] [address] Performing Lab: [address] [address] [place] HEMOGLOBI N A1C PANEL HEMOGLOBIN [...] Dec 31, 2023 08:37 AM Reporting Lab: [address] [address] Performing Lab: [facility] [place] [place] [facility] [address] [address] [place] TSH THYROTROPIN [UNITS/VOLU ME] IN SERUM OR PLASMA 1.18 u[IU]/ mL 0.35 - 5.00 01/12 Specimen Type: SERUM No comment entered. Ordering Provider: JEWEL RAMIREZ Report Released Date/Time: Dec 31, 2023 08:37 AM Reporting Lab: [facility] [place] [address] [address] Performing Lab: [facility]ITALN [facility]ENTERUSETS [address] [address] [place] CBC AND DIFF (AUTO) LEUKOCYTES [#/VOLUME] IN BLOOD BY AUTOMATED COUNT 8.26 10*3/u L 4.50 - 11.00 01/12 Specimen Type: BLOOD No comment entered. Ordering Provider: JEWEL RAMIREZ Report Released Date/Time: Dec 31, 2023 08:37 AM Reporting Lab: [facility] [place] [address] [address] Performing Lab: [facility]ITALN [facility]ENTERUSETS [address] [address] [place] CBC AND DIFF (AUTO) ERYTHROCYTE S [#/VOLUME] IN BLOOD BY AUTOMATED COUNT 5.61 10*6/u L 4.23 - 5.66 01/12 Specimen Type: BLOOD No comment entered. Ordering Provider: JEWEL RAMIREZ Report Released Date/Time: Dec 31, 2023 08:37 AM Reporting Lab: [facility]RL TRN [facility] CENTERUSETS [address] [address] Performing Lab: [facility]N [facility] CENTERUSETS [address] [address] [place] CBC AND DIFF (AUTO) HEMOGLOBIN [MASS/VOLUM E] IN BLOOD 15.3 g/dL 12.8 - 17 01/12 Specimen Type: BLOOD No comment entered. Ordering Provider: JEWEL RAMIREZ Report Released Date/Time: Dec 31, 2023 08:37 AM Reporting Lab: [facility]ENTERRFLOWERS HOSPITALTRN [address] [address] Performing Lab: [facility]RL TRN [facility]ENTERUSE[address] [address] [place] CBC AND DIFF (AUTO) HEMATOCRIT [VOLUME FRACTION] OF BLOOD BY AUTOMATED COUNT 46.0 39.2 - 50.4 01/12 Specimen Type: BLOOD No comment entered. Ordering Provider: JEWEL RAMIREZ Report Released Date/Time: Dec 31, 2023 08:37 AM Reporting Lab: [facility]OSPITALN [address] [address] Performing Lab: [facility]ITALN [address] [address] [place] CBC AND DIFF (AUTO) MCV [ENTITIC VOLUME] BY AUTOMATED COUNT 82.0 fL 82 - 99 01/12 Specimen Type: BLOOD No comment entered. Ordering Provider: JEWEL RAMIREZ Report Released Date/Time: Dec 31, 2023 08:37 AM Reporting Lab: [facility]ENTERRFLOWERS HOSPITALTRN [address] [address] Performing Lab: [facility]ITALN [facility] CENTERUSETS [address] [address] [place] CBC AND DIFF (AUTO) MCHC [MASS/VOLUM E] BY AUTOMATED COUNT 33.3 g/dL 30.8 - 35.1 01/12 Specimen Type: BLOOD No comment entered. Ordering Provider: JEWEL RAMIREZ Report Released Date/Time: Dec 31, 2023 08:37 AM Reporting Lab: [facility]ENTERRFLOWERS HOSPITALTRN [address] [address] Performing Lab: [facility]OS[facility]ITALN [address] [address] [place] CBC AND DIFF (AUTO) PLATELETS [#/VOLUME] IN BLOOD BY AUTOMATED COUNT 199 10*3/u L 140 - 360 01/12 Specimen Type: BLOOD No comment entered. Ordering Provider: JEWEL RAMIREZ Report Released Date/Time: Dec 31, 2023 08:37 AM Reporting Lab: [place] [facility] [place] [address] [address] Performing Lab: [place] [facility]ENTERUSETS [address] [address] [place] CBC AND DIFF (AUTO) ERYTHROCYTE DISTRIBUTIO N WIDTH [RATIO] BY AUTOMATED COUNT 13.3 12.0 - 16.0 01/12 Specimen Type: BLOOD No comment entered. Ordering Provider: JEWEL RAMIREZ Report Released Date/Time: Dec 31, 2023 08:37 AM Reporting Lab: [facility]ENTERRL W[facility]N [place] [address] [address] Performing Lab: [facility]ENTERRL TRN [facility]ENTERUSE[address] [address] [place] CBC AND DIFF (AUTO) MONOCYTES [#/VOLUME] IN BLOOD BY AUTOMATED COUNT 0.92 10*3/u L 0.30 - 1.10 01/12 Specimen Type: BLOOD No comment entered. Ordering Provider: JEWEL RAMIREZ Report Released Date/Time: Dec 31, 2023 08:37 AM Reporting Lab: [place] [facility] [place] [address] [address] Performing Lab: [facility]ENTERRL [place] [place] [address] [address] [place] CBC AND DIFF (AUTO) MCH [ENTITIC MASS] BY AUTOMATED COUNT 27.3 pg 26.2 - 32.6 01/12 Specimen Type: BLOOD No comment entered. Ordering Provider: JEWEL RAMIREZ Report Released Date/Time: Dec 31, 2023 08:37 AM Reporting Lab: [place] [facility] [address] [address] Performing Lab: [place] [facility] [facility]ENTERUSE[address] [address] [place] CBC AND DIFF (AUTO) NEUTROPHILS /100 LEUKOCYTES IN BLOOD BY AUTOMATED COUNT 50.5 43.7 - 75.8 01/12 Specimen Type: BLOOD No comment entered. Ordering Provider: JEWEL RAMIREZ Report Released Date/Time: Dec 31, 2023 08:37 AM Reporting Lab: [facility] [place] [facility] [address] [address] Performing Lab: [facility] [place] [facility] [address] [address] [place] CBC AND DIFF (AUTO) LYMPHOCYTES /100 LEUKOCYTES IN BLOOD BY AUTOMATED COUNT 36.3 14.0 - 42.3 01/12 Specimen Type: BLOOD No comment entered. Ordering Provider: JEWEL RAMIREZ Report Released Date/Time: Dec 31, 2023 08:37 AM Reporting Lab: [facility] [place] [address] [address] Performing Lab: [facility] [place] [address] [address] [place] CBC AND DIFF (AUTO) MONOCYTES/1 00 LEUKOCYTES IN BLOOD BY AUTOMATED COUNT 11.1 5.1 - 13.7 01/12 Specimen Type: BLOOD No comment entered. Ordering Provider: JEWEL RAMIREZ Report Released Date/Time: Dec 31, 2023 08:37 AM Reporting Lab: [facility] [place] [address] [address] Performing Lab: [facility] [place] [address] [address] [place] CBC AND DIFF (AUTO) EOSINOPHILS /100 LEUKOCYTES IN BLOOD BY AUTOMATED COUNT 1.2 0.4 - 6.8 01/12 Specimen Type: BLOOD No comment entered. Ordering Provider: JEWEL RAMIREZ Report Released Date/Time: Dec 31, 2023 08:37 AM Reporting Lab: [facility] [place] [address] [address] Performing Lab: [facility] [place] [address] [address] [place] CBC AND DIFF (AUTO) BASOPHILS/1 00 LEUKOCYTES IN BLOOD BY AUTOMATED COUNT 0.5 0.1 - 2.0 01/12 Specimen Type: BLOOD No comment entered. Ordering Provider: JEWEL RAMIREZ Report Released Date/Time: Dec 31, 2023 08:37 AM Reporting Lab: [place] [facility] [address] [address] Performing Lab: [place] [facility] [address] [place] CBC AND DIFF (AUTO) NEUTROPHILS [#/VOLUME] IN BLOOD BY AUTOMATED COUNT 4.17 10*3/u L 2.20 - 7.60 01/12 Specimen Type: BLOOD No comment entered. Ordering Provider: JEWEL RAMIREZ Report Released Date/Time: Dec 31, 2023 08:37 AM Reporting Lab: [place] [facility] [address] [address] Performing Lab: [place] [facility] [place] [address] [address] [place] CBC AND DIFF (AUTO) LYMPHOCYTES [#/VOLUME] IN BLOOD BY AUTOMATED COUNT 3.00 10*3/u L 1.00 - 3.20 01/12 Specimen Type: BLOOD No comment entered. Ordering Provider: JEWEL RAMIREZ Report Released Date/Time: Dec 31, 2023 08:37 AM Reporting Lab: [place] [facility] [place] [address] [address] Performing Lab: [place] [facility] [address] [address] [place] CBC AND DIFF (AUTO) EOSINOPHILS [#/VOLUME] IN BLOOD BY AUTOMATED COUNT 0.10 10*3/u L 0.03 - 0.44 01/12 Specimen Type: BLOOD No comment entered. Ordering Provider: JEWEL RAMIREZ Report Released Date/Time: Dec 31, 2023 08:37 AM Reporting Lab: [place] [facility] [place] [address] [address] Performing Lab: [facility]RL [facility] [address] [address] [place] CBC AND DIFF (AUTO) BASOPHILS [#/VOLUME] IN BLOOD BY AUTOMATED COUNT 0.04 10*3/u L 0.01 - 0.13 01/12 Specimen Type: BLOOD No comment entered. Ordering Provider: JEWEL RAMIREZ Report Released Date/Time: Dec 31, 2023 08:37 AM Reporting Lab: [facility]ENTERR[facility] HOSPITALTRN [facility]USE[address] [address] Performing Lab: [facility]ERR[facility]OSPITALN [facility]ENTERUSE[address] [address] [place] CBC AND DIFF (AUTO) IMMATURE GRANULOCYTE S/100 LEUKOCYTES IN BLOOD BY AUTOMATED COUNT 0.4 0.0 - 0.7 01/12 Specimen Type: BLOOD No comment entered. Ordering Provider: JEWEL RAMIREZ Report Released Date/Time: Dec 31, 2023 08:37 AM Reporting Lab: [facility]ERR[facility]OSPITALTRN [facility]ENTERUSETS [address] [address] Performing Lab: [facility]ENTERR[facility] HOSPITALTRN [facility]ENTERUSETS [address] [address] [place] CBC AND DIFF (AUTO) IMMATURE GRANULOCYTE S [#/VOLUME] IN BLOOD 0.03 10*3/u L 0.00 - 0.06 01/12 Specimen Type: BLOOD No comment entered. Ordering Provider: JEWEL RAMIREZ Report Released Date/Time: Dec 31, 2023 08:37 AM Reporting Lab: [facility]ERR[facility]OSPITALTRN [facility]ENTERUSETS [address] [address] Performing Lab: [facility]ERR[facility]OSPITALN [facility]ENTERUSE[address] [address] [place] Vital Signs Combined list of inpatient and outpatient Vital Signs from Department of Defense and Veterans Affairs, ranging from 12 months to all on record, depending upon the facility. Vital Sign Value Date Comments Source SYSTOLIC BLOOD PRESSURE 137 11/10/2024 14:24:24 [place] DIASTOLIC BLOOD PRESSURE 79 11/10/2024 14:24:24 [place] PULSE OXIMETRY 97 11/10/2024 14:24:24 [place] WEIGHT 276 11/10/2024 14:24:24 [place] BMI 38 kg/m2 11/10/2024 14:24:24 [place] TEMPERATURE 97.8 11/10/2024 14:24:24 [place] PULSE 74 11/10/2024 14:24:[facility] SYSTOLIC BLOOD PRESSURE 134 05/16/2024 15:46:49 [place] DIASTOLIC BLOOD PRESSURE 75 05/16/2024 15:46:49 [place] PULSE OXIMETRY 97 05/16/2024 15:46:49 [place] WEIGHT 264.2 05/16/2024 15:46:49 [place] BMI 36 kg/m2 05/16/2024 15:46:49 [place] TEMPERATURE 97.7 05/16/2024 15:46:49 [place] PULSE 68 05/16/2024 15:46:49 [place] Encounters Combined list of: 1) Encounters from Department of Veterans Affairs facilities going backup to the last 18 months, not all [place] inpatient encounters are included; 2) Encounters from the Department of Defense facilities going backup to 280 months. Location Location Details Encounter Type Encounter Number Reason For Visit Attending Provider ADM Date DC Date Status Disposition Source [facility] OFFICE O/P EST MOD 30-39 MIN [id number] Diagnos is: ICD-10- CM R63.4 Abnorma l weight loss MAE KONG 09/08 [facility] En[facility] [id number] 09/09 [facility] [place] [facility] [facility] En[facility] [id number] 09/15 [facility] [place] [facility] En[facility] [id number] 09/22 [facility] [place] [facility] [facility] En[facility] [id number] 09/27 [facility] [place] En[facility] [id number] 09/28 [facility] [place] [facility] En[facility] [id number] 09/30 [facility] [place] En[facility] [id number] 10/07 [facility] [place] [facility] En[facility] [id number] 10/08 [facility] [place] En[facility] [id number] 10/15 [facility] [place] [facility] En[facility] [id number] 10/18 [facility] [place] En[facility] [id number] 11/23 [facility] [place] En[facility] [id number] 12/01 [facility] [place] En[facility] [id number] 12/02 [facility] [place] FIT SPECTACLES MULTIFOCAL [id number] Diagnos is: ICD-10- CM Z46.0 Encount er for fit/adj st of spectac les and contact lenses CHINTANORTIZ HERNANDEZ 12/10 [facility] [place] En[facility] [id number] 12/30 [facility] [place] OFFICE O/P EST MOD 30 MIN [id number] Diagnos is: ICD-10- CM R63.4 Abnorma l weight loss MAE KONG LORENZO Ramon 12/30 [place] [facility] En[facility] [id number] 01/10 [facility] [place] OFF/OP EST MARCH X REQ PHY/QHP [id number] Diagnos is: ICD-10- CM I10 Essenti al (primar y) hyperte TANMAY Lora 01/12 [place] [facility] En[facility] [id number] 01/16 [facility] [place] En[facility] [id number] 02/10 [facility] [place] Encounter [id number] 03/17 [facility] [place] En[facility] [id number] 03/24 [facility] [place] En[facility] [id number] 04/10 [facility] [place] En[facility] [id number] 04/12 [facility] [place] Encounter [id number] 05/16 [facility] [place] [facility] OFFICE O/P EST MOD 30 MIN [id number] Diagnos is: ICD-10- CM R63.4 Abnorma l weight loss ISACC BERGMAN,MAE Ramon 05/16 [place] [facility] En[facility] [id number] 05/17 [facility] [place] En[facility] [id number] 05/25 [facility] [place] Encounter [id number] 08/25 [facility] [place] [facility] Encounter [id number] 09/26 [facility] [place] [facility] Encounter [id number] 10/02 [facility] [place] En[facility] [id number] 10/03 [facility] [place] Encounter [id number] 10/17 [facility] [place] Encounter [id number] 11/10 [facility] [place] Encounter [id number] 11/10 [facility] [place] [facility] OFFICE [place] 40 MIN [id number] Diagnos is: ICD-10- CM 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 , unspeci fied LESLISobiaDashawn BERGMAN,OG LORENZO M 11/10 [place] [facility] Out[facility] Encounter [id number] 11/10 [facility] OT EVAL LOW COMPLEX 30 MIN [id number] Diagnos is: ICD-10- CM R26.9 Unspeci fied abnorma lities of gait and mobilit y LYNDON GALVAN ANE 01/19 [facility] [place] HEARING AID XM&SLCTN BINAURL [id number] Diagnos is: ICD-10- CM H90.3 Sensori neural hearing loss, bilater al LIZETH DEL CASTILLO OLE L 02/01 [facility] [place] SELF CARE MNGMENT TRAINING [id number] Diagnos is: ICD-10- CM M48.00 Spinal stenosi s, site unspeci fied SHANE JONES ICA L 02/22 [facility] Out[facility] En[facility] [id number] 02/26 [facility] CONFORMITY EVALUATION [id number] Diagnos is: ICD-10- CM Z46.1 Encount er for fitting and adjustm ent of hearing aid LIZETH DEL CASTILLO OLE L 02/27 [facility] [place] [facility] Procedures Combined list of: 1) Procedures from Department of Veterans Affairs facilities going back up to thelast 18 months, not all [place] non-surgical procedures are included; 2) All procedures from the [facility] facilities. Procedure Procedure Type Code Date Perfomer Comments Sourc e No data available for this section Ambulatory P harmacy Social History Combined list of available smoking, tobacco, and other social history from [facility] facilities. Social History Type Response Date Comment Sourc e Tobacco smoking status NHIS [facility] FORMER USER [facility]16[facility]2024 [facility] [place] [facility] History of tobacco use [place]-TOBACCO QUIT 1 5 YRS OR MORE 05/16/2024 [facility] History of tobacco use VA-TOBACCO NEVER USED 06/07/2023 [facility] [place] [facility] History of tobacco use VA-TOBACCO NEVER USED 11/03/2022 [facility] Sex Representation Male (finding) 05/22/2022 Un known Organization History of tobacco use VA-TOBACCO FORMER USER 01/03/2021 [facility] History of tobacco use [place]-TOBACCO NEVER USED 11/27/2019 [facility] History of tobacco use VA-TOBACCO NEVER USED 11/30/2018 [facility] History of tobacco use NON-TOBACCO USER 01/12/2018 [facility] History of tobacco use NON-TOBACCO USER 03/10/2017 [facility] History of tobacco use V7-TOBACCO USE NO NE IN > 7 YEARS 08/18/2012 [facility] History of tobacco use V7-LIFETIME NON/TOBACCO USER 12/29/2005 [facility] History of tobacco use LIFETIME NON-TOBACCO USER 08/22/2003 [facility] This section is an empty social history section. DoD Sexual Orientation Ambula tory Pharmacy Gender identity Ambulator y Pharmacy Assessment and Plan Combined list of future care activities from [facility] facilities (e.g., assessment and plan notes, appointments, orders, and referrals). Additional future care activities may be listed in the Plan of Care section. Result Assessment and Plan Date Source Assessment and Plan No data available for this section 03/06/2025 Ambulatory Pharmacy Functional Status Combined list of recent functional and cognitive assessments recorded at Department of Defense and Veterans Affairs (VA).VA Functional [place] Measurement (FIM) Scale: 1 = Total Assistance (Subject = 0% +), 2 = Maximal Assistance (Subject = 25% +), 3 = Moderate Assistance (Subject = 50% +), 4 = Minimal Assistance (Subject = 75% +), 5 = Supervision, 6 = Modified [place] (Device), 7 = Complete [place] (Timely, Safely). Assessment Date/Time Source Assessment Type Assessment Skill Assessment Score Assessment Details No data available for this section
--- OUTSIDE RECORDS SUMMARY | 2025-03-06 06:13 | XMS_ITS | Encounter Summary ---
Author Name [facility] [place] Address [address] [place] [address] Care Team Providers Care Splicer Machine Operator Name Role Phone VINCENZO MILLER Primary [...] PART A March 01, 2018 PART A [id number] [phone] Sam PEACE PATIENT MEDICARE (WNR) MEDICARE (M) PART B March 01, 2018 PART B [id number] Sam PEACE PATIENT MEDICARE (WNR) MEDICARE (M) PART A March 01, 2018 PART A [id number] Sam PEACE PATIENT MEDICARE (WNR) MEDICARE (M) PART B March 01, 2018 PART B [id number] [phone] 7 Sam PEACE PATIENT MEDICARE (WNR) MEDICARE (M) PART A March 01, 2018 PART A [id number] Sam PEACE PATIENT MEDICARE (WNR) MEDICARE (M) PART B March 01, 2018 PART B [id number] Sam PEACE PATIENT Selected Encounter This section includes the information on record at [place] for the Encounter. Date/Time Encounter Type Encounter Description Reason Provider Source Feb 01, 2025 03:00 PM HEARING AID XM&SLCTN [facility] AUDIOLOGY ICD-10-CM H90.3 Sensorineural hearing loss, bilateral VARGHESE DEL CASTILLO IHE Encounter Template Text not used by [place] Assessments - Encounter Diagnoses This section includes the primary and secondary diagnoses documented for the Encounter. Date/Time Primary/Secondary Diagnosis Diagnosis Name Provider Source Feb 01, 2025 03:43 PM PRIMARY Sensorineural hearing loss, bilateral VARGHESE DEL CASTILLO [facility] Plan of Treatment: Future Appointments (+ 6 months) and Future Tests (+/- 45 days) The Plan of Treatment section includes future care activities for the patient from all [place] treatmentfacilities. This section includes future appointments and future orders which are active, pending or scheduled. Future Appointments This section includes appointments that were scheduled to occur 6 months from the date of the Encounter, up to a maximum of 20 appointments. The data comes from all [place] treatment facilities. Appointment Date/Time Appointment Type Appointme nt Facility Name Feb 22, 2025 02:00 PM AMBULATORY - REHAB MEDICIN E [facility] Feb 27, 2025 04:00 PM AMBULATORY - REHAB MEDICIN E [facility] Social History: Smoking Status (Most current) and Tobacco Use (All prior to encounter date) This section includes the most current, and the historical, smoking and tobacco- related health factors from the [place] facility where the Encounter took place. Current Smoking Status This section includes the most current smoking, or tobacco-related health factor, from the [place] facility where the Encounter took place. Date/Time Current Smoking Status Comment Facil ity May 16, 2024 03:00 PM VA-TOBACCO FORMER USER [facility] Tobacco Use History This section includes a history of the smoking, or tobacco-related health factors, that were collected on or before the date of the Encounter. The data comes from the [place] facility where the Encounter took place. Date/Time Smoking Status/Tobacco Use Comment F acility May 16, 2024 03:00 PM VA-TOBACCO QUIT 15 YRS OR MORE [facility] Jun 07, 2023 07:43 PM VA-TOBACCO NEVER USED [facility] Encounter Notes: All associated encounter notes This section contains the clinical notes associated to the Encounter. Date/Time Encounter Note(s) Provider Source Feb 01, 2025 08:20 AM AUDIOLOGY E & M NOTE: LOCAL TITLE: AUDIOLOGY CLINIC STANDARD TITLE: AUDIOLOGY E & M NOTE DATE OF NOTE: FEB 01, 2025@08:20 ENTRY DATE: FEB 01, 2025@08:21 AUTHOR: VARGHESE DEL CASTILLO COSIGNER: URGENCY: STATUS: COMPLETED AUDIOLOGY CLINIC Has ADDENDA Dx CODE: H90.3-Sensorineural Hearing Loss, Bilateral APPOINTMENT TYPE: Hearing Evaluation and Hearing Aid Selection BACKGROUND/HISTORY: Annabella was seen today for an initial hearing evaluation and hearing aid selection appointment, accompanied by his sister. Annabella reports that he's had hearing difficulties for several years. He notes difficulties understanding speech, especially in background noise, in the car, and watching TV. He also notes difficulties understanding women's and children's voices. He denies tinnitus and vertigo. 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 He denies civilian occupational and recreational noise exposure. He denies any other otologic history or concerns. Medical history includes: Active problems - Computerized Problem List is the source for the followin. Vitamin B12 Deficiency (SCT [id number]) 2. Vitamin D Deficiency ([facility] [id number]) 3. Leucocytosis 4. Obesity 5. Hyperlipidemia 6. [...] Cervical spondylosis without myelopathy 23. Essential hypertension ASSESSMENT: Results of today's testing are as follows: Otoscopy was WNL bilaterally. Normal tympanograms obtained bilaterally. Pure tone audiometric testing under headphones revealed normal hearing from 250-1000 Hz, sloping to a mild to moderately-severe/severe sensorineural hearing loss from 1279-5703 Hz bilaterally. SRT WORD RECOGNITION (Recorded [place] CNC / Word List) Right 30dBHL 84% @ 80dBHL/50dBm Left 15dBHL 84% @ 80dBHL/50dBm HEARING AID SELECTION: Different hearing aid options were discussed. He uses an Android phone and is interested in Bluetooth connectivity. He denies having a pacemaker and would prefer rechargeable devices. PHONAK AUDEO I90-R RICs were selected and ordered in ROES with size 1M receivers and domes. EDUCATION/COUNSELING: The patient was counseled re: today's hearing test results. He demonstrated satisfactory understanding of the education and plan, and was given the opportunity to ask questions throughout today's visit. PLAN: 1. RTC in 3-4 weeks for a 60 minute hearing aid fitting appointment. 2. Hearing re-evaluation in 3-5 years, or sooner if change in hearing occurs. Patient Education Education provided on the following topics: Hearing test results Education provided to: P Response to Education: CHIKA Rodriguez ____ Patient P Family F Significant Other SO Verbalizes Understanding VU Returns Demonstration RD Performs Independently PI Lacks Comprehension LC Refused Education RE Not Applicable NA /chloe/ ALEJANDRO BLACKWOOD, [facility]-A STAFF GRAPHIC DESIGN TEACHER Signed: 02/01/2025 16:00 02/07/2025 ADDENDUM STATUS: COMPLETED Hearing aids received and certified, upcoming appointment scheduled on 02/27/2025. /chloe/ EVAN SANTIAGO Audiology Health Locomotive Crane Engineer Signed: 02/07/2025 15:39 VARGHESE DEL CASTILLORJean-Paul [facility]
--- OUTSIDE RECORDS SUMMARY | 2025-03-06 06:13 | XMS_ITS | Encounter Summary ---
Author Name [place] Address [address] [place] [address] Care Team Providers Care Laboratory Monitor Name Role Phone VINCENZO MILLER Primary Care [...] PART B March 01, 2018 PART B [id number] [phone] Sam PEACE PATIENT MEDICARE (WNR) MEDICARE (M) PART A March 01, 2018 PART A [id number] [phone] 7 Sam PEACE PATIENT MEDICARE (WNR) MEDICARE (M) PART A March 01, 2018 PART A [id number] [phone] 7 Sam PEACE PATIENT MEDICARE (WNR) MEDICARE (M) PART B March 01, 2018 PART B [id number] [phone] 7 Sam PAECE PATIENT MEDICARE (WNR) MEDICARE (M) PART A March 01, 2018 PART A [id number] KOBISam LORI PATIENT MEDICARE (WNR) MEDICARE (M) PART B March 01, 2018 PART B [id number] Sam PEACE LORI PATIENT Selected Encounter This section includes the information on record at [place] for the Encounter. Date/Time Encounter Type Encounter Description Reason Pro vider Source March 17, 2024 08:39 AM Outpatient Encounter ADMIN PAT ACTIVTIES (MASNONCT) IHE Encounter Template Text not used by [place] Plan of Treatment: Future Appointments (+ 6 [...] 20 appointments. The data comes from all [place] treatment facilities. Appointment Date/Time Appointment Type Appointme nt Facility Name Apr 12, 2024 01:45 PM AMBULATORY - MEDICINE [facility] May 16, 2024 03:00 PM AMBULATORY - MEDICINE [facility] Social History: Smoking Status (Most current) and Tobacco Use (All prior to encounter date) This section includes the most current, and the historical, smoking and tobacco- related health factors from the [place] facility where the Encounter took place. Current Smoking Status This section includes the most current smoking, or tobacco-related health factor, from the [place] facility where the Encounter took place. Date/Time Current Smoking Status Comment Bony zuniga Jun 07, 2023 07:43 PM [place] USED [place] [facility] Encounter Notes: All associated encounter notes This section contains the clinical notes associated to the Encounter. Date/Time Encounter Note(s) Provider Source March 17, 2024 08:39 AM PHARMACY NOTE: LOCAL TITLE: V1 PHARMACY CUSTOMER CARE MEDICATION RENEWAL STANDARD TITLE: PHARMACY NOTE DATE OF NOTE: MARCH 17, 2024@08:39 ENTRY DATE: MARCH 17, 2024@08:39:34 AUTHOR: ELVIE SIMS COSIGNER: URGENCY: STATUS: COMPLETED Date: March Division: [place] [facility] referred by Pharmacy Call Center for medication renewal: Non-controlled/maintenan ce medication Medications requested: [id number] LEVOTHYROXINE NA (SYNTHROID) 100MCG TAB [id number] MELATONIN 5MG CAP/TAB [id number] METFORMIN HCL 500MG 24HR SA TAB [id number] SIMETHICONE 80MG CHEW TAB Defer to primary care provider To be mailed . Please review and renew if appropriate. *This note was generated by [facility]/[place] Pharmacy Customer Care. If you have any questions or need assistance, do not contact this author. Please refer all questions to your local, on-site pharmacy departments. /chloe/ ELVIE SIMS CPhT Administrative Job Titles, [place]/Pharmacy Customer Care Signed: 03/17/2024 08:40 Receipt Acknowledged By: 03/17/2024 13:30 /chloe/ TANMAY MARRERO RN REGISTERED NURSE 03/17/2024 11:55 /es/ VINCENZO MILLER MD PHYSICIAN ELVIE SIMS [place] [facility]
--- OUTSIDE RECORDS SUMMARY | 2025-03-06 06:13 | XMS_ITS | Encounter Summary ---
Author Name [facility] [place] Address [address] [place] [address] Care Team Providers Care Spa Assistant Manager Name Role Phone VINCENZO MILLER Primary [...] PART B March 01, 2018 PART B [id number] Sam PEACE PATIENT MEDICARE (WNR) MEDICARE (M) PART A March 01, 2018 PART A [id number] [phone] Sam PEACE PATIENT MEDICARE (WNR) MEDICARE (M) PART A March 01, 2018 PART A [id number] Sam PEACE PATIENT MEDICARE (WNR) MEDICARE (M) PART B March 01, 2018 PART B [id number] Sam PEACE PATIENT MEDICARE (WNR) MEDICARE (M) PART A March 01, 2018 PART A [id number] Sam PEACE PATIENT MEDICARE (WNR) MEDICARE (M) PART B March 01, 2018 PART B [id number] Sam PEACE PATIENT Selected Encounter This section includes the information on record at [place] for the Encounter. Date/Time Encounter Type Encounter Description Reason Provider Source Jan 19, 2025 01:00 PM OT EVAL LOW COMPLEX 30 MIN OCCUPATIONAL THERAPY ICD-10-CM R26.9 Unspecified abnormalities of gait and mobility ISIAH GALVAN Mathew Encounter Template Text not used by [place] Assessments - Encounter Diagnoses This section includes the primary and secondary diagnoses documented for the Encounter. Date/Time Primary/Secondary Diagnosis Diagnosis Name Provider Source Jan 19, 2025 02:09 PM PRIMARY Unspecified abnormalities of gait and mobility ISIAH GALVAN [facility] Plan of Treatment: Future Appointments (+ [...] Appointment Type Appointme nt Facility Name Feb 01, 2025 03:00 PM AMBULATORY - REHAB MEDICIN E [facility] Feb 22, 2025 02:00 PM AMBULATORY - REHAB MEDICIN E [facility] Feb 27, 2025 04:00 PM AMBULATORY - REHAB MEDICIN E [facility] Social History: Smoking Status (Most current) and Tobacco Use (All prior to encounter date) This section includes the most current, and the historical, smoking and tobacco- related health factors from the [place] facility where the Encounter took place. Current Smoking Status This section includes the most current smoking, or tobacco-related health factor, from the [place] facility where the Encounter took place. Date/Time Current Smoking Status Comment Bony zuniga May 16, 2024 03:00 PM VA-TOBACCO FORMER USER [facility] Tobacco Use History This section includes a history of the smoking, or tobacco-related health factors, that were collected on or before the date of the Encounter. The data comes from the [place] facility where the Encounter took place. Date/Time Smoking Status/Tobacco Use Comment F acility May 16, 2024 03:00 PM VA-TOBACCO QUIT 15 YRS OR MORE [place] [facility] [place] [facility] Jun 07, 2023 07:43 PM VA-TOBACCO NEVER USED [facility] Encounter Notes: All associated encounter notes This section contains the clinical notes associated to the Encounter. Date/Time Encounter Note(s) Provider Source Jan 19, 2025 01:00 PM OCCUPATIONAL MEDIC INE CONSULT: LOCAL TITLE: CONSULT REPORT/OCCUPATIONAL THERAPY STANDARD TITLE: OCCUPATIONAL MEDICINE CONSULT DATE OF NOTE: JAN 19, 2025@13:00 ENTRY DATE: JAN 19, 2025@13:05:08 AUTHOR: ISIAH GALVAN COSIGNER: NOAM MILLER URGENCY: STATUS: COMPLETED Initial Evaluation date: Dec Progress Note Date: 01/19/25 Treatment #: Eval Treatment time: 60 minutes Diagnosis: Gait Abnormality Provider: Evonne PCP OT Treatment Precautions: Fall Risk: ~in bathroom, kitchen, has to call the fire Department Patient identified by full name and date of OT CODING : low complexity evaluation Present: Zohreh florezan sister permission to attend session Subjective: I fell in bathroom can't get my walker into the bathroom/ranch style home. Pain: chronic, operation neck/back surgery March 06, 2025 looking for surgical intervention to reduce pain: interferes with mobility Objective: Power mobility: What is the goal of providing this [place] with power mobility? increase qulity of life, safety - pt hifg fall risk Focus 1 chart review 2 intended use: outdoors, community access, attending appointments Storage: Ramp/storage inside house Transportation: 2012 [employer] 4 door Assessment: [place] presents with sister, to OT appointment seated in [place] transport chair. interested in exploring power mobility, he is essentially confined to home, fall risk, using rollator short distances. Explored basic options with for power mobility, folding options, HD scooter, and power chairs. R hand dominant. [place] with chronic pain, pending surgery March 06, 2025 interested in improving mobility, educated on pros/cons of standard equipment, and custom options given the complexity of cervical/lumbar involvement. is scheduled for March 06, surgical intervention to reduce pain (cervical/lumbar) condition. OT encouraged to seek out evaluation for custom seating needs, due to the shock absorption, and custom features that can be obtained. suggested wait until after surgery,although preference is next available. [place] scheduled with wc specialist for appt on 02/22 @ 2 Recommendation 1 Referral to Pain Clinic 2 Referral to WC speciality seating to explore custom options Discharge once all goals achieved. /chloe/ GEOVANI ZAMORA/L OCCUPATIONAL THERAPIST Signed: 01/19/2025 14:10 /chloe/ VINCENZO MILLER MD PHYSICIAN Cosigned: 01/19/2025 16:41 ISIAH GALVAN [facility]
--- OUTSIDE RECORDS SUMMARY | 2025-03-06 06:13 | XMS_ITS | Encounter Summary ---
Author Name [place] Address [address] [place] [address] Care Team Providers Care Butcher Supervisor Name Role Phone VINCENZO MILLER Primary Care Provide TRICIA Shipmna Primary Care Provider Unavailabl e Insurance Providers: [...] PART A March 01, 2018 PART A [id number] Sam PEACE PATIENT MEDICARE (WNR) MEDICARE (M) PART B March 01, 2018 PART B [id number] Sam PEACE PATIENT MEDICARE (WNR) MEDICARE (M) PART A March 01, 2018 PART A [id number] Sam PEACE PATIENT MEDICARE (WNR) MEDICARE (M) PART B March 01, 2018 PART B [id number] [phone] Sam PEACE PATIENT MEDICARE (WNR) MEDICARE (M) PART A March 01, 2018 PART A [id number] KOBISam SANDOVAL PATIENT MEDICARE (WNR) MEDICARE (M) PART B March 01, 2018 PART B [id number] KOBISam SANDOVAL PATIENT Selected Encounter This section includes the information on record at [place] for the Encounter. Date/Time Encounter Type Encounter Description Reason Pro vider Source Feb 26, 2025 07:02 PM Outpatient Encounter ADMIN PAT ACTIVTIES (MASNONCT) [...] 04:00 PM [facility]UL[facility] [place] [facility] Social History: Smoking Status (Most [...] 16, 2024 03:00 PM VA-TOBACCO FORMER USER [place] [facility] Tobacco Use History This section includes a history of the smoking, or tobacco-related health factors, that were collected on or before the date of the Encounter. The data comes from the [place] facility where the Encounter took place. Date/Time Smoking Status/Tobacco Use Comment F acility May 16, 2024 03:00 PM VA-TOBACCO QUIT 15 YRS OR MORE [place] [facility] [place] [facility] Jun 07, 2023 07:43 PM VA-TOBACCO NEVER USED [place] [facility] [place] [facility] Encounter Notes: All associated encounter notes This section contains the clinical notes associated to the Encounter. Date/Time Encounter Note(s) Provider Source Feb 26, 2025 07:02 PM PHARMACY NOTE: LOCAL TITLE: V1 PHARMACY CUSTOMER CARE MEDICATION RENEWAL STANDARD TITLE: PHARMACY NOTE DATE OF NOTE: FEB 26, 2025@19:02 ENTRY DATE: FEB 26, 2025@19:02:21 AUTHOR: ELDA ARGUETA EXP COSIGNER: URGENCY: STATUS: COMPLETED Date: Jan Division: [facility] referred by Pharmacy Call Center for medication renewal: Non-controlled/maintenan ce medication Medications requested: [id number] CHOLECALCIF 25MCG (D3-1,000UNIT) TAB [id number] OMEPRAZOLE 20MG EC CAP Defer to primary care provider To be mailed . Please review and renew if appropriate. *This note was generated by [facility]/[place] Pharmacy Customer Care. If you have any questions or need assistance, do not contact this author. Please refer all questions to your local, on-site pharmacy departments. /chloe/ ELDA ARGUETA CPhT Brush And Broom Clipper, [place]/Pharmacy Customer Care Signed: 02/26/2025 19:02 Receipt Acknowledged By: 02/26/2025 21:10 /es/ VINCENZO MILLER MD PHYSICIAN * AWAITING SIGNATURE * MIK LINDSEY KATRINA M [facility] W[facility]
--- OUTSIDE RECORDS SUMMARY | 2025-03-06 06:13 | XMS_ITS | Encounter Summary ---
Author Name [place] Organization [place] Address [address] [place] [address] Care Team Providers Care Sheriff Officer Name Role Phone VINCENZO MILLER Primary Care [...] PART A March 01, 2018 PART A [id number] [phone] Sam PEACE PATIENT MEDICARE (WNR) MEDICARE (M) PART B March 01, 2018 PART B [id number] Sam PEACE PATIENT MEDICARE (WNR) MEDICARE (M) PART A March 01, 2018 PART A [id number] Sam PEACE PATIENT MEDICARE (WNR) MEDICARE (M) PART B March 01, 2018 PART B [id number] Sam PEACE PATIENT MEDICARE (WNR) MEDICARE (M) PART A March 01, 2018 PART A [id number] [phone] [id number] Sam PEACE PATIENT MEDICARE (WNR) MEDICARE (M) PART B March 01, 2018 PART B [id number] Sam PEACE PATIENT Selected Encounter This [...] 20 appointments. The data comes from all [facility] facilities. Appointment Date/Time Appointment Type Appointme nt Facility Name Nov 10, 2024 02:00 PM AMBULATORY - MEDICINE [facility] Jan 19, 2025 01:00 PM AMBULATORY - REHAB MEDICIN E [place] [facility] [place] [place] [facility] Feb 01, 2025 03:00 PM AMBULATORY - REHAB MEDICIN E [place] [facility] [place] [facility] Feb 22, 2025 02:00 PM AMBULATORY - REHAB MEDICIN E [facility] [place] [place] [facility] Feb 27, 2025 04:00 PM [facility]UL[facility] [place] [facility] Active, Pending, and Scheduled Orders This section includes a listing of several types of active, pending, and scheduled orders, including clinic medications orders, diagnostic test orders, procedure orders and consult orders; where the start date of the order is 45 days before the date of the Encounter or 45 days after the date of theEncounter. The data comes from all [facility]. Test Date/Time Test Type Test Details [...] Order TSH BLOOD (SST-SERUM) [facility] Social History: Smoking Status (Most current) and Tobacco Use (All prior to encounter date) This section includes the most current, and the historical, smoking and tobacco- related health factors from the [place] facility where the Encounter took place. Current Smoking Status This section includes the most current smoking, or tobacco-related health factor, from the [place] facility where the Encounter took place. Date/Time Current Smoking Status Comment Facil ity May 16, 2024 03:00 PM VA-TOBACCO FORMER USER [facility] Tobacco Use History This section includes a history of the smoking, or tobacco-related health factors, that were collected on or before the date of the Encounter. The data comes from the [place] facility where the Encounter took place. Date/Time Smoking Status/Tobacco Use Comment F acility May 16, 2024 03:00 PM VA-TOBACCO QUIT 15 YRS OR MORE [facility] Jun 07, 2023 07:43 PM VA-TOBACCO NEVER USED [facility] Radiology Reports: +/- 30 days of [...] the Encounter. The data comes from all [place] treatment facilities. Date/Time Radiology Report Provider Source Oct 03, 2024 03:[address] CHEST W CONT: NATE PEACE [id number] -[id number] M Exm Date: OCT 03, 2024@15:30 Req Phys: COSME LOPEZ Pat Loc: [facility] PHONE PACT HAND BRIM IRONER (Req'g Loc) Img Loc: OUTSIDE GENERAL RADIOLOGY Service: Unknown (Case [id number] COMPLETE) OUTSIDE CT CHEST W CONT (RAD Detailed) CPT:91430 Reason for Study: f/u few <4mm pulmo nodules noted on outside CT chest 10/2023 Clinical History: Report Status: Electronically Filed Date Reported: OCT 03, 2024 Report: Community care exam; see CPRS/JLV for outside radiology report/results Impression: Community care exam; see CPRS/JLV for outside radiology report/results Primary Diagnostic Code: VERIFIED BY: / *ELECTRONICALLY FILED* OR [facility] [place] [facility] Encounter Notes: All associated encounter notes This section contains the clinical notes associated to the Encounter. Date/Time Encounter Note(s) Provider Source Oct 17, 2024 12:20 PM PHARMACY NOTE: LOCAL TITLE: PHARMACY CUSTOMER CARE MEDICATION RENEWAL STANDARD TITLE: PHARMACY NOTE DATE OF NOTE: OCT 17, 2024@12:20 ENTRY DATE: OCT 17, 2024@12:20:56 AUTHOR: IGNACIA DEL TORO COSIGNER: URGENCY: STATUS: COMPLETED Date: Oct Division: [facility] referred by Pharmacy Call Center for medication renewal: Non-controlled/maintenan ce medication Medications requested: [id number] MELATONIN 5MG CAP/TAB Defer to primary care provider To be mailed . Please review and renew if appropriate. *This note was generated by [facility]/[place] Pharmacy Customer Care. If you have any questions or need assistance, do not contact this author. Please refer all questions to your local, on-site pharmacy departments. /chloe/ Ignacia Del Toro CPhT Reeling Machine Operator, [place]/Pharmacy Customer Care Signed: 10/17/2024 12:21 Receipt Acknowledged By: 10/17/2024 12:34 /es/ VINCENZO MILLER MD PHYSICIAN 10/22/2024 22:04 /es/ MIK LINDSEY,RN REGISTERED NURSE IGNACIA DEL TORO [facility]
--- OUTSIDE RECORDS SUMMARY | 2025-03-06 06:13 | XMS_ITS | Encounter Summary ---
Author Name [facility] [place] Address [address] [place] [id number] Care Team Providers Care Bulb Tester Name Role Phone VINCENZO MILLER Primary Care [...] PART B March 01, 2018 PART B [id number] Sam PEACE PATIENT MEDICARE (WNR) MEDICARE (M) PART A March 01, 2018 PART A [id number] [id number] Sam PEACE PATIENT MEDICARE (WNR) MEDICARE (M) PART A March 01, 2018 PART A [id number] 66 Sam PEACE PATIENT MEDICARE (WNR) MEDICARE (M) PART B March 01, 2018 PART B [id number] 68 Sam PEACE PATIENT MEDICARE (WNR) MEDICARE (M) PART A March 01, 2018 PART A [id number] [facility] Sam PEACE PATIENT MEDICARE (WNR) MEDICARE (M) PART B March 01, 2018 PART B [id number] [facility] Sam PEACE PATIENT Selected Encounter This section [...] 03:33 PM PRIMARY Hypothyroidism, unspecified LUANAZHOMER-VINCENZO KHOURY PELLA Nov 10, 2024 03:33 PM SECONDARY Deficiency of other specified B group vitamins LESLI-BOSVINCENZO CHRISTIAN PELLA Nov 10, 2024 03:33 PM SECONDARY Essential (primary) hypertension LESLI-BOSVINCENZO CHRISTIAN PELLA Nov 10, 2024 03:33 PM SECONDARY Gastro-esophageal reflux dis with esophagitis, without bleed LESLI-VINCENZO KHOURY PELLA Nov 10, 2024 03:33 PM SECONDARY Hyperlipidemia, unspecified LUANAZDIN-BOSKO VINCENZO NEIL PELLA Nov 10, 2024 03:33 PM SECONDARY Obesity, unspecified LUANAZDIN-BOSKO VINCENZO NEIL PELLA Nov 10, 2024 03:33 PM SECONDARY Obstructive sleep apnea (adult) (pediatric) LUANAZDIN-BOSKO VINCENZO NEIL PELLA Nov 10, 2024 03:33 PM SECONDARY Pain, unspecified NADAZDIN-BOSKO JOLYNNVINCENZO PELLA Nov 10, 2024 03:33 PM SECONDARY Sleep apnea, unspecified NADAZDIN-BOSKO JOLYNNVINCENZO PELLA Nov 10, 2024 03:33 PM SECONDARY Spinal stenosis, cervical region LUANAZDIN-BOSKO VINCENZO NEIL PELLA Nov 10, 2024 03:33 PM SECONDARY Spinal stenosis, lumbar region without neurogenic will LUANAZDIN-BOSKO JOLYNNVINCENZO [facility] Nov 10, 2024 03:33 PM SECONDARY Type 2 diabetes mellitus without complications VINCENZO HO PELLA Nov 10, 2024 03:33 PM SECONDARY Vitamin D deficiency, unspecified VINCENZO HO PELLA Plan of Treatment: Future Appointments (+ 6 months) and Future Tests (+/- 45 days) The Plan of Treatment section includes future care activities for the [facility] [place] [facility] This section includes future appointments and future orders which are active, pending or scheduled. Future Appointments This section includes appointments that were scheduled to occur 6 months from the date of the Encounter, up to a maximum of 20 appointments. The data comes from all [facility]. Appointment Date/Time Appointment Type Appointme nt Facility Name Jan 19, 2025 01:00 PM AMBULATORY - [facility] [facility] [place] [facility] Feb 01, 2025 03:00 PM AMBULATORY [facility] [place] [facility] Feb 22, 2025 02:00 PM AMBULATORY - [facility] [place] [facility] Feb 27, 2025 04:00 [facility] Active, Pending, and Scheduled Orders This section includes a listing of several types of active, pending, and scheduled orders, including clinic medications orders, diagnostic test orders, procedure orders and consult orders; where the start date of the order is 45 days before the date of the Encounter or 45 days after the date of theEncounter. The data comes from all [facility]. Test Date/Time Test Type Test Details Facility Name Nov 10, 2024 12:00 AM Laboratory - Chemi stry Order OCCULT BLOOD FIT X1 SCREEN(IN-HOUSE) STOOL FECES [facility] Nov 10, 2024 12:00 AM Laboratory - Chemi stry Order BASIC METABOLIC PANEL (fasting) BLOOD (SST-SERUM) [facility] Nov 10, 2024 12:00 AM Laboratory - Chemi stry Order LIPID PANEL FASTING BLOOD (SST-SERUM) [facility] Nov 10, 2024 12:00 AM Laboratory - Chemi stry Order LIVER FUNCTION BLOOD (SST-SERUM) [facility] Nov 10, 2024 12:00 AM Laboratory - Chemi stry Order CBC AND DIFF (AUTO) BLOOD (LAV-BLOOD) [facility] Nov 10, 2024 12:00 AM Laboratory - Chemi stry Order TSH BLOOD (SST-SERUM) [facility] Nov 10, 2024 12:00 AM Laboratory - Chemi stry Order HEMOGLOBIN A1C PANEL BLOOD (LAV-BLOOD) [facility] Vital Signs: All taken on the encounter date This section contains inpatient and outpatient Vital Signs collected on the date of the Encounter. Date/Time Temperature Pulse Blood Pressure Respiratory Rate SP02 Pain Height Weight Body Mass Index Source Nov 10, 2024 02:24 PM 97.8 74 137/79 97 276 38 SPRING IE Encounter Notes: All associated encounter notes This section contains the clinical notes associated to the Encounter. Date/Time Encounter Note(s) Provider Source Nov 10, 2024 03:33 PM ADDENDUM: LOCAL TITLE: Addendum STANDARD TITLE: ADDENDUM DATE OF NOTE: NOV 10, 2024@15:33:25 ENTRY DATE: NOV 10, 2024@15:33:25 AUTHOR: Sydney MILLER EXP COSIGNER: URGENCY: STATUS: COMPLETED Please request records from neurosurgery [facility] thank you /chloe/ VINCENZO MILLER MD PHYSICIAN Signed: 11/10/2024 15:33 Receipt Acknowledged By: 11/10/2024 15:58 /chloe/ CASSIE PEREIRA AMSA --- Original Document --- 11/10/24 NOTE: Pt is 69 y/o M with PMH of obesity, HTN, HL, DM2, Hypothyroidism, CHUY, GERD, MDD, spinal stenosis, radiculopathy here for f/u transferred care from [facility] 08/2023 Last visit 05/2024 Other providers: -- Physiatry pain management -- [facility] neurosurgery Dr. Svetlana Grimm reports doing well needs medications refilled Patient would like to get a motorized scooter Due to chronic pain spinal stenosis, limited mobility, high risk for fall, decreased life quality of life #hearing loss will schedule with audiology at [facility] #Hypothyroidism: Compliant with levothyroxine gained 12 pounds since last visit Denies heat and cold intolerance Denies palpitations #Diarrhea, constipation alternating intermittent takes Imodium, simethicone prn with good effect would like to try probiotics #Cervical spinal stenosis #Lumbar spinal stenosis #Back pain f/w [place] [facility] sport requested second opinion from [facility] Used to be on oxycodone in [place] Patient evaluated by neurosurgery Has bilateral sanches's [...] opinion and was seen by neurosurgery at [facility] few months ago - had CT neck [...] FAMILY HISTORY: --DM: father, sister --Cancer: no --[place]: father d of [place] at 63, PGF d [place] at 60 --CVA:no --Mental Health/addiction: --Other: mother Alive >90y.o SOCIAL HISTORY: --Occupation: retired, disabled --Cohabitation: , lives with his sister --Children: 2 adult children in [place] - --Diet: meals on wheels --Exercise: No [...] stenosisper -f/w [facility] physiatry, neurosurgery (second opinion [facility] using private insurance) -Fall precautions, activity as tolerated -referral to OT for motorized scooter # Hearing loss-patient instructed to schedule appointment with [place] [facility] for hearing evaluation Healthcare maintenance: --Lipids: [...] [facility] and [facility] [place] another [place] or [facility] facility (remote) as well as inpatient orders [...] 11/10/2024 ADDENDUM STATUS: COMPLETED Records requested from [facility] as directed /chloe/ CASSIE COCHRAN Signed: 11/10/2024 15:57 YOLIE MILLERFIELD Nov 10, 2024 02:00 PM PHYSICIAN NOTE: LOCAL TITLE: MD NOTE STANDARD TITLE: PHYSICIAN NOTE DATE OF NOTE: NOV 10, 2024@14:00 ENTRY DATE: NOV 10, 2024@00:29:49 AUTHOR: Sydney MILLER EXP COSIGNER: URGENCY: STATUS: COMPLETED NOTE Has ADDENDA Pt is 69 y/o M with PMH of obesity, HTN, HL, DM2, Hypothyroidism, CHUY, GERD, MDD, spinal stenosis, radiculopathy here for f/u transferred care from [facility] 08/2023 Last visit 05/2024 Other providers: -- Physiatry pain management -- [facility] neurosurgery Dr. Svetlana Grimm reports doing well needs medications refilled Patient would like to get a motorized scooter Due to chronic pain spinal stenosis, limited mobility, high risk for fall, decreased life quality of life #hearing loss will schedule with audiology at [facility] #Hypothyroidism: Compliant with levothyroxine gained 12 pounds since last visit Denies heat and cold intolerance Denies palpitations #Diarrhea, constipation alternating intermittent takes Imodium, simethicone prn with good effect would like to try probiotics #Cervical spinal stenosis #Lumbar spinal stenosis #Back pain f/w [place] [facility] sport requested second opinion from [facility] Used to be on oxycodone in [place] Patient evaluated by neurosurgery Has bilateral sanches's [...] opinion and was seen by neurosurgery at [facility] few months ago - had CT neck [...] FAMILY HISTORY: --DM: father, sister --Cancer: no --[place]: father d of [place] at 63, PGF d [place] at 60 --CVA:no --Mental Health/addiction: --Other: mother Alive >90y.o SOCIAL HISTORY: --Occupation: retired, disabled --Cohabitation: , lives with his sister --Children: 2 adult children in [place] - --Diet: meals on wheels --Exercise: No [...] stenosisper -f/w [facility] physiatry, neurosurgery (second opinion [facility] using private insurance) -Fall precautions, activity as tolerated -referral to OT for motorized scooter # Hearing loss-patient instructed to schedule appointment with [place] [facility] for hearing evaluation Healthcare maintenance: --Lipids: [...] of active outpatient prescriptions dispensed from this [place] ([place] and dispensed from another [place] or [facility] facility (remote) as well as inpatient orders [...] ADDENDUM STATUS: COMPLETED Please request records from [facility] thank you /rachael MILLER MD PHYSICIAN Signed: 11/10/2024 15:33 Receipt Acknowledged By: 11/10/2024 15:58 /rachael COCHRAN 11/10/2024 ADDENDUM STATUS: COMPLETED Records requested from [facility] as directed /chloe/ CASSIE COCHRAN Signed: 11/10/2024 15:57 YOLIE MILLER PELLA Nov 03, 2024 12:52 PM ADMINISTRATIVE NOT E: LOCAL TITLE: ADMINISTRATIVE NOTE STANDARD TITLE: ADMINISTRATIVE NOTE DATE OF NOTE: NOV 03, 2024@12:52 ENTRY DATE: NOV 03, 2024@12:52:45 AUTHOR: CASSIE PEREIRA EXP COSIGNER: URGENCY: STATUS: COMPLETED [facility] [address] [place] [id number] [phone] * NATE PEACE [address], [place] [address] Date: NOV 03, 2024 re: This is a reminder of your upcoming PCP appt with VINCENZO MILLER. Appointment Date: Nov@14:00 Appointment Type: In-person visit Fasting blood work NON fasting blood work CONFIRMED APPT WITH THE Sincerely, Office Staff for: VINCENZO MILLER Primary Care Provider [facility] [address] [address] T [phone] F [phone] Upcoming Appointments: 11/10/2024 14:00 CWM/SO/PACT 5 APPOINTMENT ABBREVIATION CHANCE (SPOPC OR SO = [address]) (GOPC OR GO = [address]) (ORM or = [facility]) (VVC - Video Call) (Tel-X Telephone Visit) (TH - Telehealth) /chloe/ CASSIE COCHRAN Signed: 11/03/2024 12:53 CASSIE PEREIRA
--- OUTSIDE RECORDS SUMMARY | 2025-03-06 06:13 | XMS_ITS | Encounter Summary ---
Author Name [facility] [place] [facility] [place] Organization [place] Address [address] [place] [id number] Care Team Providers Care Internet Designer Name Role Phone VINCENZO MILLER Primary Care [...] PART A March 01, 2018 PART A [id number] [id number] Sam PEACE PATIENT MEDICARE (WNR) MEDICARE (M) PART B March 01, 2018 PART B [id number] 86A Sam PEACE PATIENT MEDICARE (WNR) MEDICARE (M) PART A March 01, 2018 PART A [id number] 68 Sam PEACE PATIENT MEDICARE (WNR) MEDICARE (M) PART B March 01, 2018 PART B [id number] [phone] [id number] Sam PEACE PATIENT MEDICARE (WNR) MEDICARE (M) PART A March 01, 2018 PART A [id number] [facility] Sam PEACE PATIENT MEDICARE (WNR) MEDICARE (M) PART B March 01, 2018 PART B [id number] [facility] [phone] [id number] Sam PEACE PATIENT Selected Encounter This section includes the information on record at [place] for the Encounter. Date/Time Encounter Type Encounter Description Reason Provider Source May 16, 2024 03:00 PM OFFICE O/P EST MOD 30 MIN PRIMARY CARE/MEDICINE ICD-10-CM R63.4 Abnormal weight loss VINCENZO HO Mathew Encounter Template Text not used by [place] Assessments - Encounter Diagnoses This section includes the primary and secondary diagnoses documented for the Encounter. Date/Time Primary/Secondary Diagnosis Diagnosis Name Provider Source May 21, 2024 12:44 AM PRIMARY Abnormal weight loss VINCENZO HO EMPIRE May 21, 2024 12:44 AM SECONDARY Essential (primary) hypertension VINCENZO HO EMPIRE May 21, 2024 12:44 AM SECONDARY Gastro-esophageal reflux dis with esophagitis, without bleed VINCENZO HO EMPIRE May 21, 2024 12:44 AM SECONDARY Hyperlipidemia, unspecified LESLI-VINCENZO KHOURY EMPIRE May 21, 2024 12:44 AM SECONDARY Hypothyroidism, unspecified LESLI-VINCENZO KHOURY EMPIRE May 21, 2024 12:44 AM SECONDARY Obesity, unspecified LESLI-VINCENZO KHOURY EMPIRE May 21, 2024 12:44 AM SECONDARY Obstructive sleep apnea (adult) (pediatric) VINCENZO HO EMPIRE May 21, 2024 12:44 AM SECONDARY Pain, unspecified LESLI-VINCENZO KHOURY EMPIRE May 21, 2024 12:44 AM SECONDARY Spinal stenosis, cervical region VINCENZO HO EMPIRE May 21, 2024 12:44 AM SECONDARY Spinal stenosis, lumbar region without neurogenic will VINCENZO HO EMPIRE May 21, 2024 12:44 AM SECONDARY Type 2 diabetes mellitus without complications VINCENZO HO EMPIRE May 21, 2024 12:44 AM SECONDARY Vitamin D deficiency, unspecified VINCENZO HO EMPIRE Plan of Treatment: Future Appointments (+ 6 months) and Future Tests (+/- 45 days) The Plan of Treatment section includes future care activities for the patient from all [place] treatment[place]ilities. This section includes future appointments and future orders which are active, pending or scheduled. Future Appointments This section includes appointments that were scheduled to occur 6 months from the date of the Encounter, up to a maximum of 20 appointments. The data comes from all [place] treatment facilities. Appointment Date/Time Appointment Type Appointme nt Facility Name Oct 03, 2024 03:30 PM AMBULATORY - MEDICINE [facility] Nov 10, 2024 02:00 PM AMBULATORY - MEDICINE [facility] Active, Pending, and Scheduled Orders This section includes a listing of several types of active, pending, and scheduled orders, including clinic medications orders, diagnostic test orders, procedure orders and consult orders; where the start date of the order is 45 days before the date of the Encounter or 45 days after the date of theEncounter. The data comes from all [place] treatment [facility]. Test Date/Time Test Type Test Details Facility Name May 16, 2024 12:00 AM Laboratory - Chemi stry Order OCCULT BLOOD FIT X1 SCREEN(IN-HOUSE) STOOL FECES SP EMPIRE Lab Results: +/- 30 days of the encounter This section includes the Chemistry and Hematology Lab Results on record with [place] for the patient. Radiology Reports and Pathology Reports are provided separately, in subsequent sections. Lab Results This section contains the Chemistry/Hematology Results that were resulted 30 days before or 30 daysafter the date of the Encounter. Date/Time Source Result Type Result - Unit Interpretation Reference Range Specimen Type Comment May 16, 2024 02:50 PM EMPIRE MICROALBUMIN CREATININE RATIO PANEL URINE Specimen Type: URINE No comment entered. Ordering Provider: VINCENZO BOLTON Report Released Date/Time: May 03, 2024 09:28 AM Reporting Lab: [address] [id number] Performing Lab: [address] [address] MICROALBUMIN/CREATININE RATIO 6.0 mg/g 0 -29.9 MICROALBUMIN,QUANTITATIVE 1.3 mg/dL RR U NAVAIL CREATININE URINE 218.12 mg/dL Vital Signs: All [...] DATE: MAY 16, 2024@15:42:02 AUTHOR: Sydney MILLER EXP COSIGNER: URGENCY: STATUS: COMPLETED Pt is 69 y/o M with PMH of obesity, HTN, HL, DM2, Hypothyroidism, CHUY, GERD, MDD, spinal stenosis, radiculopathy here for f/u transferred care from [facility] 08/2023 Last visit 12/2023 Other providers: -- Physiatry pain management -- [facility] neurosurgery Dr. Svetlana Grimm reports doing well needs medications refilled #Hypothyroidism: Compliant with levothyroxine Regained 10 pounds since last visit Denies heat and cold intolerance Denies palpitations #Diarrhea, constipation alternating intermittent takes Imodium, simethicone prn with good effect #Cervical spinal stenosis #Lumbar spinal stenosis #Back pain f/w [place] spine and sport requests second opinion from [facility] Used to be on oxycodone in [place] Patient evaluated by neurosurgery Has bilateral sanches's [...] FAMILY HISTORY: --DM: father, sister --Cancer: no --[place]: father d of [place] at 63, PGF d [place] at 60 --CVA:no --Mental Health/addiction: --Other: mother Alive >90y.o SOCIAL HISTORY: --Occupation: retired, disabled --Cohabitation: , lives with his sister --Children: 2 adult children in [place] - --Diet: meals on wheels --Exercise: No [...] of active outpatient prescriptions dispensed from this [place] (local) and dispensed from another [place] or [facility] facility (remote) as well as inpatient [...] MD PHYSICIAN Signed: 05/21/2024 00:44 YOLIE MILLER EMPIRE
[2025-03-06 06:22] LABS: Glucose, Whole Blood 105 mg/dL (60-115)
[2025-03-06] MEDS: Lactated Ringers 1,000 ML 100 ML IVCONT (06:45)
[2025-03-06] MEDS: Gabapentin 300 MG CAPSULE PO (06:48)
[2025-03-06] MEDS: methocarbamoL 750 MG TABLET PO (06:48)
--- NOTE | 2025-03-06 07:02 | MHC.SHP ---
Pre-Procedural Eval Section A - 24 Hr Update-Section A only Date of Service: 03/06/25 The patient is an INPATIENT: No Changes since office visit: No Cold of Flu in the past 2 weeks, No New Medical Problems, No Changes in Medication and No Patient answered all questions The patient has been examined within 24 hours of the surgical procedure. The History & Physical has been completed within 30 days and I have reviewed it.: No Section B - Complete if H&P > 30 days Chief Complaint: s/p C4 Corpectomy Allergies: Allergies Allergy/AdvReac Type Severity Reaction Status Date / Time No Known Allergies Allergy Verified 12/29/24 14:54 Review of Systems Sugical H&P ROS: Negative: Constitution, Cardiovascular, Respiratory, Neurological, Psychiatric, Hem-Onc, Allergic/Immunologic, Gastrointestinal, Genitourinary, Musculoskeletal, Integumentary, Endocrine and Eyes/Ears/Nose/Throat Exam Surgical H&P Exam: Normal: HEENT, Normal: Heart, Normal: Lungs, Normal: Extremities, Normal: Abdomen, Normal: Skin and Normal: Neurological (awake, alert,oriented x 3 ) Plan Diagnosis/Plan: Unchanged C4 corpectomy, C3-5 anterior plating Time Spent With Patient Time: Total time managing care of this patient today _5___ minutes.
[2025-03-06] MEDS: ceFAZolin Sodium/Dextrose,Iso 2 GM/50 ML PIGGYBACK IV ×3 (07:55→20:33)
--- NOTE | 2025-03-06 10:42 | P.OP_ITS ---
Operative Note Operative Note Date of Service: 03/06/25 Narrative: Preoperative Diagnosis: Severe spinal cord compression with cervical myelopathy Procedure: C4 corpectomy; expandable cervical corpectomy cage; anterior instrumentation C3-C5; local autograft; microscope Informed Consent was obtained for this operation. I have explained the nature, purpose and benefits of the operation. I have discussed the risks and benefit of the operation including possible complications or adverse events with patient/family. Alternative(s) were discussed with the patient with their relative benefits and risks as well as the consequences of not accepting the operation were included in obtaining consent. Surgeon: LINDSEY RUSSELL MD, PHD Procedure Assisted By: roger Singh Description of Procedure: This 69-year-old male is suffering from DISH causing large anterior osseous fu angela of the anterior cervical spine. The MRI shows severe spinal cord compression C3-C4 and C4-C5. The patient was offered a cervical corpectomy C4 with C3-4 and C4-5 diskectomy to decompress the spinal cord and exiting nerve roots. The procedure and complications were explained. The patient was consented. The patient was brought to the operating room and endotracheally intubated. The patient was put in supine position with slight extension of the neck. Prep and drape was done followed by timeout. A mid cervical incision was made followed by opening of the platysma. The prevertebral fascia was reached following the natural planes while the physician customer assistant provided manual retraction. The prevertebral fascia was opened to expose the the anterior cervical column. An approximately 2 cm thick bone layer was encountered. The longus colli muscles were identified which were much more posterior due to the large bone mass. I started drilling down the bone mass to expose the C3-4 and C 4-5 disc spaces. I drilled all the way down until the anterior border of the C3,C4 and C5 vertebral bodies. Then I performed a partial diskectomy C3-4 and C4-5 followed by a partial C4 corpectomy. The bone was saved for autograft. The microscope was brought into complete the corpectomy. I completed the C4-5 diskectomy and then with a curved curette I was able to maneuver under the C4 body. A number 2. and 3 Kerrison were used to complete the C4 corpectomy. When I arrived at the C3-4 disc space the disc material was removed to decompress the spinal cord. The diskectomy was extended laterally into the foramina. Then the corpectomy was extended laterally to gain enough space for the interbody cage. Extensive hemostasis was done. A nerve hook could be easily passed under the body of C3 and C5 as a sign of adequate decompression of the spinal cord. Then a 16 mm expandable cage from [facility] filled with autograft was inserted into the defect and expanded until I felt enough resistance that prevented me from further expanding the cage. X-rays showed a good position of the interbody cage. A 28 mm plate was laid over the cage and locked down with 4 x 16 mm screws. Final x-rays in AP and lateral projections showed a good position of the interbody cage and anterior instrumentation.. The physician customer assistant took over. Hemostasis was done. He closed the incision in 2 layers with a 3-0 Vicryl. Steri-Strips used to approximate incision. An OpSite with Tegaderm was used to cover the incision. All sponge and needle counts were correct. Patient was extubated and transported in stable is to recovery room. Anesthesia: General Estimated Blood Loss (ml): 600 Duration of Surgery: 3 hours Postoperative Plan: Discharge home Complications: None
[2025-03-06] MEDS: fentaNYL citrate/PF 100 MCG/2 ML VIAL 50 MCG IVPUSH (12:07)
[2025-03-06] MEDS: 0.9 % Sodium Chloride 1,000 ML 75 ML IVCONT (13:04)
[2025-03-06] MEDS: HYDROmorphone HCl 1 MG/ML SYRINGE IVPUSH ×2 (13:41→20:17)
[2025-03-06 14:36] LABS: Glucose, Whole Blood 170 mg/dL (60-115)
[2025-03-06] MEDS: Cholecalciferol (Vitamin D3) 25 MCG TABLET PO (14:41)
--- NOTE | 2025-03-06 15:28 | PC.NURSE ---
unable to administer gabapentin,pharmacy notified,pharmacy in process of verifying medication
--- NOTE | 2025-03-06 15:38 | MHC.CARE ---
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
[2025-03-06 16:35] LABS: Glucose, Whole Blood 192 mg/dL (60-115)
[2025-03-06] MEDS: Acetaminophen 1,000 MG/100 ML PIGGYBACK 400 MG IV ×2 (17:01→23:15)
[2025-03-06] MEDS: Insulin Lispro 100 UNIT/ML 3 ML VIAL SUBCUT ×2 (17:04→21:12)
--- NOTE | 2025-03-06 18:31 | PC.NURSE ---
patient ambulated x2 with walker with RENAN Julien assistance,Renan Julien reported patient voided x2 in the bathroom without difficulty DTV#[id number] at [id number]
--- NOTE | 2025-03-06 18:37 | PHA.MEDREC ---
Pharmacy Consult ? Medication Reconciliation Pharmacy has completed the medication reconciliation. PT WAS UNAWARE OF MEDICATIONS HE TAKES AT HOME AND STATES [facility]. RE[facility] L[facility] FROM [facility] TIMES THROUGHOUT THE DAY ON 03/06/25. WAS FINALLY ABLE TO OBTAIN MEDICATION LIST AFTER 1729 AND MEDICATIONS WERE CORRECTED AND HOME MEDS CONTINUED PER DR RUSSELL.
[2025-03-06] MEDS: Gabapentin 300 MG CAPSULE 600 MG PO (20:20)
[2025-03-06] MEDS: amLODIPine Besylate 10 MG TABLET PO (20:22)
[2025-03-06] MEDS: Losartan Potassium 50 MG TABLET 100 MG PO (20:22)
[2025-03-06] MEDS: Atorvastatin Calcium 20 MG TABLET PO (20:23)
[2025-03-06] MEDS: metFORMIN HCl 500 MG TABLET PO (20:23)
[2025-03-06 20:29] LABS: Glucose, Whole Blood 165 mg/dL (60-115)
[2025-03-07] MEDS: ceFAZolin Sodium/Dextrose,Iso 2 GM/50 ML PIGGYBACK IV (02:46)
[2025-03-07] MEDS: 0.9 % Sodium Chloride 1,000 ML 75 ML IVCONT (03:20)
[2025-03-07 03:27] VITALS: BP 116/55; PULSE 62; RESP 18; TEMP 36.8; O2SAT 98
[2025-03-07] MEDS: HYDROmorphone HCl 1 MG/ML SYRINGE IVPUSH (03:29)
[2025-03-07] MEDS: Omeprazole 20 MG CAPSULE.DR PO (05:56)
[2025-03-07] MEDS: Levothyroxine Sodium 100 MCG TABLET PO (05:56)
[2025-03-07] MEDS: Acetaminophen 1,000 MG/100 ML PIGGYBACK 400 MG IV (05:59)
--- NOTE | 2025-03-07 06:57 | PM.DS ---
DS: Providers Provider Date of Service: 03/06/25 Date of admission: 03/06/25 06:07 Date of discharge: 03/07/25 Primary care physician: Jack Douglass MD Admitting clinician: Francisco Burroughs DS: Diagnosis Discharge Diagnosis (1) Myelomalacia of cervical cord: Status: Acute DS: Summary Time Attestation Discharge Coordination Time (in mins): 5 minutes Quality: Safe Use of Opioids Does Pt have an Active Cancer Diagnosis on the Problem List?: No Quality: Stroke Does the patient have a stroke diagnosis?: No Physical Exam Vital Signs: Vital Signs: Last Vital Signs Temp 98.2 F 03/07/25 03:27 Pulse 62 03/07/25 03:27 Resp 18 03/07/25 03:27 BP 116/55 L 03/07/25 03:27 Pulse Ox 98 03/07/25 03:27 O2 Del Method Nasal Cannula 03/07/25 03:27 O2 Flow Rate 1 03/07/25 03:27 FiO2 39 03/06/25 12:27 BMI result Body Mass Index 37.0 DS: Data Data Completed and Pending Labs on day of discharge: Laboratory Results - last 24 hr 03/06/25 03/06/25 03/06/25 09:16 13:09 16:23 POC Glucose 170 H 192 H Blood Type AB Positive Antibody Screen NEGATIVE 03/06/25 20:25 POC Glucose 165 H Blood Type Antibody Screen Discharge Plan Discharge Anticipated Discharge Date/Time: 03/07/25 11:00 Patient Disposition: Home, Self-Care Discharge Diagnosis: Cervical myelopathy status post C4 corpectomy Referrals: Jack Douglass MD [Primary Care Provider] - 1 Week Discharge Medications: New oxycodone 10 mg tablet See Rx Instructions .ROUTE .COMPLEX PRN (Reason: pain) Qty: 30 0RF Rx Instructions: 1-2 tabs po q4 hours prn pain; Partial Fill upon patient request. docusate sodium [Colace] 100 mg capsule 100 mg PO BID Qty: 20 0RF Continued cholecalciferol (vitamin D3) [Vitamin D3] 25 mcg (1,000 unit) Capsule 25 mcg PO DAILY cetirizine 10 mg Tablet 10 mg PO DAILY PRN (Reason: ALLERGIES) levothyroxine 100 mcg Tablet 100 mcg PO DAILY@0600 lidocaine 5 % Adhesive Patch,Medicated 1 patch TOPICAL DAILY PRN (Reason: NERVE PAIN) Rx Instructions: leave on most painful area for up to 12 hrs loperamide 2 mg Tablet 2 mg PO TIDWM PRN (Reason: DIARRHEA PREVENTION) Rx Instructions: TAKE BEFORE MEALS TO PREVENT DIARRHEA simethicone 80 mg Tablet,Chewable 80 mg PO DAILY PRN (Reason: Gastric Reflux) melatonin 5 mg Tablet 5 mg PO BEDTIME PRN (Reason: Insomnia) sitagliptin 100 mg Tablet 100 mg PO DAILY amlodipine 10 mg tablet 10 mg PO BEDTIME polyvinyl alcohol [Artificial Tears (polyvin alc)] 1.4 % drops 1 drp ophthalmic (eye) BID-QID PRN (Reason: Dry Eyes) atorvastatin 40 mg tablet 20 mg PO BEDTIME fluticasone propionate [Allergy Relief (fluticasone)] 50 mcg/actuation spray,suspension 1 spray intranasal DAILY Rx Instructions: administer into each nostril gabapentin 300 mg capsule 600 mg PO TID losartan 100 mg tablet 100 mg PO BEDTIME metformin 500 mg tablet 500 mg PO BID omeprazole 20 mg capsule,delayed release(DR/EC) 20 mg PO DAILY@0630 Discharge Orders: Discharge Order (Routine); Ordered 03/07/25 Ordered By: Gabriel Monk Diet: Advance to usual diet Activity on Discharge: As tolerated Stand Alone Forms: Patient Portal Discharge page Print Language: Estonian Activity Restrictions/Additional Instructions: After your spinal surgery we ask you to observe the following restrictions/guidelines: Activity: It is normal to feel some discomfort as you increase your activity, but that will improve with time. We ask you avoid heavy lifting or acitivities that cause pain. As a general rule, 8lbs is a safe limit for lifting right after surgery. Walk as much as you feel comfortable but not to exhaustion. You will feel extra tired the first few days after surgery. Stay well hydrated. It is OK to walk up and down stairs You may return to driving when you are off narcotics (such as vicodin, oxycodone, dilaudid, etc), and you are back to normal functional capacity. If you have any concerns please check with office before driving. Return to work is specific to each patient and each surgery, so please speak with your doctor/PA at first follow up. Please bring paperwork such as FMLA at that time if you need it filled out. Medications: For optimum pain control, it is best to start with a combination of 500 mg of Tylenol every 4 hours with 600 mg of Motrin every 8 hours, and use narcotics as needed in between for breakthrough pain. We will give you a short supply of narcotics after surgery (usually one weeks worth). If you need more please call the office but do not use more than prescribed. You will need to give our office 48 hours notice if you need narcotics refilled and we do not fill narcotics on weekends or evenings. If you are on a narcotic, it is a good idea to take a stool softener such as colace or senna to avoid constipation If you take blood thinner such as aspirin, Plavix, Coumadin, Effient, Eliquis etc for conditions such as Afib, DVT, Pulmonary embolus, coronary disease, stents etc please speak with your surgeon about specific details as to when you can resume these medications. You can resume NSAIDs on post op day 1 (eg: Motrin, Naproxen, etc). Follow up: Please call the office, , after surgery to arrange a 3 week follow up for wound check. Wound Care: You may remove your dressing on the first day after surgery. ?You may ?leave open to air. Please do not remove the steri strips underneath. they will fall off on their own in one week. IT IS NORMAL FOR THE WOUND TO OOZE OR BE BLOODY FOR A FEW DAYS AFTER SURGERY. ?IF THIS HAPPENS JUST PLACE NEW DRESSING OVER IT TO AVOID STAINING CLOTHES. You may shower on post op day # 1 We ask that you do not let the water soak the wound. If it does get wet, just towel dry lightly. Please do not scrub your incision or place any type of chemical/ointment on the wound. No tub baths, pools or jacuzzis for one month. If you have any leaking or redness from your wound, or fevers, please call office Care Plan Goals: Discharge home Health Concerns: None Plan of Treatment: Follow-up in the office in 3 weeks Assessment: Stable
[2025-03-07 07:04] LABS: Glucose, Whole Blood 116 mg/dL (60-115)
[2025-03-07 07:23] VITALS: BP 105/52; PULSE 54; RESP 16; TEMP 36.2; O2SAT 97
--- NOTE | 2025-03-07 07:27 | HO.NEURO.PN ---
Neurosurgery Operative Note Date of Service: 03/07/25 Narrative: Postoperative day 1. C4 corpectomy, C3-5 anterior plating Patient reports some dysphagia, but has been able to take solids and liquids. No significant changes in neurological status. He has been up walking around going to the bathroom voiding okay. Afebrile, vital signs stable Physical exam: Patient is awake alert oriented seen at bedside today with Dr. Burroughs, he has some mild strength loss in his hands which is his baseline, but rest of his strength in the upper and lower extremities is full. Anterior neck dressing is clean and dry, no signs of hematoma. Impression: Postop day 1. C4 corpectomy, C3-5 anterior plating, done for cervical myelopathy. Patient was stable at his baseline, he has been up walking to the bathroom, voiding etc.. He normally walks with a walker because of his issues with his low back. He is stable on met criteria for discharge as long as PT thinks he is stable on his feet. We will anticipate discharge later this morning as long as he clears PT.
[2025-03-07] MEDS: SITagliptin Phosphate 100 MG TABLET PO (07:40)
[2025-03-07] MEDS: Gabapentin 300 MG CAPSULE 600 MG PO (07:41)
[2025-03-07] MEDS: Cholecalciferol (Vitamin D3) 25 MCG TABLET PO (07:41)
[2025-03-07] MEDS: oxyCODONE HCl Immed Release 5 MG TABLET 10 MG PO (07:41)
[2025-03-07] MEDS: metFORMIN HCl 500 MG TABLET PO (07:41)
[2025-03-07 07:53] LABS: Creatinine Clr Calc Pharmacy 139.5; Estimated Glomerular Filt Rate > 60
[2025-03-07 08:01] VITALS: BP 105/52; PULSE 54; O2SAT 95
[2025-03-07 08:19] VITALS: BP 111/58; PULSE 64; RESP 18; TEMP 37.1; O2SAT 94
--- NOTE | 2025-03-07 09:34 | W.MHC.F2F ---
Service Date Service Date: 03/07/25 Encounter Date of encounter: 03/07/25 Reasons for Services Signs and symptoms assessed: weakness, gait imbalance, post op C4 corpectomy Reason for fci: neurological assessment, wound care and postoperative assessment and/or care Reason for physical therapy: home safety and mobility, therapeutic exercises and gait/transfer training Reason for occupational therapy: home safety and mobility, therapeutic exercises and gait/transfer training Homebound: Leaving the home is medically contraindicated at this time without the asist of a device and/or another person due th the listed conditions above and below. Reason homebound: unsteady gait / fall risk, leg weakness, pain with ambulation and pain with transfers Certification: Based on the above findings, I certify that this patient is confined to the home and needs intermittent fci care, physical therapy and/or speech therapy, or continues to need occupational therapy. The patient is under my care, and I have initiated the establishment of the plan of care. The patient will be followed by a physician who will periodically review the plan of care. Time Spent With Patient Time: Total time managing care of this patient today __10__ minutes.
--- NOTE | 2025-03-07 09:44 | HO.POSTANES ---
Post Anesthesia Evaluation Post Anesthesia Evaluation Date of Service: 03/07/25 Vital Signs: Vital Signs Temp Pulse Resp BP Pulse Ox O2 Del Method O2 Flow Rate 03/07/25 08:19 98.8 F 64 18 111/58 L 94 Room Air 03/07/25 08:01 54 105/52 L 95 03/07/25 07:23 97.1 F 54 16 105/52 L 97 Nasal Cannula 1 03/07/25 03:27 98.2 F 62 18 116/55 L 98 Nasal Cannula 1 03/06/25 23:53 98.1 F 58 18 114/56 L 97 Nasal Cannula 1.5 Anesthesia: General Endotracheal-GETA Mental Status: Awake Pain Control: Satisfactory Nausea/Vomiting: None Hydration: Adequate Anesthesia-Related Issues: No Anes. Related Issues
--- NOTE | 2025-03-08 15:59 | PM.DS ---
DS: Providers Provider Date of Service: 03/06/25 Date of admission: 03/06/25 06:07 Date of discharge: 03/07/25 Primary care physician: Jack Douglass MD DS: Diagnosis Discharge Diagnosis (1) Myelomalacia of cervical cord: Status: Acute DS: Summary Hospital Course Hospital Course: Postoperative day 1. C4 corpectomy, C3-5 anterior plating Patient reports some dysphagia, but has been able to take solids and liquids. No significant changes in neurological status. He has been up walking around going to the bathroom voiding okay. Afebrile, vital signs stable Physical exam: Patient is awake alert oriented seen at bedside today with Dr. Burroughs, he has some mild strength loss in his hands which is his baseline, but rest of his strength in the upper and lower extremities is full. Anterior neck dressing is clean and dry, no signs of hematoma. Impression: Postop day 1. C4 corpectomy, C3-5 anterior plating, done for cervical myelopathy. Patient was stable at his baseline, he has been up walking to the bathroom, voiding etc.. He normally walks with a walker because of his issues with his low back. He is stable on met criteria for discharge as long as PT thinks he is stable on his feet. We will anticipate discharge later this morning as long as he clears PT. Time Attestation Discharge Coordination Time (in mins): 6 Quality: Safe Use of Opioids Does Pt have an Active Cancer Diagnosis on the Problem List?: No Quality: Stroke Does the patient have a stroke diagnosis?: No Physical Exam Vital Signs: Vital Signs: Last Vital Signs Temp 98.8 F 03/07/25 08:19 Pulse 64 03/07/25 08:19 Resp 18 03/07/25 08:19 BP 111/58 L 03/07/25 08:19 Pulse Ox 94 03/07/25 08:19 O2 Del Method Room Air 03/07/25 08:19 O2 Flow Rate 1 03/07/25 07:23 FiO2 39 03/06/25 12:27 BMI result Body Mass Index 37.0 Discharge Plan Discharge Anticipated Discharge Date/Time: 03/07/25 11:00 Patient Disposition: Home Health Service Discharge Diagnosis: Cervical myelopathy status post C4 corpectomy Referrals: Jack Douglass MD [Primary Care Provider] - 1 Week Discharge Medications: New oxycodone 10 mg tablet See Rx Instructions .ROUTE .COMPLEX PRN (Reason: pain) Qty: 30 0RF Rx Instructions: 1-2 tabs po q4 hours prn pain; Partial Fill upon patient request. docusate sodium [Colace] 100 mg capsule 100 mg PO BID Qty: 20 0RF Continued cholecalciferol (vitamin D3) [Vitamin D3] 25 mcg (1,000 unit) Capsule 25 mcg PO DAILY cetirizine 10 mg Tablet 10 mg PO DAILY PRN (Reason: ALLERGIES) levothyroxine 100 mcg Tablet 100 mcg PO DAILY@0600 lidocaine 5 % Adhesive Patch,Medicated 1 patch TOPICAL DAILY PRN (Reason: NERVE PAIN) Rx Instructions: leave on most painful area for up to 12 hrs loperamide 2 mg Tablet 2 mg PO TIDWM PRN (Reason: DIARRHEA PREVENTION) Rx Instructions: TAKE BEFORE MEALS TO PREVENT DIARRHEA simethicone 80 mg Tablet,Chewable 80 mg PO DAILY PRN (Reason: Gastric Reflux) melatonin 5 mg Tablet 5 mg PO BEDTIME PRN (Reason: Insomnia) sitagliptin 100 mg Tablet 100 mg PO DAILY amlodipine 10 mg tablet 10 mg PO BEDTIME polyvinyl alcohol [Artificial Tears (polyvin alc)] 1.4 % drops 1 drp ophthalmic (eye) BID-QID PRN (Reason: Dry Eyes) atorvastatin 40 mg tablet 20 mg PO BEDTIME fluticasone propionate [Allergy Relief (fluticasone)] 50 mcg/actuation spray,suspension 1 spray intranasal DAILY Rx Instructions: administer into each nostril gabapentin 300 mg capsule 600 mg PO TID losartan 100 mg tablet 100 mg PO BEDTIME metformin 500 mg tablet 500 mg PO BID omeprazole 20 mg capsule,delayed release(DR/EC) 20 mg PO DAILY@0630 Discharge Orders: Discharge Order (Routine); Ordered 03/07/25 Ordered By: Gabriel Monk Diet: Advance to usual diet Activity on Discharge: As tolerated Stand Alone Forms: Patient Portal Discharge page Print Language: Kittitian Activity Restrictions/Additional Instructions: After your spinal surgery we ask you to observe the following restrictions/guidelines: Activity: It is normal to feel some discomfort as you increase your activity, but that will improve with time. We ask you avoid heavy lifting or acitivities that cause pain. As a general rule, 8lbs is a safe limit for lifting right after surgery. Walk as much as you feel comfortable but not to exhaustion. You will feel extra tired the first few days after surgery. Stay well hydrated. It is OK to walk up and down stairs You may return to driving when you are off narcotics (such as vicodin, oxycodone, dilaudid, etc), and you are back to normal functional capacity. If you have any concerns please check with office before driving. Return to work is specific to each patient and each surgery, so please speak with your doctor/PA at first follow up. Please bring paperwork such as FMLA at that time if you need it filled out. Medications: For optimum pain control, it is best to start with a combination of 500 mg of Tylenol every 4 hours with 600 mg of Motrin every 8 hours, and use narcotics as needed in between for breakthrough pain. We will give you a short supply of narcotics after surgery (usually one weeks worth). If you need more please call the office but do not use more than prescribed. You will need to give our office 48 hours notice if you need narcotics refilled and we do not fill narcotics on weekends or evenings. If you are on a narcotic, it is a good idea to take a stool softener such as colace or senna to avoid constipation If you take blood thinner such as aspirin, Plavix, Coumadin, Effient, Eliquis etc for conditions such as Afib, DVT, Pulmonary embolus, coronary disease, stents etc please speak with your surgeon about specific details as to when you can resume these medications. You can resume NSAIDs on post op day 1 (eg: Motrin, Naproxen, etc). Follow up: Please call the office, , after surgery to arrange a 3 week follow up for wound check. Wound Care: You may remove your dressing on the first day after surgery. ?You may ?leave open to air. Please do not remove the steri strips underneath. they will fall off on their own in one week. IT IS NORMAL FOR THE WOUND TO OOZE OR BE BLOODY FOR A FEW DAYS AFTER SURGERY. ?IF THIS HAPPENS JUST PLACE NEW DRESSING OVER IT TO AVOID STAINING CLOTHES. You may shower on post op day # 1 We ask that you do not let the water soak the wound. If it does get wet, just towel dry lightly. Please do not scrub your incision or place any type of chemical/ointment on the wound. No tub baths, pools or jacuzzis for one month. If you have any leaking or redness from your wound, or fevers, please call office Care Plan Goals: Discharge home Health Concerns: None Plan of Treatment: Follow-up in the office in 3 weeks Assessment: Stable Patient Instructions: Corpectomy (DC) Discharge Date/Time: 03/07/25 09:42
== END 2025-03-07 09:42 | disposition home health service (06) | DRG 30 ==
LOC: HO.SSSA 06:11 → HO.S3 11:59
PROVIDERS: Nurse Practitioner; Admitting Provider Neurological Surgery; PCP Internal Medicine; Visit Provider Neurological Surgery
PROC: 0RG20A0 Fusion of 2 or more Cervical Vertebral Joints with Interbody Fusion Device, Anterior Approach, Anterior Column, Open Approach (ICD-10-PCS; principal; 2025-03-06 07:30)
DX: G95.20 Unspecified cord compression (principal); M48.12 Ankylosing hyperostosis [Forestier], cervical region; R13.10 Dysphagia, unspecified; E11.9 Type 2 diabetes mellitus without complications; E03.9 Hypothyroidism, unspecified; Z79.84 Long term (current) use of oral hypoglycemic drugs; Z79.890 Hormone replacement therapy; Z79.899 Other long term (current) drug therapy
CPT/HCPCS: 36415; 80048; 82565; 82947; 83036; 85027; 86850; 86900; 86901; 93005; 97116; 97162; C1713; C1889; J0131; J0690; J1171; J1596; J2250; J2371; J2704; J3010

== ENCOUNTER → 2025-03-06 06:07 | Outpatient (BNV) | payer MEDICARE, MEDICAID, SELFPAY | PROVIDERS: Admitting Provider Neurological Surgery; PCP Internal Medicine; Visit Provider Neurological Surgery | DX: M50.03 Cervical disc disorder with myelopathy, cervicothoracic region (principal) | CPT/HCPCS: 20936; 22845; 22854; 63081 ==

== ENCOUNTER 2025-03-23 12:14 | Outpatient (REF) | payer MEDICARE, MEDICAID, SELFPAY ==
[2025-03-23 12:17] LABS: MANUAL DIFF FLAG NO
[2025-03-23 12:23] LABS: Basophils Absolute Auto 0.1 X10*3/uL (0.0-0.2); Basophils Percent Auto 0.5 % (0-2); Eosinophils Absolute Auto 0.1 X10*3/uL (0.0-0.4); Eosinophils Percent Auto 1.2 % (0-4); Hematocrit 40.1 % (42.0-52.0); Hemoglobin 13.2 g/dl (14.0-18.0); Imm Gran Abs Auto 0.06 X10*3/uL (0.00-0.03); Imm Gran Pct Auto 0.6 % (0.0-0.4); Lymphocytes Absolute Auto 3.8 X10*3/uL (1.2-4.9); Lymphocytes Percent Auto 40.4 % (20-40); Mean Corpuscular HGB Conc 32.9 g/dl (31.0-36.0); Mean Corpuscular Hemoglobin 27.6 pg (27.0-33.0); Mean Corpuscular Volume 83.9 fL (80.0-98.0); Mean Platelet Volume 13.7 fL (9.4-12.4); Monocytes Percent Auto 10.6 % (2-11); Neutrophils Absolute Auto 4.4 x10*3/uL (2.0-8.3); Neutrophils Percent Auto 46.7 % (45-73); Platelet Count 199 X10*3/uL (160-400); Red Blood Count 4.78 X10*6/uL (4.60-5.80); Red Cell Distribution Width 13.2 % (11.0-16.0); White Blood Count 9.4 X10*3/uL (4.8-10.8)
[2025-03-23 12:33] LABS: Estimated Average Glucose 114 mg/dL; Hemoglobin A1c % 5.6 % (<6.0); Total Hemoglobin (HGBA1C) 3457.5269 umol/L
[2025-03-23 13:05] LABS: Alanine Aminotransferase 14 U/L (0-40); Albumin Level 3.9 g/dL (3.5-5.0); Alkaline Phosphatase 69 U/L (39-117); Anion Gap 15 (12-20); Aspartate Amino Transferase 16 U/L (5-37); Bilirubin Direct 0.2 mg/dL (0.0-0.5); Bilirubin Total 0.4 mg/dL (0.0-1.0); Blood Urea Nitrogen 13 mg/dL (9-16); Calcium 9.2 mg/dL (8.4-10.2); Carbon Dioxide 27 mmol/L (22-29); Chloride 110 mmol/L (96-108); Cholesterol 133 mg/dL (<200); Estimated Glomerular Filt Rate > 60; Glucose Fasting 83 mg/dL (60-99); HDL Cholesterol 38 mg/dL (>40); LDL Cholesterol Calculated 63 mg/dL (<100); Sodium 148 mmol/L (135-145); Total Protein 6.7 g/dL (6.5-8.0); Triglycerides 161 mg/dL (<150)
[2025-03-23 13:19] LABS: Thyroid Stimulating Hormone 1.68 uIU/mL (0.32-4.0)
== END 2025-03-23 12:15 | disposition home or self-care (01) ==
LOC: HO.HVNA 12:14
PROVIDERS: Visit Provider Internal Medicine
DX: E11.9 Type 2 diabetes mellitus without complications (principal)
CPT/HCPCS: 36415; 80048; 80061; 80076; 83036; 84443; 85025

== ENCOUNTER 2025-04-10 14:19 | Outpatient (AMB) | payer MEDICARE, MEDICAID, SELFPAY ==
--- NOTE | 2025-04-10 14:42 | A.SPINEOV_ITS ---
Intake Visit Reasons: 1st post op Intake Note: Mr. Mart is here for his 1st post op. 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 Burroughs a few weeks ago. He reports that overall he is essentially remain the same as he was prior to surgery. He seems somewhat discouraged that he did not have any functional improvement since the surgery. We reviewed the goals of surgery, which as stated preoperatively were to halt symptom progression. He does acknowledge that this was the indication for surgery and understands. He asked several questions regarding the postoperative healing course, all of which I answered to the best of my ability. He did asked several questions as well about having his lumbar spine concerns addressed, which I informed him we can do after he has completely healed from his corpectomy. No new neurological deficits. The patient ambulates with the assistance of a walker. He rises from a seated position very slowly and has a difficult time engaging his lower extremity proximal muscle groups. 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 I would like Jose to follow up with us again in 6 weeks with a set of x-rays. He should make his next follow-up appointment with KEYON Monk so they can discuss with the next steps are for his lumbar spine concerns. I refilled his pain medication at the end of this visit and brought him down from Oxycodone 10mg 1-2 tabs q6h to Oxycodone 10mg 1 tab q6h. Jimi Burroughs MD,PhD [facility] Medications: Changed From oxycodone 1-2 tablets by mouth every 6 hours prn pain; Partial Fill upon patient request. 30 tabs 0RF pain To oxycodone 10 mg PO Q6H PRN 28 tabs 0RF pain Coding Level of Care Code Global (78209) Diagnoses History of cervical corpectomy Z90.89
--- OUTSIDE RECORDS SUMMARY | 2025-04-10 17:17 | XMS_ITS | Encounter Summary ---
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 Name Role Phone VINCENZO MILLER Primary Care [...] PART A March 01, 2018 PART A [id number] Sam PEACE PATIENT MEDICARE (WNR) MEDICARE (M) PART B March 01, 2018 PART B [id number] [phone] [id number] Sam PEACE PATIENT MEDICARE (WNR) MEDICARE (M) PART A March 01, 2018 PART A [id number] Sam PEACE PATIENT MEDICARE (WNR) MEDICARE (M) PART B March 01, 2018 PART B [id number] Sam PEACE PATIENT MEDICARE (WNR) MEDICARE (M) PART B March 01, 2018 PART B [id number] Sam PEACE ARIAye PATIENT MEDICARE (WNR) MEDICARE (M) PART A March 01, 2018 PART A [id number] Sam PEACE PATIENT Selected Encounter This section includes the information on record at [place] for the Encounter. Date/Time Encounter Type Encounter Description Reason Pro vider Source Feb 26, 2025 07:02 PM Outpatient Encounter ADMIN PAT ACTIVTIES (MASNONCT) IHE Encounter Template Text not used by [place] Plan of Treatment: Future Appointments (+ 6 [...] 04:00 PM AMBULATORY - [place]IC[place] [facility] [facility] May 15, 2025 01:00 PM AMBULATORY - MEDICINE [place] Active, Pending, and Scheduled Orders This section [...] from all [facility]. Test Date/Time Test Type Test Details Facility Name 2025 12:00 AM Laboratory - Chemi stry Order BASIC METABOLIC PANEL (fasting) BLOOD (SST-SERUM) [facility] 2025 12:00 AM Laboratory - Chemi stry Order LIPID PANEL FASTING BLOOD (SST-SERUM) [facility] 2025 12:00 AM Laboratory - Chemi stry Order LIVER FUNCTION BLOOD (SST-SERUM) [facility] 2025 12:00 AM Laboratory - Chemi stry Order HEMOGLOBIN A1C PANEL BLOOD (LAV-BLOOD) [facility] 2025 12:00 AM Laboratory - Chemi stry Order CBC AND DIFF (AUTO) BLOOD (LAV-BLOOD) [facility] 2025 12:00 AM Laboratory - Chemi stry Order TSH BLOOD (SST-SERUM) [facility] Social History: Smoking Status (Most current) and Tobacco Use (All prior to encounter date) This section includes the most current, and the historical, smoking and tobacco- related health factors from the [place] facility where the Encounter took place. Current Smoking Status This section includes the most current smoking, or tobacco-related health factor, from the [place] facility where the Encounter took place. Date/Time Current Smoking Status Comment Facil ity May 16, 2024 03:00 PM VA-TOBACCO FORMER USER [facility] Tobacco Use History This section includes a history of the smoking, or tobacco-related health factors, that were collected on or before the date of the Encounter. The data comes from the [place] facility where the Encounter took place. Date/Time Smoking Status/Tobacco Use Comment F acility May 16, 2024 03:00 PM VA-TOBACCO QUIT 15 YRS OR MORE [facility] Jun 07, 2023 07:43 PM VA-TOBACCO NEVER USED [facility] Encounter Notes: All associated encounter notes This section contains the clinical notes associated to the Encounter. Date/Time Encounter Note(s) Provider Source Feb 26, 2025 07:02 PM PHARMACY NOTE: LOCAL TITLE: PHARMACY CUSTOMER CARE MEDICATION RENEWAL STANDARD TITLE: PHARMACY NOTE DATE OF NOTE: FEB 26, 2025@19:02 ENTRY DATE: FEB 26, 2025@19:02:21 AUTHOR: ELDA ARGUETA COSIGNER: URGENCY: STATUS: COMPLETED Date: Jan Division: [place] Pt referred by Pharmacy Call Center for medication renewal: Non-controlled/maintenan ce medication Medications requested: [id number] CHOLECALCIF 25MCG (D3-1,000UNIT) TAB [id number] OMEPRAZOLE 20MG EC CAP Defer to primary care provider To be mailed . Please review and renew if appropriate. *This note was generated by [facility] Pharmacy Customer Care. If you have any questions or need assistance, do not contact this author. Please refer all questions to your local, on-site pharmacy departments. /chloe/ ELDA ARGUETA CPhT [employer] Down [facility], [place]/Pharmacy Customer Care Signed: 02/26/2025 19:02 Receipt Acknowledged By: 02/26/2025 21:10 /es/ VINCENZO MILLER MD PHYSICIAN 03/27/2025 11:12 /es/ Aury Pride, RN Registered Nurse for [facility]DA [facility]
== END 2025-04-10 15:08 | disposition home or self-care (01) ==
LOC: HO.HNS 14:20
PROVIDERS: PCP Internal Medicine; Visit Provider Physician Assistant
DX: Z90.89 Acquired absence of other organs (principal)
CPT/HCPCS: 99024

== ENCOUNTER → 2025-04-10 14:19 | Outpatient (BNVA) | payer MEDICARE, MEDICAID, SELFPAY | PROVIDERS: PCP Internal Medicine; Visit Provider Physician Assistant | DX: Z47.89 Encounter for other orthopedic aftercare (principal); Z90.89 Acquired absence of other organs | CPT/HCPCS: 99212 ==

== ENCOUNTER 2025-06-01 12:55 | Outpatient (REF) | payer MEDICARE, MEDICAID, SELFPAY | END 2025-06-01 12:56 | disposition home or self-care (01) | LOC: HO.HOSX 12:55 | PROVIDERS: Visit Provider Neurological Surgery | DX: Z13.89 Encounter for screening for other disorder (principal) ==

== ENCOUNTER 2025-08-03 08:34 | Outpatient (REF) | payer MEDICARE, MEDICAID, SELFPAY | END 2025-08-03 08:35 | disposition home or self-care (01) | LOC: HO.HOSX 08:34 | PROVIDERS: Visit Provider Neurological Surgery | DX: Z13.89 Encounter for screening for other disorder (principal) ==

== ENCOUNTER 2025-08-08 12:55 | Outpatient (REF) | payer MEDICARE, MEDICAID, SELFPAY ==
--- NOTE | ~2025-08-08 | XR_ITS ---
EXAMINATION: XR CERVICAL SPINE 4-5 VIEWS HISTORY: G95.9 - Disease of spinal cord, unspecified COMPARISON: Comparison is made with the prior examination dated 10/06/2024. FINDINGS: AP, and neutral, flexion, and extension lateral views of the cervical spine are submitted. Osseous mineralization is normal. The patient is status post C4 corpectomy and placement of a prosthesis and anterior plate and screws from C3 through C5. There is straightening of the normal cervical lordosis. There is no abnormal motion with flexion or extension. Large bridging anterior osteophytes are noted at the remaining levels. There is no prevertebral soft tissue swelling. XR/XR cervical spine 4V IMPRESSION: Status post C4 corpectomy and anterior fusion from C3 through C5. No abnormal motion with flexion or extension. Electronically signed by: Johnnie Goddard MD 08/08/2025 02:49 PM EDT
--- NOTE | ~2025-08-08 | XR_ITS ---
EXAM: 4 view lumbar spine x-ray TECHNIQUE: PA, and lateral: Flexion, extension, and neutral views, of the lumbar spine. INDICATION: M48.061 - Spinal stenosis, lumbar region without neurogenic claudication PRIOR: None FINDINGS: There is moderate atherosclerotic ossification in the aorta. There are 5 nonrib-bearing lumbar segments. T12-L1: There is mild disc space narrowing with anterior osteophytes L1-L2: There is mild disc space narrowing and anterior osteophytes L2-L3: There is moderate disc space narrowing and endplate osteophytes with subtle retrolisthesis but no instability. L3-L4: There is mild disc space narrowing with endplate osteophytes and grade 1 retrolisthesis without instability. L4-L5: There is mild disc space narrowing and anterior osteophytes. L5-S1: There is mild disc space narrowing with endplate osteophytes. XR/XR lumbar spine 4V min IMPRESSION: Multilevel degenerative disc disease, no instability. Electronically signed by: Luc Corey MD 08/08/2025 04:00 PM EDT
== END 2025-08-08 12:56 | disposition home or self-care (01) ==
LOC: HO.HOSX 12:55
PROVIDERS: Visit Provider Neurological Surgery
DX: M48.061 Spinal stenosis, lumbar region without neurogenic claudication (principal); G95.9 Disease of spinal cord, unspecified
CPT/HCPCS: 72050; 72110; 99212

== ENCOUNTER 2025-08-08 14:21 | Outpatient (AMB) | payer MEDICARE, MEDICAID, SELFPAY ==
--- NOTE | 2025-08-08 15:13 | HO.SPINEOV ---
Intake Visit Reasons: late 2nd post op with xrays Intake Note: Mr. 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 Burroughs on 03/06/25. He comes in today for his 2nd postoperative visit, and wished to discuss his lumbar spine concerns during this visit as well. He reports minimal improvement in terms of his symptoms since his C4 corpectomy. He does report that his neck pain is slightly better than it was last time that he saw us. He expressed his concerns regarding his overall lack of improvement. We did again discuss the goals of surgery which specifically is to halt symptom progression, not to expressly improve symptoms as they stand before surgery. He understands this, and asked several questions regarding the postoperative healing course. We reviewed his cervical spine x-rays during this visit which shows stable placement of the surgical construct with no changes from fluoroscopy. In regards to his lumbar spine, he reports that he has had low back pain for many years. He denies any initial known inciting incident. He states that his pain is well localized into his low back, and does not involve his lower extremities. He has no posterior buttocks pain & no thigh pain. He does report that he has some numbness of his left lateral thigh, and some weakness of his left foot. He feels as though he has difficulty clearing his foot off the ground when ambulating. He walks with the assistance of a walker, which he states he has had to do for the past 5 years primarily due to his low back pain. Prior to that he was using a cane for a few years for similar reasons. His pain is exacerbated by standing/ambulation. He states the further he is able to walk before sitting down is about from our waiting room to our examination room. His pain is also exacerbated by positional changes such as getting up out of bed or attempting to stand from a seated position. He is not currently taking any medication for pain at home, however has attempted gabapentin, oxycodone, Tylenol, NSAIDs in the past with minimal relief of overall pain. Exam: On examination the patient rises from a seated position very slowly bracing himself on the chair. He walks with a slightly spastic gait and has a notable left-sided footdrop, although this is mild and not initially obvious based on his first few steps. He has about 3/5 strength with left-sided dorsiflexion/EHL/iliopsoas. The rest of his bilateral lower extremity strength is 5/5. He has some hypoesthesia reported to light touch over the left lateral thigh, but reports no other sensational deficits on examination to light touch. (-) bilateral straight leg raise. Imaging: MRI of the lumbar spine completed at [facility] in 2023 shows severe central canal stenosis at L2-3, L3-4. Dynamic lumbar spine X-ray imaging obtained during this visit shows no evidence of mobile listhesis. Plan: Pleasant 70 y/o male with history of C4 corpectomy presenting to clinic today for 2nd postop, wishing to discuss lumbar spine concerns as well. I reviewed his MRI imaging and examined the patient alongside my attending neurosurgeon Dr. Burroughs. Dr. Burroughs is willing to offer the patient a L2-3, L3-4 lumbar decompression to address his claudicating back pain and left lower extremity weakness. The patient understands that the utility for lumbar decompression in the context of back pain and weakness is overall fairly low, and understands that there is about a 50% chance of symptom improvement with this intervention. Given this, decompression of this area may be the only opportunity to address his pain and lower extremity weakness. The patient understands this and wishes to proceed with surgery. The patient was given risk and benefits of lumbar decompression surgery including but not limited to infection, hematoma, nerve injury, durotomy, weakness, bowel/bladder injury, persistent pain. We also discussed the option to continue with conservative treatment and patient wishes to proceed with surgery. They are aware they should stop NSAIDs 7 days prior to surgery. All questions were answered to the best of our ability. If there is anything about this patients medical history that we have overlooked or concerns you have about us proceeding with surgery we would appreciate any input you can offer Jimi Burroughs MD,PhD [facility] Orders: Orders XR lumbar spine 4V min Today M48.061 - Spinal stenosis, lumbar region without neurogenic claudication Coding Level of Care Code Est Pt Level 3 (56534) Diagnoses Lumbar spinal stenosis M48.061
== END 2025-08-08 15:43 | disposition home or self-care (01) ==
PROVIDERS: PCP Internal Medicine; Visit Provider Physician Assistant
DX: M48.061 Spinal stenosis, lumbar region without neurogenic claudication (principal)
CPT/HCPCS: 99213

== ENCOUNTER → 2025-08-08 14:26 | Outpatient (BNV) | payer MEDICARE, MEDICAID, SELFPAY | PROVIDERS: Visit Provider Radiology Diagnostic Radiology | DX: G95.9 Disease of spinal cord, unspecified (principal); Z98.1 Arthrodesis status | CPT/HCPCS: 72050 ==

== ENCOUNTER 2025-10-10 06:55 | Day surgery (SDC) | payer MEDICARE, MEDICAID, SELFPAY ==
[2025-09-25 13:13] VITALS: BP 116/58; PULSE 62; RESP 18; O2SAT 96; BMI 36.9
--- NOTE | 2025-09-25 13:22 | HO.ANESPROP2 ---
Documented by User: Anna Oviedo NP 10/08/25 10:23 HPI - Anesthesia Eval Consult details Narrative: 70yo M for L2-3, L3-4 Decompression, 10/10/25 C4 Corpectomy w/Plating and Osteophyte Removal, 03/06/25, GA-ETT 8 - no anesthesia issues No recent illness No CP/SOB with very limited activity DM: FBS ~ 100-120 CHUY: CPAP QHS Anesthesia Pre-Procedure Meds Is the patient on any of the following meds?: GLP1/DPP4 PMFSH Active Problems Active Problems: All Active Problems History of cervical corpectomy (Acute) Sacroiliac joint dysfunction of both sides (Acute) Myelomalacia of cervical cord (Acute) Chronic back pain (Acute) Lumbar spinal stenosis (Acute) Cervical myelopathy (Acute) Past Medical History Medical History Arthritis HOONAH (hard of hearing) Elevated cholesterol Sleep apnea GERD (gastroesophageal reflux disease) Hypothyroid Diabetes HTN (hypertension) Cervical myelopathy Lumbar spinal stenosis Sacroiliac joint dysfunction of both sides Myelomalacia of cervical cord Chronic back pain Family History Family history of problems with anesthesia: No Surgical History Surgical History Hx of cervical discectomy Hx of knee surgery History of Problems with Anesthesia: No Social History Social History Household Members: Family Household Members Other:: sister Housing: House Are you a primary manager intensive care to a significant other at home: No Do you presently have visiting nurse or 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 If so, by whom?: No Spiritual Healthcare Practices: no Sabianism Healthcare Practices: no Cultural Healthcare Practices: no Are you DNR?: No Advance Directives: No (sister is primary contact) Advance Directives Information Provided: Yes (as abov enoted) Advance Directives on File: No service: No Meds Allergies Allergy/AdvReac Type Severity Reaction Status Date / Time No Known Allergies Allergy Verified 10/10/25 07:12 Home Medications ?Medication ?Instructions ?Recorded ?Confirmed ?Last Taken ?Type amlodipine 10 mg tablet 10 mg PO BEDTIME 06/20/24 09/24/25 Unknown History atorvastatin 40 mg tablet 20 mg PO BEDTIME 06/20/24 09/24/25 Unknown History fluticasone propionate 50 1 spray intranasal DAILY 06/20/24 09/24/25 Unknown History mcg/actuation nasal spray,suspension (Allergy Relief (fluticasone)) gabapentin 300 mg capsule 600 mg PO TID 06/20/24 09/24/25 Unknown History losartan 100 mg tablet 100 mg PO BEDTIME 06/20/24 09/24/25 Unknown History metformin 500 mg tablet 500 mg PO BID 06/20/24 09/24/25 Unknown History omeprazole 20 mg capsule,delayed 20 mg PO DAILY@0630 06/20/24 09/24/25 Unknown History release polyvinyl alcohol 1.4 % eye drops 1 drp ophthalmic (eye) BID-QID PRN 06/20/24 09/25/25 Unknown History (Artificial Tears (polyvinyl Dry Eyes alcohol)) cholecalciferol (vitamin D3) 25 25 mcg PO DAILY 02/06/25 09/25/25 Unknown History mcg (1,000 unit) capsule (Vitamin D3) cetirizine 10 mg tablet 10 mg PO DAILY PRN ALLERGIES 03/06/25 09/24/25 Unknown History levothyroxine 100 mcg tablet 100 mcg PO DAILY@0600 03/06/25 09/24/25 Unknown History lidocaine 5 % topical patch 1 patch topical DAILY PRN NERVE 03/06/25 09/24/25 Unknown History PAIN loperamide 2 mg tablet 2 mg PO TIDWM PRN DIARRHEA 03/06/25 09/24/25 Unknown History PREVENTION melatonin 5 mg tablet 5 mg PO BEDTIME PRN Insomnia 03/06/25 09/24/25 Unknown History simethicone 80 mg chewable tablet 80 mg PO DAILY PRN Gastric Reflux 03/06/25 09/25/25 Unknown History sitagliptin 100 mg tablet 100 mg PO DAILY 03/06/25 09/24/25 10/05/25 History Exam Height,Weight and Vital Signs: Height 6 ft Weight 123.377 kg Last Vital Signs Pulse 62 09/25/25 13:13 Resp 18 09/25/25 13:13 BP 116/58 L 09/25/25 13:13 Pulse Ox 96 09/25/25 13:13 O2 Del Method Room Air 09/25/25 13:13 Pertinent Lab Results Pertinent Lab Results: Lab Results 02/06/25 Range/Units 13:57 WBC 9.0 (4.8-10.8) X10*3/uL RBC 5.33 (4.60-5.80) X10*6/uL Hgb 14.7 (14.0-18.0) g/dl Hct 44.0 (42.0-52.0) % MCV 82.6 (80.0-98.0) fL MCH 27.6 (27.0-33.0) pg MCHC 33.4 (31.0-36.0) g/dl RDW 13.6 (11.0-16.0) % Plt Count 198 (160-400) X10*3/uL MPV 12.8 H (9.4-12.4) fL Absolute Nucleated RBC 0.000 (0.0-0.012) X10*3/uL Nucleated RBC % (auto) 0.0 (0.0-0.2) /100WBC Sodium 143 (135-145) mmol/L Potassium 4.0 (3.3-5.1) mmol/L Chloride 108 (96-108) mmol/L Carbon Dioxide 27 (22-29) mmol/L Anion Gap 12 (12-20) BUN 9 (9-16) mg/dL Creatinine 0.74 (0.5-1.4) mg/dL Estim Creat Clear Calc 124.2 Estimated GFR > 60 Random Glucose 117 H (60-115) mg/dL Estimat Average Glucose 117 mg/dL Hemoglobin A1c % 5.7 (<6.0) % Calcium 9.6 (8.4-10.2) mg/dL Lab Results 09/25/25 Range/Units 13:44 Sodium 145 (135-145) mmol/L Potassium 4.3 (3.3-5.1) mmol/L Chloride 106 (96-108) mmol/L Carbon Dioxide 31 H (22-29) mmol/L Anion Gap 12 (12-20) Narrative Narrative: EKG 01/2025 Vent. Rate : 59 BPM Atrial Rate : 59 BPM P-R Int : 180 ms QRS Dur : 84 ms QT Int : 402 ms P-R-T Axes : 21 43 56 degrees QTcB Int : 397 ms Sinus bradycardia Otherwise normal ECG No previous ECGs available Airway Mallampati Class: III TM Dist: >3cm Neck ROM: Poor Loose/Missing/Broken Teeth: Yes (#8 broken, missing and broken throughout) Heart: RRR Lungs: CTAB - poor effort Assessment and Plan Assessment Anesthesia Assessment: Anesthesia Plan Discussed and PAT Visit Final Anesthetic Review Family History of Problems with Anesthesia: No History of Problems with Anesthesia: No Documented by User: Eric Carreon MD 10/10/25 09:27 [facility] Past Medical History Medical History Arthritis HOONAH (hard of hearing) Elevated cholesterol Sleep apnea GERD (gastroesophageal reflux disease) Hypothyroid Diabetes HTN (hypertension) Cervical myelopathy Lumbar spinal stenosis Sacroiliac joint dysfunction of both sides Myelomalacia of cervical cord Chronic back pain Surgical History Surgical History Hx of cervical discectomy Hx of knee surgery Social History Social History Household Members: Family Household Members Other:: sister Housing: House Are you a primary manager intensive care to a significant other at home: No Do you presently have visiting nurse or 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 If so, by whom?: No Spiritual Healthcare Practices: no Sabianism Healthcare Practices: no Cultural Healthcare Practices: no Are you DNR?: No Advance Directives: No (sister is primary contact) Advance Directives Information Provided: Yes (as abov enoted) Advance Directives on File: No service: No Meds Allergies Allergy/AdvReac Type Severity Reaction Status Date / Time No Known Allergies Allergy Verified 10/10/25 07:12 Home Medications ?Medication ?Instructions ?Recorded ?Confirmed ?Last Taken ?Type amlodipine 10 mg tablet 10 mg PO BEDTIME 06/20/24 09/24/25 Unknown History atorvastatin 40 mg tablet 20 mg PO BEDTIME 06/20/24 09/24/25 Unknown History fluticasone propionate 50 1 spray intranasal DAILY 06/20/24 09/24/25 Unknown History mcg/actuation nasal spray,suspension (Allergy Relief (fluticasone)) gabapentin 300 mg capsule 600 mg PO TID 06/20/24 09/24/25 Unknown History losartan 100 mg tablet 100 mg PO BEDTIME 06/20/24 09/24/25 Unknown History metformin 500 mg tablet 500 mg PO BID 06/20/24 09/24/25 Unknown History omeprazole 20 mg capsule,delayed 20 mg PO DAILY@0630 06/20/24 09/24/25 Unknown History release polyvinyl alcohol 1.4 % eye drops 1 drp ophthalmic (eye) BID-QID PRN 06/20/24 09/25/25 Unknown History (Artificial Tears (polyvinyl Dry Eyes alcohol)) cholecalciferol (vitamin D3) 25 25 mcg PO DAILY 02/06/25 09/25/25 Unknown History mcg (1,000 unit) capsule (Vitamin D3) cetirizine 10 mg tablet 10 mg PO DAILY PRN ALLERGIES 03/06/25 09/24/25 Unknown History levothyroxine 100 mcg tablet 100 mcg PO DAILY@0600 03/06/25 09/24/25 Unknown History lidocaine 5 % topical patch 1 patch topical DAILY PRN NERVE 03/06/25 09/24/25 Unknown History PAIN loperamide 2 mg tablet 2 mg PO TIDWM PRN DIARRHEA 03/06/25 09/24/25 Unknown History PREVENTION melatonin 5 mg tablet 5 mg PO BEDTIME PRN Insomnia 03/06/25 09/24/25 Unknown History simethicone 80 mg chewable tablet 80 mg PO DAILY PRN Gastric Reflux 03/06/25 09/25/25 Unknown History sitagliptin 100 mg tablet 100 mg PO DAILY 03/06/25 09/24/25 10/05/25 History Exam Exam Date and Time: 10/10/2025 Assessment and Plan Final Anesthetic Review NPO: Yes ASA Class: III Final Preanesthetic Review: No Changes in Pt Med Stat, Meds/Allgs Chart Reviewed, Consent Obtained/Reviewed and Anes Risks/Benef Reviewed Patient Risk: Intermediate Procedure Risk: Low Anesthetic Plan Anesthetic Plan: GA Disposition: Standard PACU
[2025-09-25 15:07] LABS: Anion Gap 12 (12-20); Carbon Dioxide 31 mmol/L (22-29); Chloride 106 mmol/L (96-108); Potassium 4.3 mmol/L (3.3-5.1); Sodium 145 mmol/L (135-145)
--- NOTE | 2025-10-09 17:02 | MHC.SHP ---
Pre-Procedural Eval Section A - 24 Hr Update-Section A only Date of Service: 10/10/25 Section B - Complete if H&P > 30 days Chief Complaint: Spinal stenosis, lumbar region without neurogenic Allergies: Allergies Allergy/AdvReac Type Severity Reaction Status Date / Time No Known Allergies Allergy Verified 08/08/25 15:14 Review of Systems Sugical H&P ROS: Negative: Constitution, Cardiovascular, Respiratory, Neurological, Psychiatric, Hem-Onc, Allergic/Immunologic, Gastrointestinal, Genitourinary, Musculoskeletal, Integumentary, Endocrine and Eyes/Ears/Nose/Throat Exam Surgical H&P Exam: Not Evaluated: HEENT, Not Evaluated: Heart, Not Evaluated: Lungs, Not Evaluated: Extremities, Not Evaluated: Abdomen, Not Evaluated: Skin and Not Evaluated: Neurological Exam Comment: The patient is awake, alert, in no acute distress. Proposed surgical incision site is clean, dry, with no signs of recent trauma. Plan Diagnosis/Plan: Unchanged I have reviewed the history and physical and performed a pertinent physical examination on my patient. No changes have occurred unless specified. Plan remains the same, L2-3, L3-4 lumbar decompression. Time Spent With Patient Time: Total time managing care of this patient today __11__ minutes.
[2025-10-10] VITALS (8 sets, daily range): BP systolic 98–145; BP diastolic 38–78; PULSE 59–77; RESP 9–18; TEMP 36.1–36.7; O2SAT 93–97; BMI 37.0
--- NOTE | ~2025-10-10 | FL_ITS ---
EXAMINATION: XR FLUOROSCOPY WITH IMAGES CLINICAL INFORMATION: L2-4 decompression COMPARISON: None available. TECHNIQUE: Fluoroscopy time: 5 seconds DAP: 3.2 mGy Images: 1 FINDINGS: Fluoroscopy provided for procedure. Lateral view demonstrates surgical instruments projected posterior to the lower lumbar spine. No radiologist present. FL/FL guidance in OR IMPRESSION: Fluoroscopy provided for procedure. See procedure report for details. Electronically signed by: Will Sidhu MD 10/11/2025 07:52 AM [facility]
[2025-10-10] MEDS: Lactated Ringers 1,000 ML 100 ML IVCONT (07:27)
[2025-10-10 07:32] LABS: Glucose, Whole Blood 116 mg/dL (60-115)
--- NOTE | 2025-10-10 11:43 | P.OP_ITS ---
Operative Note Operative Note Date of Service: 10/10/25 Narrative: Preoperative Diagnosis: L2-3, L3-4 spinal stenosis/lateral recess stenosis/neural foraminal stenosis Operation: L2-3, L3-4 Laminotomy, Partial facetectomy and foraminotomy with use of microscope Consent Informed Consent was obtained for this operation. I have explained the nature, purpose and benefits of the operation. I have discussed the risks and benefit of the operation including possible complications or adverse events with patient/family. Alternative(s) were discussed with the patient with their relative benefits and risks as well as the consequences of not accepting the operation were included in obtaining consent. Surgeon: LINDSEY RUSSELL MD, PHD Procedure Assisted By: Jimi Schulte Pac Description of Procedure This patient is suffering from left-sided leg pain weakness and back pain. MRI shows severe lumbar stenosis L2-3, L3-4 L3-4. The patient was offered a decompression to address the left leg symptoms. He is aware that it may not help for his back pain. The procedure complications were explained. The patient was consented. The patient was brought to the operating room and endotracheally intubated. The patient was turned in prone position on the Nain frame. Prep and drape was done followed by timeout. The Physician respiratory equipment assistant provided access. A mid lumbar incision was made followed by release of the paravertebral muscle on the left side to expose the L2-3 and L3-4 lamina and facet joints. An intraoperative x-ray was obtained to confirm the correct level. The microscope was brought in. I took over the procedure. The high-speed drill was used to do a left L2-3 laminotomy until flavum ligament was reached. This patient probably had a thick is flavum ligament I have ever seen in my career. When I finally perforate the flavum ligament we ran into epidural lipomatosis before we finally reached the dura. A #2 Kerrison was used to expand the laminotomy near flush to the pedicles and to include a partial facetectomy. The flavum ligament was opened and resected with a #3 Kerrison to decompress the underlying thecal sac. The flavum ligament was removed to decompress the lateral recess and the exiting L4 nerve root. The spinous process was undercut and the decompression was extended contralaterally. In the end finally had a deployment of the thecal sac, which initially was severely compressed and sufficient space for the exiting nerve roots. A long nerve hook could be easily passed along the medial side of the pedicles as a sign of adequate decompression. Then attention was turned to the L3-4 level where a similar situation was encountered. A very thic k ligament was followed by epidural lipomatosis before we reached the dura. This level I only decompress the left side doing a partial facetectomy and removing the flavum ligament that was compressing the left L5 nerve root. The microscope was removed. Hemostasis was done. The physician respiratory equipment assistant close the Incision in 2 layers. Steri-Strips were used to approximate incision. An OpSite with Tegaderm was used to cover the incision. All sponge needle counts were correct. Patient was extubated and transported in stable is to recovery room. Anesthesia: General Estimated Blood Loss (ml): 70 Complications: None Duration of Surgery: 90 minutes Postoperative Plan: Discharge to home
--- NOTE | 2025-10-10 12:02 | PM.DS ---
DS: Providers Provider Date of Service: 10/10/25 Date of discharge: 10/10/25 Primary care physician: Unknown Physician DS: Summary Time Attestation Discharge Coordination Time (in mins): 12 Quality: Safe Use of Opioids Does Pt have an Active Cancer Diagnosis on the Problem List?: No Quality: Stroke Does the patient have a stroke diagnosis?: No Physical Exam Vital Signs: Vital Signs: Last Vital Signs Temp 98.1 F 10/10/25 07:50 Pulse 65 10/10/25 07:50 Resp 18 10/10/25 07:50 BP 145/78 H 10/10/25 07:50 Pulse Ox 96 10/10/25 07:50 O2 Del Method Room Air 10/10/25 07:50 BMI result Body Mass Index 37.0 DS: Data Data Completed and Pending Completed studies during hospitalization [Text1]: Procedures Excision of Cervical Vertebral Disc, Open Approach (03/06/25) Fusion of 2 or more Cervical Vertebral Joints with Interbody Fusion Device, Anterior Approach, Anterior Column, Open Approach (03/06/25) Labs on day of discharge: Laboratory Results - last 24 hr 10/10/25 07:24 POC Glucose 116 H Discharge Plan Discharge Patient Disposition: Home, Self-Care Referrals: Physician,Unknown J [Primary Care Provider, Medical] - 1 Week Discharge Medications: New oxycodone 5 mg tablet 5 mg PO Q6H PRN (Reason: pain) Qty: 30 0RF Rx Instructions: Partial Fill upon patient request. Continued cholecalciferol (vitamin D3) [Vitamin D3] 25 mcg (1,000 unit) Capsule 25 mcg PO DAILY cetirizine 10 mg Tablet 10 mg PO DAILY PRN (Reason: ALLERGIES) levothyroxine 100 mcg Tablet 100 mcg PO DAILY@0600 lidocaine 5 % Adhesive Patch,Medicated 1 patch TOPICAL DAILY PRN (Reason: NERVE PAIN) Rx Instructions: leave on most painful area for up to 12 hrs loperamide 2 mg Tablet 2 mg PO TIDWM PRN (Reason: DIARRHEA PREVENTION) Rx Instructions: TAKE BEFORE MEALS TO PREVENT DIARRHEA simethicone 80 mg Tablet,Chewable 80 mg PO DAILY PRN (Reason: Gastric Reflux) melatonin 5 mg Tablet 5 mg PO BEDTIME PRN (Reason: Insomnia) sitagliptin 100 mg Tablet 100 mg PO DAILY docusate sodium [Colace] 100 mg capsule 100 mg PO BID Qty: 20 0RF amlodipine 10 mg tablet 10 mg PO BEDTIME polyvinyl alcohol [Artificial Tears (polyvin alc)] 1.4 % drops 1 drp ophthalmic (eye) BID-QID PRN (Reason: Dry Eyes) atorvastatin 40 mg tablet 20 mg PO BEDTIME fluticasone propionate [Allergy Relief (fluticasone)] 50 mcg/actuation spray,suspension 1 spray intranasal DAILY Rx Instructions: administer into each nostril gabapentin 300 mg capsule 600 mg PO TID losartan 100 mg tablet 100 mg PO BEDTIME metformin 500 mg tablet 500 mg PO BID omeprazole 20 mg capsule,delayed release(DR/EC) 20 mg PO DAILY@0630 Discontinued oxycodone 10 mg tablet 10 mg PO Q6H PRN (Reason: pain) Qty: 28 0RF Discharge Orders: Discharge Order (Routine); Ordered 10/10/25 Ordered By: Jimi Schulte Diet: Advance to usual diet Activity on Discharge: As tolerated Activity Restrictions/Additional Instructions: After your spinal surgery we ask you to observe the following restrictions/guidelines: Activity: It is normal to feel some discomfort as you increase your activity, but that will improve with time. We ask you avoid heavy lifting or acitivities that cause pain. As a general rule, 8lbs is a safe limit for lifting right after surgery. Walk as much as you feel comfortable but not to exhaustion. You will feel extra tired the first few days after surgery. Stay well hydrated. It is OK to walk up and down stairs You may return to driving when you are off narcotics (such as vicodin, oxycodone, dilaudid, etc), and you are back to normal functional capacity. If you have any concerns please check with office before driving. Return to work is specific to each patient and each surgery, so please speak with your doctor/PA at first follow up. Please bring paperwork such as FMLA at that time if you need it filled out. Medications: We recommend you take 500mg Tylenol every 4 hours for the first week after surgery, if you do not have any liver issues and can tolerate this medication. Do not exceed 4,000mg daily. We also recommend you take Ibuprofen 600mg every 8 hours for the first week after surgery starting on post op day 1, ?if you do not have any kidney or sugar control issues and can tolerate this medication. Do not exceed 2,000mg daily. We will give you a short supply of narcotics after surgery (usually one weeks worth). If you need more please call the office but do not use more than prescribed. You will need to give our office 48 hours notice if you need narcotics refilled and we do not fill narcotics on weekends or evenings. If you are on a narcotic, it is a good idea to take a stool softener such as colace or senna to avoid constipation If you take blood thinner such as aspirin, Plavix, Coumadin, Effient, Eliquis etc for conditions such as Afib, DVT, Pulmonary embolus, coronary disease, stents etc please speak with your surgeon about specific details as to when you can resume these medications. You can resume NSAIDs on post op day 1 (eg: Motrin, Naproxen, etc). Follow up: Please call the office, , after surgery to arrange a 3 week follow up for wound check. Wound Care: You may remove your dressing on the first day after surgery. ?You may ?leave open to air. Please do not remove the steri strips underneath. they will fall off on their own in one week. IT IS NORMAL FOR THE WOUND TO OOZE OR BE BLOODY FOR A FEW DAYS AFTER SURGERY. ?IF THIS HAPPENS JUST PLACE NEW DRESSING OVER IT TO AVOID STAINING CLOTHES. You may shower on post op day # 1 We ask that you do not let the water soak the wound. If it does get wet, just towel dry lightly. Please do not scrub your incision or place any type of chemical/ointment on the wound. No tub baths, pools or jacuzzis for one month. If you have any leaking or redness from your wound, or fevers, please call the office. Print Language: Wallisian
== END 2025-10-10 13:51 | disposition home or self-care (01) ==
PROVIDERS: Nurse Practitioner; Visit Provider Neurological Surgery
PROC: (CPT 63047; principal; 2025-10-10 09:30)
DX: M48.062 Spinal stenosis, lumbar region with neurogenic claudication (principal); G89.29 Other chronic pain; M79.605 Pain in left leg; R26.2 Difficulty in walking, not elsewhere classified; M53.3 Sacrococcygeal disorders, not elsewhere classified; G47.33 Obstructive sleep apnea (adult) (pediatric); I10 Essential (primary) hypertension; E78.00 Pure hypercholesterolemia, unspecified; E11.9 Type 2 diabetes mellitus without complications; E03.9 Hypothyroidism, unspecified; Z79.51 Long term (current) use of inhaled steroids; Z79.84 Long term (current) use of oral hypoglycemic drugs; Z79.899 Other long term (current) drug therapy; Z99.89 Dependence on other enabling machines and devices; Z98.890 Other specified postprocedural states
CPT/HCPCS: 63047; 63048; 36415; 80051; 82947; J0131; J0690; J1100; J1171; J1596; J1885; J2003; J2250; J2371; J2405; J2704; J3010

== ENCOUNTER → 2025-10-10 06:55 | Outpatient (BNV) | payer MEDICARE, MEDICAID, SELFPAY | PROVIDERS: Visit Provider Neurological Surgery | DX: M48.062 Spinal stenosis, lumbar region with neurogenic claudication (principal) | CPT/HCPCS: 63047; 63048; 99499 ==